=== PATIENT | female | born 1995 | race Caucasian/White ===

== ENCOUNTER 2025-07-13 17:03 | Outpatient (OUT) | payer BC, OTHER, SELFPAY ==
--- OUTSIDE RECORDS SUMMARY | 2025-06-30 16:00 | XMS_ITS | Encounter Summary ---
Author Organization [facility] Address [address] [place] [address] Care Team Providers Care Customer Solutions Representative Name Role Phone Radha Dong MD Primary Care Provider [phone] Charissa Glover DINING ROOM ATTENDANT Unavailable Encounter Details Date Type Department Care Team (Latest Contact Info) Description 06/30/2025 4:00 PM EDT Routine [facility] [address] [place] [address] Rosalind Mendoza, ARLINE [address] [place] [address] Itching (Primary Dx); NST (non-stress test) reactive ([facility]); History of gestational diabetes; Encounter for care of first , third trimester ([facility]) Social History Tobacco Use Types Packs/Day Years Used Date Smoking Tobacco: Former Cigarettes Smokeless Tobacco: Never Alcohol Use Standard Drinks/Week Comments Not Currently 4 (1 standard drink = 0.6 oz pure alcohol) caffeine 1-2 cups per day; drinks alcohol 2-4 times a month B1300 Health Literacy Answer Date Recor ded How often do you need to hav e someone help you when you read instructions, pamphlets, or other written material from your doctor or pharmacy? Never 07/29/2024 Humiliation, Afraid, Rape, and Kick questionnair e Answer Date Recorded Within the last year, have y ou been afraid of your partner or ex-partner? No 05/18/2023 Within the last year, have y ou been humiliated or emotionally abused in other ways by your partner or ex-partner? No Within the last year, have y ou been kicked, hit, slapped, or otherwise physically hurt by your partner or ex-partner? No 05/18/2023 Within the last year, have y ou been raped or forced to have any kind of sexual activity by your partner or ex-partner? No 05/18/2023 Social Connection and Isolat ion Panel [NHANES] Answer Date Recorded In a typical week, how many times do you talk on the phone with family, friends, or neighbors? More than three times a week 07/29/2024 How often do you get togethe r with friends or relatives? More than three times a week 07/29/2024 How often do you attend chur or spiritism services? More than 4 times per year 07/29/2024 Do you belong to any clubs o r organizations such as buddhism groups, unions, fraternal or athletic groups, or school groups? No 07/29/2024 How often do you attend meet ings of the clubs or organizations you belong to? Never 07/29/2024 Are you , , di vorced, , never , or living with a partner? Living with partner 07/29/2024 AUDIT-C Answer Date Recorded Q1: How often do you have a drink containing alc ohol? 2-4 times a month 07/29/2024 Q2: How many drinks containi ng alcohol do you have on a typical day when you are drinking? 1 or 2 07/29/2024 Q3: How often do you have si x or more drinks on one occasion? Never 07/29/2024 Overall Financial Resource Strain (CARDIA) Answe r Date Recorded How hard is it for you to pa y for the very basics like food, housing, medical care, and heating? Not hard at all 07/29/2024 [facility] [place] [facility] Occupat ional Health - Occupational Stress Questionnaire Answer Date Recorded Do you feel stress - tense, restless, nervous, or anxious, or unable to sleep at night because your mind is troubled all the time - these days? Not at all 07/29/2024 Exercise Vital Sign Answer Date Recorde d On average, how many days pe r week do you engage in moderate to strenuous exercise (like a brisk walk)? 7 days 07/29/2024 On average, how many minutes do you engage in exercise at this level? 30 min 07/29/2024 Hunger Vital Sign Answer Date Recorded Within the past 12 months, y ou worried that your food would run out before you got the money to buy more. Never true 07/29/20 24 Within the past 12 months, t he food you bought just didn't last and you didn't have money to get more. Never true 07/29/2024 PRAPARE - Transportation Answer Date Re corded In the past 12 months, has l ack of transportation kept you from medical appointments or from getting medications? No 10/2023 In the past 12 months, has l ack of transportation kept you from meetings, work, or from getting things needed for daily living? No 07/29/2024 Housing Stability Vital Sign Answer Gary e Recorded In the last 12 months, was t here a time when you were not able to pay the mortgage or rent on time? No 05/18/2023 In the last 12 months, how many places have you lived? 1 05/18/2023 In the last 12 months, was t here a time when you did not have a steady place to sleep or slept in a alf (including now)? No 05/18/2023 Housing Stability Vital Sign Answer Gary e Recorded In the last 12 months, was t here a time when you were not able to pay the mortgage or rent on time? No 07/29/2024 In the past 12 months, how m any times have you moved where you were living? 0 07/29/2024 At any time in the past 12 m [facility], were you homeless or living in a alf (including now)? No 07/29/2024 Estimated Date of Delivery Comme nts Yes 08/13/2025 Based on last me nstrual period of 11/06/2024 (Exact Date) Sex and Gender Information Value Date Recorded Sex Assigned at Female 05/18/2023 2:07 PM EDT Legal Sex Female 8:11 PM EDT Gender Identity Female 05/18/2023 2:07 PM EDT Sexual Orientation Straight 05/18/2023 2: 07 PM EDT documented as of this encounter Last Filed Vital Signs Vital Sign Reading Time Taken Comments Blood Pressure - - Pulse - - Temperature - - Respiratory Rate - - Oxygen Saturation - - Inhaled Oxygen Concentration - - Weight 87.5 kg (193 lb) 06/30/2025 3:57 PM EDT Height - - Body Mass Index 34.19 07/29/2024 11:21 AM EDT documented in this encounter Progress Notes * Rosalind Mendoza CNM - 06/30/2025 4:00 PM EDT Subjective No chief complaint on file. Martha Dejesus is a 30 y.o. at 33w5d with a working estimated date of delivery of 08/13/2025, by Last Menstrual Period who presents for a routine visit. She denies vaginal bleeding, leakage of fluid, decreased movements, or contractions. OB History Para Term AB Living 1 SAB IAB Ectopic Multiple Live Births # Outcome Date GA Lbr Freedom/2nd Weight Sex Type Anes PTL Lv 1 Current Her is complicated by: GDM, itching Objective Physical Exam Weight: 193 lb Expected Total Weight Gain: 15 lb-25 lb Pregravid BMI: 29.94 Urine protein- Urine glucose- Assessment/Plan Diagnoses and all orders for this visit: Itching - Hepatic function panel - Lipase; Future - Bile acids, total - Amylase; Future - ursodiol (Caron Forte) 500 MG tablet; Take 0.5 tablets (250 mg) by mouth in the morning and 0.5 tablets (250 mg) before bedtime. NST (non-stress test) reactive ([facility]) History of gestational diabetes Encounter for care of first , third trimester ([facility]) Continue vitamin. Labs reviewed. GBS taken. Expected mode of delivery Follow up in 1 week for a routine visit. documented in this encounter Plan of Treatment Upcoming Encounters Date Type Department Care Team (Late st Contact Info) Description 07/15/2025 11:10 AM EDT Routine [facility] [place] [facility] [address] [place] [address] [place] [address] Gavi, Vicente, [address] [place] [address] 07/16/2025 4:15 PM EDT Ancillary Procedure [facility] [place] [facility] [address] [place] [address] 07/23/2025 4:00 PM EDT Ancillary Procedure [facility] [place] [facility] [address] [place] [address] 07/27/2025 4:30 PM EDT Routine [facility] [place] [facility] [address] [place] [address] Rosalind Mendoza, KIMM [address] [place] [address] 07/30/2025 4:15 PM EDT Ancillary Procedure [facility] [place] [facility] [address] [place] [address] 08/06/2025 4:15 PM EDT Ancillary Procedure [facility] [place] [facility] [address] [place] [address] 08/10/2025 4:30 PM EDT Routine [facility] [place] [facility] [address] [place] [address] Rosalind Mendoza CNM [address] [place] [address] documented as of this encounter Procedures Procedure Name Priority Date/Time Associated Diagnosis Comments BILE ACIDS, TOTAL Routine 06/30/2025 4:1 1 PM EDT Itching LIPASE Routine 06/30/2025 4:11 PM EDT Itching AMYLASE Routine 06/30/2025 4:11 PM EDT Itching HEPATIC FUNCTION PANEL Routine 06/30/2025 4:11 PM EDT Itching documented in this encounter Results * Amylase (06/30/2025 4:11 PM EDT) AMYLASE 40 21 - 101 U/L [facility] Blood Venous blood specimen / Unknown 06/30/2025 4:11 PM EDT 06/30/2025 4:12 PM EDT Narrative Resulting Agency Comment Performing Organization Information Site ID: QPT Name: [facility] Address: [address] [place] [address], [address] [place] [address] Director: Stevie Doan MD us Rosalind Danielle [facility]endo[facility] BLOOD ORDERABLES Final R esult Performing Organization Address [facility] Co de Phone Number [facility] * Bile acids, total (06/30/2025 4:11 PM EDT) BILE ACIDS, TOTAL 6 0 - 10 umol/L [facility] Blood Venous blood specimen / Unknown 06/30/2025 4:11 PM EDT 06/30/2025 4:12 PM EDT Narrative Resulting Agency Comment Performing Organization Information Site ID: AMD Name: [facility] Address: [address] [place] [address] [place] [address] Director: Anthony De La Paz M.D.,PhD us Rosalindgracie Mendoza [facility] BLOOD ORDERABLES Final R esult Performing Organization Address [facility] Co de Phone Number [facility] * Lipase (06/30/2025 4:11 PM EDT) LIPASE 38 7 - 60 U/L [facility] Blood Venous blood specimen / Unknown 06/30/2025 4:11 PM EDT 06/30/2025 4:12 PM EDT Narrative Resulting Agency Comment Performing Organization Information Site ID: QPT Name: [facility] Address: [address] [place] [address], [address] [place] [address] Director: Stevie Doan MD Rosalind Danielle [facility] LAB BLOOD ORDERABLES Final R esult [facility] * (ABNORMAL) Hepatic function panel (06/30/2025 4:11 PM EDT) PROTEIN, TOTAL 6.0(L) 6.1 - 8.1 g/dL [facility] ALBUMIN 3.3(L) 3.6 - 5.1 g/dL [facility] GLOBULIN 2.7 1.9 - 3.7 g/dL (calc) [facility] ALBUMIN/GLOBULIN RATIO 1.2 1.0 - 2.5 (calc) [facility] BILIRUBIN, TOTAL 0.2 0.2 - 1.2 mg/dL [facility] BILIRUBIN, DIRECT 0.0 < OR = 0.2 mg/dL [facility] BILIRUBIN, INDIRECT 0.2 0.2 - 1.2 mg/dL (calc) [facility] ALKALINE PHOSPHATASE 105 31 - 125 U/L [facility] AST 11 10 - 30 U/L [facility] ALT 11 6 - 29 U/L [facility] Blood Venous blood specimen / Unknown 06/30/2025 4:11 PM EDT 06/30/2025 4:12 PM EDT Narrative Resulting Agency Comment Performing Organization Information Site ID: QPT Name: [facility] Address: [address] [place] [address], [address] [place] [id number] Director: Stevie Doan MD Rosalind Danielle Charlton[facility] CN LAB BLOOD ORDERABLES Final R esult [facility] documented in this encounter Visit Diagnoses Diagnosis Itching- Primary Unspecified pruritic disorder NST (non-stress test) reactive ([facility]) state, incidental History of gestational diabetes Personal history of other genital system and obstetric disorders Encounter for care of first , third trimester ([facility]) documented in this encounter Care Teams Customer Solutions Representative Relationship Specialty Start Date End Date Radha Dong MD [address] [place] [address] PCP - General Family Medicine 05/19/23 Charissa Glover NP PCP - [employer] 01/27/25 documented as of this encounter
--- OUTSIDE RECORDS SUMMARY | 2025-07-01 14:30 | XMS_ITS | Encounter Summary ---
Author Organization [facility] tem Address [id number] [address] [place] [address] Care Team Providers Care Powder Monkey Name Role Phone Melia Henriquez HOUSE BUILDER-COMPUTER FIELD TECHNICIAN Primary Care Provider [phone] Reason for Referral * Consultation (Routine) - Pending Review Specialty Diagnoses / Procedures Referred By Angelina bond Referred To Contact Dermatology Diagnoses Blister of hand without infection, unspecified laterality, subsequent encounter Dyshidrotic eczema Dorita Retana MD [address] [place] [address] Phone: tel: fax: Tiara Hawkins DO [address] [facility] [address] [place] [address] Phone: tel: fax: Referral ID Status Reason Start Date Expiration Date Visits Requested Visits Authorized [id number] Pending Review Specialty Services Required 07/01/2025 07/01/2026 1 1 Reason for Visit * Reason Comments GDM, med start Encounter Details Date Type Department Care Team ([facility] st Contact Info) Description 07/01/2025 2:30 PM EDT Office Visit Maternal- Medicine at [facility] [address] [place] [id number] Dorita Retana MD [address] [place] [address] Insulin controlled gestational diabetes mellitus (GDM) during , antepartum (Primary Dx); Blister of hand without infection, unspecified laterality, subsequent encounter; Dyshidrotic eczema; Obesity affecting in third trimester, unspecified obesity type; 33 weeks gestation of Social History Tobacco Use Types Packs/Day Years Used Date Smoking Tobacco: Former Cigarettes Passive Smoke Exposure: Past Smokeless Tobacco: Never Tobacco Cessation:Counseling Given: Not Answered Alcohol Use Standard Drinks/Week Comments Not Currently 0 (1 standard drink = 0.6 oz pur e alcohol) Childcare Answer Date Recorded Childcare Unknown 04/09/2019 Employment Answer Date Recorded Employment Unknown 04/09/2019 Hunger Screening Answer Date Recorded Within the past 12 months we worried whether our food would run out before we got money to buy more. Never True 11/25/2023 Within the past 12 months th e food we bought just didn't last and we didn't have money to get more. Never True 11/25/2023 Estimated Date of Delivery Comme nts Yes 08/13/2025 Based on last me nstrual period of 11/06/2024 Sex and Gender Information Value Date Recorded Sex Assigned at Not on file Legal Sex Female 3:58 PM EDT Gender Identity Not on file Sexual Orientation Not on file documented as of this encounter Last Filed Vital Signs Vital Sign Reading Time Taken Comments Blood Pressure 127/75 07/01/2025 2:21 PM EDT Pulse 83 07/01/2025 2:21 PM EDT Temperature - - Respiratory Rate - - Oxygen Saturation - - Inhaled Oxygen Concentration - - Weight 86.3 kg (190 lb 3.2 oz) 07/01/2025 2:21 P M EDT Height 160 cm (5' 2.99 ) 07/01/2025 2:21 PM EDT Body Mass Index 33.7 07/01/2025 2:21 PM EDT documented in this encounter Progress Notes * Marci Vences LPN - 07/01/2025 2:30 PM EDT Headache/epigastric pain/blurry vision/swelling? No Cramping/contractions? No Spotting/vaginal bleeding? No Loss or gush of fluid like your water may have broken? No Do you have cats at home? Yes Do you change the litter box (reason: risk of toxoplasmosis)? Yes, educated on avoiding if possible, wearing mask and gloves and good hand washing. Indoor cats. Genetic testing done this here or other office? No Have you been seen here at [facility] in a previous ? N/A Recent ER visits or hospitalizations? No Bring blood sugar log or meter with you today? (Please bring them with you for every visit at [facility]) Yes Flu vaccine (Aug-December)? N/A Any concerns that you would like me to mention to the provider today? Itching on hands and feet, sent for labs yesterday drawn through [facility] new order for Ursodiol 250mg BID. Verbal permission received for us to obtain results. * Dorita Retana MD - 07/01/2025 2:30 PM EDT Images from the original note were not included. REASON FOR CONSULTATION: Gestational diabetes HISTORY OF PRESENT ILLNESS: Martha Dejesus is a pleasant 30 y.o. at 33w6d due on EstimatedDate of Delivery: 08/13/25. complicated by: GDMA, 05/12/2025 A1c 4.8% Obesity affecting Pruritus of hands and feet with associated tiny vesicles, likely acute palmoplantar eczema Review of blood glucose logs with fastings elevated 50% of time. Today, the patient is doing well. She continues to report intense itching of the hands and feet that is started about 2 weeks ago. This is acute onset. The itching is associated with tiny vesicles with clear fluid that are tense and primarily located in the lateral aspect of the hands. Primary OB yesterday suspected intrahepatic cholestasis of , labs pending include bile acids and hepatic panel. Patient was prescribed ursodiol, has not yet picked up prescription. She denies headaches, vision changes, nausea, vomiting, right upper quadrant or epigastric pain, SOB or chest pain. She denies contractions, vaginal bleeding, leaking of fluid. She reports good fetalmovement. Aneuploidy screening: none Carrier screening: I have reviewed the pertinent available patient records including but not limited to notes, labs and images. PAST OBSTETRICAL HISTORY: OB History Para Term AB Living 1 0 0 0 0 SAB IAB Ectopic Multiple Live Births 0 0 0 # Outcome Date GA Lbr Freedom/2nd Weight Sex Type Anes PTL Lv 1 Current MEDICAL HISTORY: Past Medical History: Diagnosis Date Hx of Cystitis SURGICAL HISTORY: History reviewed. No pertinent surgical history. FAMILY/GENETIC HISTORY: Family History Problem Relation Age of Onset Diabetes Paternal Grandfather Kidney disease Paternal Grandfather Cancer Paternal Grandmother breast cancer postmenopausal Hypertension Mother Eczema Mother Hypertension Brother Diabetes Brother Insulin resistant on metformin Diabetes Sister T1DM Autoimmune disease Sister Autism Neg Hx Developmental delay Neg Hx Down syndrome Neg Hx Bleeding Disorder Neg Hx Clotting disorder Neg Hx Heart defect Neg Hx Sudden Neg Hx SOCIAL HISTORY: Social History Tobacco Use Smoking status: Former Types: Cigarettes Passive exposure: Past Smokeless tobacco: Never Vaping Use Vaping status: Former Substances: Nicotine Devices: Disposable Substance Use Topics Alcohol use: Not Currently Drug use: Never ALLERGIES: No Known Allergies CURRENT MEDICATIONS: Current Outpatient Medications: alcohol swabs (ALCOHOL WIPES) pads, medicated, Apply 1 each topically in the morning and 1 each at noon and 1 each in the evening and 1 each before bedtime. Use to clean finger before every glucose check ., Disp: , Rfl: blood-glucose meter misc, 1 each by miscellaneous route in the morning and 1 each at noon and 1 each in the evening and 1 each before bedtime. Use to check blood glucose 4 times daily., Disp: , Rfl: 115/iron/folic acid ( 19 ORAL), Take by mouth., Disp: , Rfl: ursodioL (OMAR FORTE) 500 mg tablet, Take 0.5 tablets (250 mg total) by mouth in the morning and 0.5 tablets (250 mg total) before bedtime., Disp: , Rfl: ondansetron ODT (ZOFRAN ODT) 4 mg disintegrating tablet, Dissolve 1 tablet (4 mg total) on tongue every 8 (eight) hours as needed for nausea for up to 10 doses. (Patient not taking: Reported on 07/01/2025), Disp: 10 tablet, Rfl: 0 RECENT HOSPITALIZATION: none HABITS: Patient activity no restrictions, diet no restrictions REVIEW OF SYSTEMS: Head and Neck: Negative for any dizziness and headaches. Cardiovascular and Respiratory System: Denies any chest pain, shortness of breath, and coughing. Abdominal and System: Denies any abdominal pain, nausea, vomiting, vaginal bleeding, and vaginal discharge REVIEW OF TESTS AND ULTRASOUND REPORTS: Referral records and [facility] chart were reviewed Pertinent Ultrasound findings are see formal ultrasound report. PHYSICAL EXAMINATION: BP 127/75 (BP Site: Left Arm, BP Postition: Sitting) Pulse 83 Ht 160 cm (5' 2.99 ) Wt 86.3 kg (190 lb 3.2 oz) LMP 11/06/2024 BMI 33.70 kg/m?? Well-appearing in no distress. Respirations not labored, speaking comfortably in full sentences Gravid abdomen OVERALL ASSESSMENT -Martha Dejesus is a pleasant 30 y.o. at 33w6d -GDM A2 -obesity affecting -pruritus of hands and feet, likely acute palmar plantar eczema COUNSELING/MEDICAL DECISION-MAKING GDMA Gestational diabetes is a is a state of carbohydrate intolerance with subsequently insulin resistance and hyperglycemia. This is a malfunction or dysfunction of glucose sensors in the liver with inappropriate release of glucose followed by hyperinsulinemia followed by normal insulin secretion and th en relatively deficiency in insulin secretion resulting in both hyperglycemia and associated hypertriglyceridemia. This along with placental hormones such as human placental lactogen and TNF alpha cause hyperglycemia. The patient eventually develops insulin resistance and hyperglycemia, thus the patient's insulin is not sufficient to achieve a normal glycemic state. I informed the patient that maternal hyperglycemia results in hyperglycemia leading to adverse outcomes in the growth and development. We reviewed the implications and risks of diabetes in . Diabetes in is associated with poorer outcomes if blood glucose levels are not well controlled. Potential effects of uncontrolled diabetes , or hyperglycemia, include: maternal risks (abnormal labors, prolonged labors, delivery, hemorrhage), risks (LGA profile, shoulder dystocia, stillbirth, delayed lung maturation) and subsequent risks ( hypoglycemia, polycythemia, hyperbilirubinemia with jaundice, seizures) In addition, women with diabetes in are at increased risk of developing hypertension diseases in ,such as gestational hypertension, or preeclampsia. Patient was explained that the high risk of shoulder dystocia in fetuses with EFW 4500 gm or higher. Long-term risk to offspring from poor maternal glycemic control include: obesity, cardiovascular disease, impaired glucose tolerance and Type 2 diabetes. Treatment for diabetes in : Lifestyle modification with a healthy diet and increasing physical activity can help manage hyperglycemia, and is therefore always encouraged. We briefly discussed diet modifications and physical activity. The mainstay of pharmacotherapy for the treatment of diabetes in remains insulin. Oral hypoglycemics, such as metformin, both cross the placenta and are more likely to fail compared to insulin. longterm data on children whose mothers took oral hypoglycemic agents while is limited. Medication is typically initiated when >20-30% of the blood glucose values in one week are outof range. Risks and side effects of both insulin and oral agents were discussed. In discussion of the above, patients opts to initiate insulin. Glucose goals in : Fasting 60 - 95: Mean fasting glucose values are important in managing diabetes in women because they provide overall glycemic estimate, and are predictive of increased fat mass in the women???s offspring. Increased fat mass has been shown to be associated with the development of childhood obesity, and diabetes. One hour postprandial 90 - 140: Postprandial measurements are important in management of diabetes in because they are associated with incidence of large for gestational age infants, and lower rates of delivery for cephalopelvic disproportion when well controlled. Pruritus of hands and feet, likely acute palmar plantar eczema The itching is associated with tiny vesicles with clear fluid that are tense and primarily located in the lateral aspect of the hands. Primary OB yesterday suspected intrahepatic cholestasis of , labs pending include bile acids and hepatic panel. Patient was prescribed ursodiol, has not yet picked up prescription. We reviewed the differential of acute onset pruritus of hands and feet in which includes intrahepatic cholestasis of . However intrahepatic cholestasis of has a diagnosisof exclusion and is not associated with visible lesions including vesicles. The most likely etiology for the patient's pruritus of hands and feet is acute palmar plantar eczema. This typically presents as acute onset intense pruritus with lesions of tiny vesicles on lateral aspects of fingers, which she is consistent with the patient's history and exam findings (see above). We reviewed avoiding irritants including changing to soft detergents and non fragrance lotions. Given the intense itching,I initiated patient on clobetasol ointment 0.5%. In addition, referral to Dermatology was placed. We discussed that though ICP remains in the differential, this is unlikely. The pruritus in ICP canprecede the rise in serum bile acid levels by several weeks. Without confirmed elevated bile acids,I do not recommend starting ursodiol. If UDCA is started empirically at the time testing is performed and before the results are available, it is possible that elevated bile acid levels or transaminase levels may never be detected. UMMARY/RECOMMENDATION: Initiated on lantus 10 units nightly Recommend monitoring fingersticks 4 times daily, fasting and 1 hour postprandials Send in blood glucose logs for review weekly Discontinued ursodiol Laboratory workup pending including hepatic panel and bile acids Initiated on clobetasol 0.5% ointment for suspected acute palmar plantar eczema If symptoms do not improve with the clobetasol, repeat bile acids in 2 weeks, through primary OB Anatomy ultrasound with MFM and growth ultrasound to be scheduled Recommend serial growth ultrasounds every 4 weeks Recommend weekly testing, through primary OB Delivery recommendations : Recommend delivery at [id number] Discuss delivery if estimated weight is >4500g Use 1/2 dose of insulin the night before her planned delivery. Monitor patient's BG every 4hrs during latent labor, every 1 hr during active labor with goal BG maricarmen less than 140mg/dl. Can use insulin sliding scale prn hyperglycemia. Once delivered, check bloodglucose fasting and 1hr post prandial, with goal of 100-130mg/dl for fasting and <180mg/dl for random or post prandial blood glucose levels Obtain a 2-hour GTT 6-8 weeks . Also recommend yearly evaluation of blood glucose as patient is at an increased risk of developing diabetes later on. Follow up in [facility] in 2-3 weeks DISPOSITION: At this point the patient is in complete care of her development mgr. Patient does have ultrasound and office visit scheduled with us. Thank you for allowing me to participate in the care of Martha Dejesus. If there any questions please do not hesitate to contact us. Dorita Retana MD Maternal- Medicine [facility] [address] [place] [address] This document was created with [employer] technology. Though I make every effort to review the dictation as it is transcribed, on occasion the spoken word can be misinterpreted by the technology leading to inappropriate words, phrases, or sentences. This note is addressed to the requesting provider as a consultation for clinical guidance. Specificmedical abbreviations are occasionally used and those are generally approved by the [place]?Board of?Obstetrics and?Gynecology?as well as?Darline???s abbreviations. The above plan of care was based solely on the diagnoses for which a consultation was requested. ?More frequent testing may be indicated based on her other medical/obstetrical conditions. The management of other or medical conditions is beyond the scope of requested consultation and will c ontinue to be followed by the primary development mgr or primary care provider. Note to patient: The Cures Act makes medical notes like these available to patients inthe interest of transparency. However, be advised this is a medical document. It is intended as peer to peer communication. It is written in medical language and may contain abbreviations or verbiagethat are unfamiliar. It may appear blunt or direct. Medical documents are intended to carry relevant information, facts as evident, and the clinical opinion of the practitioner. documented in this encounter Plan of Treatment Upcoming Encounters Date Type Department Care Team (Late st Contact Info) Description 07/21/2025 8:00 AM EDT Office Visit Maternal- Medicine at [facility] [address] [place] [phone] Dorita Retana MD [address] [place] [address] 07/28/2025 9:15 AM EDT Appointment [facility] - Ultrasound [address] [place] [address] Scheduled Referrals Name Type Priority Associated Diagnoses Order Schedule Ambulatory referral to Dermatology (Non-[facility]) Outpatient Referral Routine Blister of hand without infection, unspecified laterality, subsequent encounter Dyshidrotic eczema 1 Occurrences starting 07/01/2025 until 07/01/2026 documented as of this encounter Visit Diagnoses Diagnosis Insulin controlled gestational diabetes mellitus (GDM) during , antepartum- Primary Blister of hand without infection, unspecified laterality, subsequent encounter Dyshidrotic eczema Obesity affecting in third trimester, unspecified obesity type 33 weeks gestation of documented in this encounter Care Teams Powder Monkey Relationship Specialty Start Date End Date Melia Henriquez APRN-COMPUTER FIELD TECHNICIAN [address] [place] [address] PCP - General Nurse Practitioner 11/25/23 documented as of this encounter
--- OUTSIDE RECORDS SUMMARY | 2025-07-02 16:15 | XMS_ITS | Encounter Summary ---
Author Organization [facility] Address [address] [place] [address] Care Team Providers Care Typewriter Ribbon Winder Name Role Phone Radha Dong MD Primary Care Provider [phone] Charissa Glover SIGNAL CIRCUIT DESIGNER Unavailable Encounter Details Date Type Department Care Team (Latest Contact Info) Description 07/02/2025 4:15 PM EDT Ancillary Procedure [facility] [address] [place] [address] Diet controlled gestational diabetes mellitus (GDM) in third trimester ([facility]) Social History Tobacco Use Types Packs/Day Years [...] How often do you attend chur or samaritan services? More than 4 times per year 07/29/2024 Do you belong to any clubs o r organizations such as anabaptist groups, unions, fraternal or athletic groups, or [...] and heating? Not hard at all 07/29/2024 [facility] - Occup[facility] Stress [...] place to sleep or slept in a residential (including now)? No 05/18/2023 Housing Stability Vital Sign Answer Gary e Recorded In the last 12 months, was t here a time when you were not able to pay the mortgage or rent on time? No 07/29/2024 In the past 12 months, how m any times have you moved where you were living? 0 07/29/2024 At any time in the past 12 m [facility], were you homeless or living in a residential (including now)? No 07/29/2024 Estimated Date of Delivery Comme nts Yes 08/13/2025 Based on last me nstrual period of 11/06/2024 (Exact Date) Sex and Gender Information Value Date Recorded Sex Assigned at Female 05/18/2023 2:07 PM EDT Legal Sex Female 8:11 PM EDT Gender Identity Female 05/18/2023 2:07 PM EDT Sexual Orientation Straight 05/18/2023 2: 07 PM EDT documented as of this encounter Plan of Treatment Upcoming Encounters Date Type Department Care Team (Late st Contact Info) Description 07/15/2025 11:10 AM EDT Routine [facility] [address] [place] [address] [place] [address] Vicente Gatica, [address] [place] [address] 07/16/2025 4:15 PM EDT Ancillary Procedure [facility] [address] [facility] [address] [place] [address] 07/23/2025 4:00 PM EDT Ancillary Procedure [facility] [address] [facility] [address] [place] [address] 07/27/2025 4:30 PM EDT Routine [facility] [address] [facility] [place] [address] Rosalind Mendoza CNM [address] [place] [facility] [place] [address] 07/30/2025 4:15 PM EDT Ancillary Procedure [facility] [address] [facility] [address] [place] [address] 08/06/2025 4:15 PM EDT Ancillary Procedure [facility] [address] [facility] [address] [place] [address] 08/10/2025 4:30 PM EDT Routine [facility] [address] [facility] [place] [address] Rosalind Mendoza CNM [address] [facility] [place] [address] Pending Results Name Type Priority Associated Diagnoses Date /Time US OB follow up transabdominal approach Imaging Routine Diet controlled gestational diabetes mellitus (GDM) in third trimester ([facility]) 07/02/2025 4:45 PM EDT documented as of this encounter Visit Diagnoses Diagnosis Diet controlled gestational diabetes mellitus (GDM) in third trimester ([facility]) documented in this encounter Care Teams Typewriter Ribbon Winder Relationship Specialty Start Date End Date Radha Dong MD [address] [place] [facility] [place] [address] PCP - General Family Medicine 05/19/23 Charissa Glover NP PCP - Jose Chopra 01/27/25 documented as of this encounter
--- OUTSIDE RECORDS SUMMARY | 2025-07-03 08:53 | XMS_ITS | Encounter Summary ---
Author Organization [employer] tem Address [id number] [address] [place] [address] Care Team Providers Care Mapping Specialist Name Role Phone Melia Henriquez HENRY-PRODUCT DEVELOPMENT ENGINEER Primary Care Provider [phone] Reason for Visit * Diagnostic Imaging (Routine) - Pending Review Specialty Diagnoses / Procedures Referred By Angelina bond Referred To Contact Maternal and Medicine Diagnoses Blister of hand without infection, unspecified laterality, subsequent encounter Dyshidrotic eczema Insulin controlled gestational diabetes mellitus (GDM) during , antepartum Obesity affecting in third trimester, unspecified obesity type Procedures US MFM with or without consult US MFM with or without consult Geovani Luna MD [address], [address] [place] [address] Phone: tel: fax: Maternal- Medicine at [facility] [address] [place] [address] Phone: tel: fax: Referral ID Status Reason Start Date Expiration Date V isits Requested Visits Authorized [id number] Pending Review 07/01/2025 07/01/2026 1 1 Encounter Details Date Type Department Care Team (Latest Contact Info) Description 07/03/2025 8:53 AM EDT - 07/03/2025 11:59 PM EDT Hospital Encounter [facility] - MFM US Imaging [address] [place] [address] Blister of hand without infection, unspecified laterality, subsequent encounter; Dyshidrotic eczema; Insulin controlled gestational diabetes mellitus (GDM) during , antepartum; Obesity affecting in third trimester, unspecified obesity type Discharge Disposition: Home Social History Tobacco Use Types Packs/Day Years Used Date Smoking Tobacco: Former Cigarettes Passive Smoke Exposure: Past Smokeless Tobacco: Never Alcohol Use Standard Drinks/Week [...] on file documented as of this encounter Medications at Time of Discharge alcohol swabs (ALCOHOL WIPES) pads, medicated Apply 1 each topically in the morning and 1 each at noon and 1 each in the evening and 1 each before bedtime. Use to clean finger before every glucose check . blood-glucose meter misc 1 each by miscellaneous route in the morning and 1 each at noon and 1 each in the evening and 1 each before bedtime. Use to check blood glucose 4 times daily. clobetasoL (TEMOVATE) 0.05 % ointmentIndications :Blister of hand without infection, unspecified laterality, subsequent encounter,Dyshidrot ic eczema Apply a thin layer to the affected areas twice daily. 30 g 5 07/15/20 25 ondansetron ODT (ZOFRAN ODT) 4 mg disintegrating tablet Dissolve 1 tablet (4 mg total) on tongue every 8 (eight) hours as needed for nausea for up to 10 doses. 10 tablet 4 pen needle, diabetic (BD ULTRA-FINE SHORT PEN NEEDLE) 31 gauge x 5/16 needleIndications:I nsulin controlled gestational diabetes mellitus (GDM) during , antepartum Use daily for insulin 100 each 2 5 115/iron/folic acid ( 19 ORAL) Take by mouth. insulin glargine (LANTUS SOLOSTAR U-100 INSULIN) 100 unit/mL (3 mL) insulin penIndications:Insu indra controlled gestational diabetes mellitus (GDM) during , antepartum Inject 10 units nightly in subcutaneous space, prime 2 units 15 mL 3 5 07/07/20 25 documented as of this encounter Plan of Treatment Upcoming Encounters Date Type Department Care Team (Late st Contact Info) Description 07/21/2025 8:00 AM EDT Office Visit Maternal- Medicine at [facility] [address] [place] [address] Dorita Retana MD [address] [facility] 1st [place] [address] 07/28/2025 9:15 AM EDT Appointment [facility] - Ultrasound [address] [place] [address] documented as of this encounter Procedures Procedure Name Priority Date/Time Associated Diagnosis Comments US [facility] COMPREHENSIVE ANATOMIC SURVEY Routine 07/03/2025 10:59 AM EDT Blister of hand without infection, unspecified laterality, subsequent encounter Dyshidrotic eczema Insulin controlled gestational diabetes mellitus (GDM) during , antepartum Obesity affecting in third trimester, unspecified obesity type documented in this encounter Results * US [facility] COMPREHENSIVE ANATOMIC SURVEY (07/03/2025 10:59 AM EDT) Anatomical Region Laterality Modality OB-IT SECURITY CONSULTING DIRECTOR Ultrasound 07/03/2025 9:35 AM EDT Narrative 07/03/2025 12:12 PM EDT NAME: KING NELLA BERRY : 1995 SEX: F Accession Number: [id number] ORDERING PHYSICIAN: GEOVANI LUNA REFERRING PHYSICIAN: TOM KAMINSKI Coding ----- --------- Procedures [id number]: Ultrasound, uterus, real time with image documentation, and maternal evaluation plus detailed anatomic examination, transabdominal approach;single or first gestation [id number]: Transvaginal Ultrasound (OB) Indication ----- --------- Screening for Anatomic Survey , Screening for cervical length , Gestational diabetes. History ----- --------- OB History 1. Para 0 [id number] Maternal Assessment ----- --------- Physical Exam Height 160 cm, 5 ft 3 in. Weight 86 kg, 189 lb. Initial weight 77 kg, 169 lb. BMI 33.48 kg/m . Initial BMI 29.94 kg/m . Weight gain 9 kg, 20 lb Method ----- --------- Transabdominal and transvaginal ultrasound examination. View: Suboptimal view: limited by late gestational age and position. Images of optimal diagnostic quality could not be obtained. ----- --------- Hodge . Number of fetuses: 1 Dating ----- --------- LMP on: 11/06/2024 GA by LMP 34 w + 1 d KAYCEE by LMP: 08/13/2025 Previous Ultrasound on: 12/29/2024 Type of prior assessment: GA GA at prior assessment date 8 w + 2 d GA by previous U/S 34 w + 6 d KAYCEE by previous Ultrasound: 08/08/2025 Ultrasound examination on: 07/03/2025 GA by U/S based upon: AC, BPD, Femur, HC GA by U/S 33 w + 1 d KAYCEE by U/S: 08/20/2025 Assigned: based on the LMP, selected on 07/03/2025 Assigned GA (weeks days) 34 w + 1 d Assigned KAYCEE: 08/13/2025 General Evaluation ----- --------- Cardiac activity Present. FHR 161 bpm. Presentation: cephalic Placenta: Placental site: posterior, away from cervical os Umbilical cord: Cord vessels: 3 vessel cord. Insertion site: not examined Amniotic fluid: Amount of AF: normal amount. MVP 5.5 cm Biometry ----- --------- Standard BPD 85.6 mm 34w 4d 59% Hadlock OFD 96.3 mm 31w 1d 3% Estefany HC 289.9 mm 31w 6d <1% Hadlock Cerebellum tr 42.0 mm 33w 1d 17% Hill AC 304.5 mm 34w 3d 62% Hadlock Femur 60.9 mm 31w 4d 2% Hadlock Humerus 56.5 mm 32w 6d 25% Estefany HC / AC 0.97 EFW 2,183 g 24% Hadlock EFW (lb) 4 lb EFW (oz) 13 oz EFW by: Hadlock ([id number]) Extended Tibia 52.9 mm 31w 3d 4% Estefany Entry Level Mechanical Engineer 5.3 mm CM 6.1 mm 16% Nicolaides Head / Face / Neck Cephalic index 0.89 99% Nicolaides Nasal bone: not examined Extremities / Bony Struc FL / BPD 0.71 FL / HC 0.21 FL / AC 0.20 Other Structures FHR 161 bpm Anatomy ----- --------- The following structures appear normal: Head/Neck: Cranium. Lateral ventricles. Cavum septi pellucidi. Cerebellum. Cisterna magna. Parenchyma. Vermis. Heart/Thorax: Situs. Cardiac position. Cardiac axis. Cardiac size. Cardiac rhythm. Abdomen: Abdom. wall. Stomach. Kidneys. Bladder. Small bowel. Large bowel. Genitals. Extremities/Skeleton: Right upper arm. Right forearm. Left upper arm. Left forearm. Right upper leg. Right lower leg. Skeleton The following structures could not be adequately visualized: Heart / Thorax 4-chamber view. RVOT view. 3-vessel view. 8-chyuhu-epnggcj view. Interventricular septum. Diaphragm. Spine: Cervical spine. Thoracic spine. Lumbar spine. Sacral spine. Extremities / Left hand. Skeleton The following structures could not be examined: Head / Neck Choroid plexus. Midline falx. Neck. Face: Lips. Profile. Nose. Nasal bone. Maxilla. Mandible. Orbits. Heart / Thorax LVOT view. Aortic arch view. Bicaval view. Ductal arch view. Great vessels. Right lung. Left lung. Abdomen Cord insertion. Right renal artery. Left renal artery. Extremities / Right hand. Right foot. Left upper leg. Left lower leg. Left foot. Skeleton Maternal Structures ----- --------- Uterus Visualized Cervix Visualized Approach - Transvaginal: Cervical length 2.56 cm Right Ovary Not visualized Left Ovary Not visualized Cul de Sac Visualized. No free fluid visualized Impression ----- --------- Single live intrauterine consistent with 34w 1d with an KAYCEE of 08/13/2025. Normal growth. EFW measures at the 24%, AC measures at the 62%. Transvaginal cervical length measures 2.56 cm. Amniotic fluid MVP measures 5.5 cm. The HC measures less than the 3rd percentile for the gestational age but reference biometric measurement within 2 SD of the mean (Crispin and colleagues, 1984). Recommendations ----- --------- Please see [facility] recommendations from prior clinical and/or ultrasound report documentation. The patient is scheduled in four weeks for follow up growth ultrasound. The patient is scheduled in three weeks for provider visit. Subsequent follow up or other follow up as clinically determined by primary OB provider unless otherwise specified by [facility]. Results forwarded to ordering provider so they can follow up with the patient as necessary. Procedure Note Geovani Luna MD - 07/03/2025 NAME: KING NELLA BERRY : 1995 SEX: F Accession Number: [id number] ORDERING PHYSICIAN: GEOVANI LUNA REFERRING PHYSICIAN: TOM KAMINSKI Coding ----- --------- Procedures [id number]: Ultrasound, uterus, real time with imagedocumentation, and maternal evaluation plus detailed anatomic examination, transabdominalapproach;single or first gestation [id number]: Transvaginal Ultrasound (OB) Indication ----- --------- Screening for Anatomic Survey , Screening for cervical length ,Gestational diabetes. History ----- --------- OB History 1. Para 0 [id number] Maternal Assessment ----- --------- Physical Exam Height 160 cm, 5 ft 3 in. Weight 86 kg, 189 lb. Initialweight 77 kg, 169 lb. BMI 33.48 kg/m . Initial BMI 29.94 kg/m . Weight gain 9 kg, 20 lb Method ----- --------- Transabdominal and transvaginal ultrasound examination. View: Suboptimalview: limited by late gestational age and position. Images of optimal diagnostic quality could not be obtained. ----- --------- Hodge . Number of fetuses: 1 Dating ----- --------- LMP on: 11/06/2024 GA by LMP 34 w + 1 d KAYCEE by LMP: 08/13/2025 Previous Ultrasound on: 12/29/2024 Type of prior assessment: GA GA at prior assessment date 8 w + 2 d GA by previous U/S 34 w + 6 d KAYCEE by previous Ultrasound: 08/08/2025 Ultrasound examination on: 07/03/2025 GA by U/S based upon: AC, BPD, Femur, HC GA by U/S 33 w + 1 d KAYCEE by U/S: 08/20/2025 Assigned: based on the LMP, selected on 07/03/2025 Assigned GA (weeks days) 34 w + 1 d Assigned KAYCEE: 08/13/2025 General Evaluation ----- --------- Cardiac activity Present. FHR 161 bpm. Presentation: cephalic Placenta: Placental site: posterior, away from cervical os Umbilical cord: Cord vessels: 3 vessel cord. Insertion site: notexamined Amniotic fluid: Amount of AF: normal amount. MVP 5.5 cm Biometry ----- --------- Standard BPD 85.6 mm 34w 4d 59% Hadlock OFD 96.3 mm 31w 1d 3% Estefany HC 289.9 mm 31w 6d <1% Hadlock Cerebellum tr 42.0 mm 33w 1d 17% Hill AC 304.5 mm 34w 3d 62% Hadlock Femur 60.9 mm 31w 4d 2% Hadlock Humerus 56.5 mm 32w 6d 25% Estefany HC / AC 0.97 EFW 2,183 g 24% Hadlock EFW (lb) 4 lb EFW (oz) 13 oz EFW by: Hadlock ([id number]) Extended Tibia 52.9 mm 31w 3d 4% Estefany Entry Level Mechanical Engineer 5.3 mm CM 6.1 mm 16% Nicolaides Head / Face / Neck Cephalic index 0.89 99% Nicolaides Nasal bone: not examined Extremities / Bony Struc FL / BPD 0.71 FL / HC 0.21 FL / AC 0.20 Other Structures FHR 161 bpm Anatomy ----- --------- The following structures appear normal: Head/Neck: Cranium. Lateral ventricles. Cavum septi pellucidi. Cerebellum.Cisterna magna. Parenchyma. Vermis. Heart/Thorax: Situs. Cardiac position. Cardiac axis. Cardiac size. Cardiacrhythm. Abdomen: Abdom. wall. Stomach. Kidneys. Bladder. Small bowel. Large bowel.Genitals. Extremities/Skeleton: Right upper arm. Right forearm. Left upper arm. Leftforearm. Right upper leg. Right lower leg. Skeleton The following structures could not be adequately visualized: Heart / Thorax 4-chamber view. RVOT view. 3-vessel view. 3-vzfoqd-adqbqivbrbt. Interventricular septum. Diaphragm. Spine: Cervical spine. Thoracic spine. Lumbar spine. Sacral spine. Extremities / Left hand. Skeleton The following structures could not be examined: Head / Neck Choroid plexus. Midline falx. Neck. Face: Lips. Profile. Nose. Nasal bone. Maxilla. Mandible. Orbits. Heart / Thorax LVOT view. Aortic arch view. Bicaval view. Ductal archview. Great vessels. Right lung. Left lung. Abdomen Cord insertion. Right renal artery. Left renal artery. Extremities / Right hand. Right foot. Left upper leg. Left lower leg.Left foot. Skeleton Maternal Structures ----- --------- Uterus Visualized Cervix Visualized Approach - Transvaginal: Cervical length 2.56 cm Right Ovary Not visualized Left Ovary Not visualized Cul de Sac Visualized. No free fluid visualized Impression ----- --------- Single live intrauterine consistent with 34w 1d with an KAYCEE of08/13/2025. Normal growth. EFW measures at the 24%, AC measures at the 62%. Transvaginal cervical length measures 2.56 cm. Amniotic fluid MVP measures 5.5 cm. The HC measures less than the 3rd percentile for the gestational agebut reference biometric measurement within 2 SD of the mean (Crispin and colleagues, 1984). Recommendations ----- --------- Please see [facility] recommendations from prior clinical and/or ultrasoundreport documentation. The patient is scheduled in four weeks for follow up growth ultrasound. The patient is scheduled in three weeks for provider visit. Subsequent follow up or other follow up as clinically determined byprimary OB provider unless otherwise specified by [facility]. Results forwarded to ordering provider so they can follow up with thepatient as necessary. us Geovani Luna MD [facility] US ORDERABLES Final Resul t documented in this encounter Visit Diagnoses Diagnosis Blister of hand without infection, unspecified laterality, subsequent encounter Dyshidrotic eczema Insulin controlled gestational diabetes mellitus (GDM) during , antepartum Obesity affecting in third trimester, unspecified obesity type documented in this encounter Care Teams Mapping Specialist Relationship Specialty Start Date End Date Melia Henriquez, LAW FIRM CONSULTANT-PRODUCT DEVELOPMENT ENGINEER [address] [place] [phone] PCP - General Nurse Practitioner 11/25/23 documented as of this encounter
--- OUTSIDE RECORDS SUMMARY | 2025-07-03 08:53 | XMS_ITS | Encounter Summary ---
Author Organization [employer] Address [id number] [address] [place] [address] Care Team Providers Care Manager Action Name Role Phone Melia Henriquez HENRY-PRINCIPAL JAVA DEVELOPER Primary Care Provider [phone] Reason for Visit * Diagnostic Imaging (Routine) [...] MD [address], [address] [place] [address] Phone: tel: fax: Maternal- Medicine at [facility] [address] [place] [address] Phone: tel: fax: Referral ID Status Reason Start Date Expiration Date V isits Requested Visits Authorized [id number] Pending Review 07/01/2025 07/01/2026 1 1 Encounter Details Date Type Department Care Team (Latest Contact Info) Description 07/03/2025 8:53 AM EDT - 07/03/2025 11:59 PM EDT Hospital Encounter [facility] - MFM US Imaging [address] [place] [address] Blister of hand without infection, unspecified laterality, [...] to check blood glucose 4 times daily. ondansetron ODT (ZOFRAN ODT) 4 mg disintegrating [...] acid ( 19 ORAL) Take by mouth. clobetasoL (TEMOVATE) 0.05 % ointmentIndications :Blister of hand without infection, unspecified laterality, subsequent encounter,Dyshidrot ic eczema Apply a thin layer to the affected areas twice daily. 30 g 5 07/15/20 25 insulin glargine (LANTUS SOLOSTAR U-100 INSULIN) 100 [...] AM EDT Office Visit Maternal- Medicine at [facility] [address] [place] [address] Dorita Retana MD [address] [facility] 1st [place] [address] 07/28/2025 9:15 AM EDT Appointment [facility] - Ultrasound [address] [place] [address] documented as of this encounter Procedures Procedure Name Priority Date/Time Associated Diagnosis Comments [facility] COMPREHENSIVE ANATOMIC SURVEY Routine 07/03/2025 10:59 AM EDT Blister of hand without infection, unspecified laterality, subsequent encounter Dyshidrotic eczema Insulin controlled gestational diabetes mellitus (GDM) during , antepartum Obesity affecting in third trimester, unspecified obesity type documented in this encounter Results * [facility] COMPREHENSIVE ANATOMIC SURVEY (07/03/2025 10:59 AM EDT) Anatomical Region Laterality Modality OB-SUPPLY AIDE Ultrasound 07/03/2025 9:35 AM EDT Narrative 07/03/2025 12:12 PM EDT NAME: KING NELLA BERRY : 1995 SEX: F Accession Number: [id number] ORDERING PHYSICIAN: GEOVANI LUNA REFERRING PHYSICIAN: TOM KAMINSKI Coding ----- --------- Procedures [id number]: Ultrasound, uterus, real time with image documentation, and maternal evaluation plus detailed anatomic examination, transabdominal approach;single or first gestation [id number]: Transvaginal Ultrasound (OB) Indication ----- --------- Screening for Anatomic Survey , Screening for cervical length , Gestational diabetes. History ----- --------- OB History 1. Para 0 [id number] Maternal Assessment ----- --------- Physical Exam Height [...] EFW (oz) 13 oz EFW by: Hadlock ([id number]) Extended Tibia 52.9 mm 31w 3d 4% Estefany Freight Unloader 5.3 mm CM 6.1 mm 16% Nicolaides [...] Thorax 4-chamber view. RVOT view. 3-vessel view. 7-rbjtbk-rmqabig view. Interventricular septum. Diaphragm. Spine: Cervical spine. [...] colleagues, 1984). Recommendations ----- --------- Please see [facility] recommendations from prior clinical and/or ultrasound report documentation. The patient is scheduled in four weeks for follow up growth ultrasound. The patient is scheduled in three weeks for provider visit. Subsequent follow up or other follow up as clinically determined by primary OB provider unless otherwise specified by [facility]. Results forwarded to ordering provider so they can follow up with the patient as necessary. Procedure Note Gevoani Luna MD - 07/03/2025 NAME: KING NELLA BERRY : 1995 SEX: F Accession Number: [id number] ORDERING PHYSICIAN: GEOVANI LUNA REFERRING PHYSICIAN: TOM KAMINSKI Coding ----- --------- Procedures [id number]: Ultrasound, uterus, real time with imagedocumentation, and maternal evaluation plus detailed anatomic examination, transabdominalapproach;single or first gestation [id number]: Transvaginal Ultrasound (OB) Indication ----- --------- Screening for Anatomic Survey , Screening for cervical length ,Gestational diabetes. History ----- --------- OB History 1. Para 0 [id number] Maternal Assessment ----- --------- Physical Exam Height [...] EFW (oz) 13 oz EFW by: Hadlock ([id number]) Extended Tibia 52.9 mm 31w 3d 4% Estefany Freight Unloader 5.3 mm CM 6.1 mm 16% Nicolaides [...] Thorax 4-chamber view. RVOT view. 3-vessel view. 9-tyaiex-cawdlfktrzi. Interventricular septum. Diaphragm. Spine: Cervical spine. Thoracic [...] colleagues, 1984). Recommendations ----- --------- Please see [facility] recommendations from prior clinical and/or ultrasoundreport documentation. The patient is scheduled in four weeks for follow up growth ultrasound. The patient is scheduled in three weeks for provider visit. Subsequent follow up or other follow up as clinically determined byprimary OB provider unless otherwise specified by [facility]. Results forwarded to ordering provider so they can follow up with thepatient as necessary. us Geovani Luna MD [facility] [place] ORDERABLES Final Resul t documented in this encounter Visit Diagnoses Diagnosis Blister of hand without infection, unspecified laterality, subsequent encounter Dyshidrotic eczema Insulin controlled gestational diabetes mellitus (GDM) during , antepartum Obesity affecting in third trimester, unspecified obesity type documented in this encounter Care Teams Manager Action Relationship Specialty Start Date End Date Melia Henriquez, ELECTROPHYSIOLOGY TECHNOLOGIST-PRINCIPAL JAVA DEVELOPER [address] [place] [phone] PCP - General Nurse Practitioner 11/25/23 documented as of this encounter
--- OUTSIDE RECORDS SUMMARY | 2025-07-06 17:00 | XMS_ITS | Encounter Summary ---
Author Organization [facility] Address [address] [place] [address] Care Team Providers Care Internetworking Technician Name Role Phone Radha Dong MD Primary Care Provider [phone] Charissa Glover COURTROOM DEPUTY OR CALENDAR CLERK Unavailable Encounter Details Date Type Department Care Team (Latest Contact Info) Description 07/06/2025 5:00 PM EDT Routine [facility] OBGYN [address] [place] [address] Rosalind Mendoza, ARLINE [address] [place] [address] NST (non-stress test) reactive ([facility]) (Primary Dx); History of gestational diabetes; Encounter for care of first , third trimester ([facility]) Social History Tobacco Use Types Packs/Day Years [...] How often do you attend chur or religion services? More than 4 times per year 07/29/2024 Do you belong to any clubs o r organizations such as taoist groups, unions, fraternal or athletic groups, or [...] and heating? Not hard at all 07/29/2024 [facility] [place] of Occupat ional Health - Occupational Stress [...] place to sleep or slept in a usp (including now)? No 05/18/2023 Housing Stability Vital Sign Answer Gary e Recorded In the last 12 months, was t here a time when you were not able to pay the mortgage or rent on time? No 07/29/2024 In the past 12 months, how m any times have you moved where you were living? 0 07/29/2024 At any time in the past 12 m [facility], were you homeless or living in a usp (including now)? No 07/29/2024 Estimated Date of [...] 07/23/2025 4:00 PM EDT Ancillary Procedure [facility] [address] [facility] [address] [place] [address] 07/27/2025 4:30 PM EDT Routine [facility] [address] [place] [address] Rosalind Mendoza CNM [address] [place] [address] 07/30/2025 4:15 PM EDT Ancillary Procedure [facility] [address] [facility] [address] [place] [address] 08/06/2025 4:15 PM EDT Ancillary Procedure [facility] [address] [facility] [address] [place] [address] 08/10/2025 4:30 PM EDT Routine [facility] [address] [place] [address] Rosalind Mendoza CN [address] [place] [address] documented as of this encounter Visit Diagnoses Diagnosis NST (non-stress test) reactive ([facility])- Primary state, incidental History of gestational diabetes Personal history of other genital system and obstetric disorders Encounter for care of first , third trimester ([facility]) documented in this encounter Care Teams Internetworking Technician Relationship Specialty Start Date End Date Radha Dong MD [address] [place] [address] PCP - General Family Medicine 05/19/23 Charissa Glover NP PCP - Jose Chopra 01/27/25 documented as of this encounter
--- OUTSIDE RECORDS SUMMARY | 2025-07-06 17:00 | XMS_ITS | Encounter Summary ---
Author Organization [facility] Address [address] [place] [address] Care Team Providers Care Top Inventory Control Executive Name Role Phone Radha Dong MD Primary Care Provider [phone] Charissa Glover GREY STOCK RECORDER Unavailable Encounter Details Date Type Department Care Team (Latest Contact Info) Description 07/06/2025 5:00 PM EDT Routine [facility] OBGYN [address] [place] [address] Rosalind Mendoza, ARLINE [address] [place] [address] NST (non-stress test) reactive ([facility]) (Primary Dx); History of gestational diabetes; Encounter for care of first , third trimester ([facility]) Social History Tobacco Use Types Packs/Day [...] How often do you attend chur or jewish services? More than 4 times per year 07/29/2024 Do you belong to any clubs o r organizations such as sikh groups, unions, fraternal or athletic groups, or [...] and heating? Not hard at all 07/29/2024 [facility] [place] of Occupat ional Health - Occupational Stress [...] place to sleep or slept in a mcfp (including now)? No 05/18/2023 Housing Stability Vital Sign Answer Gary e Recorded In the last 12 months, was t here a time when you were not able to pay the mortgage or rent on time? No 07/29/2024 In the past 12 months, how m any times have you moved where you were living? 0 07/29/2024 At any time in the past 12 m [facility], were you homeless or living in a mcfp (including now)? No 07/29/2024 Estimated Date of [...] 11:10 AM EDT Routine [facility] [place] [facility] [address] [facility] [place] [address] Vicente Gatica DO [address] [address] 07/16/2025 4:15 PM EDT Ancillary Procedure [facility] [address] [facility] [address] [place] [address] 07/23/2025 4:00 PM EDT Ancillary Procedure [facility] [address] [facility] [address] [place] [address] 07/27/2025 4:30 PM EDT Routine [facility] [address] [facility] [address] Rosalind Mendoza CNM [address] [place] [address] 07/30/2025 4:15 PM EDT Ancillary Procedure [facility] [address] [facility] [address] [place] [address] 08/06/2025 4:15 PM EDT Ancillary Procedure [facility] [address] [facility] [address] [place] [address] 08/10/2025 4:30 PM EDT Routine [facility] [address] [facility] [place] [address] Rosalind Mendoza CNM [address] [place], [place] [phone] documented as of this encounter Visit Diagnoses Diagnosis NST (non-stress test) reactive ([facility])- Primary state, incidental History of gestational diabetes Personal history of other genital system and obstetric disorders Encounter for care of first , third trimester ([facility]) documented in this encounter Care Teams Top Inventory Control Executive Relationship Specialty Start Date End Date Radha Dong MD [address] [place], [place] [phone] PCP - General Family Medicine 05/19/23 Charissa Glover NP PCP - Jose Chopra 01/27/25 documented as of this encounter
--- OUTSIDE RECORDS SUMMARY | 2025-07-09 13:20 | XMS_ITS | Encounter Summary ---
Author Organization [facility] Address [address] [place] [address] Care Team Providers Care Dishroom Attendant Name Role Phone Radha Dong MD Primary Care Provider [phone] Charissa Glover CARGO TRIMMER Unavailable Reason for Visit * Reason Comments Rash Encounter Details Date Type Department Care Team (Late st Contact Info) Description 07/09/2025 1:20 PM EDT Office Visit [facility] Family Medicine [address] [place] [address] Radha Dong MD [address] [place] [address] Herpes zoster with complication (Primary Dx) Social History Tobacco Use Types Packs/Day Years [...] How often do you attend chur or islam services? More than 4 times per year 07/29/2024 Do you belong to any clubs o r organizations such as tenriism groups, unions, fraternal or athletic groups, or [...] and heating? Not hard at all 07/29/2024 [facility] [place] of Occupat ional Health - Occupational Stress [...] place to sleep or slept in a correction (including now)? No 05/18/2023 Housing Stability Vital Sign Answer Gary e Recorded In the last 12 months, was t here a time when you were not able to pay the mortgage or rent on time? No 07/29/2024 In the past 12 months, how m any times have you moved where you were living? 0 07/29/2024 At any time in the past 12 m [facility], were you homeless or living in a correction (including now)? No 07/29/2024 Estimated Date of [...] Sign Reading Time Taken Comments Blood Pressure 124/78 07/09/2025 1:33 PM EDT Pulse 86 07/09/2025 1:33 PM EDT Temperature - - Respiratory Rate 18 07/09/2025 1:33 PM EDT Oxygen Saturation 99% 07/09/2025 1:33 PM EDT Inhaled Oxygen Concentration - - Weight 86 kg (189 lb 9.6 oz) 07/09/2025 1:33 PM EDT Height 160 cm (5' 3 ) 07/09/2025 1:33 PM EDT Body Mass Index 33.59 07/09/2025 1:33 PM EDT documented in this encounter Progress Notes * Radha Dong MD - 07/09/2025 1:20 PM EDT Images from the original note were not included. Subjective ?Quick Links Last Note in Specialty Snapshot Edit RFV/CC Edit Screenings Current Meds Patient ID: Martha Dejesus is a 30 y.o. female who presents for Rash. HPI History of Present Illness The patient presents for evaluation of a rash. The rash was first noticed two days ago while at work. Initially, it was thought to be caused by friction from clothing, but it extended beyond the area of contact. The rash does not itch but causes a burning sensation. No medication has been taken for it since becoming . The discomfort wasparticularly noticeable during sleep last night. The rash began to ooze today. She works in an office and interacts with colleagues daily. She is due in a couple of weeks and has gestational diabetes. Another ultrasound is scheduled for today at 4:15 PM. Occupation: Works at [employer] in an office Sleep: Up three or four times a night ?Quick Review Review Full History Edit History Meds - Alcohol Sheets (Alcoh-Wipe) sheet Blood Glucose Monitoring Suppl (Blood Glucose Monitor System) w/Device kit Lantus SoloStar 100 UNIT/ML pen Vit-Fe Fumarate-FA ( VITAMIN PO) ursodiol (Caron Forte) 500 MG tablet --- PMH - Cystitis Other tobacco product nicotine dependence, uncomplicated Objective ?Quick Links Add Vitals Timeline (Adult) Labs Imaging Results Review Trend Vitals ?? Avoid pulling in long tables of results. Comment on relevant results to support your medical decision making. BP 124/78 (BP Location: Left arm, Patient Position: Sitting, BP Cuff Size: Adult) Pulse 86 Resp18 Ht 5' 3 Wt 189 lb 9.6 oz LMP 11/06/2024 (Exact Date) SpO2 99% BMI 33.59 kg/m?? Physical Exam Right flank with clustered vesicular lesion with erythematous base gravid Physical Exam Skin: Rash consistent with shingles noted on the skin. ?Quick Links Full Problem List Assessment & Plan Herpes zoster with complication Orders: Lidocaine 5 % cream; Apply 1 Application topically every 8 (eight) hours if needed (pain) valACYclovir (Valtrex) 1 g tablet; Take 1 tablet (1,000 mg) by mouth in the morning and 1 tablet (1,000 mg) in the evening and 1 tablet (1,000 mg) before bedtime. Do all this for 7 days. Assessment & Plan 1. Shingles: - Symptoms and physical examination findings are consistent with shingles. The patient reported a burning sensation without itching, which started two days ago. - She was informed that the infection is in the nerve and will not spread from one spot to another.She was also advised that the rash can take a week to 10 days to crust over, but the medication should help speed up this process. She was counseled on the importance of hand washing and avoiding close contact with infants, toddlers, and immunocompromised individuals to prevent the spread of the chickenpox virus. - A prescription for Valtrex has been provided to help fight off the virus. Lidocaine ointment has been prescribed to numb the affected area. She is advised to take Tylenol for pain relief and Benadryl for itching. She was informed about the potential use of narcotics or gabapentin for pain management if needed. She can continue working but should avoid communal areas like the lunchroom and maintain good hygiene practices. 2. Gestational diabetes: - She is due in a couple of weeks and has gestational diabetes. - She has another ultrasound scheduled for today at 4:15 PM. She was advised to inform them about her shingles as it might be tender to do an ultrasound on that side. documented in this encounter Plan of Treatment Upcoming Encounters Date Type Department Care Team (Late st Contact Info) Description 07/23/2025 4:00 PM EDT Ancillary Procedure [facility] [address] [facility] [address] [place] [address] 07/27/2025 4:30 PM EDT Routine [facility] [address] [facility] [place] [address] Rosalind Mendoza, [facility] [address] [place] [address] 07/30/2025 4:15 PM EDT Ancillary Procedure [facility] [address] [facility] [address] [place] [address] 08/06/2025 4:15 PM EDT Ancillary Procedure [facility] [address] [place] [address] 08/10/2025 4:30 PM EDT Routine [facility] [address] [place] [address] Rosalind Mendoza CN [address] [place] [address] documented as of this encounter Visit Diagnoses Diagnosis Herpes zoster with complication- Primary documented in this encounter Care Teams Dishroom Attendant Relationship Specialty Start Date End Date Radha Dong MD [address] [place] [address] PCP - General Family Medicine 05/19/23 Charissa Glover NP PCP - Jose Commercial 01/27/25 documented as of this encounter
--- OUTSIDE RECORDS SUMMARY | 2025-07-09 13:20 | XMS_ITS | Encounter Summary ---
Author Organization [facility] Healthcare Address [address] [place] [address] Care Team Providers Care Dictaphone Technician Name Role Phone Radha Dong MD Primary Care Provider [phone] Charissa Glover WOOD CRAFTSMAN Unavailable Reason for Visit * Reason Comments Rash Encounter Details Date Type Department Care Team (Late st Contact Info) Description 07/09/2025 1:20 PM EDT Office Visit [facility] Family Medicine [address] [place] [address] Radha Dong MD [address] [place] [address] Herpes zoster with complication (Primary [...] How often do you attend chur or cheondoism services? More than 4 times per year 07/29/2024 Do you belong to any clubs o r organizations such as shinto groups, unions, fraternal or athletic groups, or [...] and heating? Not hard at all 07/29/2024 [facility] [place] of Occupat ional Health - Occupational Stress [...] place to sleep or slept in a fdc (including now)? No 05/18/2023 Housing Stability Vital Sign Answer Gary e Recorded In the last 12 months, was t here a time when you were not able to pay the mortgage or rent on time? No 07/29/2024 In the past 12 months, how m any times have you moved where you were living? 0 07/29/2024 At any time in the past 12 m [facility], were you homeless or living in a fdc (including now)? No 07/29/2024 Estimated Date of [...] today at 4:15 PM. 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 Sleep: Up three or [...] 07/15/2025 11:10 AM EDT Routine [facility] [place] [address] [place] [address] [place] [address] Vicente Gatica, [address] [place] [address] 07/16/2025 4:15 PM EDT Ancillary Procedure [facility] [address] [facility] [address] [place] [address] 07/23/2025 4:00 PM EDT Ancillary Procedure [facility] [address] [facility] [address] [place] [address] 07/27/2025 4:30 PM EDT Routine [facility] [address] [place] [address] Rosalind Mendoza CN [address] [place] [address] 07/30/2025 4:15 PM EDT Ancillary Procedure [facility] [address] [facility] [address] [place] [address] 08/06/2025 4:15 PM EDT Ancillary Procedure [facility] [address] [facility] [address] [place] [address] 08/10/2025 4:30 PM EDT Routine [facility] [address] [place] [address] Rosalind Mendoza CN [address] [place] [address] documented as of this encounter Visit Diagnoses Diagnosis Herpes zoster with complication- Primary documented in this encounter Care Teams Dictaphone Technician Relationship Specialty Start Date End Date Radha Dong MD [address] [place] [address] PCP - General Family Medicine 05/19/23 Charissa Glover NP PCP - [place] [employer] 01/27/25 documented as of this encounter
--- OUTSIDE RECORDS SUMMARY | 2025-07-09 16:15 | XMS_ITS | Encounter Summary ---
Author Organization [facility] Address [address] [place] [address] Care Team Providers Care Welt Drawer Name Role Phone Radha Dong MD Primary Care Provider [phone] Charissa Glover REMOTE INPATIENT CODER Unavailable Encounter Details Date Type Department Care Team (Latest Contact Info) Description 07/09/2025 4:15 PM EDT Ancillary Procedure [facility] [address] [place] [address] Diet controlled gestational diabetes mellitus (GDM) in third trimester ([facility]) Social History Tobacco Use Types [...] How often do you attend chur or sikh services? More than 4 times per year 07/29/2024 Do you belong to any clubs o r organizations such as zoroastrianism groups, unions, fraternal or athletic groups, or [...] and heating? Not hard at all 07/29/2024 [facility] of Occupat ional Health - Occupational Stress [...] place to sleep or slept in a chcf (including now)? No 05/18/2023 Housing Stability Vital Sign Answer Gary e Recorded In the last 12 months, was t here a time when you were not able to pay the mortgage or rent on time? No 07/29/2024 In the past 12 months, how m any times have you moved where you were living? 0 07/29/2024 At any time in the past 12 m [facility], were you homeless or living in a chcf (including now)? No 07/29/2024 Estimated Date of [...] 07/23/2025 4:00 PM EDT Ancillary Procedure [facility] [place] [facility] [facility] [address] [place] [address] 07/27/2025 4:30 PM EDT Routine [facility] [place] [facility] [address] [place] [address] Rosalind Mendoza, KIMM [address] [facility] [place] [address] 07/30/2025 4:15 PM EDT Ancillary Procedure [facility] [address] [place] [address] 08/06/2025 4:15 PM EDT Ancillary Procedure [facility] [address] [facility] [address] [place] [address] 08/10/2025 4:30 PM EDT Routine [facility] [place] [facility] [address] [facility] [place] [address] Rosalind Mendoza CNM [address] [facility] [place] [address] documented as of this encounter Procedures Procedure Name Priority Date/Time Associated Diagnosis Comments US BIOPHYSICAL PROFILE WO NON STRESS TESTING Routine 07/09/2025 4:22 PM EDT Diet controlled gestational diabetes mellitus (GDM) in third trimester ([facility]) documented in this encounter Results * US biophysical profile wo non stress testing (07/09/2025 4:22 PM EDT) Anatomical Region Laterality Modality Body Ultrasound 07/09/2025 5:01 PM EDT Impressions 07/10/2025 7:45 AM EDT 06/05 Biophysical profile. TRANSCRIBED BY: ELECTRONICALLY SIGNED BY: Rafael Mae MD Narrative 07/10/2025 7:45 AM EDT FINDINGS: Breathing Movements 2 Gross Body Movements 2 Tone 2 Qualitative amniotic fluid volume 2 A single, viable intrauterine is present. Cephalic presentation. 156 bpm. DIONNE is 15.0 cm. Procedure Note Rafael Mae MD - 07/10/2025 FINDINGS: Breathing Movements 2 Gross Body Movements 2 Tone 2 Qualitative amniotic fluid volume 2 A single, viable intrauterine is present. Cephalicpresentation. 156 bpm. DIONNE is 15.0 cm. IMPRESSION: 06/05 Biophysical profile. TRANSCRIBED BY: ELECTRONICALLY SIGNED BY: Rafael Mae MD us Rosalind Mendoza CNM IMG OB US PROCEDURES Final R esult documented in this encounter Visit Diagnoses Diagnosis Diet controlled gestational diabetes mellitus (GDM) in third trimester ([facility]) documented in this encounter Care Teams Welt Drawer Relationship Specialty Start Date End Date Radha Dong MD [address] [place] [address] PCP - General Family Medicine 05/19/23 Charissa Glover NP PCP - Jose Chopra 01/27/25 documented as of this encounter
--- OUTSIDE RECORDS SUMMARY | 2025-07-09 16:15 | XMS_ITS | Encounter Summary ---
Author Organization [facility] Address [address] [place] [address] Care Team Providers Care Emergency Room Orderly Name Role Phone Radha Dong MD Primary Care Provider [phone] Charissa Glover EFFICIENCY ENGINEER Unavailable Encounter Details Date Type Department Care Team (Latest Contact Info) Description 07/09/2025 4:15 PM EDT Ancillary Procedure [facility] [address] [place] [address] Diet controlled gestational diabetes mellitus (GDM) in third trimester ([facility]) Social History Tobacco Use Types Packs/Day Years [...] How often do you attend chur or scientologist services? More than 4 times per year 07/29/2024 Do you belong to any clubs o r organizations such as baptist groups, unions, fraternal or athletic groups, or [...] and heating? Not hard at all 07/29/2024 [facility] - Occupational Stress [...] place to sleep or slept in a [place] facility (including now)? No 05/18/2023 Housing Stability Vital Sign Answer Gary e Recorded In the last 12 months, was t here a time when you were not able to pay the mortgage or rent on time? No 07/29/2024 In the past 12 months, how m any times have you moved where you were living? 0 07/29/2024 At any time in the past 12 m [facility], were you homeless or living in a [place] (including now)? No 07/29/2024 Estimated Date of [...] 11:10 AM EDT Routine [facility] [place] [facility] [address] [place] [address] [place] [address] Vicente Gatica, [address] [place] [address] 07/16/2025 4:15 PM EDT Ancillary Procedure [facility] [place] [facility] [address] [place] [address] 07/23/2025 4:00 PM EDT Ancillary Procedure [facility] [place] [facility] [address] [facility] [place] [place] [address] 07/27/2025 4:30 PM EDT Routine [facility] [place] [facility] [address] [address] Rosalind Mendoza CNM [address] [place] [address] 07/30/2025 4:15 PM EDT Ancillary Procedure [facility] [place] [facility] [address] [facility] [place] [address] 08/06/2025 4:15 PM EDT Ancillary Procedure [facility] [place] [facility] [address] [place] [address] 08/10/2025 4:30 PM EDT Routine [facility] [place] [facility] [address] [facility] [address] [address] Rosalind Mendoza CNM [address] [place] [address] documented as of this encounter Procedures Procedure Name Priority Date/Time Associated Diagnosis Comments US BIOPHYSICAL PROFILE WO NON STRESS TESTING Routine 07/09/2025 4:22 PM EDT Diet controlled gestational diabetes mellitus (GDM) in third trimester ([facility]) documented in this encounter Results * US [...] gestational diabetes mellitus (GDM) in third trimester ([facility]) documented in this encounter Care Teams Emergency Room Orderly Relationship Specialty Start Date End Date Radha Dong MD [address] [place] [address] PCP - General Family Medicine 05/19/23 Charissa Glover NP PCP - Jose Chopra 01/27/25 documented as of this encounter
--- OUTSIDE RECORDS SUMMARY | 2025-07-13 17:08 | XMS_ITS | Encounter Summary ---
Author Organization [facility] Healthcare Address [address] [place] [address] Care Team Providers Care Owner Name Role Phone Radha Dong MD Primary Care Provider [phone] Charissa Glover GIFTED PROGRAM TEACHER Unavailable Encounter Details Date Type Department Care Team (Late st Contact Info) Description 05/13/2025 Results Follow-[facility] [address] [place] [id number] Paola Gómez MA GLUCOSE, GESTATIONAL SCREEN (50G)-135 CUTOFF, CBC, POCT Urinalysis dipstick, Hemoglobin A1c Social History Tobacco Use Types Packs/Day Years [...] How often do you attend chur or protestant services? More than 4 times per year 07/29/2024 Do you belong to any clubs o r organizations such as spiritism groups, unions, fraternal or athletic groups, or [...] and heating? Not hard at all 07/29/2024 [facility] - Occupational [...] any time in the past 12 m [place], were you homeless or living in a [...] 11:10 AM EDT Routine [facility] [place] [facility] [address] [place] [address] Vicente Gatica DO [address] [place] [address] [place] [address] 07/16/2025 4:15 PM EDT Ancillary Procedure [facility] [place] [facility] [address] [facility] 130 [place] [address] 07/23/2025 4:00 PM EDT Ancillary Procedure [facility] [place] [facility] [address] [facility] [address] [place] [address] 07/27/2025 4:30 PM EDT Routine [facility] [place] [facility] [address] [place] [address] Rosalind Mendoza CN [address] [place] [address] 07/30/2025 4:15 PM EDT Ancillary Procedure [facility] [address] [facility] 130 [place] [address] 08/06/2025 4:15 PM EDT Ancillary Procedure [facility] [address] [facility] 130 [place] [address] 08/10/2025 4:30 PM EDT Routine [facility] [place] [facility] [address] [place] [address] Rosalind Mendoza CN [address] [place] [address] documented as of this encounter Visit Diagnoses Not on filedocumented in this encounter Care Teams Owner Relationship Specialty Start Date End Date Radha Dong MD [address] [place] [address] PCP - General Family Medicine 05/19/23 Charissa Glover NP PCP - [employer] 01/27/25 documented as of this encounter
--- OUTSIDE RECORDS SUMMARY | 2025-07-13 17:08 | XMS_ITS | Encounter Summary ---
Author Organization [facility] Healthcare Address [address] [place] [address] Care Team Providers Care Noc Engineer Name Role Phone Radha Dong MD Primary Care Provider [phone] Charissa Glover BATTERY ASSEMBLER PLASTIC Unavailable Encounter Details Date Type Department Care Team (Late st Contact Info) Description 05/26/2025 Results Follow-Up [facility] [address] [place] [id number] Paola Gómez MA GLUCOSE TOLERANCE TEST, GESTATIONAL,4SPEC(10 0G) Social History Tobacco Use Types Packs/Day Years [...] How often do you attend chur or yazidi services? More than 4 times per year 07/29/2024 Do you belong to any clubs o r organizations such as mandaen groups, unions, fraternal or athletic groups, or [...] and heating? Not hard at all 07/29/2024 [facility] - Occupational [...] place to sleep or slept in a nursing home (including now)? No 05/18/2023 Housing Stability Vital [...] in the past 12 m [facility], were you homeless or living in a nursing home (including now)? No 07/29/2024 Estimated Date of [...] 11:10 AM EDT Routine [facility] [place] [facility] [address] [place] [address] [place] [address] Vicente Gatica, [address] [place] [address] 07/16/2025 4:15 PM EDT Ancillary Procedure [facility] [place] [facility] [address] [facility] [address] [place] [address] 07/23/2025 4:00 PM EDT Ancillary Procedure [facility] [address] [facility] [address] [place] [address] 07/27/2025 4:30 PM EDT Routine [facility] [place] [facility] [address] [facility] [address] Rosalind Mendoza CN [address] [place] [address] 07/30/2025 4:15 PM EDT Ancillary Procedure [facility] [place] [address] [facility] [address] [place] [address] 08/06/2025 4:15 PM EDT Ancillary Procedure [facility] [place] [facility] [address] [facility] [address] [place] [address] 08/10/2025 4:30 PM EDT Routine [facility] [place] [facility] [address] [facility] [address] Rosalind Mendoza CN [address] [place] [address] documented as of this encounter Visit Diagnoses Not on filedocumented in this encounter Care Teams Noc Engineer Relationship Specialty Start Date End Date Radha Dong MD [address] [place] [address] PCP - General Family Medicine 05/19/23 Charissa Glover NP PCP - [place] [employer] 01/27/25 documented as of this encounter
--- OUTSIDE RECORDS SUMMARY | 2025-07-13 17:09 | XMS_ITS | Clinical Summary ---
Author Organization [employer] tem Address [id number] [address] [place] [address] Care Team Providers Care Health It Specialist Name Role Phone Melia Henriquez ROLL EDGE STITCHER HAND-NAVAL INSPECTOR Primary Care Provider [phone] Allergies No known active allergies Medications ondansetron ODT (ZOFRAN ODT) 4 mg disintegrating tablet Dissolve 1 tablet (4 mg total) on tongue every 8 (eight) hours as needed for nausea for up to 10 doses. 10 tablet 024 Active Additional Information Patient not taking.Reported on 07/01/2025 alcohol swabs (ALCOHOL WIPES) pads, medicated Apply 1 each topically in the morning and 1 each at noon and 1 each in the evening and 1 each before bedtime. Use to clean finger before every glucose check . Active blood-glucose meter misc 1 each by miscellaneous route in the morning and 1 each at noon and 1 each in the evening and 1 each before bedtime. Use to check blood glucose 4 times daily. Active 115/iron/folic acid ( 19 ORAL) Take by mouth. Activ e clobetasoL (TEMOVATE) 0.05 % ointmentIndicatio ns:Blister of hand without infection, unspecified laterality, subsequent encounter,Dyshidr otic eczema Apply a thin layer to the affected areas twice daily. 30 g 025 2024 Active pen needle, diabetic (BD ULTRA-FINE SHORT PEN NEEDLE) 31 gauge x 5/16 needleIndications :Insulin controlled gestational diabetes mellitus (GDM) during , antepartum Use daily for insulin 100 each 2 025 Active insulin glargine (LANTUS SOLOSTAR U-100 INSULIN) 100 unit/mL (3 mL) insulin penIndications:In sulin controlled gestational diabetes mellitus (GDM) during , antepartum Inject 14 units nightly in subcutaneous space, prime 2 units 15 mL 3 025 Active ursodioL (OMAR FORTE) 500 mg tablet Take 0.5 tablets (250 mg total) by mouth in the morning and 0.5 tablets (250 mg total) before bedtime. 2024 Discontinued insulin glargine (LANTUS SOLOSTAR U-100 INSULIN) 100 unit/mL (3 mL) insulin penIndications:In sulin controlled gestational diabetes mellitus (GDM) during , antepartum Inject 10 units nightly in subcutaneous space, prime 2 units 15 mL 3 025 2024 Discontinued Active Problems Problem Noted Date Diagnosed Date BPPV (benign paroxysmal positional vertigo), shaniqua ateral 06/02/2025 Gestational diabetes mellitus (GDM) in second tr imester 06/02/2025 Estimated Date of Delivery Comme nts Yes 08/13/2025 Based on last me nstrual period of 11/06/2024 Encounters Date Type Department Care Team Description 07/07/2025 Telephone Maternal- Medicine at [facility] [address] [place] [address] Lety Ocampo RN 07/07/2025 Orders Only Maternal- Medicine at [facility] [address] [place] [address] Dorita Retana MD Insulin controlled gestational diabetes mellitus (GDM) during , antepartum 07/03/2025 8:53 AM EDT - 07/03/2025 11:59 PM EDT Hospital Encounter [facility] - [facility] US Imaging [address] [place] [address] Blister of hand without infection, unspecified laterality, subsequent encounter; Dyshidrotic eczema; Insulin controlled gestational diabetes mellitus (GDM) during , antepartum; Obesity affecting in third trimester, unspecified obesity type Discharge Disposition: Home 07/03/2025 Orders Only Maternal- Medicine at [facility] [address] [place] [address] Floresita Griffith, RN Insulin controlled gestational diabetes mellitus (GDM) during , antepartum (Primary Dx) 07/01/2025 2:30 PM EDT Office Visit Maternal- Medicine at [facility] [address] [place] [address] Dorita Retana MD Insulin controlled gestational diabetes mellitus (GDM) during , antepartum (Primary Dx); Blister of hand without infection, unspecified laterality, subsequent encounter; Dyshidrotic eczema; Obesity affecting in third trimester, unspecified obesity type; 33 weeks gestation of 07/01/2025 Orders Only Maternal- Medicine at [facility] [address] [place] [address] Marci Vences LPN Blister of hand without infection, unspecified laterality, subsequent encounter (Primary Dx); Dyshidrotic eczema; Insulin controlled gestational diabetes mellitus (GDM) during , antepartum; Obesity affecting in third trimester, unspecified obesity type 07/01/2025 Documentation Maternal- Medicine at [facility] [address] [place] [address] Gloria Holt, ADA 06/30/2025 Travel 06/30/2025 Telephone Maternal- Medicine at [facility] [address] [place] [address] Renae Landrum, ELZA 06/22/2025 Telephone Maternal- Medicine at [facility] [address] [place] [address] Emilia Cotton, ALMITA 06/16/2025 Telephone Maternal- Medicine at [facility] [address] [place] [address] Nikki Jarvis, ELZA 06/08/2025 1:30 PM EDT Support Visit Maternal- Medicine at [facility] [address] [place] [address] Renae Landrum LD Fischer, Kelli, RD Gestational diabetes mellitus (GDM) in second trimester, gestational diabetes method of control unspecified (Primary Dx) 06/08/2025 Orders Only Maternal- Medicine at [facility] [address] [place] [address] Renae Landrum LD 06/08/2025 Travel 06/03/2025 Abstract Maternal- Medicine at [facility] [place] [address] [place] [address] External, Scanning Provider 06/03/2025 Orders Only Maternal- Medicine at [facility] [address] [place] [address] Ref Prov, Not In System 06/02/2025 Abstract Maternal- Medicine at [facility] [place] [address] [place] [address] External, Scanning Provider 06/02/2025 Abstract Maternal- Medicine at [facility] [place] [address] [place] [address] External, Scanning Provider from Last 3 Months Family History Medical History Relation Name Comments Diabetes Brother Insulin resista nt on metformin Hypertension Brother Eczema Mother Hypertension Mother Diabetes Paternal Grandfather Kidney disease Paternal Grandfather Cancer Paternal Grandmother breast cancer postmenopausal Autoimmune disease Sister Diabetes Sister T1DM Autism Neg Hx Bleeding Disorder Neg Hx Clotting disorder Neg Hx Developmental delay Neg Hx Down syndrome Neg Hx Heart defect Neg Hx Sudden Neg Hx Relation Name Status Comments Brother Mother Paternal Grandfather Paternal Grandmother Sister Social History Tobacco Use Types Packs/Day Years [...] on file Sexual Orientation Not on file Last Filed Vital Signs Vital Sign Reading Time Taken Comments Blood Pressure 127/75 07/01/2025 2:21 PM EDT Pulse 83 07/01/2025 2:21 PM EDT Temperature 37.1 C (98.7 F) 11/25/2023 1:37 AM EST Respiratory Rate 17 11/25/2023 2:55 AM EST Oxygen Saturation 99% 11/25/2023 1:37 AM EST Inhaled Oxygen Concentration - - Weight 86.3 kg (190 lb 3.2 oz) 07/01/2025 2:21 P M EDT Height 160 cm (5' 2.99 ) 07/01/2025 2:21 PM EDT Body Mass Index 33.7 07/01/2025 2:21 PM EDT Plan of Treatment Upcoming Encounters Date Type Department Care Team (Late st Contact Info) Description 07/21/2025 8:00 AM EDT Office Visit Maternal- Medicine at [facility] [address] [place] [address] Dorita Retana MD [address] [facility] 1st [place] [address] 07/28/2025 9:15 AM EDT Appointment [facility] - Ultrasound [address] [place] [address] Health Maintenance Due Date Last Done Comments DTaP,Tdap and Td Vaccines (6 - Tdap) 01/02/2008 05/15/2002, 12/24/1998, 1997, Additional history exists Depression Screening 2009 Adult BMI Follow Up Plan 2015 Influenza Vaccine 06/29/2025 Adult BMI Screening 07/01/2026 07/01/2025 Tobacco Screening 07/01/2026 07/01/2025 Pap Smear 11/28/2026 11/28/2023 Medical Devices Not on file Procedures Procedure Name Priority Date/Time Associated Diagnosis Comments US [facility] COMPREHENSIVE ANATOMIC SURVEY Routine 07/03/2025 10:59 AM EDT Blister of hand without infection, unspecified laterality, subsequent encounter Dyshidrotic eczema Insulin controlled gestational diabetes mellitus (GDM) during , antepartum Obesity affecting in third trimester, unspecified obesity type GLUCOSE TOLERANCE, FASTING Routine 05/20/2025 GLUCOSE TOLERANCE, 1 HOUR Routine 05/12/2025 HEMOGLOBIN A1C Routine 05/12/2025 from Last 3 Months Results * US [facility] COMPREHENSIVE ANATOMIC SURVEY (07/03/2025 10:59 AM EDT) Anatomical Region Laterality Modality OB-POTATO PICKER Ultrasound 07/03/2025 9:35 AM EDT Narrative 07/03/2025 12:12 PM EDT NAME: KING NELLA BERRY : 1995 SEX: F Accession Number: [id number] ORDERING PHYSICIAN: GEOVANI LUNA REFERRING PHYSICIAN: TOM KAMINSKI Coding ----- --------- Procedures [id number]: Ultrasound, uterus, real time with image documentation, and maternal evaluation plus detailed anatomic examination, transabdominal approach;single or first gestation [id number]: Transvaginal Ultrasound (OB) Indication ----- --------- Screening for Anatomic Survey , Screening for cervical length , Gestational diabetes. History ----- --------- OB History 1. Para 0 [id number] Maternal Assessment ----- --------- Physical Exam Height [...] EFW (oz) 13 oz EFW by: Hadlock ([id number]) Extended Tibia 52.9 mm 31w 3d 4% [employer] Intern 5.3 mm CM 6.1 mm 16% Nicolaides [...] Thorax 4-chamber view. RVOT view. 3-vessel view. 1-xjjqos-wylqkyg view. Interventricular septum. Diaphragm. Spine: Cervical spine. [...] colleagues, 1984). Recommendations ----- --------- Please see [facility] recommendations from prior clinical and/or ultrasound report documentation. The patient is scheduled in four weeks for follow up growth ultrasound. The patient is scheduled in three weeks for provider visit. Subsequent follow up or other follow up as clinically determined by primary OB provider unless otherwise specified by [facility]. Results forwarded to ordering provider so they can follow up with the patient as necessary. Procedure Note Geovani Luna MD - 07/03/2025 NAME: KING NELLA BERRY : 1995 SEX: F Accession Number: [id number] ORDERING PHYSICIAN: GEOVANI LUNA REFERRING PHYSICIAN: TOM KAMINSKI Coding ----- --------- Procedures [id number]: Ultrasound, uterus, real time with imagedocumentation, and maternal evaluation plus detailed anatomic examination, transabdominalapproach;single or first gestation [id number]: Transvaginal Ultrasound (OB) Indication ----- --------- Screening for Anatomic Survey , Screening for cervical length ,Gestational diabetes. History ----- --------- OB History 1. Para 0 [id number] Maternal Assessment ----- --------- Physical Exam Height [...] EFW (oz) 13 oz EFW by: Hadlock ([id number]) Extended Tibia 52.9 mm 31w 3d 4% [employer] Intern 5.3 mm CM 6.1 mm 16% Nicolaides [...] Thorax 4-chamber view. RVOT view. 3-vessel view. 1-cxycvd-vkpjvuxauqe. Interventricular septum. Diaphragm. Spine: Cervical spine. Thoracic [...] colleagues, 1984). Recommendations ----- --------- Please see [facility] recommendations from prior clinical and/or ultrasoundreport documentation. The patient is scheduled in four weeks for follow up growth ultrasound. The patient is scheduled in three weeks for provider visit. Subsequent follow up or other follow up as clinically determined byprimary OB provider unless otherwise specified by [facility]. Results forwarded to ordering provider so they can follow up with thepatient as necessary. us Geovani Luna MD [facility] US ORDERABLES Final Resul t * Glucose Tolerance, 3 Hour 100GM Load (05/20/2025) Glucose Tolerance Test Fasting 83 MANUALLY TRANSCRIBED RESULTS Glucose Tolerance Test 1 Hour 186 MANUALLY TRANSCRIBED RESULTS Glucose Tolerance Test 2 Hour 190 MANUALLY TRANSCRIBED RESULTS Glucose Tolerance Test 3 Hour 158 MANUALLY TRANSCRIBED RESULTS Blood Venous blood / Unknown us Not In System Ref Prov LAB BLOOD ORDERABLES Ashley l Result Performing Organization Address City/[facility] Co de Phone Number MANUALLY TRANSCRIBED RESULTS * Glucose tolerance, 1 hour (05/12/2025) Glucose Tolerance Test 1 Hour 143 MANUALLY TRANSCRIBED RESULTS Blood Venous blood / Unknown us Not In System Ref Prov LAB BLOOD ORDERABLES Ashley l Result MANUALLY TRANSCRIBED RESULTS * Hemoglobin A1c (05/12/2025) Hemoglobin A1C 4.8 4.0 - 6.0 % MANUALLY TRANSCRIBED RESULTS Blood Venous blood / Unknown us Scanning Provider External LAB BLOOD ORDERABLES Final Result MANUALLY TRANSCRIBED RESULTS from Last 3 Months Insurance [facility] Care Teams Health It Specialist Relationship Specialty Start Date End Date Melia Henriquez, ROLL EDGE STITCHER HAND-NAVAL INSPECTOR [address] [place] [address] PCP - General Nurse Practitioner 11/25/23
--- OUTSIDE RECORDS SUMMARY | 2025-07-13 17:09 | XMS_ITS | Encounter Summary ---
Author Organization [facility] Healthcare Address [address] [place] [address] Care Team Providers Care Property Handler Name Role Phone Halle Jensen DO Unavailable [phone] Radha Dong MD Primary Care Provider [phone] Charissa Glover ACQUISITIONS EDITOR Unavailable Charissa Glover ACQUISITIONS EDITOR Unavailable Encounter Details Date Type Department Care Team (Late st Contact Info) Description 07/06/2023 Abstract [facility] Family Medicine [address] [place] [phone] Radha Dong MD [address] [place] [address] Social History Tobacco Use Types Packs/Day Years Used Date Smoking Tobacco: Never Smokeless Tobacco: Never Alcohol Use Standard Drinks/Week Comments Yes 4 (1 standard drink = 0.6 oz pure alcohol) caffeine 1-2 cups per day; drinks alcohol 2-4 times a month Humiliation, Afraid, Rape, and Kick questionnair e [...] neighbors? More than three times a week 05/18/2023 How often do you get togethe r with friends or relatives? More than three times a week 05/18/2023 How often do you attend chur or sabianism services? More than 4 times per year 05/18/2023 Do you belong to any clubs o r organizations such as evangelical groups, unions, fraternal or athletic groups, or school groups? No 05/18/2023 How often do you attend meet ings of the clubs or organizations you belong to? Never 05/18/2023 Are you , , di vorced, , never , or living with a partner? Living with partner 05/18/2023 AUDIT-C Answer Date Recorded Q1: How often do you have a drink containing alc ohol? 2-3 times a week 05/18/2023 Q2: How many drinks containi ng alcohol do you have on a typical day when you are drinking? 1 or 2 05/18/2023 Q3: How often do you have si x or more drinks on one occasion? Never 05/18/2023 Overall Financial Resource Strain (CARDIA) Answe r Date Recorded How hard is it for you to pa y for the very basics like food, housing, medical care, and heating? Not hard at all 05/18/2023 [facility] - Occupational Stress Questionnaire Answer Date Recorded Do you feel stress - tense, restless, nervous, or anxious, or unable to sleep at night because your mind is troubled all the time - these days? Only a little 05/18/2023 Exercise Vital Sign Answer Date Recorde d On average, how many days pe r week do you engage in moderate to strenuous exercise (like a brisk walk)? 7 days 05/18/2023 On average, how many minutes do you engage in exercise at this level? 30 min 05/18/2023 Hunger Vital Sign Answer Date Recorded Within the past 12 months, y ou worried that your food would run out before you got the money to buy more. Never true 05/18/20 23 Within the past 12 months, t he food you bought just didn't last and you didn't have money to get more. Never true 05/18/2023 PRAPARE - Transportation Answer Date Re corded In the past 12 months, has l ack of transportation kept you from medical appointments or from getting medications? No 04/29 In the past 12 months, has l ack of transportation kept you from meetings, work, or from getting things needed for daily living? No 05/18/2023 Housing Stability Vital Sign Answer [...] in a halfway (including now)? No 05/18/2023 Comments Unknown Sex and Gender Information Value Date Recorded Sex Assigned at Female 05/18/2023 2:07 PM EDT Legal Sex Female 8:11 PM EDT Gender Identity Female 05/18/2023 2:07 PM EDT Sexual Orientation Straight 05/18/2023 2: 07 PM EDT documented as of this encounter Plan of Treatment Upcoming Encounters Date Type Department Care Team (Late st Contact Info) Description 07/15/2025 11:10 AM EDT Routine [facility] [address] [place] [place] [phone] Vicente Gatica DO [address] [place] [address] 07/16/2025 4:15 PM EDT Ancillary Procedure [facility] [address] [facility] [address] [place] [address] 07/23/2025 4:00 PM EDT Ancillary Procedure [facility] [address] [facility] [address] [place] [address] 07/27/2025 4:30 PM EDT Routine [facility] [address] [facility] [place] [address] Rosalind Mendoza, CNM [address] [place] [address] 07/30/2025 4:15 PM EDT Ancillary Procedure [facility] [address] [facility] [address] [place] [address] 08/06/2025 4:15 PM EDT Ancillary Procedure [facility] [address] [facility] [address] [place] [address] 08/10/2025 4:30 PM EDT Routine [facility] [address] [facility] [place] [address] Rosalind Mendoza CNM [address] [place] [address] documented as of this encounter Visit Diagnoses Not on filedocumented in this encounter Care Teams Property Handler Relationship Specialty Start Date End Date Halle Jensen DO [address] [facility] [address] [place] [address] PCP - [employer] 03/29/22 Radha Dong MD [address] [place] [address] PCP - General Family Medicine 05/19/23 Charissa Glover NP PCP - [employer] 12/28/23 5 Charissa Glover NP PCP - [employer] 01/27/25 documented as of this encounter
--- OUTSIDE RECORDS SUMMARY | 2025-07-13 17:09 | XMS_ITS | Encounter Summary ---
Author Organization [facility] tem Address [id number] [address] [place] [address] Care Team Providers Care Assembly Line Upholsterer Name Role Phone Melia Henriquez TUBING MACHINE TENDER-PRINCIPAL SCIENTIST Primary Care Provider [phone] Encounter Details Date Type Department Care Team (Late st Contact Info) Description 07/01/2025 Documentation Maternal- Medicine at [facility] [address] [place] [address] Gloria Holt, RN Social History Tobacco Use Types Packs/Day Years [...] on file documented as of this encounter Progress Notes * Gloria Holt, ADA - 07/01/2025 3:30 PM EDT Patient instructed on insulin administration: when to take prescribed dose in relation to daily schedule, use of the insulin pen, how to give injection into the sub-Q tissue in relation to the gravidabdomen, rotation of injection sites, proper disposal of sharps and symptoms of hypoglycemia. Patient education materials given: insulin action chart, hypoglycemia management, proper disposal of sharps and procedure guide sheet for use of insulin pen. Patient returned demonstration. Questions answered. Encouraged to call office with questions or concerns. documented in this encounter Plan of Treatment Upcoming Encounters Date Type Department Care Team (Late st Contact Info) Description 07/21/2025 8:00 AM EDT Office Visit Maternal- Medicine at [address] [address] Dorita Retana MD [address] [facility] 1st [place] [address] 07/28/2025 9:15 AM EDT Appointment [facility] - Ultrasound [address] [place] [address] documented as of this encounter Visit Diagnoses Not on filedocumented in this encounter Care Teams Assembly Line Upholsterer Relationship Specialty Start Date End Date Melia Henriquez, HENRY-PRINCIPAL SCIENTIST [address] [place], [place] [phone] PCP - General Nurse Practitioner 11/25/23 documented as of this encounter
--- OUTSIDE RECORDS SUMMARY | 2025-07-13 17:09 | XMS_ITS | Encounter Summary ---
Author Organization [employer] [facility] tem Address [id number] [address] [place] [address] Care Team Providers Care Machine Rope Maker Name Role Phone Melia Henriquez HENRY-COFFEE BLENDER Primary Care Provider [phone] Reason for Referral * Diagnostic Imaging (Routine) - Pending Review Specialty Diagnoses / Procedures Referred By Angelina bond Referred To Contact Maternal and Medicine Diagnoses Insulin controlled gestational diabetes mellitus (GDM) during , antepartum Procedures [facility] with or without consult Geovani Weinstein MD [address] [facility] [address] [place] [address] Phone: tel: fax: Maternal- Medicine at [facility] [address] [place] [address] Phone: tel: fax: Referral ID Status Reason Start Date Expiration Date V isits Requested Visits Authorized [id number] Pending Review 07/03/2025 07/03/2026 1 1 Encounter Details Date Type Department Care Team (Late st Contact Info) Description 07/03/2025 Orders Only Maternal- Medicine at [facility] [address] [place] [address] Floresita Griffith, RN Insulin controlled gestational diabetes mellitus (GDM) during , antepartum (Primary Dx) Social History Tobacco Use Types [...] on file documented as of this encounter Plan of Treatment Upcoming Encounters Date Type Department Care Team (Late st Contact Info) Description 07/21/2025 8:00 AM EDT Office Visit Maternal- Medicine at [facility] [address] [place] [address] Dorita Retana MD [address] [facility] [address] [address] 07/28/2025 9:15 AM EDT Appointment [facility] - Ultrasound [address] [place] [address] Scheduled Orders Name Type Priority Associated Diagnoses Orde r Schedule US [facility] with or without consult Imaging Routine Insulin controlled gestational diabetes mellitus (GDM) during , antepartum Expected: 07/03/2026 (Approximate), Expires: 07/03/2026 documented as of this encounter Visit Diagnoses Diagnosis Insulin controlled gestational diabetes mellitus (GDM) during , antepartum- Primary documented in this encounter Care Teams Machine Rope Maker Relationship Specialty Start Date End Date Melia Henriquez, PLASTIC MOLDING OPERATOR-COFFEE BLENDER [address] [place] [address] PCP - General Nurse Practitioner 11/25/23 documented as of this encounter
--- OUTSIDE RECORDS SUMMARY | 2025-07-13 17:09 | XMS_ITS | Encounter Summary ---
Author Organization [facility] Address [address] [place] [address] Care Team Providers Care Roofing Contractor Name Role Phone Halle Jensen DO Unavailable [phone] Radha Dong MD Primary Care Provider [phone] Charissa Glover NP Unavailable Charissa Glover MATERIAL PLANNING ANALYST Unavailable Encounter Details Date Type Department Care Team (Late st Contact Info) Description 05/31/2023 Abstract [facility] Family Medicine [address] [place] [id number] Charissa Glover NP Social History Tobacco Use Types Packs/Day Years Used Date Smoking Tobacco: Never Smokeless Tobacco: Never Alcohol Use Standard Drinks/Week Comments Yes 4 (1 standard drink = 0.6 oz pur e alcohol) caffeine 1-2 cups per day Humiliation, Afraid, Rape, and Kick questionnair e [...] 05/18/2023 How often do you attend chur ch or faith services? More than 4 times per year 05/18/2023 Do you belong to any clubs o r organizations such as rastafarian groups, unions, fraternal or athletic groups, or [...] and heating? Not hard at all 05/18/2023 [facility] ions[facility] - Occupational Stress Questionnaire Answer Date [...] place to sleep or slept in a longterm (including now)? No 05/18/2023 Comments Unknown Sex and Gender Information Value Date Recorded Sex Assigned at Female 05/18/2023 2:07 PM EDT Legal Sex Female 8:11 PM EDT Gender Identity Female 05/18/2023 2:07 PM EDT Sexual Orientation Straight 05/18/2023 2: 07 PM EDT COVID-19 Exposure Response Date Recorded In the last 10 days, have yo u been in contact with someone who was confirmed or suspected to have Coronavirus/COVID-19? No / Unsure 05/29/2023 9:25 AM EDT documented as of this encounter Plan of Treatment Upcoming Encounters Date Type Department Care Team (Late st Contact Info) Description 07/15/2025 11:10 AM EDT Routine [facility] [address] [facility] [address] Vicente Gatica DO [address] [place], [place] [id number] 07/16/2025 4:15 PM EDT Ancillary Procedure [facility] [address] [place] [address] 07/23/2025 4:00 PM EDT Ancillary Procedure [facility] [address] [facility] [address] [place] [address] 07/27/2025 4:30 PM EDT Routine [facility] [address] [place] [address] Rosalind Mendoza, CNM [address] [place] [address] 07/30/2025 4:15 PM EDT Ancillary Procedure [facility] [address] [facility] [address] [place] [address] 08/06/2025 4:15 PM EDT Ancillary Procedure [facility] [address] [facility] [address] [place] [address] 08/10/2025 4:30 PM EDT Routine [facility] [address] [place] [address] Rosalind Mendoza, CN [address] [facility] [place] [address] documented as of this encounter Visit Diagnoses Not on filedocumented in this encounter Care Teams Roofing Contractor Relationship Specialty Start Date End Date Halle Jensen DO [address] [facility] [address] [place] [address] PCP - [place] [employer] 03/29/22 Radha Dong MD [address] [facility] [place] [address] PCP - General Family Medicine 05/19/23 Charissa Glover NP PCP - [place] [employer] 12/28/23 5 Charissa Glover NP PCP - [place] [employer] 01/27/25 documented as of this encounter
--- OUTSIDE RECORDS SUMMARY | 2025-07-13 17:09 | XMS_ITS | Encounter Summary ---
Author Organization [facility] Address [address] [place] [address] Care Team Providers Care Die Cast Operator Name Role Phone Radha Dong MD Primary Care Provider [phone] Charissa Glover FLOWER STRIPPER Unavailable Encounter Details Date Type Department Care Team (Late st Contact Info) Description 07/06/2025 Bamboo flowsheet [facility] [address] [place] [address] Rosalind Mendoza, CNM [address] [place] [address] Social History Tobacco Use Types [...] How often do you attend chur or hindu services? More than 4 times per year 07/29/2024 Do you belong to any clubs o r organizations such as gnosticist groups, unions, fraternal or athletic groups, or [...] and heating? Not hard at all 07/29/2024 [facility] Occup[facility] ional Health - Occupational [...] any time in the past 12 m [facility], were you homeless or living [...] 11:10 AM EDT Routine [facility] [address] [place] [address] [place] [address] Vicnete Gatica DO [address] [place] [address] [place] [address] 07/16/2025 4:15 PM EDT Ancillary Procedure [facility] [address] [email or web address] [address] [place] [address] 07/23/2025 4:00 PM EDT Ancillary Procedure [facility] [facility] [address] [email or web address] [address] [place] [address] 07/27/2025 4:30 PM EDT Routine [facility] [place] [facility] [address] [address] [facility] [address] Rosalind Mendoza, CN [address] [facility] [place] [address] 07/30/2025 4:15 PM EDT Ancillary Procedure [facility] [place] [facility] [address] [facility] [address] [place] [address] 08/06/2025 4:15 PM EDT Ancillary Procedure [facility] [place] [facility] [address] [facility] [address] [place] [address] 08/10/2025 4:30 PM EDT Routine [facility] [place] [facility] [address] [facility] [place] [address] Rosalind Mendoza, CN [address] [place] [address] documented as of this encounter Visit Diagnoses Not on filedocumented in this encounter Care Teams Die Cast Operator Relationship Specialty Start Date End Date Radha Dong MD [address] [place] [address] PCP - General Family Medicine 05/19/23 Charissa Glover, FLOWER STRIPPER PCP - [place] [employer] 01/27/25 documented as of this encounter
--- OUTSIDE RECORDS SUMMARY | 2025-07-13 17:09 | XMS_ITS | Encounter Summary ---
Author Organization [facility] tem Address [id number] [address] [place] [address] Care Team Providers Care Health Care Sanitary Technician Name Role Phone Melia Henriquez SUEDING MACHINE TENDER-INSTRUMENT PERSON Primary Care Provider [phone] Encounter Details Date Type Department Care Team (Late st Contact Info) Description 07/01/2025 Orders Only Maternal- Medicine at [facility] [address] [place] [address] Vangie, Marci, SEAT NAILER Blister of hand without infection, unspecified laterality, subsequent encounter (Primary Dx); Dyshidrotic eczema; Insulin controlled gestational diabetes mellitus (GDM) during , antepartum; Obesity affecting in third trimester, unspecified obesity type Social History Tobacco Use Types Packs/Day Years [...] AM EDT Office Visit Maternal- Medicine at [facility] [address] [place] [address] Dorita Retana MD [address] [facility] 1[address] [place] [address] 07/28/2025 9:15 AM EDT Appointment [facility] - Ultrasound [address] [place] [address] documented as of this encounter Visit Diagnoses Diagnosis Blister of hand without infection, unspecified laterality, subsequent encounter- Primary Dyshidrotic eczema Insulin controlled gestational diabetes mellitus (GDM) during , antepartum Obesity affecting in third trimester, unspecified obesity type documented in this encounter Care Teams Health Care Sanitary Technician Relationship Specialty Start Date End Date Melia Henriquez, SUEDING MACHINE TENDER-INSTRUMENT PERSON [address] [place], [place] [id number] PCP - General Nurse Practitioner 11/25/23 documented as of this encounter
--- OUTSIDE RECORDS SUMMARY | 2025-07-13 17:09 | XMS_ITS | Encounter Summary ---
Author Organization [facility] tem Address [id number] [address] [place] [address] Care Team Providers Care Tractor Mechanic Name Role Phone Melia Henriquez CLOTH SPREADER SCREEN PRINTING-LEATHER TOOLER Primary Care Provider [phone] Encounter Details Date Type Department Care Team (Latest Contact Info) Description 06/30/2025 Travel Social History Tobacco Use Types Packs/Day Years [...] AM EDT Office Visit Maternal- Medicine at [facility] [address] [place] [phone] Dorita Retana MD [address] [place] [address] 07/28/2025 9:15 AM EDT Appointment [facility] - Ultrasound [address] [place] [address] documented as of this encounter Visit Diagnoses Not on filedocumented in this encounter Care Teams Tractor Mechanic Relationship Specialty Start Date End Date Melia Henriquez, CLOTH SPREADER SCREEN PRINTING-LEATHER TOOLER [address] [place] [address] PCP - General Nurse Practitioner 11/25/23 documented as of this encounter
--- OUTSIDE RECORDS SUMMARY | 2025-07-13 17:09 | XMS_ITS | Clinical Summary ---
Author Organization [facility] Healthcare Address [address] [place] [address] Care Team Providers Care Roll Over Press Operator Name Role Phone Radha Dong MD Primary Care Provider [phone] Charissa Glover BROMINATION EQUIPMENT OPERATOR Unavailable Allergies No known active allergies Medications Vit-Fe Fumarate-FA ( VITAMIN PO) Take by mouth Acti ve Blood Glucose Monitoring Suppl (Blood Glucose Monitor System) w/Device kitIndications:H istory of gestational diabetes 1 Units in the morning and 1 Units at noon and 1 Units in the evening and 1 Units before bedtime. Take with meals. Please fill whatever insurance will cover. Along with test strips and lancets. For 4x a day for 30 days. 4 refills. 1 kit 5 Active Alcohol Sheets (Alcoh-Wipe) sheetIndications :History of gestational diabetes Test daily before all meals/snacks and once before bedtime. 1 each 5 Active ursodiol (Caron Forte) 500 MG tabletIndication s:Itching Take 0.5 tablets (250 mg) by mouth in the morning and 0.5 tablets (250 mg) before bedtime. 30 tablet 3 5 025 Active Lantus SoloStar 100 UNIT/ML pen Inject 10 units nightly in subcutaneous space, prime 2 units 5 Active Lidocaine 5 % creamIndications :Herpes zoster with complication Apply 1 Application topically every 8 (eight) hours if needed (pain) 30 g 5 025 Active valACYclovir (Valtrex) 1 g tabletIndication s:Herpes zoster with complication Take 1 tablet (1,000 mg) by mouth in the morning and 1 tablet (1,000 mg) in the evening and 1 tablet (1,000 mg) before bedtime. Do all this for 7 days. 21 tablet 025 Active Active Problems Problem Noted Date Diagnosed Date BPPV (benign paroxysmal posi tional vertigo), unspecified laterality 05/30/2023 Dizzinesses 05/30/2023 Estimated Date of Delivery Comme nts Yes 08/13/2025 Based on last me nstrual period of 11/06/2024 (Exact Date) Encounters Date Type Department Care Team Description 07/09/2025 4:15 PM EDT [facility] [address] [facility] [address] [place] [phone] Diet controlled gestational diabetes mellitus (GDM) in third trimester ([facility]) 07/09/2025 1:20 PM EDT Office Visit [facility] [address] [place] [phone] Radha Dong MD Herpes zoster with complication (Primary Dx) 07/09/2025 Travel 07/09/2025 Results Follow-Up [facility] Abiel MUNOZ [facility] [place] [address] Rosalind Mendoza CNM Bile acids, total 07/06/2025 5:00 PM EDT Routine [facility]barbra MUNOZ [address] [place] [phone] Rosalind Mendoza CNM NST (non-stress test) reactive ([facility]) (Primary Dx); History of gestational diabetes; Encounter for care of first , third trimester ([facility]) 07/06/2025 Bamboo flowsheet [facility] [address] [place] [phone] Rosalind Mendoza CNM 07/02/2025 4:15 PM EDT Ancillary Procedure [facility] [address] [facility] [address] [place] [address] Diet controlled gestational diabetes mellitus (GDM) in third trimester ([facility]) 07/02/2025 Travel 06/30/2025 4:00 PM EDT Routine [facility] [address] [facility] [place] [address] Rosalind Mendoza CNM Itching (Primary Dx); NST (non-stress test) reactive ([facility]); History of gestational diabetes; Encounter for care of first , third trimester ([facility]) 06/30/2025 Bamboo flowsheet [facility] [address] [place] [address] Rosalind Mendoza CNM 06/25/2025 4:15 PM EDT Ancillary Procedure [facility] [address] [facility] [address] [place] [phone] Diet controlled gestational diabetes mellitus (GDM) in third trimester ([facility]) 06/25/2025 Travel 06/22/2025 4:15 PM EDT Routine [facility] [address] [facility] [place] [address] Rosalind Mendoza CNM NST (non-stress test) reactive ([facility]) (Primary Dx); History of gestational diabetes; Encounter for care of first , third trimester ([facility]) 06/22/2025 Results Follow-Up [facility] [address] [facility] [place] [address] Rosalind Mendoza CNM US biophysical profile wo non stress testing 06/18/2025 4:15 PM EDT Ancillary Procedure [facility] [address] [facility] [address] [place] [address] Diet controlled gestational diabetes mellitus (GDM) in third trimester ([facility]) 06/18/2025 Travel 06/15/2025 5:15 PM EDT Routine [facility] [address] [place] [address] Rosalind Mendoza CNM History of gestational diabetes (Primary Dx); Encounter for care of first , third trimester ([facility]) 06/15/2025 Bamboo flowsheet [facility] [address] [facility] [place] [address] Rosalind Mendoza CNM 06/05/2025 4:00 PM EDT Ancillary Procedure [facility] [address] [place] [address] related condition in third trimester ([facility]) 06/05/2025 Travel 06/04/2025 9:00 AM EDT [facility] [address] [place] [address] Rosalind Mendoza CNM Encounter for care of first , second trimester ([facility]) (Primary Dx); related condition in third trimester ([facility]); Diet controlled gestational diabetes mellitus (GDM) in third trimester ([facility]); History of gestational diabetes 06/04/2025 Bamboo flowsheet [facility] [address] [place] [phone] Rosalind Mendoza CNM 05/26/2025 3:00 PM EDT Routine [facility] [address] [place] [phone] Rosalind Mendoza CNM Encounter for care of first , second trimester ([facility]) (Primary Dx); History of gestational diabetes 05/26/2025 [facility] [address] [place] [phone] Paola Gómez MA GLUCOSE TOLERANCE TEST, GESTATIONAL,4SPEC(10 0G) 05/26/2025 [facility] [address] [place] [phone] Paola Gómez MA History of gestational diabetes 05/13/2025 Results Follow-Up [address] [phone] Paola Gómez MA GLUCOSE, GESTATIONAL SCREEN (50G)-135 CUTOFF, CBC, POCT Urinalysis dipstick, Hemoglobin A1c 05/13/2025 Orders Only [facility] [address] [phone] Rosalind Mendoza CNM Elevated glucose tolerance test 05/12/2025 9:45 AM EDT Routine [facility] [address] [phone] Rosalind Mendoza CNM Encounter for care of first , second trimester ([facility]) (Primary Dx); Screening for diabetes mellitus (DM); Screening for iron deficiency anemia; Dysuria; Glucose found in urine on examination 05/12/2025 Onformonicsboo flowsheet [facility] [address] [phone] Rosalind Mendoza CNM 04/27/2025 5:00 PM EDT Routine [facility] [address] [phone] Rosalind Mendoza CNM Encounter for care of first , second trimester ([facility]) (Primary Dx) 04/27/2025 Onformonicsboo flowsheet [address] [phone] Rosalind Mendoza CNM from Last 3 Months Immunizations Immunization Administration Dates Next Due Hep B, Adolescent or Pediatric 1997,1996,1997 HiB, unspecified 12/24/1998,1997, 7,1997 IPV 05/15/2002 MMR 05/15/2002,12/24/1998 OPV 1997,1997,1997 Family History Medical History Relation Name Comments Eczema Mother Parul Asekw Hypertension Mother Parul Askew Kidney disease Paternal Grandfather Jose Askew Relation Name Status Comments Father Alive Mother Parul Askew Alive Paternal Grandfather Jose Askew Sister Alive Social History Tobacco Use Types Packs/Day Years Used Date Smoking Tobacco: Former Cigarettes Smokeless Tobacco: Never Tobacco Cessation:Counseling Given: Not [...] 07/29/2024 How often do you attend chur ch or mandaeism services? More than 4 times per year 07/29/2024 Do you belong to any clubs o r organizations such as buddhist groups, unions, fraternal or athletic groups, or [...] and heating? Not hard at all 07/29/2024 [facility] Occupat ional Health - Occupational Stress [...] place to sleep or slept in a snf (including now)? No 05/18/2023 Housing Stability Vital Sign Answer Gary e Recorded In the last 12 months, was t here a time when you were not able to pay the mortgage or rent on time? No 07/29/2024 In the past 12 months, how m any times have you moved where you were living? 0 07/29/2024 At any time in the past 12 m [facility], were you homeless or living in a snf (including now)? No 07/29/2024 Estimated Date of Delivery Comme nts Yes 08/13/2025 Based on last me nstrual period of 11/06/2024 (Exact Date) Sex and Gender Information Value Date Recorded Sex Assigned at Female 05/18/2023 2:07 PM EDT Legal Sex Female 8:11 PM EDT Gender Identity Female 05/18/2023 2:07 PM EDT Sexual Orientation Straight 05/18/2023 2: 07 PM EDT Last Filed Vital Signs Vital Sign Reading Time Taken Comments Blood Pressure 124/78 07/09/2025 1:33 PM EDT Pulse 86 07/09/2025 1:33 PM EDT Temperature 37 C (98.6 F) 11/26/2023 5:05 PM EST Respiratory Rate 18 07/09/2025 1:33 PM EDT Oxygen Saturation 99% 07/09/2025 1:33 PM EDT Inhaled Oxygen Concentration - - Weight 86 kg (189 lb 9.6 oz) 07/09/2025 1:33 PM EDT Height 160 cm (5' 3 ) 07/09/2025 1:33 PM EDT Body Mass Index 33.59 07/09/2025 1:33 PM EDT Plan of Treatment Upcoming Encounters Date Type Department Care Team (Late st Contact Info) Description 07/15/2025 11:10 AM EDT Routine [facility] [address] [place] [address] Vicente Gatica DO [address] [place] [address] 07/16/2025 4:15 PM EDT Ancillary Procedure [facility] [address] [place] [address] 07/23/2025 4:00 PM EDT Ancillary Procedure [facility] [address] [facility] [address] [place] [address] 07/27/2025 4:30 PM EDT Routine [facility] [address] [facility] [place] [address] Rosalind Mendoza CNM [address] [facility] [place] [address] 07/30/2025 4:15 PM EDT Ancillary Procedure [facility] [address] [facility] [address] [place] [address] 08/06/2025 4:15 PM EDT Ancillary Procedure [facility] [address] [facility] [address] [place] [address] 08/10/2025 4:30 PM EDT Routine [facility] [address] [place] [address] Rosalind Mendoza CNM [address] [facility] [place] [address] Health Maintenance Due Date Last Done Comments Influenza Vaccine (#1) 2025 Procedures Procedure Name Priority Date/Time Associated Diagnosis Comments US BIOPHYSICAL PROFILE WO NON STRESS TESTING Routine 07/09/2025 4:22 PM EDT Diet controlled gestational diabetes mellitus (GDM) in third trimester ([facility]) AMYLASE Routine 06/30/2025 4:11 PM EDT Itching LIPASE Routine 06/30/2025 4:11 PM EDT Itching BILE ACIDS, TOTAL Routine 06/30/2025 4:1 1 PM EDT Itching HEPATIC FUNCTION PANEL Routine 4:11 PM EDT Itching US BIOPHYSICAL PROFILE WO NON STRESS TESTING Routine 06/25/2025 4:30 PM EDT Diet controlled gestational diabetes mellitus (GDM) in third trimester ([facility]) US BIOPHYSICAL PROFILE WO NON STRESS TESTING Routine 06/18/2025 4:44 PM EDT Diet controlled gestational diabetes mellitus (GDM) in third trimester ([facility]) US OB FOLLOW UP TRANSABDOMINAL APPROACH Routine 06/05/2025 4:35 PM EDT related condition in third trimester ([facility]) GLUCOSE TOLERANCE TEST, GESTATIONAL,4SPEC(100G ) Routine 05/20/2025 8:04 AM EDT Elevated glucose tolerance test HEMOGLOBIN A1C Routine 05/12/2025 10:50 AM EDT CBC Routine 05/12/2025 10:50 AM EDT Screening for iron deficiency anemia GLUCOSE, GESTATIONAL SCREEN (50G)-135 CUTOFF Routine 05/12/2025 10:50 AM EDT Screening for diabetes mellitus (DM) CULTURE, URINE, ROUTINE Routine 05/12/2025 10:49 AM EDT Dysuria POCT URINALYSIS DIPSTICK Routine 05/12/2025 10:08 AM EDT Dysuria from Last 3 Months Results * US biophysical profile wo non stress testing (07/09/2025 4:22 PM EDT) Only the most recent of3 resultswithin the time period is included. Anatomical Region Laterality Modality Body Ultrasound 07/09/2025 [...] SIGNED BY: Rafael Mae MD us Rosalind L Lateshao CNM IMG OB US PROCEDURES Final R esult * Bile acids, total (06/30/2025 4:11 PM EDT) BILE ACIDS, TOTAL 6 0 - 10 umol/L [facility] Blood Venous blood specimen / Unknown 06/30/2025 4:11 PM EDT 06/30/2025 4:12 PM EDT Narrative Resulting Agency Comment Performing Organization Information Site ID: AMD Name: [facility] [place] Address: [address] [place] [address] [place] [address] Director: Anthony De La Paz M.D.,PhD Rosalind Danielle Mendoza CN LAB BLOOD ORDERABLES Final R esult Performing Organization Address [facility] Co de Phone Number [facility] * Lipase (06/30/2025 4:11 PM EDT) LIPASE 38 7 - 60 U/L [facility] Blood Venous blood specimen / Unknown 06/30/2025 4:11 PM EDT 06/30/2025 4:12 PM EDT Narrative Resulting Agency Comment Performing Organization Information Site ID: QPT Name: [facility] Address: [address] [place] [address], [address] [place] [phone] Director: Stevie Doan MD Rosalind L Floro CN LAB BLOOD ORDERABLES Final R esult Performing Organization Address City/[facility]/ZIP Co de Phone Number [facility] * Amylase (06/30/2025 4:11 PM EDT) AMYLASE 40 21 - 101 U/L [facility] Blood Venous blood specimen / Unknown 06/30/2025 4:11 PM EDT 06/30/2025 4:12 PM EDT Narrative Resulting Agency Comment Performing Organization Information Site ID: QPT Name: [facility] Address: [address] [place] [address], [address] [place] [address] Director: Stevie Doan MD us Rosalind Mendoza CNM LAB BLOOD ORDERABLES Final R esult Performing Organization Address City/[facility] Co de Phone Number [facility] * (ABNORMAL) Hepatic function panel (06/30/2025 [...] Performing Organization Information Site ID: QPT Name: [facility] Address: [address] [place] [address], [address] [place] [address] Director: Stevie Doan MD us Rosalind Mendoza CNM LAB BLOOD ORDERABLES Final R esult Performing Organization Address City/[facility]/ZIP Co de Phone Number [facility] * US OB follow up transabdominal approach (06/05/2025 4:35 PM EDT) Anatomical Region Laterality Modality Body Ultrasound 06/07/2025 4:32 PM EDT Impressions 06/08/2025 7:55 AM EDT 1.Single, live intrauterine , current sonographic age of 30 weeks and 1 days, with an estimated date of delivery of August 13, 2025. 2. 35.6% weight percentile. * Estimated Weight (g) by Percentile is based upon an accurate estimated age based on last menstrual period. TRANSCRIBED BY: ELECTRONICALLY SIGNED BY: Rafael Mae MD Narrative 06/08/2025 7:55 AM EDT FINDINGS: Comparison made with prior examination of March 30, 2025, prior weight was 45% and prior date of delivery was August 13, 2025. .A single, live intrauterine is present with normal cardiac rate of 151 beats per minute. Normal activity and amniotic fluid volume. Amniotic fluid index is 14.0 cm. Morphology is grossly normal. The cervix is long and closed, 5.3 cm. The placenta is posterior Grade 1, supine not associated with the cervical os. The current sonographic age is 30 weeks and 1 days, based on the following measurements BPD 7.6 cm ( 30 weeks, 2 days) Head Circumference 27.8 cm ( 30weeks, 3 days) Abdominal Circumference 26.0cm (30 weeks, 1days) Femur Length 5.7cm ( 29weeks, 6 days) Presentation Cephalic Placenta Posterior Grade 1 Weight (g) by Percentile 35.6% These measurements result in an estimated date of delivery of August 13, 2025. The current estimated weight is 1509 grams ( 3 pound, 5 ounces). Procedure Note Rafael Mae MD - 06/08/2025 FINDINGS: Comparison made with prior examination of March 30, 2025, prior fetalweight was 45% and prior date of delivery was August 13, 2025. .A single,live intrauterine is present with normal cardiac rate of151 beats per minute. Normal activity and amniotic fluid volume.Amniotic fluid index is 14.0 cm. Morphology is grossly normal. Thecervix is long and closed, 5.3 cm. The placenta is posterior Grade 1,supine not associated with the cervical os. The current sonographic ageis 30 weeks and 1 days, based on the following measurements BPD 7.6 cm ( 30 weeks, 2 days) Head Circumference 27.8 cm ( 30weeks, 3 days) Abdominal Circumference 26.0cm (30 weeks, 1days) Femur Length 5.7cm ( 29weeks, 6 days) Presentation Cephalic Placenta Posterior Grade 1 Weight (g) by Percentile 35.6% These measurements result in an estimated date of delivery of July. The current estimated weight is 1509 grams ( 3 pound, 5ounces). IMPRESSION: 1.Single, live intrauterine , current sonographic age of 30weeks and 1 days, with an estimated date of delivery of July. 2. 35.6% weight percentile. * Estimated Weight (g) by Percentile is based upon an accurateestimated age based on last menstrual period. TRANSCRIBED BY: ELECTRONICALLY SIGNED BY: Rafael Mae MD us Rosalind Mendoza CNM IMG OB US PROCEDURES Final R esult * (ABNORMAL) GLUCOSE TOLERANCE TEST, GESTATIONAL,4SPEC(100G) (05/20/2025 8:04 AM EDT) GLUCOSE, FASTING 83 65 - 94 mg/dL [facility] GLUCOSE, 1 HOUR 186(H) <180 mg/dL [facility] GLUCOSE, 2 HOUR 190(H) <155 mg/dL [facility] GLUCOSE, 3 HOUR 158(H) <140 mg/dL [facility] COMMENT [facility] Comment: Brown/Coustan Criteria: Two or more values greater than the above reference intervals are suggestive of gestational diabetes. 05/20/2025 8:04 AM EDT 05/20/2025 8:05 AM EDT Narrative Resulting Agency Comment Performing Organization Information Site ID: QPT Name: [facility] Address: [address] [place] [address], [address] [place] [phone] Director: Stevie Doan MD us Rosalind Mendoza CNM LAB BLOOD ORDERABLES Final R esult [facility] * (ABNORMAL) GLUCOSE, GESTATIONAL SCREEN (50G)-135 CUTOFF (05/12/2025 10:50 AM EDT) Pathologist [facility] GLUCOSE, GESTATIONAL SCREEN (50G)-135 CUTOFF 143(H) <135 mg/dL [facility] Comment: One hour value of > or = 135 mg/dL indicates the need for a diagnostic 75 g dose 2-hour or 100 g dose 3-hour oral glucose tolerance test; patient fasting is required. 05/12/2025 10:5 0 AM EDT 05/12/2025 10:51 AM EDT Narrative Resulting Agency Comment Performing Organization Information Site ID: QPT Name: [facility] Address: [address] [place] [address], [address] [place] [phone] Director: Stevie Doan MD Rosalind ALVAREZ LAB BLOOD ORDERABLES Final R esult [facility] * CBC (05/12/2025 10:50 AM EDT) Pathologist [facility] WHITE BLOOD CELL COUNT 8.7 3.8 - 10.8 Thousand/u L [facility] RED BLOOD CELL COUNT 4.09 3.80 - 5.10 Million/uL [facility] HEMOGLOBIN 12.3 11.7 - 15.5 g/dL [facility] HEMATOCRIT 38.4 35.0 - 45.0 % [facility] MCV 93.9 80.0 - 100.0 fL [facility] MCH 30.1 27.0 - 33.0 pg [facility] MCHC 32.0 32.0 - 36.0 g/dL [facility] Comment: For adults, a slight decrease in the calculated MCHC value (in the range of 30 to 32 g/dL) is most likely not clinically significant; however, it should be interpreted with caution in correlation with other red cell parameters and the patient's clinical condition. RDW 13.0 11.0 - 15.0 % [facility] PLATELET COUNT 229 140 - 400 Thousand/u L [facility] MPV 9.9 7.5 - 12.5 fL [facility] Blood Venous blood specimen / Unknown 05/12/2025 10:50 AM EDT 05/12/2025 10:51 AM EDT Narrative Resulting Agency Comment Performing Organization Information Site ID: QPT Name: [facility] Address: [address] [place] [address], [address] [place] [phone] Director: Stevie Doan MD Rosalind L Floro [facility] LAB BLOOD ORDERABLES Final R esult Performing Organization Address [facility] de Phone Number [facility] * Hemoglobin A1c (05/12/2025 10:50 AM EDT) Hemoglobin A1C 4.8 <5.7 % [facility] Comment: For the purpose of screening for the presence of diabetes: <5.7% Consistent with the absence of diabetes 5.7-6.4% Consistent with increased risk for diabetes (prediabetes) > or =6.5% Consistent with diabetes This assay result is consistent with a decreased risk of diabetes. Currently, no consensus exists regarding use of hemoglobin A1c for diagnosis of diabetes in children. According to [place] Diabetes Association (ADA) guidelines, hemoglobin A1c <7.0% represents optimal control in non- diabetic patients. Different metrics may apply to specific patient populations. Standards of Medical Care in Diabetes(ADA). 05/12/2025 10:5 0 AM EDT 05/12/2025 10:51 AM EDT Narrative Resulting Agency Comment Performing Organization Information Site ID: QPT Name: [facility] Address: [address] [place] [address], [address] [place] [phone] Director: Stevie Doan MD Rosalind L Floro CN LAB BLOOD ORDERABLES Final R esult Performing Organization Address [facility] de Phone Number [facility] * Urine culture (05/12/2025 10:49 AM EDT) MICRO NUMBER [id number] [facility] SPECIMEN QUALITY Adequate [facility] SOURCE: ([facility]) URINE [facility] STATUS FINAL [facility] RESULT SEE NOTE [facility] Comment: Mixed genital margarita isolated. These superficial bacteria are not indicative of a urinary tract infection. No further organism identification is warranted on this specimen. If clinically indicated, recollect clean-catch, mid-stream urine and transfer immediately to Urine Culture Transport Tube. Urine Urine specimen obtained by clean catch procedure / Unknown 05/12/2025 10:49 AM EDT 05/12/2025 10:50 AM EDT Narrative [facility] - 05/14/2025 2:50 AM EDT MULTIPLE COLLECTION TIMES FOR SAME TEST TYPE. Resulting Agency Comment Performing Organization Information Site ID: QPT Name: [facility] Address: [address] [place] [address], [address] [place] [phone] Director: Stevie Doan MD Rosalind Mendoza CNM LAB MICROBIOLOGY - GENERAL O RDERABLES Final Result [facility] * (ABNORMAL) POCT Urinalysis dipstick (05/12/2025 10:08 AM EDT) Color, UA Yellow Clarity, UA Cloudy Glucose, UA Many Negative - 2000(110) ++++ mg/dL Bilirubin, UA Negative Negative - 4(70) +++ mg/dL Ketones, UA Negative Negative - 160(16) ++++ mg/dL Spec Grav, UA 1.020 1 - 1.03 Blood, UA Negative Negative - 50 Fernando/mcL pH, UA 5.0 5 - 9 Protein, UA Negative Negative - 2000(20) ++++ mg/dL Urobilinogen, UA 0.2 0.2 - 12 mg/dL Leukocytes, UA Moderate Negative - 500+++ Jose/mcL Nitrite, UA Negative Negative - Positive Urine 05/12/2025 10:0 8 AM EDT Rosalind Mendoza CNM POINT OF CARE TEST ENTER/BREE T ORDERABLES Final Result from Last 3 Months Insurance BS [employer]ICA[employer] Care Teams Roll Over Press Operator Relationship Specialty Start Date End Date Radha Dong MD [address] [place] [address] PCP - General Family Medicine 05/19/23 Charissa Glover NP PCP - [place] [employer] 01/27/25
--- OUTSIDE RECORDS SUMMARY | 2025-07-13 17:09 | XMS_ITS | Encounter Summary ---
Author Organization [facility] tem Address [id number] [address] [place] [address] Care Team Providers Care Record Press Supervisor Name Role Phone Melia Henriquez RAIL OPERATOR-DEPENDENCY DIRECTOR Primary Care Provider [phone] Encounter Details Date Type Department Care Team (Late st Contact Info) Description 07/07/2025 Orders Only Maternal- Medicine at [facility] [address] [place] [address] Doriat Retana MD [address] [facility] 1st Floor [place], [place] [id number] Insulin controlled gestational diabetes mellitus (GDM) during , antepartum Social History Tobacco Use Types Packs/Day Years [...] AM EDT Office Visit Maternal- Medicine at [facility] [address] [place] [address] Dorita Retana MD [address] [facility] 1st [place] [address] 07/28/2025 9:15 AM EDT Appointment [facility] - Ultrasound [address] [place] [phone] documented as of this encounter Visit Diagnoses Diagnosis Insulin controlled gestational diabetes mellitus (GDM) during , antepartum documented in this encounter Care Teams Record Press Supervisor Relationship Specialty Start Date End Date Melia Henriquez APRN-DEPENDENCY DIRECTOR [address] [place] [address] PCP - General Nurse Practitioner 11/25/23 documented as of this encounter
--- OUTSIDE RECORDS SUMMARY | 2025-07-13 17:09 | XMS_ITS | Encounter Summary ---
Author Organization [facility] tem Address [facility] [id number] [address] [place] [address] Care Team Providers Care Nursing Program Coordinator Name Role Phone Melia Henriquez BRICK STACKER-DENTAL SALES REPRESENTATIVE Primary Care Provider [phone] Encounter Details Date Type Department Care Team (Late st Contact Info) Description 06/30/2025 Telephone Maternal- Medicine at [facility] [address] [place] [address] Renae Landrum LD Social History Tobacco Use Types Packs/Day Years [...] on file documented as of this encounter Miscellaneous Notes * Telephone Encounter - ELZA Hi - 06/30/2025 2:36 PM EDT Called patient regarding blood glucose log and food record from 06/22 to 06/28/25. 20% of patient's values were elevated, similar to last week. Four of the fasting numbers were high and patient reportsthat today it was 104 mg/dL. She has been very careful with diet and only two at dinner were above target. However, patient agrees to schedule a medication start consultation due to the general trendof the numbers going higher. She was not sleeping well and wonders if that was affecting the fasting numbers. Transferred patient to our toolroom clerk. Patient to continue sending weekly logs for review. documented in this encounter Plan of Treatment Upcoming Encounters Date Type Department Care Team (Late st Contact Info) Description 07/21/2025 8:00 AM EDT Office Visit Maternal- Medicine at [facility] [address] [place] [address] Dorita Retana MD [address] [facility] 1st [place] [address] 07/28/2025 9:15 AM EDT Appointment [facility] - Ultrasound [address] [place] [address] documented as of this encounter Visit Diagnoses Not on filedocumented in this encounter Care Teams Nursing Program Coordinator Relationship Specialty Start Date End Date Melia Henriquez, HENRY-DENTAL SALES REPRESENTATIVE [address] [place] [address] PCP - General Nurse Practitioner 11/25/23 documented as of this encounter
--- OUTSIDE RECORDS SUMMARY | 2025-07-13 17:09 | XMS_ITS | Encounter Summary ---
Author Organization [facility] Address [address] [place] [address] Care Team Providers Care Tube Inspector Name Role Phone Radha Dong MD Primary Care Provider [phone] Charissa Glover MANAGER ROOFING Unavailable Encounter Details Date Type Department Care Team (Late st Contact Info) Description 06/22/2025 Results Follow-Up [facility] OBGYN [address] [place] [phone] Rosalind Mendoza, CNM [address] [place], [place] [phone] US biophysical profile wo non stress testing Social History Tobacco Use Types Packs/Day Years [...] any clubs o r organizations such as scientology groups, unions, fraternal or athletic groups, or [...] and heating? Not hard at all 07/29/2024 [facility] [place] of Occupat ional Health - Occupational Stress [...] place to sleep or slept in a penitentiary (including now)? No 05/18/2023 Housing Stability Vital [...] time in the past 12 [facility], were you homeless or living in a penitentiary (including now)? No 07/29/2024 Estimated Date of [...] Description 07/15/2025 11:10 AM EDT Routine [facility] [address] [place] [address] Vicente Gatica DO [address] [place] [address] [place] [address] 07/16/2025 4:15 PM EDT Ancillary Procedure [facility] [address] [place] [address] 07/23/2025 4:00 PM EDT Ancillary Procedure [facility] [place] [facility] [address] [facility] [address] [place] [address] 07/27/2025 4:30 PM EDT Routine [facility] [place] [facility] [address] [facility] [place] [address] Rosalind Mendoza CNM [address] [place] [address] 07/30/2025 4:15 PM EDT Ancillary Procedure [facility] [place] [facility] [address] [facility] [address] [place] [address] 08/06/2025 4:15 PM EDT Ancillary Procedure [facility] [place] [facility] [address] [facility] [address] [place] [address] 08/10/2025 4:30 PM EDT Routine [facility] [place] [facility] [address] [facility] [place] [address] Rosalind Mendoza CN [address] [place] [address] documented as of this encounter Visit Diagnoses Not on filedocumented in this encounter Care Teams Tube Inspector Relationship Specialty Start Date End Date Radha Dong MD [address] [place] [address] PCP - General Family Medicine 05/19/23 Charissa Glover NP PCP - [place] [employer] 01/27/25 documented as of this encounter
--- OUTSIDE RECORDS SUMMARY | 2025-07-13 17:09 | XMS_ITS | Encounter Summary ---
Author Organization [facility] Address [address] [place] [address] Care Team Providers Care Suspect Artist Supervisor Name Role Phone Radha Dong MD Primary Care Provider [phone] Charissa Glover IT SOFTWARE DEVELOPER Unavailable Encounter Details Date Type Department Care Team (Late st Contact Info) Description 06/30/2025 Bamboo flowsheet [facility] OBGYN [address] [place] [address] Rosalind Mendoza, CNM [address] [place] [address] Social History Tobacco Use Types [...] How often do you attend chur or evangelical services? More than 4 times per year 07/29/2024 Do you belong to any clubs o r organizations such as orthodoxy groups, unions, fraternal or athletic groups, or [...] and heating? Not hard at all 07/29/2024 [facility] of Occupat ional Health - [...] any time in the past 12 m [facility], were you homeless or living [...] 11:10 AM EDT Routine [facility] [address] [place] [address] [place] [address] Vicente Gatica DO [address] [place] [address] [place] [address] 07/16/2025 4:15 PM EDT Ancillary Procedure [facility] [place] [facility] [address] [facility] [address] [place] [address] 07/23/2025 4:00 PM EDT Ancillary Procedure [facility] [place] [facility] [address] [facility] [address] [place] [address] 07/27/2025 4:30 PM EDT Routine [facility] [place] [facility] [address] [facility] [address] [place] [address] Rosalind Mendoza, CN [address] [facility] [place] [address] 07/30/2025 4:15 PM EDT Ancillary Procedure [facility] [place] [facility] [address] [facility] [address] [place] [address] 08/06/2025 4:15 PM EDT Ancillary Procedure [facility] [place] [facility] [address] [facility] [address] [place] [address] 08/10/2025 4:30 PM EDT Routine [facility] [place] [facility] [address] [facility] [place] [address] Rosalind Mendoza, CN [address] [facility] [place] [address] documented as of this encounter Visit Diagnoses Not on filedocumented in this encounter Care Teams Suspect Artist Supervisor Relationship Specialty Start Date End Date Radha Dong MD [address] [place] [address] PCP - General Family Medicine 05/19/23 Charissa Glover, IT SOFTWARE DEVELOPER PCP - [place] [employer] 01/27/25 documented as of this encounter
--- OUTSIDE RECORDS SUMMARY | 2025-07-13 17:09 | XMS_ITS | Encounter Summary ---
Author Organization [facility] tem Address [facility] [place][id number] [address] [place] [address] Care Team Providers Care Duty Officer Name Role Phone Melia Henriquez HYSTER DRIVER-BATTERY CHECKER Primary Care Provider [phone] Encounter Details Date Type Department Care Team ([facility] Contact Info) Description 06/03/2025 Orders Only Maternal- Medicine at [facility] [address] [place] [address] Ref Prov, [place] [address] Social History Tobacco Use Types Packs/Day Years [...] Encounters Date Type Department Care Team (Late Contact Info) Description 07/21/2025 8:00 AM EDT Office Visit Maternal- Medicine at [facility] [address] [place] [address] Dorita Retana MD [address] [facility] 1st [place] [address] 07/28/2025 9:15 AM EDT Appointment [facility] - Ultrasound [address] [place] [address] documented as of this encounter Visit Diagnoses Not on filedocumented in this encounter Care Teams Duty Officer Relationship Specialty Start Date End Date Melia Henriquez APRN-BATTERY CHECKER [address] [place] [address] PCP - General Nurse Practitioner 11/25/23 documented as of this encounter
--- OUTSIDE RECORDS SUMMARY | 2025-07-13 17:09 | XMS_ITS | Encounter Summary ---
Author Organization [facility] Address [address] [place] [address] Care Team Providers Care Watch Adjuster Name Role Phone Radha Dong MD Primary Care Provider [phone] Charissa Glover GRINDING MACHINE OPERATOR PORTABLE Unavailable Encounter Details Date Type Department Care Team (Latest Contact Info) Description 07/02/2025 Travel Social History Tobacco Use Types Packs/Day [...] often do you attend chur ch or evangelical services? More than 4 times [...] and heating? Not hard at all 07/29/2024 [facility] of Occupat ional Health - [...] place to sleep or slept in a group home (including now)? No 05/18/2023 Housing Stability [...] were you homeless or living in a group home (including now)? No 07/29/2024 Estimated Date [...] AM EDT Routine [facility] [address] [facility] [place] [address] Vicente Gatica DO [address] [facility] [address] [place], [place] [address] 07/16/2025 4:15 PM EDT Ancillary Procedure [facility] [place] [facility] [address] [facility] [address] [place] [address] 07/23/2025 4:00 PM EDT Ancillary Procedure [facility] [place] [facility] [address] [facility] [address] [place] [address] 07/27/2025 4:30 PM EDT Routine [facility] [place] [facility] [address] [facility] [place] [address] Rosalind Mendoza, CN [address] [facility] [place] [address] 07/30/2025 4:15 PM EDT Ancillary Procedure [facility] [place] [facility] [address] [facility] [address] [place] [address] 08/06/2025 4:15 PM EDT Ancillary Procedure [facility] [place] [facility] [address] [facility] [address] [place] [address] 08/10/2025 4:30 PM EDT Routine [facility] [place] [facility] [address] [facility] [place] [address] Rosalind Mendoza, CN [address] [place] [address] documented as of this encounter Visit Diagnoses Not on filedocumented in this encounter Care Teams Watch Adjuster Relationship Specialty Start Date End Date Radha Dong MD [address] [place] [address] PCP - General Family Medicine 05/19/23 Charissa Glover NP PCP - [place] [employer] 01/27/25 documented as of this encounter
--- OUTSIDE RECORDS SUMMARY | 2025-07-13 17:09 | XMS_ITS | Encounter Summary ---
Author Organization [facility] Address [address] [place] [address] Care Team Providers Care Space Controller Name Role Phone Radha Dong MD Primary Care Provider [phone] Charissa Glover ELECTRICAL TEST TECHNICIAN Unavailable Encounter Details Date Type Department Care Team (Late st Contact Info) Description 07/09/2025 Results Follow-Up [facility] OBGYN [address] [place] [address] Rosalind Mendoza, CNM [address] [place], [place] [phone] Bile acids, total Social History Tobacco Use Types Packs/Day Years [...] How often do you attend chur or jew services? More than 4 times per year 07/29/2024 Do you belong to any clubs o r organizations such as congregational groups, unions, fraternal or athletic groups, or [...] and heating? Not hard at all 07/29/2024 [facility] [place] of Occupat ional Health - Occupational Stress [...] place to sleep or slept in a long-term (including now)? No 05/18/2023 Housing Stability Vital Sign Answer Gary e Recorded In the last 12 months, was t here a time when you were not able to pay the mortgage or rent on time? No 07/29/2024 In the past 12 months, how m any times have you moved where you were living? 0 07/29/2024 At any time in the past 12 m [facility], were you homeless or living in a long-term (including now)? No 07/29/2024 Estimated Date of [...] Description 07/15/2025 11:10 AM EDT Routine [facility] [address] [facility] [place] [address] Vicente Gatica DO [address] [facility] [place] [address] 07/16/2025 4:15 PM EDT Ancillary Procedure [facility] [place] [facility] [address] [place] [address] 07/23/2025 4:00 PM EDT Ancillary Procedure [facility] [place] [facility] [address] [facility] [address] [place] [address] 07/27/2025 4:30 PM EDT Routine [facility] [place] [facility] [address] [facility] [address] [address] Rosalind Mendoza, KIM [address] [place] [address] 07/30/2025 4:15 PM EDT Ancillary Procedure [facility] [place] [facility] [address] [facility] [address] [place] [address] 08/06/2025 4:15 PM EDT Ancillary Procedure [facility] [place] [facility] [address] [facility] [address] [place] [address] 08/10/2025 4:30 PM EDT Routine [facility] [place] [facility] [address] [facility] [address] [place] [address] Rosalind Mendoza, CN [address] [place] [address] documented as of this encounter Visit Diagnoses Not on filedocumented in this encounter Care Teams Space Controller Relationship Specialty Start Date End Date Radha Dong MD [address] [place] [address] PCP - General Family Medicine 05/19/23 Charissa Glover NP PCP - [place] [employer] 01/27/25 documented as of this encounter
--- OUTSIDE RECORDS SUMMARY | 2025-07-13 17:09 | XMS_ITS | Encounter Summary ---
Author Organization [facility] Address [address] [place] [address] Care Team Providers Care Keno Terminal Operator Name Role Phone Radha Dong MD Primary Care Provider [phone] Charissa Glover PAPER COATER Unavailable Encounter Details Date Type Department Care Team (Latest Contact Info) Description 07/09/2025 Travel Social History Tobacco Use Types Packs/Day [...] often do you attend chur ch or methodist services? More than 4 times per year 07/29/2024 Do you belong to any clubs o r organizations such as mu-ism groups, unions, fraternal or athletic groups, or [...] heating? Not hard at all 07/29/2024 [facility] of Occupat ional Health - Occupational [...] AM EDT Routine [facility] [address] [facility] [place] [address] Vicente Gatica DO [address] [facility] [address] [place] [place], [place] [id number] 07/16/2025 4:15 PM EDT Ancillary Procedure [facility] [place] [facility] [address] [facility] [address] [place] [address] 07/23/2025 4:00 PM EDT Ancillary Procedure [facility] [place] [facility] [address] [facility] [address] [place] [address] 07/27/2025 4:30 PM EDT Routine [facility] [place] [facility] [address] [facility] [place] [address] Rosalind Mendoza, CN [address] [place] [address] 07/30/2025 4:15 PM EDT Ancillary Procedure [facility] [place] [facility] [address] [facility] [address] [place] [address] 08/06/2025 4:15 PM EDT Ancillary Procedure [facility] [place] [facility] [address] [facility] [address] [place] [address] 08/10/2025 4:30 PM EDT Routine [facility] [place] [facility] [address] [facility] [place] [address] Rosalind Mendoza, CN [address] [place] [address] documented as of this encounter Visit Diagnoses Not on filedocumented in this encounter Care Teams Keno Terminal Operator Relationship Specialty Start Date End Date Radha Dong MD [address] [place] [address] PCP - General Family Medicine 05/19/23 Charissa Glover NP PCP - [place] [employer] 01/27/25 documented as of this encounter
--- OUTSIDE RECORDS SUMMARY | 2025-07-13 17:09 | XMS_ITS | Encounter Summary ---
Author Organization [facility] tem Address [id number] [address] [place] [address] Care Team Providers Care Insurance Claims Analyst Name Role Phone Melia Henriquez TOP FLAVOR ATTENDANT-ROADWAY ENGINEER Primary Care Provider [phone] Encounter Details Date Type Department Care Team (Late st Contact Info) Description 07/07/2025 Telephone Maternal- Medicine at [facility] [address] [place] [address] Lety Ocampo, RN Social History Tobacco Use Types Packs/Day [...] encounter Miscellaneous Notes * Telephone Encounter - Lety Ocampo RN - 07/07/2025 6:50 PM EDT Called to discuss her insulin change. Dr Retana reviewed her blood sugars and would like her to increase her lantus in the evening to 14 units. Pt verbalized understanding and will start tonight. She will send in new blood sugars next week. documented in this encounter Plan of Treatment Upcoming Encounters Date Type Department Care Team (Late st Contact Info) Description 07/21/2025 8:00 AM EDT Office Visit Maternal- Medicine at [facility] [address] [place] [address] Dorita Retana MD [address] [facility] 1st [place] [address] 07/28/2025 9:15 AM EDT Appointment [facility] - Ultrasound [address] [place] [address] documented as of this encounter Visit Diagnoses Not on filedocumented in this encounter Care Teams Insurance Claims Analyst Relationship Specialty Start Date End Date Melia Henriquez APRN-ROADWAY ENGINEER [address] [place] [address] PCP - General Nurse Practitioner 11/25/23 documented as of this encounter
[2025-07-13 17:12] VITALS: BP 137/88; PULSE 84
--- OUTSIDE RECORDS SUMMARY | 2025-07-15 11:10 | XMS_ITS | Encounter Summary ---
Author Organization [facility] Address [address] [place] [address] Care Team Providers Care Sql Report Developer Name Role Phone Radha Dong MD Primary Care Provider [phone] Charissa Glover ESTHETICIAN/OWNER Unavailable Reason for Visit * Reason Comments Routine Visit Encounter Details Date Type Department Care Team (Latest Contact Info) Description 07/15/2025 11:10 AM EDT Routine [facility] [address] [place] [phone] Vicente Gatica DO [address] Neha Ford, [facility] Third trimester ([facility]); 35 weeks gestation of ([facility]); Herpes zoster without complication Social History Tobacco [...] week 07/29/2024 How often do you attend [facility] or mu-ism services? More than 4 times per year 07/29/2024 Do you belong to any clubs o r organizations such as mandaeism groups, unions, fraternal or athletic groups, or [...] and heating? Not hard at all 07/29/2024 [facility] of Occupat ional Health - Occupational Stress [...] place to sleep or slept in a jail (including now)? No 05/18/2023 Housing Stability Vital Sign Answer Gary e Recorded In the last 12 months, was t here a time when you were not able to pay the mortgage or rent on time? No 07/29/2024 In the past 12 months, how m any times have you moved where you were living? 0 07/29/2024 At any time in the past 12 m [facility], were you homeless or living in a jail (including now)? No 07/29/2024 Estimated Date of [...] nursing note reviewed. Exam conducted with a batch mixer operator present. Vitals: Estimated body mass index is 33.79 kg/m?? as calculated from the following: Height as of 07/09/25: 5' 3 . Weight as of this encounter: 190 lb 12 oz. BP: 128/80 Patient's last menstrual period was 11/06/2024 (exact date). ASSESSMENT & PLAN ICD-10-CM 1. Third trimester ([facility]) Z34.93 POCT urinalysis dipstick manually resulted CULTURE, GROUP B STREP WITH SUSCEPTIBLITY CULTURE, GROUP B STREP WITH SUSCEPTIBLITY 2. 35 weeks gestation of ([facility]) Z3A.35 Patient is doing well but has [...] 07/23/2025 4:00 PM EDT Ancillary Procedure [facility] [address] [facility] [address] [place] [address] 07/27/2025 4:30 PM EDT [facility] [address] [place] [address] Rosalind Mendoza CNM [address] [place] [address] 07/30/2025 4:15 PM EDT Ancillary Procedure [facility] [address] [facility] [address] [place] [address] 08/06/2025 4:15 PM EDT Ancillary Procedure [facility] [address] [facility] [address] [place] [address] 08/10/2025 4:30 PM EDT Routine [facility] [address] [place] [address] Rosalind Mendoza CNM [address] [place] [address] Scheduled Orders Name Type Priority Associated Diagnoses Orde r Schedule CULTURE, GROUP B STREP WITH SUSCEPTIBLITY Lab Routine Third trimester ([facility]) Expected: 07/15/2025, Expires: 07/15/2026 documented as of this encounter Procedures Procedure Name Priority Date/Time Associated Diagnosis Comments POCT URINALYSIS DIPSTICK Routine 07/15/2025 11:27 AM EDT Third trimester ([facility]) documented in this encounter Results * (ABNORMAL) [...] this encounter Visit Diagnoses Diagnosis Third trimester ([facility]) state, incidental 35 weeks gestation of ([facility]) Herpes zoster without complication documented in this encounter Care Teams Sql Report Developer Relationship Specialty Start Date End Date Radha Dong MD [address] [place] [address] PCP - General Family Medicine 05/19/23 Charissa Glover NP PCP - Jose Commercial 01/27/25 documented as of this encounter
--- OUTSIDE RECORDS SUMMARY | 2025-07-16 16:15 | XMS_ITS | Encounter Summary ---
Author Organization [facility] Address [address] [place] [address] Care Team Providers Care Research Associate Policy Name Role Phone Radha Dong MD Primary Care Provider [phone] Charissa Glover IMPLEMENTATION DIRECTOR Unavailable Encounter Details Date Type Department Care Team (Latest Contact Info) Description 07/16/2025 4:15 PM EDT Ancillary Procedure [facility] [address] [place] [address] Diet controlled gestational diabetes mellitus (GDM) in third trimester ([facility]) Social History Tobacco Use Types Packs/Day [...] How often do you attend chur or episcopal services? More than 4 times per year 07/29/2024 Do you belong to any clubs o r organizations such as lutheran groups, unions, fraternal or athletic groups, or [...] No 07/29/2024 Housing Stability Vital Sign Answer Agry e Recorded In the last 12 months, [...] place to sleep or slept in a retirement (including now)? No 05/18/2023 Housing Stability Vital Sign Answer Gary e Recorded In the last 12 months, was t here a time when you were not able to pay the mortgage or rent on time? No 07/29/2024 In the past 12 months, how m any times have you moved where you were living? 0 07/29/2024 At any time in the past 12 m [facility], were you homeless or living in a retirement (including now)? No 07/29/2024 Estimated Date of [...] 07/23/2025 4:00 PM EDT Ancillary Procedure [facility] [place] [facility] [address] [place] [address] 07/27/2025 4:30 PM EDT Routine [facility] [place] [facility] [address] [facility] [place] [phone] Rosalind Mendoza CNM [address] [facility] [place] [address] 07/30/2025 4:15 PM EDT Ancillary Procedure [facility] [place] [facility] [address] [facility] [address] [place] [address] 08/06/2025 4:15 PM EDT Ancillary Procedure [facility] [place] [facility] [address] [place] [address] 08/10/2025 4:30 PM EDT Routine [facility] [place] [facility] [address] [facility] [place] [address] Rosalind Mendoza CNM [address] [facility] [place] [address] Pending Results Name Type Priority Associated Diagnoses Date /Time US biophysical profile wo non stress testing Imaging Routine Diet controlled gestational diabetes mellitus (GDM) in third trimester ([facility]) 07/16/2025 4:20 PM EDT documented as of this encounter Visit Diagnoses Diagnosis Diet controlled gestational diabetes mellitus (GDM) in third trimester ([facility]) documented in this encounter Care Teams Research Associate Policy Relationship Specialty Start Date End Date Radha Dong MD [address] [place] [address] PCP - General Family Medicine 05/19/23 Charissa Glover NP PCP - Jose Chopra 01/27/25 documented as of this encounter
--- OUTSIDE RECORDS SUMMARY | 2025-07-17 09:45 | XMS_ITS | Encounter Summary ---
Author Organization [facility] tem Address [id number] [address] [place] [address] Care Team Providers Care In Class Special Education Teacher Name Role Phone Melia Henriquez FILTROSE CRUSHER-CARBON PAPER COATING SUPERVISOR Primary Care Provider [phone] Encounter Details Date Type Department Care Team (Late st Contact Info) Description 07/15/2025 Telephone Maternal- Medicine at [facility] [address] [place] [address] Lety Ocampo, RN Social History Tobacco Use [...] Telephone Encounter - Lety Ocampo RN - 07/15/2025 4:21 PM EDT Called pt to discuss her insulin change for this week. Dr Retana reviewed her blood sugars this week and would like her to increase her lantus in the evening to 16 units. Pt verbalized understanding and she will start tonight. She will send in new blood sugars next week. documented in this encounter Plan of Treatment Upcoming Encounters Date Type Department Care Team (Late st Contact Info) Description 07/21/2025 8:00 AM EDT Office Visit Maternal- Medicine at [facility] [address] [place] [address] Dorita Retana MD [address] [facility] 1st [place] [address] 07/28/2025 9:15 AM EDT Appointment [facility] - Ultrasound [address] [place] [phone] documented as of this encounter Visit Diagnoses Not on filedocumented in this encounter Care Teams In Class Special Education Teacher Relationship Specialty Start Date End Date Melia Henriquez APRN-CARBON PAPER COATING SUPERVISOR [address] [place] [address] PCP - General Nurse Practitioner 11/25/23 documented as of this encounter
--- OUTSIDE RECORDS SUMMARY | 2025-07-17 09:45 | XMS_ITS | Encounter Summary ---
Author Organization [facility] Address [address] [place] [address] Care Team Providers Care Artificial Marble Worker Name Role Phone Radha Dong MD Primary Care Provider [phone] Charissa Glover RIP TAILER Unavailable Encounter Details Date Type Department Care Team (Late st Contact Info) Description 07/15/2025 Telephone [facility] [address] [place] [address] [place] [address] Nancy Kaur LPN Social History Tobacco Use Types Packs/Day Years [...] How often do you attend chur or zoroastrian services? More than 4 times per year 07/29/2024 Do you belong to any clubs o r organizations such as yarsanism groups, unions, fraternal or athletic groups, or [...] and heating? Not hard at all 07/29/2024 [facility]at iontn Health - Occupational Stress Questionnaire Answer Date [...] place to sleep or slept in a half-way (including now)? No 05/18/2023 Housing Stability Vital Sign Answer Gary e Recorded In the last 12 months, was t here a time when you were not able to pay the mortgage or rent on time? No 07/29/2024 In the past 12 months, how m any times have you moved where you were living? 0 07/29/2024 At any time in the past 12 m [facility], were you homeless or living in a half-way (including now)? No 07/29/2024 Estimated Date of Delivery Comme nts Yes 08/13/2025 Based on last me nstrual period of 11/06/2024 (Exact Date) Sex and Gender Information Value Date Recorded Sex Assigned at Female 05/18/2023 2:07 PM EDT Legal Sex Female 8:11 PM EDT Gender Identity Female 05/18/2023 2:07 PM EDT Sexual Orientation Straight 05/18/2023 2: 07 PM EDT documented as of this encounter Miscellaneous Notes * Telephone Encounter - Nancy Kaur LPN - 07/15/2025 11:47 AM EDT Pt to be induced on 08/06/25. 1 cm on 07/15/25 documented in this encounter Plan of Treatment Upcoming Encounters Date Type Department Care Team (Late st Contact Info) Description 07/23/2025 4:00 PM EDT Ancillary Procedure [facility] [address] [facility] [address] [place] [address] 07/27/2025 4:30 PM EDT Routine [facility] [address] [facility] [place] [address] Rosalind Mendoza, KIM [address] [facility] [place] [address] 07/30/2025 4:15 PM EDT Ancillary Procedure [facility] [address] [facility] [address] [place] [address] 08/06/2025 4:15 PM EDT Ancillary Procedure [facility] [address] [facility] [address] [place] [address] 08/10/2025 4:30 PM EDT Routine [facility] [address] [facility] [place] [address] Rosalind Mendoza, [facility] [address] [facility] [place] [address] documented as of this encounter Visit Diagnoses Not on filedocumented in this encounter Care Teams Artificial Marble Worker Relationship Specialty Start Date End Date Radha Dong MD [address] [place] [address] PCP - General Family Medicine 05/19/23 Charissa Glover NP PCP - Jose Commercial 01/27/25 documented as of this encounter
--- OUTSIDE RECORDS SUMMARY | 2025-07-17 09:45 | XMS_ITS | Encounter Summary ---
Author Organization [facility] tem Address [id number] [address] [place] [address] Care Team Providers Care Pyrometallurgical Engineer Name Role Phone Melia Henriquez COOLER OPERATOR-DRY CHAIN OFFBEARER Primary Care Provider [phone] Encounter Details Date Type Department Care Team (Late st Contact Info) Description 07/07/2025 Telephone Maternal- Medicine at [facility] [address] [place] [phone] Lety Ocampo, RN Social History Tobacco Use [...] AM EDT Office Visit Maternal- Medicine at [facility] [address] [place] [phone] Dorita Retana MD [address] [facility] 1st [place] [address] 07/28/2025 9:15 AM EDT Appointment [facility] - Ultrasound [address] [place] [phone] documented as of this encounter Visit Diagnoses Not on filedocumented in this encounter Care Teams Pyrometallurgical Engineer Relationship Specialty Start Date End Date Melia Henriquez APRN-DRY CHAIN OFFBEARER [address] [place] [address] PCP - General Nurse Practitioner 11/25/23 documented as of this encounter
--- OUTSIDE RECORDS SUMMARY | 2025-07-17 09:45 | XMS_ITS | Clinical Summary ---
Author Organization [facility] Address [address] [place] [address] Care Team Providers Care Hydrogen Treater Name Role Phone Radha Dong MD Primary Care Provider [phone] Charissa Glover FILTER TIP INSPECTOR Unavailable Allergies No known active allergies Medications [...] for 30 days. 4 refills. 1 kit 05/26/20 25 Active Alcohol Sheets (Alcoh-Wipe) sheetIndications :History of gestational diabetes Test daily before all meals/snacks and once before bedtime. 1 each 05/26/20 25 Active ursodiol (Caron Forte) 500 MG tabletIndication s:Itching Take 0.5 tablets (250 mg) by mouth in the morning and 0.5 tablets (250 mg) before bedtime. 30 tablet 3 06/30/20 25 025 Active Lantus SoloStar 100 UNIT/ML pen Inject 10 units nightly in subcutaneous space, prime 2 units 07/01/20 25 Active Lidocaine 5 % creamIndications :Herpes zoster with complication Apply 1 Application topically every 8 (eight) hours if needed (pain) 30 g 07/09/20 25 025 Active valACYclovir (Valtrex) 500 MG tabletIndication s:Herpes zoster without complication Take 1 tablet (500 mg) by mouth Daily 30 tablet 2 07/15/20 25 025 Active valACYclovir (Valtrex) 1 g tabletIndication s:Herpes zoster with complication Take 1 tablet (1,000 mg) by mouth in the morning and 1 tablet (1,000 mg) in the evening and 1 tablet (1,000 mg) before bedtime. Do all this for 7 days. 21 tablet 07/09/20 25 025 Active Problems Problem Noted Date Diagnosed Date BPPV (benign paroxysmal posi tional vertigo), unspecified laterality 05/30/2023 Dizzinesses 05/30/2023 Estimated Date of Delivery Comme nts Yes 08/13/2025 Based on last me nstrual period of 11/06/2024 (Exact Date) Encounters Date Type Department Care Team Description 07/16/2025 4:15 PM EDT Ancillary Procedure [facility] [address] [place] [address] [place] [address] Diet controlled gestational diabetes mellitus (GDM) in third trimester ([facility]) 07/16/2025 Travel 07/15/2025 11:10 AM [place] [address] Vicente Gatica, Third trimester ([facility]); 35 weeks gestation of ([facility]); Herpes zoster without complication 07/15/2025 [place] [address] Nancy Kaur LPN 07/15/2025 Bamboo [place] [address] Vicente Gatica DO 07/09/2025 4:15 PM EDT Ancillary Procedure [facility] [address] [place] [address] [place] [address] Diet controlled gestational diabetes mellitus (GDM) in third trimester ([facility]) 07/09/2025 1:20 PM EDT Office Visit [facility] Family [facility] [address] [place] [phone] Radha Dong MD Herpes zoster with complication (Primary Dx) 07/09/2025 Travel 07/09/2025 Results Follow-Up [facility] [address] [facility] [place] [address] Rosalind Mendoza, ARLINE Bile acids, total 07/06/2025 5:00 PM EDT Routine [facility] [address] [facility] [place] [address] Rosalind Mendoza CNM NST (non-stress test) reactive ([facility]) (Primary Dx); History of gestational diabetes; Encounter for care of first , third trimester ([facility]) 07/06/2025 Bamboo flowsheet [facility] [address] [facility] [place] [phone] Rosalind Mendoza, CNM 07/02/2025 4:15 PM EDT Ancillary Procedure [facility] [address] [facility] [address] [place] [address] Diet controlled gestational diabetes mellitus (GDM) in third trimester ([facility]) 07/02/2025 Travel 06/30/2025 4:00 PM EDT Routine [facility] [address] [facility] [place] [address] Rosalind Mendoza, CNCelena Itching (Primary Dx); NST (non-stress test) reactive ([facility]); History of gestational diabetes; Encounter for care of first , third trimester ([facility]) 06/30/2025 [facility]amboo flowsheet [facility] [address] [facility] [place] [address] Rosalind Mendoza, CNM 06/25/2025 4:15 PM EDT Ancillary Procedure [facility] [address] [facility] [address] [address] [place] [address] Diet controlled gestational diabetes mellitus (GDM) in third trimester ([facility]) 06/25/2025 Travel 06/22/2025 4:15 PM EDT [facility]ine [facility] [address] [place] [address] Rosalind Mendoza CNM NST (non-stress test) reactive ([facility]) (Primary Dx); History of gestational diabetes; Encounter for care of first , third trimester ([facility]) 06/22/2025 Results Follow-Up [facility] [address] [place] [address] Rosalind Mendoza CNM US biophysical profile wo non stress testing 06/18/2025 4:15 PM EDT Ancillary Procedure [facility] [address] [facility] [address] [place] [address] Diet controlled gestational diabetes mellitus (GDM) in third trimester ([facility]) 06/18/2025 Travel 06/15/2025 5:15 PM EDT Routine [facility] [address] [place] [address] Rosalind Mendoza CNM History of gestational diabetes (Primary Dx); Encounter for care of first , third trimester ([facility]) 06/15/2025 Bamboo flowsheet [facility] [address] [place] [address] Rosalind Mendoza CNM 06/05/2025 4:00 PM EDT Ancillary Procedure [facility] [address] [facility] [address] [place] [address] related condition in third trimester ([facility]) 06/05/2025 Travel 06/04/2025 9:00 AM EDT Routine [facility] [address] [place] [address] Rosalind Mendoza CNM Encounter for care of first , second trimester ([facility]) (Primary Dx); related condition in third trimester ([facility]); Diet controlled gestational diabetes mellitus (GDM) in third trimester ([facility]); History of gestational diabetes 06/04/2025 Bamboo flowsheet [facility] [address] [place] [phone] Rosalind Mendoza CNM 05/26/2025 3:00 PM EDT Routine [facility] [address] [place] [phone] Rosalind Mendoza CNM Encounter for care of first , second trimester ([facility]) (Primary Dx); History of gestational diabetes 05/26/2025 Results Follow-Up [facility] Abiel ESQUEDAGYN [address] [place] [phone] Paola Gómez MA GLUCOSE TOLERANCE TEST, GESTATIONAL,4SPEC(10 0G) 05/26/2025 [facility] [address] [place] [phone] Paola Gómez MA History of gestational diabetes 05/13/2025 Results Follow-Up [facility] [address] [place] [phone] Paola Gómez MA GLUCOSE, GESTATIONAL SCREEN (50G)-135 CUTOFF, CBC, POCT Urinalysis dipstick, Hemoglobin A1c 05/13/2025 Orders Only [facility] [address] [place] [phone] Rosalind Mendoza CNM Elevated glucose tolerance test 05/12/2025 9:45 AM EDT Routine [facility] [address] [place] [phone] Rosalind Mendoza CNM Encounter for care of first , second trimester ([facility]) (Primary Dx); Screening for diabetes mellitus (DM); Screening for iron deficiency anemia; Dysuria; Glucose found in urine on examination 05/12/2025 [employer] [facility] [address] [place] [address] Rosalind Mendoza CNM 04/27/2025 5:00 PM EDT Routine [facility] [address] [place] [address] Rosalind Mendoza CNM Encounter for care of first , second trimester ([facility]) (Primary Dx) 04/27/2025 [facility] [employer] [facility] [address] [place] [phone] Rosalind Mendoza CNM from Last 3 Months Immunizations Immunization Administration Dates Next Due Hep B, Adolescent or Pediatric 1997,1996,1997 HiB, unspecified 12/24/1998,1997, 7,1997 IPV 05/15/2002 MMR 05/15/2002,12/24/1998 OPV 1997,1997,1997 Family History Medical History Relation Name Comments Eczema Mother Parul Askew Hypertension Mother Parul [...] week 07/29/2024 How often do you attend formerly [facility] or pentecostal services? More than 4 times per year 07/29/2024 Do you belong to any clubs o r organizations such as mosque groups, unions, fraternal or athletic groups, or [...] and heating? Not hard at all 07/29/2024 [facility] of Occupat ional Health - Occupational Stress [...] place to sleep or slept in a prison (including now)? No 05/18/2023 Housing Stability Vital Sign Answer Gary e Recorded In the last 12 months, was t here a time when you were not able to pay the mortgage or rent on time? No 07/29/2024 In the past 12 months, how m any times have you moved where you were living? 0 07/29/2024 At any time in the past 12 m [facility], were you homeless or living in a prison (including now)? No 07/29/2024 Estimated Date of [...] Pressure 128/80 07/15/2025 11:21 AM EDT Pulse 86 07/09/2025 1:33 PM EDT Temperature 37 C (98.6 F) 11/26/2023 5:05 PM EST Respiratory Rate 18 07/09/2025 1:33 PM EDT Oxygen Saturation 99% 07/09/2025 1:33 PM EDT Inhaled Oxygen Concentration - - Weight 86.5 kg (190 lb 12 oz) 07/15/2025 11:21 A M EDT Height 160 cm (5' 3 ) 07/09/2025 1:33 PM EDT Body Mass Index 33.79 07/09/2025 1:33 PM EDT Plan of Treatment Upcoming Encounters Date Type Department Care Team (Late st Contact Info) Description 07/23/2025 4:00 PM EDT Ancillary Procedure [facility] [address] [facility] [address] [place] [phone] 07/27/2025 4:30 PM EDT Routine [facility] [address] [place] [phone] Rosalind Mendoza, KIM [address] [place] [address] 07/30/2025 4:15 PM EDT Ancillary Procedure [facility] [address] [facility] [address] [place] [address] 08/06/2025 4:15 PM EDT Ancillary Procedure [facility] [address] [facility] [address] [place] [address] 08/10/2025 4:30 PM EDT Routine [facility] [address] [place] [address] Rosalind Mendoza, KIMM [address] [place] [address] Health Maintenance Due Date Last Done Comments Influenza Vaccine (#1) 2025 Procedures Procedure Name Priority Date/Time Associated Diagnosis Comments POCT URINALYSIS DIPSTICK Routine 07/15/2025 11:27 AM EDT Third trimester ([facility]) US BIOPHYSICAL PROFILE WO NON STRESS TESTING Routine 07/09/2025 4:22 PM EDT Diet controlled gestational diabetes mellitus (GDM) in third trimester ([facility]) AMYLASE Routine 06/30/2025 4:11 PM EDT Itching LIPASE Routine 06/30/2025 4:11 PM EDT Itching BILE ACIDS, TOTAL Routine 06/30/2025 4:1 1 PM EDT Itching HEPATIC FUNCTION PANEL Routine 4:11 PM EDT Itching US BIOPHYSICAL PROFILE WO NON STRESS TESTING Routine 06/25/2025 4:30 PM EDT Diet controlled gestational diabetes mellitus (GDM) in third trimester ([facility]) US BIOPHYSICAL PROFILE WO NON STRESS TESTING Routine 06/18/2025 4:44 PM EDT Diet controlled gestational diabetes mellitus (GDM) in third trimester ([facility]) US OB FOLLOW UP TRANSABDOMINAL APPROACH Routine 06/05/2025 4:35 PM EDT related condition in third trimester ([facility]) GLUCOSE TOLERANCE TEST, GESTATIONAL,4SPEC(100G ) Routine 05/20/2025 [...] Dysuria from Last 3 Months Results * (ABNORMAL) POCT urinalysis dipstick manually resulted (07/15/2025 11:27 AM EDT) Only the most recent of2 resultswithin the time period is included. Color, UA Yellow Clarity, UA Clear Glucose, [...] Positive Urine 07/15/2025 11:2 7 AM EDT [facility] Gavi DO POINT OF CARE TEST ENTER/EDIT OR DERABLES Final Result * US biophysical profile wo non stress [...] BY: ELECTRONICALLY SIGNED BY: Rafael Mae MD Rosalind Danielle [facility] IMG OB US PROCEDURES Final R esult * Bile acids, total (06/30/2025 4:11 PM EDT) BILE ACIDS, TOTAL 6 0 - 10 umol/L [facility] Blood Venous blood specimen / Unknown 06/30/2025 4:11 PM EDT 06/30/2025 4:12 PM EDT Narrative Resulting Agency Comment Performing Organization Information Site ID: AMD Name: [facility] [place] Address: [address] [place] [address] [place] [address] Director: Anthony De La Paz M.D.,PhD Rosalind Danielle [facility] LAB BLOOD ORDERABLES Final R esult [facility] * Lipase (06/30/2025 4:11 PM EDT) LIPASE 38 7 - 60 U/L [facility] Blood Venous blood specimen / Unknown 06/30/2025 4:11 PM EDT 06/30/2025 4:12 PM EDT Narrative Resulting Agency Comment Performing Organization Information Site ID: QPT Name: [facility] Address: [address] [place] [address], [address] [place] [phone] Director: Stevie Doan MD Rosalind Danielle Charltono CN LAB BLOOD ORDERABLES Final R esult [facility] * Amylase (06/30/2025 4:11 PM EDT) AMYLASE 40 21 - 101 U/L [facility] Blood Venous blood specimen / Unknown 06/30/2025 4:11 PM EDT 06/30/2025 4:12 PM EDT Narrative Resulting Agency Comment Performing Organization Information Site ID: QPT Name: [facility] Address: [address] [place] [address], [address] [place] [phone] Director: Stevie Doan MD us Rosalind Mendoza CNM LAB BLOOD ORDERABLES Final R esult Performing Organization Address City/[facility]/ZIP Co de Phone Number [facility] * (ABNORMAL) [...] Performing Organization Information Site ID: QPT Name: [facility] Address: [address] [place] [address], [address] [place] [phone] Director: Stevie Doan MD us Rosalind Mendoza CNM LAB BLOOD ORDERABLES Final R esult Performing Organization Address [facility]/ZIP Co de Phone Number [facility] * US [...] 158(H) <140 mg/dL [facility] COMMENT [facility] Comment: Stehpanie/Jesusita Criteria: Two or more values greater than the above reference intervals are suggestive of gestational diabetes. 05/20/2025 8:04 AM EDT 05/20/2025 8:05 AM EDT Narrative Resulting Agency Comment Performing Organization Information Site ID: QPT Name: [facility] Address: [address] [place] [address], [address] [place] [phone] Director: Stevie Doan MD us Rosalind Mendoza CNM LAB BLOOD ORDERABLES Final R esult [facility] * (ABNORMAL) GLUCOSE, GESTATIONAL SCREEN (50G)-135 CUTOFF (05/12/2025 10:50 AM EDT) GLUCOSE, GESTATIONAL SCREEN (50G)-135 CUTOFF 143(H) <135 mg/dL [facility] Comment: One hour value of > or = 135 mg/dL indicates the need for a diagnostic 75 g dose 2-hour or 100 g dose 3-hour oral glucose tolerance test; patient fasting is required. 05/12/2025 10:5 0 AM EDT 05/12/2025 10:51 AM EDT Narrative Resulting Agency Comment Performing Organization Information Site ID: QPT Name: [facility] Address: [address] [place] [address], [address] [place] [phone] Director: Stevie Doan MD Rosalind ALVAREZ LAB BLOOD ORDERABLES Final R esult [facility] * CBC (05/12/2025 10:50 AM EDT) [facility] WHITE BLOOD CELL COUNT 8.7 3.8 - [...] Performing Organization Information Site ID: QPT Name: [facility] Address: [address] [place] [address], [address] [place] [phone] Director: Stevie Doan MD Rosalind L Floro CN LAB BLOOD ORDERABLES Final R esult Performing Organization Address [facility] Co de Phone Number [facility] * Hemoglobin A1c [...] diagnosis of diabetes in children. According to [place] Diabetes Association (ADA) guidelines, hemoglobin A1c <7.0% represents optimal control in non- diabetic patients. Different metrics may apply to specific patient populations. Standards of Medical Care in Diabetes(ADA). 05/12/2025 10:5 0 AM EDT 05/12/2025 10:51 AM EDT Narrative Resulting Agency Comment Performing Organization Information Site ID: QPT Name: [facility] Address: [address] [place] [address], [address] [place] [phone] Director: Stevie Doan MD Rosalind Danielle Charltono CN LAB BLOOD ORDERABLES Final R esult Performing Organization Address [facility] de Phone Number [facility] * Urine culture (05/12/2025 10:49 AM EDT) MICRO NUMBER [id number] [facility] SPECIMEN QUALITY Adequate [facility] SOURCE: ([facility]) [...] Performing Organization Information Site ID: QPT Name: [facility] Address: [address] [place] [address] Director: Stevie Doan MD Rosalind ALVAREZM LAB MICROBIOLOGY - GENERAL O RDERABLES Final Result [facility] from Last 3 Months Insurance [facility] [employer] MEDICAID Care Teams Hydrogen Treater Relationship Specialty Start Date End Date Radha Dong MD [address] [place] [address] PCP - General Family Medicine 05/19/23 Charissa Glover NP PCP - [place] [employer] 01/27/25
--- OUTSIDE RECORDS SUMMARY | 2025-07-17 09:45 | XMS_ITS | Encounter Summary ---
Author Organization [facility] tem Address [id number] [address] [place] [address] Care Team Providers Care Fire Controlman Name Role Phone Melia Henriquez SENIOR ADVISOR-HIGH SCHOOL INDUSTRIAL ARTS TEACHER Primary Care Provider [phone] Encounter Details Date Type Department Care Team (Late st Contact Info) Description 07/14/2025 Orders Only Maternal- Medicine at [facility] [address] [place] [phone] Dorita Retana MD [address] [facility] 1st Floor [place], [place] [phone] Insulin controlled gestational diabetes mellitus (GDM) during [...] AM EDT Office Visit Maternal- Medicine at [facility] [address] [place] [address] Dorita Retana MD [address] [facility] 1st [place] [address] 07/28/2025 9:15 AM EDT Appointment [facility] - Ultrasound [address] [place] [phone] documented as of this encounter Visit Diagnoses Diagnosis Insulin controlled gestational diabetes mellitus (GDM) during , antepartum documented in this encounter Care Teams Fire Controlman Relationship Specialty Start Date End Date Melia Henriquez APRN-HIGH SCHOOL INDUSTRIAL ARTS TEACHER [address] [place] [address] PCP - General Nurse Practitioner 11/25/23 documented as of this encounter
--- OUTSIDE RECORDS SUMMARY | 2025-07-17 09:45 | XMS_ITS | Clinical Summary ---
Author Organization [employer] tem Address [id number] [address] [place] [address] Care Team Providers Care Precision Agriculture Technician Name Role Phone Melia Henriquez VOLTAGE TESTER-PASSPORT SUPPORT ASSOCIATE Primary Care Provider [phone] Allergies No known active allergies Medications ondansetron [...] 19 ORAL) Take by mouth. Activ e pen needle, diabetic (BD ULTRA-FINE SHORT PEN NEEDLE) 31 gauge x 5/16 needleIndications :Insulin controlled gestational diabetes mellitus (GDM) during , antepartum Use daily for insulin 100 each 2 025 Active insulin glargine (LANTUS SOLOSTAR U-100 INSULIN) 100 unit/mL (3 mL) insulin penIndications:In sulin controlled gestational diabetes mellitus (GDM) during , antepartum Inject 16 units nightly in subcutaneous space, prime 2 units 15 mL 3 025 Active ursodioL (OMAR FORTE) 500 mg tablet Take 0.5 tablets (250 mg total) by mouth in the morning and 0.5 tablets (250 mg total) before bedtime. 2024 Discontinued clobetasoL (TEMOVATE) 0.05 % ointmentIndicatio ns:Blister of hand without infection, unspecified laterality, subsequent encounter,Dyshidr otic eczema Apply a thin layer to the affected areas twice daily. 30 g 025 2024 insulin glargine (LANTUS SOLOSTAR U-100 INSULIN) 100 unit/mL (3 mL) insulin penIndications:In sulin controlled gestational diabetes mellitus (GDM) during , antepartum Inject 10 units nightly in subcutaneous space, prime 2 units 15 mL 3 025 2024 Discontinued insulin glargine (LANTUS SOLOSTAR U-100 [...] Encounters Date Type Department Care Team Description 07/15/2025 Telephone Maternal- Medicine at [facility] [address] [place] [address] Lety Ocampo RN 07/14/2025 Orders Only Maternal- Medicine at [facility] [address] [place] [address] Dorita Retana MD Insulin controlled gestational diabetes mellitus (GDM) during , antepartum 07/07/2025 Telephone Maternal- Medicine at [facility] [address] [place] [address] Lety Ocampo, ADA 07/07/2025 Orders Only Maternal- Medicine at [facility] [address] [place] [address] Dorita Retana MD Insulin controlled gestational diabetes mellitus (GDM) during , antepartum 07/03/2025 8:53 AM EDT - 07/03/2025 11:59 PM EDT Hospital Encounter [facility] [address] [place] [address] Blister of hand without infection, unspecified laterality, subsequent encounter; Dyshidrotic eczema; Insulin controlled gestational diabetes mellitus (GDM) during , antepartum; Obesity affecting in third trimester, unspecified obesity type Discharge Disposition: Home 07/03/2025 Orders Only Maternal- Medicine at [facility] [address] [place] [address] Floresita Griffith RN Insulin controlled gestational diabetes mellitus (GDM) during , antepartum (Primary Dx) 07/01/2025 2:30 PM EDT Office Visit Maternal- Medicine at [facility] [address] [place] [address] Dorita Retana MD Insulin controlled gestational diabetes mellitus (GDM) during , antepartum (Primary Dx); Blister of hand without infection, unspecified laterality, subsequent encounter; Dyshidrotic eczema; Obesity affecting in third trimester, unspecified obesity type; 33 weeks gestation of 07/01/2025 Orders Only Maternal- Medicine at [facility] [address] [place] [address] Marci Vences LPN Blister of hand without infection, unspecified laterality, subsequent encounter (Primary Dx); Dyshidrotic eczema; Insulin controlled gestational diabetes mellitus (GDM) during , antepartum; Obesity affecting in third trimester, unspecified obesity type 07/01/2025 Documentation Maternal- Medicine at [facility] [address] [place] [address] Gloria Holt RN 06/30/2025 Travel 06/30/2025 Telephone Maternal- Medicine at [facility] [address] [place] [address] Renae Landrum, ELZA 06/22/2025 Telephone Maternal- Medicine at [facility] [address] [place] [address] 06/16/2025 Telephone Maternal- Medicine at [facility] [address] [place] [address] Nikki Jarvis LD 06/08/2025 1:30 PM EDT Support Visit Maternal- Medicine at [facility] [address] [facility] [place] [place] [address] Renae Landrum, Emilia Mccain, ALMITA Gestational diabetes mellitus (GDM) in second trimester, gestational diabetes method of control unspecified (Primary Dx) 06/08/2025 Orders Only Maternal- Medicine at [facility] [address] [place] [address] Renae Landrum, ELZA 06/08/2025 Travel 06/03/2025 Abstract Maternal- Medicine at [facility] [address] [place] [address] External, Scanning Provider 06/03/2025 Orders Only Maternal- Medicine at [facility] [address] [facility] [place] [address] Ref Prov, Not In System 06/02/2025 Abstract Maternal- Medicine at [facility] [address] [place] [address] External, Scanning Provider 06/02/2025 Abstract Maternal- Medicine at [facility] [address] [facility] [place] [address] External, Scanning Provider from Last 3 Months [...] AM EDT Office Visit Maternal- Medicine at [facility] [address] [facility] [place] [address] Dorita Retana MD [address] [facility] 1st [place] [address] 07/28/2025 9:15 AM EDT Appointment [facility] - Ultrasound [address] [place] [address] Health Maintenance Due Date Last Done Comments DTaP,Tdap and Td Vaccines (6 - Tdap) 01/02/2008 05/15/2002, 12/24/1998, 1997, Additional history exists Depression Screening 2009 Adult BMI Follow Up Plan 2015 Influenza Vaccine 06/29/2025 Adult BMI Screening 07/01/2026 07/01/2025 Tobacco Screening 07/01/2026 07/01/2025 Pap Smear 11/28/2026 11/28/2023 Medical Devices Not on file Procedures Procedure Name Priority Date/Time Associated Diagnosis Comments US [facility] COMPREHENSIVE ANATOMIC SURVEY Routine 07/03/2025 10:59 AM EDT Blister of hand without infection, unspecified laterality, subsequent encounter Dyshidrotic eczema Insulin controlled gestational diabetes mellitus (GDM) during , antepartum Obesity affecting in third trimester, unspecified obesity type GLUCOSE TOLERANCE, FASTING Routine 05/20/2025 GLUCOSE TOLERANCE, 1 HOUR Routine 05/12/2025 HEMOGLOBIN A1C Routine 05/12/2025 from Last 3 Months Results * US [facility] COMPREHENSIVE ANATOMIC SURVEY (07/03/2025 10:59 AM EDT) Anatomical Region Laterality Modality OB-VIDEOGAME DESIGNER Ultrasound 07/03/2025 9:35 AM EDT Narrative 07/03/2025 12:12 PM EDT NAME: KING VIJI BERRY : 1995 SEX: F Accession Number: [id number] ORDERING PHYSICIAN: GEOVANI LUNA REFERRING PHYSICIAN: TOM KAMINSKI Coding ----- --------- Procedures [id number]: Ultrasound, uterus, real time with image documentation, and maternal evaluation plus detailed anatomic examination, transabdominal approach;single or first gestation 56741: Transvaginal Ultrasound (OB) Indication ----- --------- Screening for Anatomic Survey , Screening for cervical length , Gestational diabetes. History ----- --------- OB History 1. Para 0 [id number] Maternal Assessment ----- --------- Physical Exam Height [...] EFW (oz) 13 oz EFW by: Hadlock ([id number]) Extended Tibia 52.9 mm 31w 3d 4% Estefany Obstetric Assistant 5.3 mm CM 6.1 mm 16% Nicolaides [...] Thorax 4-chamber view. RVOT view. 3-vessel view. 3-pmcwij-jkoqslf view. Interventricular septum. Diaphragm. Spine: Cervical spine. [...] colleagues, 1984). Recommendations ----- --------- Please see [facility] recommendations from prior clinical and/or ultrasound report documentation. The patient is scheduled in four weeks for follow up growth ultrasound. The patient is scheduled in three weeks for provider visit. Subsequent follow up or other follow up as clinically determined by primary OB provider unless otherwise specified by [facility]. Results forwarded to ordering provider so they can follow up with the patient as necessary. Procedure Note Geovani Luna MD - 07/03/2025 NAME: KING VIJI BERRY : 1995 SEX: F Accession Number: [id number] ORDERING PHYSICIAN: GEOVANI LUNA REFERRING PHYSICIAN: TOM KAMINSKI Coding ----- --------- Procedures [id number]: Ultrasound, uterus, real time with imagedocumentation, and maternal evaluation plus detailed anatomic examination, transabdominalapproach;single or first gestation 51621: Transvaginal Ultrasound (OB) Indication ----- --------- Screening for Anatomic Survey , Screening for cervical length ,Gestational diabetes. History ----- --------- OB History 1. Para 0 [id number] Maternal Assessment ----- --------- Physical Exam Height [...] EFW (oz) 13 oz EFW by: Hadlock ([id number]-IM-[id number]-FL) Extended Tibia 52.9 mm 31w 3d 4% Estefany Obstetric Assistant 5.3 mm CM 6.1 mm 16% Nicolaides [...] Thorax 4-chamber view. RVOT view. 3-vessel view. 2-sejkoj-osevfjyfard. Interventricular septum. Diaphragm. Spine: Cervical spine. Thoracic [...] colleagues, 1984). Recommendations ----- --------- Please see [facility] recommendations from prior clinical and/or ultrasoundreport documentation. The patient is scheduled in four weeks for follow up growth ultrasound. The patient is scheduled in three weeks for provider visit. Subsequent follow up or other follow up as clinically determined byprimary OB provider unless otherwise specified by [facility]. Results forwarded to ordering provider so they can follow up with thepatient as necessary. Geovani Luna MD [facility] ORDERABLES Final Resul t * Glucose Tolerance, [...] Ashley l Result MANUALLY TRANSCRIBED RESULTS * Glucose tolerance, 1 [...] TRANSCRIBED RESULTS from Last [address] [address] [facility] MED[facility] Care Teams Precision Agriculture Technician Relationship Specialty Start Date End Date Melia Henriquez, VOLTAGE TESTER-PASSPORT SUPPORT ASSOCIATE [address] [place] [place] [address] PCP - General Nurse Practitioner 11/25/23
--- OUTSIDE RECORDS SUMMARY | 2025-07-17 09:45 | XMS_ITS | Encounter Summary ---
Author Organization [facility] Address [address] [place] [address] Care Team Providers Care Manager Product Name Role Phone Halle Jensen DO Unavailable [phone] Radha Dong MD Primary Care Provider [phone] Charissa Glover NP Unavailable Chairssa Glover MS SQL SERVER DEVELOPER Unavailable Encounter Details Date Type Department Care Team (Late st Contact Info) Description 05/31/2023 Abstract [facility] Family Medicine [address] [place] [address] Charissa Glover NP Social History Tobacco Use [...] often do you attend chur ch or jewish services? More than 4 times per year 05/18/2023 Do you belong to any clubs o r organizations such as episcopalian groups, unions, fraternal or athletic groups, or [...] and heating? Not hard at all 05/18/2023 [facility] of Occupat ionky Health - Occupational Stress Questionnaire Answer Date [...] in a residential (including now)? No 05/18/2023 Comments Unknown Sex [...] 07/23/2025 4:00 PM EDT Ancillary Procedure [facility] [address] [facility] [address] [place] [address] 07/27/2025 4:30 PM EDT Routine [facility] [address] [place] [address] Rosalind Mendoza CNM [address] [place], [place] [phone] 07/30/2025 4:15 PM EDT Ancillary Procedure [facility] [address] [facility] [address] [place] [address] 08/06/2025 4:15 PM EDT Ancillary Procedure [facility] [address] [facility] [address] [place] [address] 08/10/2025 4:30 PM EDT Routine [facility] [address] [place] [address] Rosalind Mendoza, CNM [address] [place], [place] [phone] documented as of this encounter Visit Diagnoses Not on filedocumented in this encounter Care Teams Manager Product Relationship Specialty Start Date End Date Halle Jensen DO [address] [facility] [address] [place] [address] PCP - [place] [employer] 03/29/22 Radha Dong MD [address] [place], [place] [phone] PCP - General Family Medicine 05/19/23 Charissa Glover NP PCP - [place] [employer] 12/28/23 5 Charissa Glover NP PCP - [place] [employer] 01/27/25 documented as of this encounter
--- OUTSIDE RECORDS SUMMARY | 2025-07-17 09:45 | XMS_ITS | Encounter Summary ---
Author Organization [facility] Healthcare Address [address] [place] [address] Care Team Providers Care Patient Account Representative Name Role Phone Radha Dong MD Primary Care Provider [phone] Charissa Glover PLANER OPERATOR Unavailable Encounter Details Date Type Department Care Team (Late st Contact Info) Description 05/26/2025 Results Follow-Up [facility] O[facility] [address] [place] [address] Paola Gómez MA GLUCOSE TOLERANCE TEST, GESTATIONAL,4SPEC(10 [...] How often do you attend chur or episcopalian services? More than 4 times per year [...] and heating? Not hard at all 07/29/2024 [facility] of Occupat ional Health - Occupational Stress [...] place to sleep or slept in a fpc (including now)? No 05/18/2023 Housing Stability Vital Sign Answer Gary e Recorded In the last 12 months, was t here a time when you were not able to pay the mortgage or rent on time? No 07/29/2024 In the past 12 months, how m any times have you moved where you were living? 0 07/29/2024 At any time in the past 12 [facility], were you homeless or living in a fpc (including now)? No 07/29/2024 Estimated Date of [...] 07/23/2025 4:00 PM EDT Ancillary Procedure [facility] [place] [facility] [address] [place] [address] 07/27/2025 4:30 PM EDT Routine [facility] [address] [facility] [address] Rosalind Mendoza, KIM [address] [place] [address] 07/30/2025 4:15 PM EDT Ancillary Procedure [facility] [address] [facility] [address] [place] [address] 08/06/2025 4:15 PM EDT Ancillary Procedure [facility] [address] [facility] [address] [place] [address] 08/10/2025 4:30 PM EDT Routine [facility] [address] [facility] [address] Rosalind Mendoza CN [address] [place] [address] documented as of this encounter Visit Diagnoses Not on filedocumented in this encounter Care Teams Patient Account Representative Relationship Specialty Start Date End Date Radha Dong MD [address] [place] [address] PCP - General Family Medicine 05/19/23 Charissa Glover NP PCP - Jose Chopra 01/27/25 documented as of this encounter
--- OUTSIDE RECORDS SUMMARY | 2025-07-17 09:45 | XMS_ITS | Encounter Summary ---
Author Organization [facility] Address [address] [place] [address] Care Team Providers Care Network Engineer Administrator Name Role Phone Radha Dong MD Primary Care Provider [phone] Charissa Glover YOUTH SUPPORT WORKER Unavailable Encounter Details Date Type Department Care [...] often do you attend chur ch or orthodox services? More than 4 times per year [...] in a longterm (including now)? No 05/18/2023 Housing Stability Vital [...] were you homeless or living in a longterm (including now)? No 07/29/2024 Estimated Date of [...] Description 07/23/2025 4:00 PM EDT Ancillary Procedure [facility] [address] [place] [address] 07/27/2025 4:30 PM EDT Routine [facility] [address] [facility] [place] [address] Rosalind Mendoza, CNM [address] [place] [address] 07/30/2025 4:15 PM EDT Ancillary Procedure [facility] [address] [facility] [address] [place] [address] 08/06/2025 4:15 PM EDT Ancillary Procedure [facility] [address] [facility] [address] [place] [address] 08/10/2025 4:30 PM EDT Routine [facility] [place] [facility] [address] [facility] [place] [address] Rosalind Mendoza CN [address] [place] [address] documented as of this encounter Visit Diagnoses Not on filedocumented in this encounter Care Teams Network Engineer Administrator Relationship Specialty Start Date End Date Radha Dong MD [address] [place] [id number] PCP - General Family Medicine 05/19/23 Charissa Glover NP PCP - Jose Chopra 01/27/25 documented as of this encounter
--- OUTSIDE RECORDS SUMMARY | 2025-07-17 09:45 | XMS_ITS | Encounter Summary ---
Author Organization [facility] Address [address] [place] [address] Care Team Providers Care Vine Fruit Farming Supervisor Name Role Phone Radha Dong MD Primary Care Provider [phone] Charissa Glover INSPECTOR AGRICULTURAL COMMODITIES Unavailable Encounter Details Date Type Department Care Team (Late st Contact Info) Description 07/09/2025 Results Follow-Up [facility] OBGYN [address] [place] [address] Rosalind Mendoza, CNM [address] [place], [place] [phone] Bile acids, total Social History Tobacco Use [...] Not hard at all 07/29/2024 [facility] of Occupat ional Health - Occupational Stress [...] time in the past 12 m [facility], were you homeless or living in a [...] Imaging [address] [place] [address] 07/27/2025 4:30 PM EDT Routine [facility] [place] [facility] [address] [facility] [place] [address] Rosalind Mendoza, CN [address] [facility] [place] [address] 07/30/2025 4:15 PM EDT Ancillary Procedure [facility] [place] [facility] [address] [facility] [address] [place] [address] 08/06/2025 4:15 PM EDT Ancillary Procedure [facility] [place] [facility] [address] [facility] [address] [place] [address] 08/10/2025 4:30 PM EDT Routine [facility] [place] [facility] [address] [place] [address] Rosalind Mendoza, [facility] [address] [place] [address] documented as of this encounter Visit Diagnoses Not on filedocumented in this encounter Care Teams Vine Fruit Farming Supervisor Relationship Specialty Start Date End Date Radha Dong MD [address] [place] [address] PCP - General Family Medicine 05/19/23 Charissa Glover NP PCP - [place] [employer] 01/27/25 documented as of this encounter
--- OUTSIDE RECORDS SUMMARY | 2025-07-17 09:45 | XMS_ITS | Encounter Summary ---
Author Organization [facility] Healthcare Address [address] [place] [address] Care Team Providers Care Automatic Lehr Operator Name Role Phone Radha Dong MD Primary Care Provider [phone] Charissa Glover NETWORK ANNOUNCER Unavailable Encounter Details Date Type Department Care Team (Late st Contact Info) Description 05/13/2025 Results Follow-Up [facility] [address] [place] [address] Paola Gómez MA GLUCOSE, GESTATIONAL SCREEN ([id number] [...] How often do you attend chur or roman catholic services? More than 4 times per year 07/29/2024 Do you belong to any clubs o r organizations such as methodist groups, unions, fraternal or athletic groups, or [...] and heating? Not hard at all 07/29/2024 [facility] of Occupat ional Health - Occupational [...] 07/23/2025 4:00 PM EDT Ancillary Procedure [facility] [address] [place] [address] 07/27/2025 4:30 PM EDT Routine [facility] [address] [facility] [place] [place] [address] Rosalind Mendoza, KIM [address] [place] [address] 07/30/2025 4:15 PM EDT Ancillary Procedure [facility] [address] [facility] [place] [place] [address] 08/06/2025 4:15 PM EDT Ancillary Procedure [facility] [address] [place] [address] 08/10/2025 4:30 PM EDT Routine [facility] [address] [facility] [place] [place] [address] Rosalind Mendoza CN [address] [place] [address] documented as of this encounter Visit Diagnoses Not on filedocumented in this encounter Care Teams Automatic Lehr Operator Relationship Specialty Start Date End Date Radha Dong MD [address] [place] [address] PCP - General Family Medicine 05/19/23 Charissa Glover NP PCP - [place] [employer] 01/27/25 documented as of this encounter
--- OUTSIDE RECORDS SUMMARY | 2025-07-17 09:45 | XMS_ITS | Encounter Summary ---
Author Organization [facility] Address [address] [place] [address] Care Team Providers Care Manager Of Housekeeping Name Role Phone Radha Dong MD Primary Care Provider [phone] Charissa Glover MAINTENANCE FOREMAN Unavailable Encounter Details Date Type Department Care Team (Late st Contact Info) Description 07/06/2025 Bamboo flowsheet [facility] [address] [place] [address] Rosalind Mendoza, CNM [address] [place] [address] Social History Tobacco Use Types [...] How often do you attend chur or church services? More than 4 times per year 07/29/2024 Do you belong to any clubs o r organizations such as voodoo groups, unions, fraternal or athletic groups, or [...] and heating? Not hard at all 07/29/2024 [facility] of Occupat ional Health - [...] to sleep or slept in a senior living (including now)? No 05/18/2023 Housing Stability Vital Sign Answer Gary e Recorded In the last 12 months, was t here a time when you were not able to pay the mortgage or rent on time? No 07/29/2024 In the past 12 months, how m any times have you moved where you were living? 0 07/29/2024 At any time in the past 12 m [facility], were you homeless or living in a senior living (including now)? No 07/29/2024 Estimated Date of [...] 07/23/2025 4:00 PM EDT Ancillary Procedure [facility] [place] [facility] [address] [place] [address] 07/27/2025 4:30 PM EDT Routine [facility] [place] [facility] [address] [facility] [place] [address] Rosalind Mendoza, KIM [address] [place] [address] 07/30/2025 4:15 PM EDT Ancillary Procedure [facility] [place] [facility] [address] [facility] [address] [place] [address] 08/06/2025 4:15 PM EDT Ancillary Procedure [facility] [place] [facility] [address] [facility] [address] [place] [address] 08/10/2025 4:30 PM EDT Routine [facility] [place] [facility] [address] [facility] [place] [address] Rosalind Mendoza, KIM [address] [facility] [place] [address] documented as of this encounter Visit Diagnoses Not on filedocumented in this encounter Care Teams Manager Of Housekeeping Relationship Specialty Start Date End Date Radha Dong MD [address] [place] [place] [address] PCP - General Family Medicine 05/19/23 Charissa Glover NP PCP - [place] [employer] 01/27/25 documented as of this encounter
--- OUTSIDE RECORDS SUMMARY | 2025-07-17 09:45 | XMS_ITS | Encounter Summary ---
Author Organization [facility] Address [address] [place] [address] Care Team Providers Care Spinner Frame Name Role Phone Radha Dong MD Primary Care Provider [phone] Charissa Glover PRESS TENDER LONG GOODS Unavailable Encounter Details Date Type Department Care Team (Late st Contact Info) Description 06/22/2025 Results Follow-Up [facility] OBGYN [address] [place] [address] Rosalind Mendoza, CNM [address] [place], [place] [id number] [place] biophysical profile wo non stress testing [...] any clubs o r organizations such as jewish groups, unions, fraternal or athletic groups, or [...] and heating? Not hard at all 07/29/2024 [facility] [place] of Occupat ional Health - Occupational Stress [...] any time in the past 12 m [facility], were you homeless or living in [...] 07/23/2025 4:00 PM EDT Ancillary Procedure [facility] [place] [facility] [address] [facility] 130 [facility] [address] 07/27/2025 4:30 PM EDT Routine [facility] [place] [facility] [address] [place] [address] Rosalind Mendoza, KIM 1479 [facility] [place] [address] 07/30/2025 4:15 PM EDT Ancillary Procedure [facility] [place] [facility] 14[address] [facility] 130 [place] [address] 08/06/2025 4:15 PM EDT Ancillary Procedure [facility] [place] [facility] 14[address] [facility] 130 [place] [address] 08/10/2025 4:30 PM EDT Routine [facility] [place] [facility] 1479 [facility] [place] [address] Rosalind Mendoza, CN [address] [facility] [place] [address] documented as of this encounter Visit Diagnoses Not on filedocumented in this encounter Care Teams Spinner Frame Relationship Specialty Start Date End Date Radha Dong MD [address] [facility] [place] [address] PCP - General Family Medicine 05/19/23 Charissa Glover NP PCP - [place] [employer] 01/27/25 documented as of this encounter
--- OUTSIDE RECORDS SUMMARY | 2025-07-17 09:45 | XMS_ITS | Encounter Summary ---
Author Organization [facility] Address [address] [place] [address] Care Team Providers Care Director Financial Services Name Role Phone Radha Dong MD Primary Care Provider [phone] Charissa Glover SEED CORE OPERATOR Unavailable Encounter Details Date Type Department Care Team (Late st Contact Info) Description 07/15/2025 Bamboo flowsheet [facility] [address] [facility] [place] [phone] Vicente Gatica DO [address] [facility] [address] [place] [id number] Social History Tobacco Use Types Packs/Day Years [...] any clubs o r organizations such as taoism groups, unions, fraternal or athletic groups, or [...] and heating? Not hard at all 07/29/2024 [facility] [place] of Occupat ional Health - Occupational Stress [...] any time in the past 12 m [facility], were you homeless or living in a [...] Imaging [address] [place] [address] [facility] [address] 07/27/2025 4:30 PM EDT Routine [facility] [place] [facility] 14[address] [facility] [place] [address] Rosalind Mendoza, CN 1479 [place] [address] 07/30/2025 4:15 PM EDT Ancillary Procedure [facility] [place] [facility] 1479 [facility] 130 [place] [address] 08/06/2025 4:15 PM EDT Ancillary Procedure [facility] [place] [facility] 1479 [facility] 130 [place] [address] 08/10/2025 4:30 PM EDT Routine [facility] [place] [facility] 1479 [facility] [place] [address] Rosalind Mendoza, [facility] [employer] [facility] 1479 [facility] [place] [address] documented as of this encounter Visit Diagnoses Not on filedocumented in this encounter Care Teams Director Financial Services Relationship Specialty Start Date End Date Radha Dong MD 1479 [facility] [place] [address] PCP - General Family Medicine 05/19/23 Charissa Glover NP PCP - [place] Commercial 01/27/25 documented as of this encounter
--- OUTSIDE RECORDS SUMMARY | 2025-07-17 09:45 | XMS_ITS | Encounter Summary ---
Author Organization [facility] tem Address [id number] [address] [place] [address] Care Team Providers Care Requirements Manager Name Role Phone Melia Henriquez LOGISTICAL ENGINEER-SENIOR NET SOFTWARE DEVELOPER Primary Care Provider [phone] Encounter Details Date Type Department Care Team ([facility] Contact Info) Description 06/03/2025 Orders Only Maternal- Medicine at [facility] [address] [place] [address] Ref Prov, [place] [address] Social History Tobacco Use Types Packs/Day Years [...] AM EDT Office Visit Maternal- Medicine at [facility] [address] [place] [address] Dorita Retana MD [address] [facility] 1st [place] [address] 07/28/2025 9:15 AM EDT Appointment [facility] - Ultrasound [address] [place] [address] documented as of this encounter Visit Diagnoses Not on filedocumented in this encounter Care Teams Requirements Manager Relationship Specialty Start Date End Date Melia Henriquez APRN-SENIOR NET SOFTWARE DEVELOPER [address] [place] [address] PCP - General Nurse Practitioner 11/25/23 documented as of this encounter
--- OUTSIDE RECORDS SUMMARY | 2025-07-17 09:45 | XMS_ITS | Encounter Summary ---
Author Organization [facility] Address [address] [place] [address] Care Team Providers Care [place] Superintendent Of Schools Name Role Phone Halle Jensen DO Unavailable [phone] Radha Dong MD Primary Care Provider [phone] Charissa Glover LUMP INSPECTOR Unavailable Charissa Glover LUMP INSPECTOR Unavailable Encounter Details Date Type Department Care Team (Late st Contact Info) Description 07/06/2023 Abstract [facility] Family Medicine [address] [place] [address] Radha Dong MD [address] [place] [address] Social History Tobacco Use Types [...] How often do you attend chur or alevism services? More than 4 times per year 05/18/2023 Do you belong to any clubs o r organizations such as scientologist groups, unions, fraternal or athletic groups, or [...] and heating? Not hard at all 05/18/2023 [facility] of Occupat ional Health - Occupational Stress [...] a senior care (including now)? No 05/18/2023 Comments Unknown Sex [...] 07/23/2025 4:00 PM EDT Ancillary Procedure [facility] [place] [facility] 1479 [facility] 130 [place] [address] 07/27/2025 4:30 PM EDT Routine [facility] [address] [place] [address] Rosalind Mendoza CNM 1479 [facility] [place] [address] 07/30/2025 4:15 PM EDT Ancillary Procedure [facility] [facility] 14[address] [facility] 130 [place] [address] 08/06/2025 4:15 PM EDT Ancillary Procedure [facility] [address] [facility] [address] [place] [address] 08/10/2025 4:30 PM EDT Routine [facility] [address] [facility] [place] [address] Rosalind Mendoza, CNM 1479 [facility] [place] [address] documented as of this encounter Visit Diagnoses Not on filedocumented in this encounter Care Teams [place] Superintendent Of Schools Relationship Specialty Start Date End Date Halle Jensen DO [address] [facility] 200 [place] [address] PCP - [place] Commercial 03/29/22 Radha Dong MD 1479 [facility] [place], [place] [address] PCP - General Family Medicine 05/19/23 Charissa Glover NP PCP - [place] [employer] 12/28/23 5 Charissa Glover NP PCP - [place] [employer] 01/27/25 documented as of this encounter
--- OUTSIDE RECORDS SUMMARY | 2025-07-17 09:45 | XMS_ITS | Encounter Summary ---
Author Organization [facility] Address [address] [place] [address] Care Team Providers Care Assistant Softball Coach Name Role Phone Radha Dong MD Primary Care Provider [phone] Charissa Glover SKIDDER Unavailable Encounter Details Date Type Department Care Team (Latest Contact Info) Description 07/16/2025 Travel Social History Tobacco Use Types Packs/Day [...] often do you attend chur ch or sabianism services? More than 4 times per year 07/29/2024 Do you belong to any clubs o r organizations such as worship groups, unions, fraternal or athletic groups, or [...] and heating? Not hard at all 07/29/2024 [facility] of Occupat ional Health - Occupational Stress [...] Ancillary Procedure [facility] [address] [place] [address] 07/27/2025 4:30 PM EDT Routine [facility] [address] [place] [address] Rosalind Mendoza, CNM 1479 [facility] [place] [address] 07/30/2025 4:15 PM EDT Ancillary Procedure [facility] [place] [facility] 1479 [facility] 130 [place] [address] 08/06/2025 4:15 PM EDT Ancillary Procedure [facility] [place] [facility] 1479 [facility] 130 [place] [address] 08/10/2025 4:30 PM EDT Routine [facility] [place] [facility] 1479 [facility] [place] [place] [address] Rosalind Mendoza CN [address] [place] [address] documented as of this encounter Visit Diagnoses Not on filedocumented in this encounter Care Teams Assistant Softball Coach Relationship Specialty Start Date End Date Radha Dong MD [address] [place] [id number] PCP - General Family Medicine 05/19/23 Charissa Glover NP PCP - Jose Chopra 01/27/25 documented as of this encounter
--- OUTSIDE RECORDS SUMMARY | 2025-07-17 09:46 | XMS_ITS | Encounter Summary ---
Author Organization [facility] tem Address [id number] [address] [place] [address] Care Team Providers Care Second Steward Name Role Phone Melia Henriquez HENRY-HAIR AND MAKEUP DESIGNER Primary Care Provider [phone] Reason for Referral * Diagnostic Imaging (Routine) - Pending Review Specialty Diagnoses / Procedures Referred By Angelina bond Referred To Contact Maternal and Medicine Diagnoses Insulin controlled gestational diabetes mellitus (GDM) during , antepartum Procedures US [facility] with or without consult Geovani Weinstein MD [address] [facility] 1ST [place] [address] Phone: tel: fax: Maternal- Medicine at [facility] [address] [place] [address] Phone: tel: fax: Referral ID Status Reason Start Date Expiration Date V isits Requested Visits Authorized [id number] Pending Review 07/03/2025 07/03/2026 1 1 Encounter Details Date Type Department Care Team (Late st Contact Info) Description 07/03/2025 Orders Only Maternal- Medicine at [facility] [address] [place] [address] Floresita Griffith, RN Insulin controlled [...] AM EDT Office Visit Maternal- Medicine at [facility] [address] [place] [address] Dorita Retana MD [address] [facility] 1st [place] [address] 07/28/2025 9:15 AM EDT Appointment [facility] - Ultrasound [address] [place] [address] Scheduled Orders Name Type Priority Associated Diagnoses Orde r Schedule US MFM with or without consult Imaging Routine Insulin controlled gestational diabetes mellitus (GDM) during , antepartum Expected: 07/03/2026 (Approximate), Expires: 07/03/2026 documented as of this encounter Visit Diagnoses Diagnosis Insulin controlled gestational diabetes mellitus (GDM) during , antepartum- Primary documented in this encounter Care Teams Second Steward Relationship Specialty Start Date End Date Melia Henriquez, ANGLE BENDER-HAIR AND MAKEUP DESIGNER [address] [place] [address] PCP - General Nurse Practitioner 11/25/23 documented as of this encounter
--- OUTSIDE RECORDS SUMMARY | 2025-07-17 09:46 | XMS_ITS | Encounter Summary ---
Author Organization [facility] tem Address [id number] [address] [place] [address] Care Team Providers Care Mixing And Dispensing Supervisor Name Role Phone Melia Henriquez ADOBE ARCHITECT-COUNTER POCKET TRIMMER Primary Care Provider [phone] Encounter Details Date Type Department Care Team (Late st Contact Info) Description 07/07/2025 Orders Only Maternal- Medicine at [facility] [address] [place] [address] Dorita Retana MD [address] [facility] 1st Floor [place], [place] [phone] Insulin controlled gestational diabetes mellitus (GDM) during [...] Office Visit Maternal- Medicine at [facility] [address] [place] [address] Dorita Retana MD [address] [facility] 1st [place] [address] 07/28/2025 9:15 AM EDT Appointment [facility] - Ultrasound [address] [place] [address] documented as of this encounter Visit Diagnoses Diagnosis Insulin controlled gestational diabetes mellitus (GDM) during , antepartum documented in this encounter Care Teams Mixing And Dispensing Supervisor Relationship Specialty Start Date End Date Melia Henriquez APRN-COUNTER POCKET TRIMMER [address] [place] [address] PCP - General Nurse Practitioner 11/25/23 documented as of this encounter
== END 2025-07-13 17:37 | disposition home or self-care (01) ==
LOC: FBCO 07-17 09:42 → FBC 07-17 09:42
PROVIDERS: PCP Midwife; Visit Provider Midwife
DX: O24.419 Gestational diabetes mellitus in pregnancy, unspecified control (principal); Z3A.35 35 weeks gestation of pregnancy
CPT/HCPCS: 59025

== ENCOUNTER 2025-07-15 20:38 | Outpatient (REF) | payer BC, OTHER, SELFPAY | END 2025-07-15 20:39 | disposition home or self-care (01) | LOC: LAB 20:38 | PROVIDERS: PCP Midwife; Visit Provider Obstetrics & Gynecology | DX: Z34.93 Encounter for supervision of normal pregnancy, unspecified, third trimester (principal) | CPT/HCPCS: 87081 ==

== ENCOUNTER 2025-07-20 17:01 | Outpatient (OUT) | payer BC, OTHER, SELFPAY ==
--- OUTSIDE RECORDS SUMMARY | 2025-07-06 17:00 | XMS_ITS | Encounter Summary ---
Author Organization [facility] Address [address] [place] [address] Care Team Providers Care Warehouse Operations Associate Name Role Phone Radha Dong MD Primary Care Provider [phone] Charissa Glover COPY CENTER SPECIALIST Unavailable Encounter Details Date Type Department Care Team (Latest Contact Info) Description 07/06/2025 5:00 PM EDT Routine [facility] OBGYN [address] [place] [address] Rosalind Mendoza, ARLINE [address] [place] [address] NST (non-stress test) reactive ([facility]) (Primary Dx); History of gestational diabetes; Encounter for care of first , third trimester ([facility]) Social History Tobacco Use Types Packs/Day Years [...] How often do you attend chur or rastafarian services? More than 4 times per year [...] and heating? Not hard at all 07/29/2024 [facility] [place] [facility] - Occupational Stress [...] place to sleep or slept in a halfway (including now)? No 05/18/2023 Housing Stability Vital Sign Answer Gary e Recorded In the last 12 months, was t here a time when you were not able to pay the mortgage or rent on time? No 07/29/2024 In the past 12 months, how m any times have you moved where you were living? 0 07/29/2024 At any time in the past 12 m [facility], were you homeless or living in a halfway (including now)? No 07/29/2024 Estimated Date of [...] - - Weight 87.5 kg (193 lb) 07/06/2025 4:45 PM EDT Height - - Body Mass Index 34.19 07/29/2024 11:21 AM EDT documented in this encounter Plan of Treatment Upcoming Encounters Date Type Department Care Team (Late st Contact Info) Description 07/23/2025 4:00 PM EDT Ancillary Procedure [facility] [address] [facility] [address] [place] [address] 07/27/2025 4:30 PM EDT Routine [facility] [address] [place] [address] Rosalind Mendoza CNM [address] [place] [address] 07/30/2025 4:15 PM EDT Ancillary Procedure [facility] [address] [facility] [address] [place] [address] 08/06/2025 4:15 PM EDT Ancillary Procedure [facility] [address] [facility] [address] [place] [address] 08/10/2025 4:30 PM EDT Routine [facility] [address] [place] [address] Rosalind Mendoza CN [address] [place] [address] documented as of this encounter Visit Diagnoses Diagnosis NST (non-stress test) reactive ([facility] Primary state, incidental History of gestational diabetes Personal history of other genital system and obstetric disorders Encounter for care of first , third trimester ([facility]) documented in this encounter Care Teams Warehouse Operations Associate Relationship Specialty Start Date End Date Radha Dong MD [address] [place] [address] PCP - General Family Medicine 05/19/23 Charissa Glover NP PCP - Jose Chopra 01/27/25 documented as of this encounter
--- OUTSIDE RECORDS SUMMARY | 2025-07-09 13:20 | XMS_ITS | Encounter Summary ---
Author Organization [facility] Healthcare Address [address] [place] [address] Care Team Providers Care Chemist Helper Name Role Phone Radha Dong MD Primary Care Provider [phone] Charissa Glover RESEARCH TECHNICIAN Unavailable Reason for Visit * Reason Comments Rash Encounter Details Date Type Department Care Team (Late st Contact Info) Description 07/09/2025 1:20 PM EDT Office Visit [facility] Family Medicine [address] [place] [phone] Radha Dong MD [address] [place], [place] [phone] Herpes zoster with complication (Primary Dx) Social [...] How often do you attend chur or mormon services? More than 4 times per year [...] and heating? Not hard at all 07/29/2024 [facility] [place] of Occupat ional Health - Occupational Stress [...] place to sleep or slept in a senior care (including now)? No 05/18/2023 Housing Stability Vital Sign Answer Gary e Recorded In the last 12 months, was t here a time when you were not able to pay the mortgage or rent on time? No 07/29/2024 In the past 12 months, how m any times have you moved where you were living? 0 07/29/2024 At any time in the past 12 m [facility], were you homeless or living in a senior care (including now)? No 07/29/2024 Estimated Date of [...] today at 4:15 PM. 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 [address] [place] [address] 08/06/2025 4:15 PM EDT Ancillary Procedure [facility] [address] [place] [address] 08/10/2025 4:30 PM EDT Routine [facility] [address] [facility] [place] [address] Rosalind Mendoza CN [address] [place] [address] documented as of this encounter Visit Diagnoses Diagnosis Herpes zoster with complication- Primary documented in this encounter Care Teams Chemist Helper Relationship Specialty Start Date End Date Radha Dong MD [address] [place] [address] PCP - General Family Medicine 05/19/23 Charissa Glover NP PCP - Jose Commercial 01/27/25 documented as of this encounter
--- OUTSIDE RECORDS SUMMARY | 2025-07-09 16:15 | XMS_ITS | Encounter Summary ---
Author Organization [facility] Address [address] [place] [address] Care Team Providers Care Passenger Brakeman Name Role Phone Radha Dong MD Primary Care Provider [phone] Charissa Glover PHYSICAL THERAPY NURSE Unavailable Encounter Details Date Type Department Care Team (Latest Contact Info) Description 07/09/2025 4:15 PM EDT Ancillary Procedure [facility] [address] [place] [address] Diet controlled gestational diabetes mellitus (GDM) in third trimester ([facility]) Social History Tobacco Use Types Packs/Day Years [...] How often do you attend chur or worship services? More than 4 times per year 07/29/2024 Do you belong to any clubs o r organizations such as catholic groups, unions, fraternal or athletic groups, or [...] and heating? Not hard at all 07/29/2024 [facility] - Occupational [...] place to sleep or slept in a custodial (including now)? No 05/18/2023 Housing Stability Vital [...] time in the past 12 m [facility], were you homeless or living in a custodial (including now)? No 07/29/2024 Estimated Date of [...] 07/23/2025 4:00 PM EDT Ancillary Procedure [facility] [place] [facility] [address] [place] [address] 07/27/2025 4:30 PM EDT Routine [facility] [place] [facility] [address] [facility] [facility] [place] [id number] Rosalind Mendoza, KIMM [address] [facility] [place] [address] 07/30/2025 4:15 PM EDT Ancillary Procedure [facility] [place] [facility] [address] [place] [address] 08/06/2025 4:15 PM EDT Ancillary Procedure [facility] [place] [facility] [address] [facility] [address] [place] [address] 08/10/2025 4:30 PM EDT Routine [facility] [place] [facility] [address] [facility] [place] [id number] Rosalind Mendoza CNM [address] [facility] [place] [address] documented as of this encounter Procedures Procedure Name Priority Date/Time Associated Diagnosis Comments US BIOPHYSICAL PROFILE WO NON STRESS TESTING Routine 07/09/2025 4:22 PM EDT Diet controlled gestational diabetes mellitus (GDM) in third trimester ([facility]) documented in this encounter Results * US [...] gestational diabetes mellitus (GDM) in third trimester ([facility]) documented in this encounter Care Teams Passenger Brakeman Relationship Specialty Start Date End Date Radha Dong MD [address] [place] [address] PCP - General Family Medicine 05/19/23 Charissa Glover NP PCP - Jose Chopra 01/27/25 documented as of this encounter
--- OUTSIDE RECORDS SUMMARY | 2025-07-15 11:10 | XMS_ITS | Encounter Summary ---
Author Organization [facility] Address [address] [place] [address] Care Team Providers Care Cnc Maintenance Mechanic Name Role Phone Radha Dong MD Primary Care Provider [phone] Charissa Glover INFRASTRUCTURE ENGINEER Unavailable Reason for Visit * Reason Comments Routine Visit Encounter Details Date Type Department Care Team (Latest Contact Info) Description 07/15/2025 11:10 AM EDT Routine [facility] [address] [place] [phone] Vicente Gatica DO [address] Neha Ford, [facility] Third trimester ([facility]); 35 weeks gestation of ([facility]); Herpes zoster without complication Social History Tobacco Use Types Packs/Day Years [...] week 07/29/2024 How often do you attend [facility] or scientologist services? More than 4 times per year 07/29/2024 Do you belong to any clubs o r organizations such as anglican groups, unions, fraternal or athletic groups, or [...] and heating? Not hard at all 07/29/2024 [facility] of Occupat ional Health - Occupational Stress [...] Sign Reading Time Taken Comments Blood Pressure 128/80 07/15/2025 11:21 AM EDT Pulse - - Temperature - - Respiratory Rate - - Oxygen Saturation - - Inhaled Oxygen Concentration - - Weight 86.5 kg (190 lb 12 oz) 07/15/2025 11:21 A M EDT Height - - Body Mass Index 33.79 07/09/2025 1:33 PM EDT documented in this encounter Progress Notes * Nancy Kaur LPN - 07/15/2025 11:10 AM EDT Reason for Appointment: Patient ID: Martha Dejesus is a 30 y.o. female who presents for Routine Visit Patient presents today for Return OB appointment. MEDICATIONS Current Outpatient Medications Medication Instructions Alcohol Sheets (Alcoh-Wipe) sheet Test daily before all meals/snacks and once before bedtime. Blood Glucose Monitor System 1 Units, Does not apply, 4 times daily with meals and nightly, Please fill whatever insurance will cover. Along with test strips and lancets. For 4x a day for 30 days. 4 refills Lantus SoloStar 100 UNIT/ML pen Inject 10 units nightly in subcutaneous space, prime 2 units Lidocaine 5 % cream 1 Application, Apply externally, Every 8 hours PRN Vit-Fe Fumarate-FA ( VITAMIN PO) Take by mouth ursodiol (OMAR FORTE) 250 mg, Oral, 2 times daily valACYclovir (VALTREX) 1,000 mg, Oral, 3 times daily ALLERGIES No Known Allergies PROBLEMS Active Ambulatory Problems Diagnosis Date Noted BPPV (benign paroxysmal positional vertigo), unspecified laterality 05/30/2023 Dizzinesses 05/30/2023 Resolved Ambulatory Problems Diagnosis Date Noted No Resolved Ambulatory Problems Past Medical History: Diagnosis Date Cystitis Other tobacco product nicotine dependence, uncomplicated Shingles HISTORY PAST MEDICAL HISTORY SOCIAL HISTORY Past Medical History: Diagnosis Date Cystitis Other tobacco product nicotine dependence, uncomplicated Shingles Social History Tobacco Use Smoking status: Former Types: Cigarettes Smokeless tobacco: Never Substance Use Topics Alcohol use: Not Currently Alcohol/week: 4.0 standard drinks of alcohol Types: 4 Cans of beer per week Comment: caffeine 1-2 cups per day; drinks alcohol 2-4 times a month Drug use: Never FAMILY HISTORY Family History Problem Relation Name Age of Onset Eczema Mother Parul Askew Hypertension Mother Parul Askew Kidney disease Paternal Grandfather Jose Askew SURGICAL HISTORY No past surgical history on file. REVIEW OF SYSTEMS Review of Systems: Review of Systems Constitutional: Negative. HENT: Negative. Eyes: Negative. Respiratory: Negative. Cardiovascular: Negative. Gastrointestinal: Negative. Genitourinary: Negative. Musculoskeletal: Negative. Skin: Negative. Neurological: Negative. All other systems reviewed and are negative. Hematological: Negative. Endocrine: Negative. Allergic/Immunologic: Negative. OBJECTIVE Objective: Physical Exam Constitutional: Appearance: Normal appearance. She is well-developed. Genitourinary: Vulva normal. Cardiovascular: Rate and Rhythm: Normal rate and regular rhythm. Pulmonary: Effort: Pulmonary effort is normal. Breath sounds: Normal breath sounds. Abdominal: General: Bowel sounds are normal. There is no distension. Palpations: Abdomen is soft. Tenderness: There is no abdominal tenderness. There is no guarding or rebound. Musculoskeletal: General: No swelling. Normal range of motion. Right lower leg: No edema. Left lower leg: No edema. Neurological: Mental Status: She is alert and oriented to person, place, and time. Skin: General: Skin is warm and dry. Psychiatric: Mood and Affect: Mood normal. Behavior: Behavior normal. Vitals and nursing note reviewed. Exam conducted with a philatelic consultant present. Vitals: Estimated body mass index is 33.79 kg/m?? as calculated from the following: Height as of 07/09/25: 5' 3 . Weight as of this encounter: 190 lb 12 oz. BP: 128/80 Patient's last menstrual period was 11/06/2024 (exact date). ASSESSMENT & PLAN ICD-10-CM 1. Third trimester ([facility]) Z34.93 POCT urinalysis dipstick manually resulted CULTURE, GROUP B STREP WITH SUSCEPTIBLITY CULTURE, GROUP B STREP WITH SUSCEPTIBLITY 2. 35 weeks gestation of ([facility]) Z3A.35 Patient is doing well but has complaints of being tired and having maternal discomfort due to . Patient verbalized frequent movement and was instructed to perform kick counts three times per day. labor precautions were given, LARC consent was signed/declined, and GBS was obtained. Cervical check was performed and patient is 1cm dilated. Reviewed sugars with pt in detail. Discussed induction with pt, 08/06/25. Pt has shingles rx for valtrex for supression faxed to pharmacy. Orders Placed This Encounter Procedures CULTURE, GROUP B STREP WITH SUSCEPTIBLITY POCT urinalysis dipstick manually resulted Follow Up: Patient is to return to office in 1 week for routine OB appointment Documented by Nancy Kaur LPN on behalf of: Vicente Gatica DO documented in this encounter Plan of Treatment Upcoming Encounters Date Type Department Care Team (Late st Contact Info) Description 07/23/2025 4:00 PM EDT Ancillary Procedure [facility] [address] [facility] [address] [place] [address] 07/27/2025 4:30 PM EDT Routine [facility] [place] [facility] [address] [facility] [place] [address] Rosalind Mendoza CNM [address] [place] [address] 07/30/2025 4:15 PM EDT Ancillary Procedure [facility] [address] [facility] [address] [place] [address] 08/06/2025 4:15 PM EDT Ancillary Procedure [facility] [address] [facility] [address] [place] [address] 08/10/2025 4:30 PM EDT Routine [facility] [place] [facility] [address] [facility] [place] [address] Rosalind Mendoza CNM [address] [place] [address] Scheduled Orders Name Type Priority Associated Diagnoses Orde r Schedule CULTURE, GROUP B STREP WITH SUSCEPTIBLITY Lab Routine Third trimester ([facility]) Expected: 07/15/2025, Expires: 07/15/2026 documented as of this encounter Procedures Procedure Name Priority Date/Time Associated Diagnosis Comments POCT URINALYSIS DIPSTICK Routine 07/15/2025 11:27 AM EDT Third trimester ([facility]) documented in this encounter Results * (ABNORMAL) POCT urinalysis dipstick manually resulted (07/15/2025 11:27 AM EDT) Color, UA Yellow Clarity, UA Clear Glucose, UA Negative Negative - 2000(110) ++++ mg/dL Bilirubin, UA Negative Negative - 4(70) +++ mg/dL Ketones, UA Negative Negative - 160(16) ++++ mg/dL Spec Grav, UA 1.010 1 - 1.03 Blood, UA Negative Negative - 50 Fernando/mcL pH, UA 6.0 5 - 9 Protein, UA Negative Negative - 2000(20) ++++ mg/dL Urobilinogen, UA 1.0 0.2 - 12 mg/dL Leukocytes, UA Positive Negative - 500+++ Jose/mcL Comment:3+ Nitrite, UA Negative Negative - Positive Urine 07/15/2025 11:2 7 AM EDT Vicente Gatica DO POINT OF CARE TEST ENTER/EDIT OR DERABLES Final Result documented in this encounter Visit Diagnoses Diagnosis Third trimester ([facility]) state, incidental 35 weeks gestation of ([facility]) Herpes zoster without complication documented in this encounter Care Teams Cnc Maintenance Mechanic Relationship Specialty Start Date End Date Radha Dong MD [address] [place] [address] PCP - General Family Medicine 05/19/23 Charissa Glover NP PCP - Jose Commercial 01/27/25 documented as of this encounter
--- OUTSIDE RECORDS SUMMARY | 2025-07-16 16:15 | XMS_ITS | Encounter Summary ---
Author Organization [facility] Address [address] [place] [address] Care Team Providers Care Faculty Research Assistant Name Role Phone Radha Dong MD Primary Care Provider [phone] Charissa Glover FOOD DEHYDRATOR OPERATOR Unavailable Encounter Details Date Type Department Care Team (Latest Contact Info) Description 07/16/2025 4:15 PM EDT Ancillary Procedure [facility] [address] [place] [address] Diet controlled gestational diabetes mellitus (GDM) in third trimester ([facility]) Social History Tobacco Use Types Packs/Day [...] How often do you attend chur or sabianist services? More than 4 times per year [...] and heating? Not hard at all 07/29/2024 [facility] of Occupat ional Health - Occupational Stress [...] place to sleep or slept in a detention (including now)? No 05/18/2023 Housing Stability Vital Sign Answer Gary e Recorded In the last 12 months, was t here a time when you were not able to pay the mortgage or rent on time? No 07/29/2024 In the past 12 months, how m any times have you moved where you were living? 0 07/29/2024 At any time in the past 12 m [facility], were you homeless or living in a detention (including now)? No 07/29/2024 Estimated Date of [...] 07/23/2025 4:00 PM EDT Ancillary Procedure [facility] [address] [place] [address] 07/27/2025 4:30 PM EDT Routine [facility] [place] [facility] [address] [place] [phone] Rosalind Mendoza, KIMM [address] [facility] [place] [address] 07/30/2025 4:15 PM EDT Ancillary Procedure [facility] [address] [facility] [address] [place] [address] 08/06/2025 4:15 PM EDT Ancillary Procedure [facility] [address] [facility] [address] [facility] [address] [place] [address] 08/10/2025 4:30 PM EDT Routine [facility] [place] [facility] [address] [facility] [address] Rosalind Mendoza CNM [address] [place] [address] documented as of this encounter Procedures Procedure Name Priority Date/Time Associated Diagnosis Comments US BIOPHYSICAL PROFILE WO NON STRESS TESTING Routine 07/16/2025 4:20 PM EDT Diet controlled gestational diabetes mellitus (GDM) in third trimester ([facility]) documented in this encounter Results * US biophysical profile wo non stress testing (07/16/2025 4:20 PM EDT) Anatomical Region Laterality Modality Body Ultrasound 07/20/2025 11:5 7 AM EDT Impressions 07/20/2025 12:24 PM EDT Posterior, Grade 2 placenta and normal biophysical profile 06/05. TRANSCRIBED BY: ELECTRONICALLY SIGNED BY: Rafael Mae MD Narrative 07/20/2025 12:24 PM EDT FINDINGS: Breathing Movements 2 Gross Body Movements 2 Tone 2 Qualitative amniotic fluid volume 2 A single, viable intrauterine is present. Cephalic presentation. The placenta is posterior, Grade 2not associated with the cervical os. DIONNE is 14 cm. The heart rate is 168. Procedure Note Rafael Mae MD - 07/20/2025 FINDINGS: Breathing Movements 2 Gross Body Movements 2 Tone 2 Qualitative amniotic fluid volume 2 A single, viable intrauterine is present. Cephalic presentation.The placenta is posterior, Grade 2not associated with the cervical os.DIONNE is 14 cm. The heart rate is 168. IMPRESSION: Posterior, Grade 2 placenta and normal biophysical profile 06/05. TRANSCRIBED BY: ELECTRONICALLY SIGNED BY: Rafael Mae MD us Rosalind Mendoza [facility] IMG OB US PROCEDURES Final R esult documented in this encounter Visit Diagnoses Diagnosis Diet controlled gestational diabetes mellitus (GDM) in third trimester ([facility]) documented in this encounter Care Teams Faculty Research Assistant Relationship Specialty Start Date End Date Radha Dong MD [address] [place] [address] PCP - General Family Medicine 05/19/23 Charissa Glover NP PCP - Jose Chopra 01/27/25 documented as of this encounter
--- OUTSIDE RECORDS SUMMARY | 2025-07-20 17:03 | XMS_ITS | Encounter Summary ---
Author Organization [facility] Address [address] [place] [address] Care Team Providers Care Sales Producer Name Role Phone Radha Dong MD Primary Care Provider [phone] Charissa Glover FORK REPAIRER Unavailable Encounter Details Date Type Department Care [...] often do you attend chur ch or mandaen services? More than 4 times per year 07/29/2024 Do you belong to any clubs o r organizations such as jew groups, unions, fraternal or athletic groups, or [...] and heating? Not hard at all 07/29/2024 [facility] of Occupat ional Health - Occupational [...] Ancillary Procedure [facility] [address] [place] [address] 07/27/2025 4:30 PM EDT Routine [facility]BG[facility] [address] [place] [address] Rosalind Mendoza, CNM [address] [facility] [address] 07/30/2025 4:15 PM EDT Ancillary Procedure [facility] [place] [facility] 1479 [facility] 130 [place] [address] 08/06/2025 4:15 PM EDT Ancillary Procedure [facility] [place] [facility] 14[address] [facility] 130 [place] [address] 08/10/2025 4:30 PM EDT Routine [facility] [place] [facility] [address] [place] [address] Rosalind Mendoza CN [address] [place] [address] documented as of this encounter Visit Diagnoses Not on filedocumented in this encounter Care Teams Sales Producer Relationship Specialty Start Date End Date Radha Dong MD [address] [place] [id number] PCP - General Family Medicine 05/19/23 Charissa Glover NP PCP - Jose Chopra 01/27/25 documented as of this encounter
--- OUTSIDE RECORDS SUMMARY | 2025-07-20 17:03 | XMS_ITS | Encounter Summary ---
Author Organization [facility] Address [address] [place] [address] Care Team Providers Care Microfilm Mounter Name Role Phone Radha Dong MD Primary Care Provider [phone] Charissa Glover CATTLE TESTER Unavailable Encounter Details Date Type Department Care Team (Late st Contact Info) Description 07/15/2025 Bamboo flowsheet [facility] OBG[facility] [address] [facility] [place] [address] Vicente Gatica DO [address] [facility] [address] [place] [id number] Social History Tobacco Use Types Packs/Day Years [...] How often do you attend chur or anglican services? More than 4 times per year [...] and heating? Not hard at all 07/29/2024 [facility] [place] of Occupat ional Health - Occupational Stress [...] Imaging [address] [facility] [place] [address] 07/27/2025 4:30 PM EDT Routine [facility] [place] [facility] 1479 [facility] [place] [address] Rosalind Mendoza, CN 1479 [place] [address] 07/30/2025 4:15 PM EDT Ancillary Procedure [facility] [place] [facility] [address] [facility] 130 [place] [address] 08/06/2025 4:15 PM EDT Ancillary Procedure [facility] [place] [facility] [address] [facility] 130 [place] [address] 08/10/2025 4:30 PM EDT Routine [facility] [place] [facility] 1479 [facility] [place] [address] Rosalind Mendoza, [facility] 14[address] [place] [address] documented as of this encounter Visit Diagnoses Not on filedocumented in this encounter Care Teams Microfilm Mounter Relationship Specialty Start Date End Date Radha Dong MD [address] [place] [address] PCP - General Family Medicine 05/19/23 Charissa Glover NP PCP - [place] [employer] 01/27/25 documented as of this encounter
--- OUTSIDE RECORDS SUMMARY | 2025-07-20 17:03 | XMS_ITS | Encounter Summary ---
Author Organization [facility] Healthcare Address [address] [place] [address] Care Team Providers Care Shift Supervisor Name Role Phone Radha Dong MD Primary Care Provider [phone] Charissa Glover GAMMA OPERATOR Unavailable Encounter Details Date Type Department Care Team (Late st Contact Info) Description 05/13/2025 Results Follow-Up [facility] OBGYN [address] [place] [address] Paola Gómez MA GLUCOSE, GESTATIONAL SCREEN ([id number] [...] How often do you attend chur or jainism services? More than 4 times per year 07/29/2024 Do you belong to any clubs o r organizations such as sabianist groups, unions, fraternal or athletic groups, or [...] and heating? Not hard at all 07/29/2024 [facility] of Occupat ional Health - [...] 07/23/2025 4:00 PM EDT Ancillary Procedure [facility] [place] [facility] [address] [place] [address] 07/27/2025 4:30 PM EDT Routine [facility] [place] [facility] [address] [facility] [place] [address] Rosalind Mendoza, KIM 14[address] [place] [address] 07/30/2025 4:15 PM EDT Ancillary Procedure [facility] [place] [facility] [address] [facility] [place] [address] 08/06/2025 4:15 PM EDT Ancillary Procedure [facility] [place] [facility] [address] [place] [address] 08/10/2025 4:30 PM EDT Routine [facility] [place] [facility] [address] [facility] [place] [address] Rosalind Mendoza CN [address] [place] [address] documented as of this encounter Visit Diagnoses Not on filedocumented in this encounter Care Teams Shift Supervisor Relationship Specialty Start Date End Date Radha Dong MD 14[address] [place] [address] PCP - General Family Medicine 05/19/23 Charissa Glover NP PCP - [place] [employer] 01/27/25 documented as of this encounter
--- OUTSIDE RECORDS SUMMARY | 2025-07-20 17:03 | XMS_ITS | Encounter Summary ---
Author Organization [facility] Address [address] [place] [address] Care Team Providers Care Soiled Linen Distributor Name Role Phone Radha Dong MD Primary Care Provider [phone] Charissa Glover ADJUSTO WRITER OPERATOR Unavailable Encounter Details Date Type Department Care Team (Late st Contact Info) Description 07/09/2025 Results Follow-Up [facility] OBGYN [address] [place] [address] Rosalind Mendoza, CNM 14[address] [place], [place] [phone] Bile acids, total Social History Tobacco Use [...] How often do you attend chur or pentecostal services? More than 4 times per year 07/29/2024 Do you belong to any clubs o r organizations such as nondenominational groups, unions, fraternal or athletic groups, or [...] and heating? Not hard at all 07/29/2024 [facility] [place] of Occupat ional Health - Occupational Stress [...] any time in the past 12 m [facility], were you homeless or living in a [...] Imaging [address] [facility] [address] 07/27/2025 4:30 PM EDT Routine [facility] [place] [facility] 1479 [facility] [address] Rosalind Mendoza, CN 1479 [facility] [place] [address] 07/30/2025 4:15 PM EDT Ancillary Procedure [facility] [place] [facility] 1479 [facility] 130 [place] [address] 08/06/2025 4:15 PM EDT Ancillary Procedure [facility] [place] [facility] 14[address] [facility] 130 [place] [address] 08/10/2025 4:30 PM EDT Routine [facility] [place] [facility] [address]79 [place] [address] Rosalind Mendoza, [facility] 14[address] [place] [address] documented as of this encounter Visit Diagnoses Not on filedocumented in this encounter Care Teams Soiled Linen Distributor Relationship Specialty Start Date End Date Radha Dong MD 14[address] [place] [address] PCP - General Family Medicine 05/19/23 Charissa Glover NP PCP - [place] Commercial 01/27/25 documented as of this encounter
--- OUTSIDE RECORDS SUMMARY | 2025-07-20 17:03 | XMS_ITS | Clinical Summary ---
Author Organization [facility] Healthcare Address [address] [place] [address] Care Team Providers Care Motor Racer Name Role Phone Radha Dong MD Primary Care Provider [phone] Charissa Glover DISCHARGE DOOR OPERATOR Unavailable Allergies No known active allergies [...] 07/16/2025 4:15 PM EDT Ancillary Procedure [facility] [address] [facility] [address] [place] [address] Diet controlled gestational diabetes mellitus (GDM) in third trimester ([facility]) 07/16/2025 Travel 07/15/2025 11:10 AM [place] [address] Vicente Gatica, Third trimester ([facility]); 35 weeks gestation of ([facility]); Herpes zoster without complication 07/15/2025 Clinisync Result Encounter [facility] External Department Unsolicited Provider, Generic External Data 07/15/2025 [place] [address] Nancy Kaur LPN 07/15/2025 Bamboo [place] [address] Vicente Gatica DO 07/09/2025 4:15 PM EDT Ancillary Procedure [facility] [address] [place] [address] Diet controlled gestational diabetes mellitus (GDM) in third trimester ([facility]) 07/09/2025 1:20 PM EDT Office Visit [facility] [address] [place] [address], [place] [phone] Radha Dong MD Herpes zoster with complication (Primary Dx) 07/09/2025 Travel 07/09/2025 Results Follow-Up [facility] [address]BGY[address] [place] [address] Rosalind Mendoza, CNM Bile acids, total 07/06/2025 5:00 PM EDT Routine [facility] [address] [place] [address], [place] [phone] Rosalind Mendoza, CNM NST (non-stress test) reactive ([facility]) (Primary Dx); History of gestational diabetes; Encounter for care of first , third trimester ([facility]) 07/06/2025 Bamboo flowsheet [facility] [address] [place] [address], [place] [phone] Rosalind Mendoza, CNM 07/02/2025 4:15 PM EDT Ancillary Procedure [facility] [address] [place] [address], [place] [address] Diet controlled gestational diabetes mellitus (GDM) in third trimester ([facility]) 07/02/2025 Travel 06/30/2025 4:00 PM EDT Routine [facility]YN [address] [place] [address], [place] [phone] Rosalind Mendoza L, CNM Itching (Primary Dx); NST (non-stress test) reactive ([facility]); History of gestational diabetes; Encounter for care of first , third trimester ([facility]) 06/30/2025 Bamboo flowsheet [facility] [address] [place] [address], [place] [phone] Rosalind Mendoza, CNM 06/25/2025 4:15 PM EDT Ancillary Procedure [facility] [address] [facility] [address] [place] [phone] Diet controlled gestational diabetes mellitus (GDM) in third trimester ([facility]) 06/25/2025 Travel 06/22/2025 4:15 PM EDT Routine [facility] [address] [facility] [address] Rosalind Mendoza CNM NST (non-stress test) reactive ([facility]) (Primary Dx); History of gestational diabetes; Encounter for care of first , third trimester ([facility]) 06/22/2025 Results Follow-Up [facility] [address] [facility] [place] [address] Rosalind Mendoza CNM US biophysical profile wo non stress testing 06/18/2025 4:15 PM EDT Ancillary Procedure [facility] [address] [facility] [address] [place] [address] Diet controlled gestational diabetes mellitus (GDM) in third trimester ([facility]) 06/18/2025 Travel 06/15/2025 5:15 PM EDT Routine [facility] [address] [facility] [address] Rosalind Mendoza CNM History of gestational diabetes (Primary Dx); Encounter for care of first , third trimester ([facility]) 06/15/2025 Bamboo flowsheet [facility] [address] [place] [address] Rosalind Mendoza CNM 06/05/2025 4:00 PM EDT Ancillary Procedure [facility] [address] [facility] [address] [place] [address] related condition in third trimester ([facility]) 06/05/2025 Travel 06/04/2025 9:00 AM EDT Routine [facility] [address] [facility] [address] Rosalind Mendoza CNM Encounter for care of first , second trimester ([facility]) (Primary Dx); related condition in third trimester ([facility]); Diet controlled gestational diabetes mellitus (GDM) in third trimester ([facility]); History of gestational diabetes 06/04/2025 Bamboo flowsheet [facility] [address] [facility] [place] [address] Rosalind Mendoza CNM 05/26/2025 3:00 PM EDT Routine [facility] [address] [facility] [place] [address] Rosalind Mendoza CNM Encounter for care of first , second trimester ([facility]) (Primary Dx); History of gestational diabetes 05/26/2025 [facility] [address] [facility] [place] [address] Paola Gómez MA GLUCOSE TOLERANCE TEST, GESTATIONAL,4SPEC(10 0G) 05/26/2025 [facility] [address] [facility] [place] [address] Paola Gómez MA History of gestational diabetes 05/13/2025 Results Follow-Up [facility] [address] [facility] [address] Paola Gómez MA GLUCOSE, GESTATIONAL SCREEN (50G)-135 CUTOFF, CBC, POCT Urinalysis dipstick, Hemoglobin A1c 05/13/2025 Orders Only [facility] [address] [facility] [place] [address] Rosalind Mendoza CNM Elevated glucose tolerance test 05/12/2025 9:45 AM EDT Routine [facility] [address] [facility] [place] [address] Rosalind Mendoza CNM Encounter for care of first , second trimester ([facility]) (Primary Dx); Screening for diabetes mellitus (DM); Screening for iron deficiency anemia; Dysuria; Glucose found in urine on examination 05/12/2025 [facility] [address] [place] [address] Rosalind Mendoza CNM 04/27/2025 5:00 PM EDT [facility] [address] [place] [address] Rosalind Mendoza CNM Encounter for care of first , second trimester ([facility]) (Primary Dx) 04/27/2025 [facility] [address] [place] [address] Rosalind Mendoza CNM from Last 3 Months [...] How often do you attend chur or taoist services? More than 4 times per year [...] and heating? Not hard at all 07/29/2024 [facility] of Occupat ional Health - Occupational Stress [...] 07/23/2025 4:00 PM EDT Ancillary Procedure [facility] [address] [phone] 07/27/2025 4:30 PM EDT Routine [facility] [address] [place] [address] Rosalind Mendoza CNM [address] [place] [address] 07/30/2025 4:15 PM EDT Ancillary Procedure [facility] [address] [address] 08/06/2025 4:15 PM EDT Ancillary Procedure [facility] [address] [facility] [address] [place] [address] 08/10/2025 4:30 PM EDT Routine [facility] [address] [place] [address] Rosalind Mendoza CNM [address] [place] [address] Health Maintenance Due Date Last Done Comments Influenza Vaccine (#1) 2025 Procedures Procedure Name Priority Date/Time Associated Diagnosis Comments US BIOPHYSICAL PROFILE WO NON STRESS TESTING Routine 07/16/2025 4:20 PM EDT Diet controlled gestational diabetes mellitus (GDM) in third trimester ([facility]) POCT URINALYSIS DIPSTICK Routine 07/15/2025 11:27 AM EDT Third trimester ([facility]) STREP GP B CULTURE+RFLX Routine 07/15/2025 11:10 AM EDT US BIOPHYSICAL PROFILE WO NON STRESS TESTING Routine 07/09/2025 4:22 PM EDT Diet controlled gestational diabetes mellitus (GDM) in third trimester ([facility]) AMYLASE Routine 06/30/2025 4:11 PM EDT Itching LIPASE Routine 06/30/2025 4:11 PM EDT Itching BILE ACIDS, TOTAL Routine 06/30/2025 4:1 1 PM EDT Itching HEPATIC FUNCTION PANEL Routine 4:11 PM EDT Itching US BIOPHYSICAL PROFILE WO NON STRESS TESTING Routine 06/25/2025 4:30 PM EDT Diet controlled gestational diabetes mellitus (GDM) in third trimester ([facility]) US BIOPHYSICAL PROFILE WO NON STRESS TESTING Routine 06/18/2025 4:44 PM EDT Diet controlled gestational diabetes mellitus (GDM) in third trimester ([facility]) US OB FOLLOW UP TRANSABDOMINAL APPROACH Routine 06/05/2025 4:35 PM EDT related condition in third trimester ([facility]) GLUCOSE TOLERANCE TEST, GESTATIONAL,4SPEC(100G ) Routine 05/20/2025 [...] non stress testing (07/16/2025 4:20 PM EDT) Only the most recent of4 resultswithin the time period is included. Anatomical Region Laterality Modality Body Ultrasound 07/20/2025 [...] SIGNED BY: Rafael Mae MD us Rosalind ALVAREZM IMG OB US PROCEDURES Final R esult * (ABNORMAL) POCT urinalysis dipstick manually resulted [...] - 9 Protein, UA Negative Negative - 1999(20) ++++ mg/dL Urobilinogen, UA 1.0 0.2 - 12 mg/dL Leukocytes, UA Positive Negative - 500+++ Jose/mcL Comment:3+ Nitrite, UA Negative Negative - Positive Urine 07/15/2025 11:2 7 AM EDT Vicente Gavi DO POINT OF CARE TEST ENTER/EDIT OR DERABLES Final Result * STREP GP B CULTURE+RFLX (07/15/2025 11:10 AM EDT) STREP GP B CULTURE+RFLX Strep Gp B Culture+Rflx [facility] STREP GP B CULTURE+RFLX Negative TBH STREP GP B CULTURE+RFLX Centers for Disease Control and Prevention (CDC) and TBH STREP GP B CULTURE+RFLX [place] [employer] Gynec[employer] TBH STREP GP B CULTURE+RFLX (ACOG) guidelines for prevention of group B [facility] STREP GP B CULTURE+RFLX streptococcal (GBS) disease specify co-collection of [facility] STREP GP B CULTURE+RFLX a vaginal and rectal swab specimen to maximize [facility] STREP GP B CULTURE+RFLX sensitivity of GBS detection. Per the CDC and ACOG, TBH STREP GP B CULTURE+RFLX swabbing both the lower vagina and rectum TBH STREP GP B CULTURE+RFLX substantially increases the yield of detection TBH STREP GP B CULTURE+RFLX compared with sampling the vagina alone. TBH STREP GP B CULTURE+RFLX Penicillin G, ampicillin, or cefazolin are indicated TBH STREP GP B CULTURE+RFLX for intrapartum prophylaxis of GBS TBH STREP GP B CULTURE+RFLX colonization. Reflex susceptibility testing should be TBH STREP GP B CULTURE+RFLX performed prior to use of clindamycin only on GBS TBH STREP GP B CULTURE+RFLX isolates from penicillin-allergi c women who are TBH STREP GP B CULTURE+RFLX considered a high risk for anaphylaxis. Treatment with TBH STREP GP B CULTURE+RFLX vancomycin without additional testing is warranted if TBH STREP GP B CULTURE+RFLX resistance to clindamycin is noted. TBH STREP GP B CULTURE+RFLX Performed at: [facility]H STREP GP B CULTURE+RFLX [address] [place], [place] [id number] TB STREP GP B CULTURE+RFLX Motor Boss: Cirilo Arriaga PhD, Phone: [phone] [facility] 07/15/2025 11:1 0 AM EDT 07/16/2025 6:10 AM EDT Narrative [facility] - 07/20/2025 1:15 PM EDT us Generic External Data Provider LAB BLOOD ORDERAB LES Final Result Performing Organization Address City/[facility]/ZIP Co de Phone Number [facility] * Bile acids, total (06/30/2025 4:11 PM EDT) BILE ACIDS, TOTAL 6 0 - 10 umol/L [facility] Blood Venous blood specimen / Unknown 06/30/2025 4:11 PM EDT 06/30/2025 4:12 PM EDT Narrative Resulting Agency Comment Performing Organization Information Site ID: AMD Name: [facility]/Asim RICHARDS Address: [id number] [place] [address] [place] [address] Director: Anthony De La Paz M.D.,PhD us Rosalind ALVAREZ LAB BLOOD ORDERABLES Final R esult [facility] * Lipase (06/30/2025 4:11 PM EDT) LIPASE 38 7 - 60 U/L [facility] Blood Venous blood specimen / Unknown 06/30/2025 4:11 PM EDT 06/30/2025 4:12 PM EDT Narrative Resulting Agency Comment Performing Organization Information Site ID: QPT Name: [facility] Address: [address] [place] [address], [address] [place] [phone] Director: Stevie Doan MD Rosalind L [email or web address] CN LAB BLOOD ORDERABLES Final R esult Performing Organization Address [facility] Co de Phone Number [facility] * Amylase (06/30/2025 4:11 PM EDT) AMYLASE 40 21 - 101 U/L [facility] Blood Venous blood specimen / Unknown 06/30/2025 4:11 PM EDT 06/30/2025 4:12 PM EDT Narrative Resulting Agency Comment Performing Organization Information Site ID: QPT Name: [facility] Address: [address] [place] [address], [address] [place] [phone] Director: Stevie Doan MD Rosalind L [email or web address] CN LAB BLOOD ORDERABLES Final R esult Performing Organization Address [facility] Co de Phone Number [facility] * (ABNORMAL) [...] Information Site ID: QPT Name: [facility] Address: [address] , [address] [place] [address] Director: Stevie Doan MD Rosalind Mendoza CNM LAB BLOOD ORDERABLES Final R esult [facility] * US OB follow up transabdominal [...] BY: Rafael Mae MD us Rosalind Mendoza [facility] IMG OB US PROCEDURES Final R esult * (ABNORMAL) GLUCOSE TOLERANCE TEST, GESTATIONAL,4SPEC(100G) (05/20/2025 8:04 AM EDT) GLUCOSE, FASTING 83 65 - 94 mg/dL [facility] GLUCOSE, 1 HOUR 186(H) <180 mg/dL [facility] GLUCOSE, 2 HOUR 190(H) <155 mg/dL [facility] GLUCOSE, 3 HOUR 158(H) <140 mg/dL [facility] COMMENT [facility] Comment: Brown/Chrisstan Criteria: Two or more values greater than the above reference intervals are suggestive of gestational diabetes. 05/20/2025 8:04 AM EDT 05/20/2025 8:05 AM EDT Narrative Resulting Agency Comment Performing Organization Information Site ID: QPT Name: [facility] Address: [address] [place] [address], [address] [place] [phone] Director: Stevie Doan MD Rosalind L Florharitha CN LAB BLOOD ORDERABLES Final R esult Performing Organization Address [facility] de Phone Number [facility] * (ABNORMAL) GLUCOSE, GESTATIONAL SCREEN (50G)-135 [...] Performing Organization Information Site ID: QPT Name: [facility] Address: [address] [place] [address], [address] [place] [address] Director: Stevie Doan MD Rosalindrupert Mendoza CN LAB BLOOD ORDERABLES Final R esult Performing Organization Address [facility] de Phone Number [facility] * CBC (05/12/2025 10:50 AM EDT) WHITE BLOOD CELL COUNT 8.7 3.8 - [...] Performing Organization Information Site ID: QPT Name: [facility] Address: [address] [place] [address], [address] [place] [phone] Director: Stevie Doan MD us Rosalind L Floro CNM LAB BLOOD ORDERABLES Final R esult [facility] * Hemoglobin A1c (05/12/2025 10:50 AM [...] diagnosis of diabetes in children. According to [place] Diabetes Association (ADA) guidelines, hemoglobin A1c <7.0% represents optimal control in non- diabetic patients. Different metrics may apply to specific patient populations. Standards of Medical Care in Diabetes(ADA). 05/12/2025 10:5 0 AM EDT 05/12/2025 10:51 AM EDT Narrative Resulting Agency Comment Performing Organization Information Site ID: QPT Name: [facility] Address: [address] [place] [address], [address] [place] [phone] Director: Stevie Doan MD us Rosalind L Floro CNM LAB BLOOD ORDERABLES Final R esult [facility] * Urine culture (05/12/2025 10:49 AM EDT) MICRO NUMBER [id number] [facility] SPECIMEN QUALITY Adequate [facility] SOURCE: ([facility]) [...] Information Site ID: QPT Name: [facility] Address: [address] [place] [address], [address] [place] [phone] Director: Stevie Doan MD us Rosalind Mendoza CNM LAB MICROBIOLOGY - GENERAL O RDERABLES Final Result Performing Organization Address City/[facility] Co de Phone Number [facility] from Last 3 Months Insurance [facility] [employer] MEDICAID Care Teams Motor Racer Relationship Specialty Start Date End Date Radha Dong MD [address] [place] [address] PCP - General Family Medicine 05/19/23 Charissa Glover DISCHARGE DOOR OPERATOR [facility]
--- OUTSIDE RECORDS SUMMARY | 2025-07-20 17:03 | XMS_ITS | Encounter Summary ---
Author Organization [facility] Address [address] [place] [address] Care Team Providers Care Manager Background Name Role Phone Radha Dong MD Primary Care Provider [phone] Charissa Glover LITERACY TUTOR Unavailable Encounter Details Date Type Department Care Team (Late st Contact Info) Description 07/06/2025 Bamboo flowsheet [facility] [address] [place] [address] Rosalind Mendoza, CNM [address] [place] [address] Social History Tobacco Use Types [...] How often do you attend chur or jain services? More than 4 times per year [...] and heating? Not hard at all 07/29/2024 [facility] of Occupat ional Health - Occupational Stress [...] any time in the past 12 m [facility], were you homeless or living [...] 07/23/2025 4:00 PM EDT Ancillary Procedure [facility] [place] [facility] [address] [place] [address] 07/27/2025 4:30 PM EDT Routine [facility] [place] [facility] [address] [facility] [place] [address] Rosalind Mendoza, KIM [address] [facility] [place] [address] 07/30/2025 4:15 PM EDT Ancillary Procedure [facility] [facility] [address] [facility] [address] [place] [address] 08/06/2025 4:15 PM EDT Ancillary Procedure [facility] [place] [facility] [address] [facility] [address] [place] [address] 08/10/2025 4:30 PM EDT Routine [facility] [place] [facility] [address] [facility] [place] [address] Rosalind Mendoza, KIM [address] [facility] [place] [address] documented as of this encounter Visit Diagnoses Not on filedocumented in this encounter Care Teams Manager Background Relationship Specialty Start Date End Date Radha Dong MD [address] [facility] [place] [address] PCP - General Family Medicine 05/19/23 Charissa Glover NP PCP - [employer] 01/27/25 documented as of this encounter
--- OUTSIDE RECORDS SUMMARY | 2025-07-20 17:03 | XMS_ITS | Encounter Summary ---
Author Organization [facility] Address [address] [place] [address] Care Team Providers Care Human Service Coordinator Name Role Phone Radha Dong MD Primary Care Provider [phone] Charissa Glover TRIPPER Unavailable Encounter Details Date Type Department Care Team (Late st Contact Info) Description 07/15/2025 Telephone [facility] [place] [facility] [address] [place] [address] [place] [address] Nancy Kaur LPN Social History Tobacco [...] How often do you attend chur or confucianism services? More than 4 times per year [...] and heating? Not hard at all 07/29/2024 [facility] of Occupat ionny Health - Occupational Stress Questionnaire Answer Date [...] any time in the past 12 m [facility], were you homeless or living in a [...] 07/23/2025 4:00 PM EDT Ancillary Procedure [facility] [address] [facility] [address] [place] [address] 07/27/2025 4:30 PM EDT Routine [facility] [address] [place] [address] Rosalind Mendoza, KIM [address] [facility] [place] [address] 07/30/2025 4:15 PM EDT Ancillary Procedure [facility] [address] [facility] [address] [place] [address] 08/06/2025 4:15 PM EDT Ancillary Procedure [facility] [address] [facility] [address] [place] [address] 08/10/2025 4:30 PM EDT Routine [facility] [address] [place] [address] Rosalind Mendoza, [facility] [address] [facility] [place] [address] documented as of this encounter Visit Diagnoses Not on filedocumented in this encounter Care Teams Human Service Coordinator Relationship Specialty Start Date End Date Radha Dong MD [address] [facility] [place] [address] PCP - General Family Medicine 05/19/23 Charissa Glover NP PCP - Jose Commercial 01/27/25 documented as of this encounter
--- OUTSIDE RECORDS SUMMARY | 2025-07-20 17:03 | XMS_ITS | Encounter Summary ---
Author Organization [facility] Healthcare Address [address] [place] [address] Care Team Providers Care Sanipractic Physician Name Role Phone Radha Dong MD Primary Care Provider [phone] Charissa Glover MANAGER INFUSION Unavailable Encounter Details Date Type Department Care Team (Late st Contact Info) Description 05/26/2025 Results Follow-Up [facility] OBGYN [address] [place] [phone] Paola Gómez MA GLUCOSE TOLERANCE TEST, GESTATIONAL,4SPEC(10 [...] How often do you attend chur or muslim services? More than 4 times per year 07/29/2024 Do you belong to any clubs o r organizations such as adventism groups, unions, fraternal or athletic groups, or [...] and heating? Not hard at all 07/29/2024 [facility] of Occupat ional Health - Occupational [...] any time in the past 12 m [facility], were you homeless or living in a [...] Imaging [address] [place] [address] 07/27/2025 4:30 PM EDT Routine [facility] [place] [address] [place] [address] Rosalind Mendoza, KIM [address] [place] [address] 07/30/2025 4:15 PM EDT Ancillary Procedure [facility] [address] [facility] [address] [place] [address] 08/06/2025 4:15 PM EDT Ancillary Procedure [facility] [address] [facility] [address] [place] [address] 08/10/2025 4:30 PM EDT Routine [facility] [place] [facility] [address] [place] [address] Rosalind Mendoza CN [address] [place] [address] documented as of this encounter Visit Diagnoses Not on filedocumented in this encounter Care Teams Sanipractic Physician Relationship Specialty Start Date End Date Radha Dong MD [address] [place] [address] PCP - General Family Medicine 05/19/23 Charissa Glover NP PCP - Jose Chopra 01/27/25 documented as of this encounter
--- OUTSIDE RECORDS SUMMARY | 2025-07-20 17:03 | XMS_ITS | Encounter Summary ---
Author Organization [facility] Address [address] [place] [address] Care Team Providers Care Transport Aide Name Role Phone Radha Dong MD Primary Care Provider [phone] Charissa Glover SAUSAGE GRINDER Unavailable Encounter Details Date Type Department Care [...] often do you attend chur ch or synagogue services? More than 4 times per year 07/29/2024 Do you belong to any clubs o r organizations such as caodaism groups, unions, fraternal or athletic groups, or [...] and heating? Not hard at all 07/29/2024 [facility] of Occupat ional Health [...] Ancillary Procedure [facility] [address] [place] [address] 07/27/2025 4:30 PM EDT Routine [facility] [address] [facility] [address] Rosalind Mendoza, CNM [address] [place] [address] 07/30/2025 4:15 PM EDT Ancillary Procedure [facility] [address] [facility] 130 [place] [address] 08/06/2025 4:15 PM EDT Ancillary Procedure [facility] [address] [facility] [address] [place] [address] 08/10/2025 4:30 PM EDT Routine [facility] [address] [place] [address] Rosalind Mendoza CN [address] [place] [address] documented as of this encounter Visit Diagnoses Not on filedocumented in this encounter Care Teams Transport Aide Relationship Specialty Start Date End Date Radha Dong MD [address] [place] [address] [id number] PCP - General Family Medicine 05/19/23 Charissa Glover NP PCP - Jose Chopra 01/27/25 documented as of this encounter
--- OUTSIDE RECORDS SUMMARY | 2025-07-20 17:04 | XMS_ITS | Encounter Summary ---
Author Organization [facility] Address [address] [place] [address] Care Team Providers Care Stamp Pad Finisher Name Role Phone Radha Dong MD Primary Care Provider [phone] Charissa Glover LAUNDRY HOUSEKEEPING AIDE Unavailable Encounter Details Date Type Department Care Team (Late st Contact Info) Description 06/22/2025 Results Follow-Up [facility] [address] [place] [phone] Rosalind Mendoza, CNM [address] [place], [place] [phone] [place] biophysical profile wo non stress testing [...] How often do you attend chur or yarsani services? More than 4 times per year [...] and heating? Not hard at all 07/29/2024 [facility] of Occupat ional Health - Occupational Stress [...] time in the past 12 m [facility], were you homeless or living in [...] 07/23/2025 4:00 PM EDT Ancillary Procedure [facility] [place] [facility] [address] [facility] 130 [place] [address] 07/27/2025 4:30 PM EDT Routine [facility] [place] [facility] [address] [facility] [place] [address] Rosalind Mendoza, KIM [address] [facility] [place] [address] 07/30/2025 4:15 PM EDT Ancillary Procedure [facility] [facility] [address] [facility] 130 [place] [address] 08/06/2025 4:15 PM EDT Ancillary Procedure [facility] [place] [facility] [address] [facility] [address] [place] [address] 08/10/2025 4:30 PM EDT Routine [facility] [place] [facility] [address] [place] [address] Rosalind Mendoza, CN [address] [facility] [place] [address] documented as of this encounter Visit Diagnoses Not on filedocumented in this encounter Care Teams Stamp Pad Finisher Relationship Specialty Start Date End Date Radha Dong MD [address] [facility] [place] [address] PCP - General Family Medicine 05/19/23 Charissa Glover NP PCP - [place] [employer] 01/27/25 documented as of this encounter
--- OUTSIDE RECORDS SUMMARY | 2025-07-20 17:04 | XMS_ITS | Encounter Summary ---
Author Organization [facility] Address [address] [place] [address] Care Team Providers Care Coal Wheeler Name Role Phone Halle Jensen DO Unavailable [phone] Radha Dong MD Primary Care Provider [phone] Charissa Glover CENTERLESS GRINDER OPERATOR Unavailable Charissa Glover CENTERLESS GRINDER OPERATOR Unavailable Encounter Details Date Type Department Care Team (Late st Contact Info) Description 07/06/2023 Abstract [facility] Family Medicine [address] [place] [phone] Radha Dong MD [address] [place] [address] Social History Tobacco Use Types [...] How often do you attend chur or tenriism services? More than 4 times per year 05/18/2023 Do you belong to any clubs o r organizations such as synagogue groups, unions, fraternal or athletic groups, or [...] and heating? Not hard at all 05/18/2023 [facility] of Occupat ional Health - [...] in a detention (including now)? No 05/18/2023 Comments Unknown Sex [...] 07/23/2025 4:00 PM EDT Ancillary Procedure [facility] [address] [facility] 130 [place] [phone] 07/27/2025 4:30 PM EDT [facility] [address] [place] [phone] Rosalind Mendoza CNM 1479 [facility] [place] [phone] 07/30/2025 4:15 PM EDT Ancillary Procedure [facility] [place] [facility] [address] [facility] 130 [place] [address] 08/06/2025 4:15 PM EDT Ancillary [facility] [address] [facility] [address] [facility] [place] [address] 08/10/2025 4:30 PM EDT Routine [facility] [address] [facility] [place] [address] Rosalind Mendoza, CNM [address] [facility], [place] [phone] documented as of this encounter Visit Diagnoses Not on filedocumented in this encounter Care Teams Coal Wheeler Relationship Specialty Start Date End Date Halle Jensen DO [address] [facility] 200 [place] [address] PCP - [place] [employer] 03/29/22 Radha Dong MD [address] [facility] [place], [place] [phone] PCP - General Family Medicine 05/19/23 Charissa Glover NP PCP - [place] [employer] 12/28/23 5 Charissa Glover NP PCP - [place] [employer] 01/27/25 documented as of this encounter
--- OUTSIDE RECORDS SUMMARY | 2025-07-20 17:04 | XMS_ITS | Encounter Summary ---
Author Organization [facility] Address [address] [place] [address] Care Team Providers Care Senior Inspector Name Role Phone Radha Dong MD Primary Care Provider [phone] Charissa Glover KID CLUB ATTENDANT Unavailable Encounter Details Date Type Department Care Team (Late st Contact Info) Description 07/15/2025 Clinisync Result Encounter [facility] External Department Unsolicited Provider, Generic External Data Social History Tobacco Use Types Packs/Day Years [...] often do you attend chur ch or tenriism services? More than 4 times [...] 07/29/2024 [facility] of Occupat ionpr Health - Occupational Stress Questionnaire Answer Date [...] any time in the past 12 m [facility], were you homeless or living in [...] EDT Ancillary Procedure [facility] [address] [facility] [address] [place] [address] 07/27/2025 4:30 PM EDT Routine [facility] [address] [place] [address] Rosalind Mendoza, CNM [address] [facility] [place] [address] 07/30/2025 4:15 PM EDT Ancillary Procedure [facility] [address] [place] [address] 08/06/2025 4:15 PM EDT Ancillary Procedure [facility] [address] [place] [address] 08/10/2025 4:30 PM EDT Routine [facility] [address] [facility] [place] [address] Rosalind Mendoza, CNM [address] [facility] [place] [address] documented as of this encounter Procedures Procedure Name Priority Date/Time Associated Diagnosis Comments STREP GP B CULTURE+RFLX Routine 07/15/2025 11:10 AM EDT documented in this encounter Results * STREP GP B CULTURE+RFLX (07/15/2025 11:10 AM EDT) STREP GP B CULTURE+RFLX Strep Gp B Culture+Rflx [facility] STREP GP B CULTURE+RFLX Negative [facility] STREP GP B CULTURE+RFLX Centers for Disease Control and Prevention (CDC) and [facility] STREP GP B CULTURE+RFLX [employer] TB[facility] STREP [...] [facility] STREP GP B CULTURE+RFLX Performed at: [facility] STREP GP B CULTURE+RFLX [address] [place], [place] [id number] [facility] STREP GP B CULTURE+RFLX [employer] Claims Adjuster: Cirilo Arriaga PhD, Phone: [phone] TB 07/15/2025 11:1 0 AM EDT 07/16/2025 6:10 AM EDT Narrative [facility] - 07/20/2025 1:15 PM EDT us Generic External Data Provider LAB BLOOD ORDERAB LES Final Result Performing Organization Address City/State/[facility] Co de Phone Number [facility] documented in this encounter Visit Diagnoses Not on filedocumented in this encounter Care Teams Senior Inspector Relationship Specialty Start Date End Date Radha Dong MD [address] [place] [address] PCP - General Family Medicine 05/19/23 Charissa Glover NP PCP - [place] [employer] 01/27/25 documented as of this encounter
--- OUTSIDE RECORDS SUMMARY | 2025-07-20 17:04 | XMS_ITS | Encounter Summary ---
Author Organization [facility] Address [address] [place] [address] Care Team Providers Care Rattling Machine Tender Name Role Phone Halle Jensen DO Unavailable [phone] Radha Dong MD Primary Care Provider [phone] Charissa Glover NP Unavailable Charissa Glover LAN MANAGER Unavailable Encounter Details Date Type Department Care Team (Late st Contact Info) Description 05/31/2023 Abstract [facility] Family Medicine [address] [place] [phone] Charissa Glover NP Social History Tobacco Use [...] and heating? Not hard at all 05/18/2023 [facility] of Occupat ionco Health - Occupational Stress Questionnaire Answer Date [...] in a retirement (including now)? No 05/18/2023 Comments Unknown Sex [...] 07/23/2025 4:00 PM EDT Ancillary Procedure [facility] [address] [facility] [address] [place] [address] 07/27/2025 4:30 PM EDT Routine [facility] [address] [place] [address] Rosalind Mendoza CNM [address] [place], [place] [phone] 07/30/2025 4:15 PM EDT Ancillary Procedure [facility] [address] [facility] [address] [place] [address] 08/06/2025 4:15 PM EDT Ancillary [facility] [address] [facility] [address] [place] [address] 08/10/2025 4:30 PM EDT [facility] [address] [place] [address] Rosalind Mendoza, CNM [address] [place], [place] [phone] documented as of this encounter Visit Diagnoses Not on filedocumented in this encounter Care Teams Rattling Machine Tender Relationship Specialty Start Date End Date Halle Jensen DO [address] [facility] 200 [place] [address] PCP - [place] [employer] 03/29/22 Radha Dong MD [address] [place], [place] [phone] PCP - General Family Medicine 05/19/23 Charissa Glover NP PCP - [place] [employer] 12/28/23 5 Charissa Glover NP PCP - [place] [employer] 01/27/25 documented as of this encounter
[2025-07-20 17:09] VITALS: BP 133/81; PULSE 81
== END 2025-07-20 17:31 | disposition home or self-care (01) ==
LOC: FBCO 17:01 → FBC 17:07
PROVIDERS: PCP Midwife; Visit Provider Midwife
DX: O24.419 Gestational diabetes mellitus in pregnancy, unspecified control (principal); Z3A.36 36 weeks gestation of pregnancy
CPT/HCPCS: 59025

== ENCOUNTER 2025-07-30 15:45 | Outpatient (OUT) | payer BC, OTHER, SELFPAY ==
--- NOTE | 2025-07-30 15:53 | US_ITS ---
[address] [address] Patient Name: KRISTI HARVEY MRN: [id number] date: 1995 Sex: F Assigned Patient Location: Current Patient Location: [facility] Accession/Order Number: [id number] Exam Date: 07/30/2025 15:58 Report Date: 07/31/2025 14:03 At the request of: TOM KAMINSKI APRN, CNM Procedure: US OB growth Growth ultrasound. Reason for exam: Gestational diabetes. COMPARISON: None. TECHNIQUE: Transabdominal imaging of the gravid uterus was obtained. FINDINGS: Single live intrauterine 36 weeks 1 day by anatomic measurements. Please note that head circumference is less than 3rd percentile. DIONNE is normal at 10.29 cm. Estimated weight is 2904 g. heart rate 1 27 bpm. Placenta is posterior in location. US/US OB growth IMPRESSION: Single live intrauterine 36 weeks 1 day by anatomic measurements. Appropriate growth based on dating. Please note that head circumference is less than 3rd percentile. Impression dictated by: Rafael Leigh Jr., D.O. 07/31/2025 2:03 PM Dictation Location: [facility] Electronically authenticated by: [id number] Y Date: 07/31/2025 14:03
[2025-07-30 17:56] VITALS: BP 129/84; PULSE 71
== END 2025-07-30 17:50 | disposition home or self-care (01) ==
LOC: US 15:45
PROVIDERS: PCP Midwife; Visit Provider Midwife
DX: Z86.32 Personal history of gestational diabetes (principal); Z3A.36 36 weeks gestation of pregnancy
CPT/HCPCS: 59025; 76816

== ENCOUNTER 2025-08-03 16:51 | Outpatient (OUT) | payer BC, OTHER, SELFPAY ==
--- OUTSIDE RECORDS SUMMARY | 2025-07-21 08:00 | XMS_ITS | Encounter Summary ---
Author Organization [facility] tem Address [id number] [address] [place] [address] Care Team Providers Care Md Psychiatry Name Role Phone Melia Henriquez Sandra HANCOCKN-COMMERCIAL REAL ESTATE ASSISTANT Primary Care Provider [phone] Reason for Visit * Reason Comments GDM F/U Med Start Encounter Details Date Type Department Care Team (Late st Contact Info) Description 07/21/2025 8:00 AM EDT Office Visit Maternal- Medicine at [facility] [address] [place] [phone] Dorita Retana MD [address] [facility] 1st [place] [address] Insulin controlled gestational diabetes mellitus (GDM) during , antepartum (Primary Dx); Herpes zoster with other complication; Obesity affecting in third trimester, unspecified obesity type; Dyshidrotic eczema; 36 weeks gestation of Social History Tobacco Use [...] got money to buy more. Never True 07/21/2025 Within the past 12 months th e food we bought just didn't last and we didn't have money to get more. Never True 07/21/2025 Estimated Date of Delivery Comme nts Yes 08/13/2025 Based on last me nstrual period of 11/06/2024 Sex and Gender Information Value Date Recorded Sex Assigned at Not on file Legal Sex Female 3:58 PM EDT Gender Identity Not on file Sexual Orientation Not on file documented as of this encounter Last Filed Vital Signs Vital Sign Reading Time Taken Comments Blood Pressure 127/65 07/21/2025 7:56 AM EDT Pulse 72 07/21/2025 7:56 AM EDT Temperature - - Respiratory Rate - - Oxygen Saturation - - Inhaled Oxygen Concentration - - Weight 87.3 kg (192 lb 6.4 oz) 07/21/2025 7:56 A M EDT Height 160 cm (5' 2.99 ) 07/21/2025 7:56 AM EDT Body Mass Index 34.09 07/21/2025 7:56 AM EDT documented in this encounter Progress Notes * Marci Vences LPN - 07/21/2025 8:00 AM EDT Headache/epigastric pain/blurry vision/swelling? Mild pedal edema Cramping/contractions? No Spotting or vaginal bleeding? No Loss or gush of fluid like your water may have broken? No Recent ER visits or hospitalizations? No Any concerns that you would like me to mention to the provider today? No * Dorita Retana MD - 07/21/2025 8:00 AM EDT REASON FOR CONSULTATION: Gestational diabetes HISTORY OF PRESENT ILLNESS: Martha Dejesus is a pleasant 30 y.o. at 36w5d due on EstimatedDate of Delivery: 08/13/25. complicated by: [email or web address], 05/12/2025 A1c 4.8% Obesity affecting Pruritus of hands and feet with associated tiny vesicles, likely acute palmoplantar eczema Shingles outbreak, right torso inferior to right breast, following dermatome. Outbreak occurred on 07/09, patient is compliant with the Valtrex, now on suppression with 500 mg daily. She remembers having had chickenpox as a child. Varicella titers not drawn in 1st trimester. Patient denies any continued pain, burning or itching of shingles outbreak. Patient reports significant improvement in pruritus of hands without further vesicular eruptions following initiation of clobetasol at last office visit. She denies any pruritus of her body or her feet. She denies headaches, vision changes, nausea, vomiting, right upper quadrant or epigastric pain, SOB or chest pain. She denies contractions, vaginal bleeding, leaking of fluid. She reports good movement. Aneuploidy screening: none Carrier screening: I have reviewed the pertinent available patient records including but not limited to notes, labs and images. ALLERGIES: No Known Allergies CURRENT MEDICATIONS: Current [...] glucose 4 times daily., Disp: , Rfl: insulin glargine (LANTUS SOLOSTAR U-100 INSULIN) 100 unit/mL (3 mL) insulin pen, Inject 16 units nightly in subcutaneous space, prime 2 units, Disp: 15 mL, Rfl: 3 pen needle, diabetic (BD ULTRA-FINE SHORT PEN NEEDLE) 31 gauge x 5/16 needle, Use daily for insulin, Disp: 100 each, Rfl: 2 115/iron/folic acid ( 19 ORAL), Take by mouth., Disp: , Rfl: valACYclovir (VALTREX) 500 mg tablet, Take 1 tablet (500 mg total) by mouth in the morning., Disp: , Rfl: ondansetron ODT (ZOFRAN ODT) 4 mg disintegrating tablet, Dissolve 1 tablet (4 mg total) on tongue every 8 (eight) hours as needed for nausea for up to 10 doses. (Patient not taking: Reported on 07/21/2025), Disp: 10 tablet, Rfl: 0 PHYSICAL EXAMINATION: BP 127/65 (BP Site: Left Arm, BP Postition: Sitting) Pulse 72 Ht 160 cm (5' 2.99 ) Wt 87.3 kg (192 lb 6.4 oz) LMP 11/06/2024 BMI 34.09 kg/m?? Well-appearing in no distress. Respirations not labored, speaking comfortably in full sentences Gravid abdomen Right thoracic crusted lesions following dermatome. No evidence of new lesions. OVERALL ASSESSMENT -Martha Dejesus is a pleasant 30 y.o. at 36w5d -GDM A2 -obesity affecting -pruritus of hands and feet, likely acute palmar plantar eczema -shingles outbreak in COUNSELING/MEDICAL DECISION-MAKING GDMA Blood glucose is well-controlled on Lantus 16 units every evening. No indication for uptitration. Glucose goals in : Fasting 60 - [...] and feet, likely acute palmar plantar eczema See initial consult note. Patient is clinically improving with clobetasol ointment 0.5%. Bile acids were normal at 8. Lipase and hepatic panel are also negative. In Shingles outbreak in We reviewed that herpes zoster , also known as shingles, results from reactivation of latent varicella zoster virus, the virus that causes chickenpox. Typically, herpes zoster outbreaks do not significantly manager exchange during in labor and delivery. As long as patient has had immunity to varicella, the risk to the fetus is also low. delivery does not alter this risk. Continuation of suppression of with Valtrex 500 mg daily is reasonable to decrease the risk of recurrence. I strongly recommended that shingles lesion is occluded to decrease the risk of neonatalinfection. There was no indication for Valtrex in future pregnancies unless patient has a recurrent herpes zoster outbreak at that time. 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 DISPOSITION: At this point the patient is in complete care of her scheduling agent. Patient does have ultrasound and office visit scheduled with us. Thank you for allowing me to participate in the care of Martha Dejesus. If there any questions please do not hesitate to contact us. Total time spent was 40 minutes: Preparing to see the patient (e.g., review of tests) Obtaining and/or reviewing separately obtained history Performing a medically appropriate examination and/or evaluation Counseling and educating the patient/family/caregiver Ordering medications, tests, or procedures Referring and communicating with other health lead caregiver (not separately reported) Documenting clinical information in the electronic or other health record Dorita Retana MD Maternal- Medicine [facility] [address] [facility] 1[address] [place] [address] This document was created with [employer] technology. Though I make every effort to review the dictation as it is transcribed, on occasion the spoken word can be misinterpreted by the technology leading to inappropriate words, phrases, or sentences. This note is addressed to the requesting provider as a consultation for clinical guidance. Specificmedical abbreviations are occasionally used and those are generally approved by the [place]?Board of?Obstetrics and?Gynecology?as well as?[place]???s abbreviations. The above plan of care was based solely on the diagnoses for which a consultation was requested. ?More frequent testing may be indicated based on her other medical/obstetrical conditions. The management of other or medical conditions is beyond the scope of requested consultation and will c ontinue to be followed by the primary scheduling agent or primary care provider. Note to patient: [...] documented in this encounter Plan of Treatment Not on file documented as of this encounter Results * Varicella zoster antibody, IgG (07/24/2025 3:33 PM EDT) VARICELLA IGG >8.0 <1.0 AI 07/25/2025 6:16 AM EDT [facility] Blood Venous blood / Unknown Venipuncture / Unknown 07/24/2025 3:33 PM EDT 07/24/2025 3:33 PM EDT Narrative [facility] - 07/25/2025 6:16 AM EDT Intepretation < 0.9 Negative 0.9 - 1.0 Equivocal > 1.0 Positive us Dorita Retana MD LAB BLOOD ORDERABLES Final Resul t [facility] [address] [place] [address], [place] [phone] documented in this encounter Visit Diagnoses Diagnosis Insulin controlled gestational diabetes mellitus (GDM) during , antepartum- Primary Herpes zoster with other complication Obesity affecting in third trimester, unspecified obesity type Dyshidrotic eczema 36 weeks gestation of documented in this encounter Care Teams Md Psychiatry Relationship Specialty Start Date End Date Melia Henriquez, BONE DRIER-COMMERCIAL REAL ESTATE ASSISTANT [id number] [place] [address] PCP - General Nurse Practitioner 11/25/23 documented as of this encounter
--- OUTSIDE RECORDS SUMMARY | 2025-07-23 15:15 | XMS_ITS | Encounter Summary ---
Author Organization [facility] Address [address] [place] [address] Care Team Providers Care Aerospace Assembler Name Role Phone Radha Dong MD Primary Care Provider [phone] Charissa Glover UNDERPRESSER HAND Unavailable Encounter Details Date Type Department Care Team (Latest Contact Info) Description 07/23/2025 3:15 PM EDT Routine [facility] OBGYN [address] [place] [id number] Rosalind Mendoza, ARLINE [address] [place] [address] NST (non-stress test) reactive ([facility]) (Primary Dx); History of gestational diabetes; Gestational diabetes mellitus (GDM) requiring insulin ([facility]); Encounter for care of first , third trimester ([facility]) Social History Tobacco Use Types [...] any clubs o r organizations such as moravian groups, unions, fraternal or athletic groups, or [...] and heating? Not hard at all 07/29/2024 [facility] [place] of Occupat ional Health - Occupational Stress [...] place to sleep or slept in a care home (including now)? No 05/18/2023 Housing Stability [...] in the past 12 m [facility], were you homeless or living in a care home (including now)? No 07/29/2024 Estimated Date [...] Sign Reading Time Taken Comments Blood Pressure 130/90 07/23/2025 3:12 PM EDT Pulse - - Temperature - - Respiratory Rate - - Oxygen Saturation - - Inhaled Oxygen Concentration - - Weight 88.9 kg (196 lb) 07/23/2025 3:12 PM EDT Height - - Body Mass Index 34.72 07/09/2025 1:33 PM EDT documented in this encounter Progress Notes * Paola Gómez MA - 07/23/2025 3:15 PM EDT Subjective No chief complaint on file. Martha Dejesus is a 30 y.o. at 37w0d with a working estimated date of delivery of 08/13/2025, by Last Menstrual Period who presents for a routine visit. She denies vaginal bleeding, leakage of fluid, decreased movements, or contractions. OB History Para Term AB Living 1 SAB IAB Ectopic Multiple Live Births # Outcome Date GA Lbr Freedom/2nd Weight Sex Type Anes PTL Lv 1 Current Her is complicated by: Shingles this , gestational diabetes Objective Physical Exam Weight: 196 lb Expected Total Weight Gain: 15 lb-25 lb Pregravid BMI: 29.94 BP: 130/90 Urine protein-negative Urine glucose-negative Assessment/Plan Continue vitamin. Labs reviewed. GBS taken. Expected mode of delivery vaginal Follow up in 1 week for a routine visit. documented in this encounter Plan of Treatment Upcoming Encounters Date Type Department Care Team (Late st Contact Info) Description 08/10/2025 4:30 PM EDT Routine [facility] [address] [place] [address] Rosalind Mendoza CNM [address] [place] [address] Scheduled Orders Name Type Priority Associated Diagnoses Orde r Schedule US biophysical profile w non stress test Imaging Routine History of gestational diabetes Expected: 07/23/2025, Expires: 07/23/2026 US OB SCAN FOR GROWTH Imaging Routine History of gestational diabetes Expected: 07/23/2025, Expires: 07/23/2026 documented as of this encounter Visit Diagnoses Diagnosis NST (non-stress test) reactive ([facility])- Primary state, incidental History of gestational diabetes Personal history of other genital system and obstetric disorders Gestational diabetes mellitus (GDM) requiring insulin ([facility]) Encounter for care of first , third trimester ([facility]) documented in this encounter Care Teams Aerospace Assembler Relationship Specialty Start Date End Date Radha Dong MD [address] [place] [address] PCP - General Family Medicine 05/19/23 Charissa Glover NP PCP - Jose Chopra 01/27/25 documented as of this encounter
--- OUTSIDE RECORDS SUMMARY | 2025-07-23 16:00 | XMS_ITS | Encounter Summary ---
Author Organization [facility] Address [address] [place] [address] Care Team Providers Care Freight Forwarder Name Role Phone Radha Dong MD Primary Care Provider [phone] Charissa Glover DENTAL SCHEDULING COORDINATOR Unavailable Encounter Details Date Type Department Care Team (Latest Contact Info) Description 07/23/2025 4:00 PM EDT Ancillary Procedure [facility] [address] [place] [address] Diet controlled gestational diabetes mellitus (GDM) in third trimester ([facility]) Social History Tobacco Use [...] How often do you attend chur or mandaeism services? More than 4 times per year 07/29/2024 Do you belong to any clubs o r organizations such as cheondoism groups, unions, fraternal or athletic groups, or [...] and heating? Not hard at all 07/29/2024 [facility] of Occupat ional Health - Occupational [...] any time in the past 12 m [facility], were you homeless or living in [...] 4:30 PM EDT Routine [facility] [address] [place] [address] Rosalind eMndoza CNM [address] [place] [address] documented as of this encounter Procedures Procedure Name Priority Date/Time Associated Diagnosis Comments US BIOPHYSICAL PROFILE WO NON STRESS TESTING Routine 07/23/2025 4:32 PM EDT Diet controlled gestational diabetes mellitus (GDM) in third trimester ([facility]) documented in this encounter Results * US biophysical profile wo non stress testing (07/23/2025 4:32 PM EDT) Anatomical Region Laterality Modality Body Ultrasound 07/24/2025 11:2 8 AM EDT Impressions 07/24/2025 11:31 AM EDT 06/05 biophysical profile. TRANSCRIBED BY: ELECTRONICALLY SIGNED BY: Rafael Mae MD Narrative 07/24/2025 11:31 AM EDT FINDINGS: Breathing Movements 2 Gross Body Movements 2 Tone 2 Qualitative amniotic fluid volume 2 A single, viable intrauterine is present. Cephalic presentation. The placenta is fundal, Grade 2. 120 bpm. DIONNE 14.0 cm. Cervical os closed, 6.1 cm length. . Procedure Note Rafael Mae MD - 07/24/2025 FINDINGS: Breathing Movements 2 Gross Body Movements 2 Tone 2 Qualitative amniotic fluid volume 2 A single, viable intrauterine is present. Cephalic presentation.The placenta is fundal, Grade 2. 120 bpm. DIONNE 14.0 cm. Cervicalos closed, 6.1 cm length. . IMPRESSION: 06/05 biophysical profile. TRANSCRIBED BY: ELECTRONICALLY SIGNED BY: Rafael Mae MD us Rosalind Mendoza CNM IMG OB US PROCEDURES Final R esult documented in this encounter Visit Diagnoses Diagnosis Diet controlled gestational diabetes mellitus (GDM) in third trimester ([facility]) documented in this encounter Care Teams Freight Forwarder Relationship Specialty Start Date End Date Radha Dong MD [address] [place], [place] [id number] PCP - General Family Medicine 7/22/23 Charissa Glover NP PCP - Jose Chopra 01/27/25 documented as of this encounter
--- OUTSIDE RECORDS SUMMARY | 2025-07-27 16:30 | XMS_ITS | Encounter Summary ---
Author Organization [facility] Address [address] [place] [address] Care Team Providers Care Saw Offbearer Name Role Phone Radha Dong MD Primary Care Provider [phone] Charissa Glover GENERATOR WORKER Unavailable Encounter Details Date Type Department Care Team (Latest Contact Info) Description 07/27/2025 4:30 PM EDT Routine [facility] OBGYN [address] [place] [address] Rosalind Mendoza, ARLINE [address] [place] [address] Non-reactive NST (non-stress test) (Primary [...] How often do you attend chur or zoroastrianism services? More than 4 times per year [...] and heating? Not hard at all 07/29/2024 [facility] [place] of Occupat ional Health - Occupational Stress [...] place to sleep or slept in a fci (including now)? No 05/18/2023 Housing Stability Vital [...] were you homeless or living in a fci (including now)? No 07/29/2024 Estimated Date of [...] Description 08/10/2025 4:30 PM EDT Routine [facility] [address] [place] [address] Rosalind Mendoza CNM [address] [place] [address] documented as of this encounter Visit Diagnoses Diagnosis Non-reactive NST (non-stress test)- Primary Abnormal findings on screening NST (non-stress test) reactive ([facility]) state, incidental History of gestational diabetes Personal history of other genital system and obstetric disorders Gestational diabetes mellitus (GDM) requiring insulin ([facility]) related condition in third trimester ([facility]) documented in this encounter Care Teams Saw Offbearer Relationship Specialty Start Date End Date Radha Dong MD [address] [place] [address] PCP - General Family Medicine 05/19/23 Charissa Glover NP PCP - Jose Chopra 01/27/25 documented as of this encounter
--- OUTSIDE RECORDS SUMMARY | 2025-08-03 16:53 | XMS_ITS | Encounter Summary ---
Author Organization [facility] Address [address] [place] [address] Care Team Providers Care Clearance Cutter Name Role Phone Radha Dong MD Primary Care Provider [phone] Charissa Glover INSIGHTS STRATEGIST Unavailable Encounter Details Date Type Department Care Team (Late st Contact Info) Description 06/22/2025 Results Follow-Up [facility] OBGYN [address] [place] [phone] Rosalind Mendoza, CNM [address] [place], [place] [phone] US biophysical profile wo non stress testing [...] and heating? Not hard at all 07/29/2024 [facility] [place] of Occupat ional Health - Occupational Stress [...] any time in the past 12 m [facility], were you homeless or living [...] 08/10/2025 4:30 PM EDT Routine [facility] [address] [place] [address] Rosalind Mendoza, CNM [address] [place] [address] documented as of this encounter Visit Diagnoses Not on filedocumented in this encounter Care Teams Clearance Cutter Relationship Specialty Start Date End Date Radha Dong MD [address] [place] [address] PCP - General Family Medicine 05/19/23 Charissa Glover NP PCP - Jose Chopra 01/27/25 documented as of this encounter
--- OUTSIDE RECORDS SUMMARY | 2025-08-03 16:53 | XMS_ITS | Encounter Summary ---
Author Organization [facility] Address [address] [place] [address] Care Team Providers Care Corrosion Prevention Metal Sprayer Name Role Phone Radha Dong MD Primary Care Provider [phone] Charissa Glover CABLE TELEVISION LINE TECHNICIAN Unavailable Encounter Details Date Type Department Care Team (Late st Contact Info) Description 05/13/2025 Results Follow-Up [facility] OBGYN [address] [place] [phone] Paola Gómez MA GLUCOSE, GESTATIONAL SCREEN ([id number] [...] How often do you attend chur or orthodoxy services? More than 4 times per year 07/29/2024 Do you belong to any clubs o r organizations such as islam groups, unions, fraternal or athletic groups, or [...] heating? Not hard at all 07/29/2024 [facility] of Occupat ional Health - Occupational [...] PM EDT Routine [facility] [address] [place] [address] Rosalind Mendoza, CN [address] [place] [address] documented as of this encounter Visit Diagnoses Not on filedocumented in this encounter Care Teams Corrosion Prevention Metal Sprayer Relationship Specialty Start Date End Date Radha Dong MD [address] [place] [address] PCP - General Family Medicine 05/19/23 Charissa Glover NP PCP - Jose Chopra 01/27/25 documented as of this encounter
--- OUTSIDE RECORDS SUMMARY | 2025-08-03 16:53 | XMS_ITS | Encounter Summary ---
Author Organization [facility] tem Address [id number] [address] [place] [address] Care Team Providers Care Regional Extension Service Specialist Name Role Phone Melia Henriquez Sandra SULFUR CHLORIDE OPERATOR-MISSILE MECHANIC Primary Care Provider [phone] Encounter Details Date Type Department Care Team (Late st Contact Info) Description 06/03/2025 Orders Only Maternal- Medicine at [facility] [place] [address] [place] [address] Ref Prov, [place] [address] Social History Tobacco Use Types Packs/Day Years [...] as of this encounter Plan of Treatment Not on file documented as of this encounter Visit Diagnoses Not on filedocumented in this encounter Care Teams Regional Extension Service Specialist Relationship Specialty Start Date End Date Melia Henriquez, SULFUR CHLORIDE OPERATOR-MISSILE MECHANIC [address] [place] [address] PCP - General Nurse Practitioner 11/25/23 documented as of this encounter
--- OUTSIDE RECORDS SUMMARY | 2025-08-03 16:53 | XMS_ITS | Encounter Summary ---
Author Organization [facility] tem Address [id number] [address] [place] [address] Care Team Providers Care Runner On Name Role Phone Melia Henriquez Sandra PLANT OPERATOR HELPER-ORACLE APPLICATIONS ANALYST Primary Care Provider [phone] Encounter Details Date Type Department Care Team (Late st Contact Info) Description 07/25/2025 Results Follow-Up Maternal- Medicine at [facility] [address] [place] [address] Dorita Retana MD [address] [facility] 1st Floor [place], [place] [id number] Varicella zoster antibody, IgG Social History Tobacco Use Types Packs/Day Years [...] on filedocumented in this encounter Care Teams Runner On Relationship Specialty Start Date End Date Melia Henriquez, PLANT OPERATOR HELPER-ORACLE APPLICATIONS ANALYST [address] [place] [address] PCP - General Nurse Practitioner 11/25/23 documented as of this encounter
--- OUTSIDE RECORDS SUMMARY | 2025-08-03 16:53 | XMS_ITS | Encounter Summary ---
Author Organization [facility] Healthcare Address [address] [place] [address] Care Team Providers Care Precision Crop Manager Name Role Phone Radha Dong MD Primary Care Provider [phone] Charissa Glover CRACKER DOUGH MIXER Unavailable Encounter Details Date Type Department Care Team (Late st Contact Info) Description 07/09/2025 Results Follow-Up [facility] OBGYN [address] [place] [address] Rosalind Mendoza, CNM [address] [place], [place] [phone] Bile acids, total Social History Tobacco Use [...] any clubs o r organizations such as restoration groups, unions, fraternal or athletic groups, or [...] and heating? Not hard at all 07/29/2024 [facility] [place] of Occupat ional Health - Occupational Stress [...] time in the past 12 m [facility], were you homeless or living in a [...] PM EDT Routine [facility] [address] [place] [address] Rosalind Mendoza, CNM [address] [place] [address] documented as of this encounter Visit Diagnoses Not on filedocumented in this encounter Care Teams Precision Crop Manager Relationship Specialty Start Date End Date Radha Dong MD [facility] [place] [address] PCP - General Family Medicine 05/19/23 Charissa Glover NP PCP - Jose Chopra 01/27/25 documented as of this encounter
--- OUTSIDE RECORDS SUMMARY | 2025-08-03 16:53 | XMS_ITS | Encounter Summary ---
Author Organization [facility] Address [address] [place] [address] Care Team Providers Care Energy Specialist Name Role Phone Halle Jensen DO Unavailable [phone] Radha Dong MD Primary Care Provider [phone] Charissa Glover NP Unavailable Charissa Glover TERRAZZO POLISHER Unavailable Encounter Details Date Type Department Care Team (Late st Contact Info) Description 05/31/2023 Abstract [facility] Family Medicine [address] [place] [address] Charissa Glover NP Social History Tobacco Use [...] often do you attend chur ch or samaritan services? More than 4 times [...] and heating? Not hard at all 05/18/2023 [facility] of Occupat ionwi Health - Occupational Stress Questionnaire Answer Date [...] in a usp (including now)? No 05/18/2023 Comments Unknown Sex [...] 08/10/2025 4:30 PM EDT Routine [facility] [address] [place] [address] Rosalind Mendoza CNM [address] [place] [address] documented as of this encounter Visit Diagnoses Not on filedocumented in this encounter Care Teams Energy Specialist Relationship Specialty Start Date End Date Halle Jensen DO [address] [facility] [address] [place] [address] PCP - [place] [employer] 03/29/22 Radha Dong MD [address] [place] [address] PCP - General Family Medicine 05/19/23 Charissa Glover NP PCP - [place] [employer] 12/28/23 5 Charissa Glover NP PCP - [place] [employer] 01/27/25 documented as of this encounter
--- OUTSIDE RECORDS SUMMARY | 2025-08-03 16:53 | XMS_ITS | Encounter Summary ---
Author Organization [facility] Address [address] [place] [address] Care Team Providers Care Blueprint Duplicator Name Role Phone Radha Dong MD Primary Care Provider Charissa Glover CONTRACTS SPECIALIST Unavailable Encounter Details Date Type Department Care Team (Late st Contact Info) Description 07/22/2025 Telephone [facility] [address] [facility] [place] [address] Radha Dong MD [address] [place] [address] Social History Tobacco Use Types [...] How often do you attend chur or shinto services? More than 4 times per year 07/29/2024 Do you belong to any clubs o r organizations such as latter-day groups, unions, fraternal or athletic groups, or [...] 07/29/2024 [facility] of Occupat ional [...] any time in the past 12 m [facility], were you homeless or living [...] encounter Miscellaneous Notes * Telephone Encounter - Paola Gómez MA - 07/22/2025 2:14 PM EDT Spoke with pt. She is getting her nst done tomorrow and seeing ashlee while she is here for her US * Telephone Encounter - Shraddha Flanagan - 07/22/2025 12:14 PM EDT Pt saw Dr Gatica on 07/[address] Gatica said pt needs to see Ashlee this week. Pt said Ramya was supposed to call her on Sunday and she hasn't heard anything. I told her id send a message to Ramya and let her know. documented in this encounter Plan of Treatment Upcoming Encounters Date Type Department Care Team (Late st Contact Info) Description 08/10/2025 4:30 PM EDT Routine [facility] [address] [place] [address] Rosalind Mendoza CNM [address] [place], [place] [phone] documented as of this encounter Visit Diagnoses Not on filedocumented in this encounter Care Teams Blueprint Duplicator Relationship Specialty Start Date End Date Radha Dong MD [facility] [place] [address] PCP - General Family Medicine 05/19/23 Charissa Glover NP PCP - Jose Chopra 01/27/25 documented as of this encounter
--- OUTSIDE RECORDS SUMMARY | 2025-08-03 16:53 | XMS_ITS | Encounter Summary ---
Author Organization [facility] Address [address] [place] [address] Care Team Providers Care Pl Sql Programmer Name Role Phone Radha Dong MD Primary Care Provider [phone] Charissa Glover CRACKER SPRAYER Unavailable Encounter Details Date Type Department Care Team (Late st Contact Info) Description 07/27/2025 Bamboo flowsheet [facility] OBGYN [address] [place] [address] Rosalind Mendoza, CNM [address] [place] [address] Social History Tobacco Use Types [...] any clubs o r organizations such as pentecostalism groups, unions, fraternal or athletic groups, or [...] and heating? Not hard at all 07/29/2024 [facility] - Occupational [...] time in the past 12 m [facility], were you homeless or living in a [...] PM EDT Routine [facility] [address] [place] [address] Rosalind Mendoza, CN [address] [place] [address] documented as of this encounter Visit Diagnoses Not on filedocumented in this encounter Care Teams Pl Sql Programmer Relationship Specialty Start Date End Date Radha Dong MD [address] [place] [address] PCP - General Family Medicine 05/19/23 Charissa Glover NP PCP - Jose Chopra 01/27/25 documented as of this encounter
--- OUTSIDE RECORDS SUMMARY | 2025-08-03 16:53 | XMS_ITS | Encounter Summary ---
Author Organization [employer] [facility] tem Address [facility] [id number] [address] [place] [address] Care Team Providers Care Marine Engineer Name Role Phone Melia Henriquez Primary Care Provider [phone] Encounter Details Date Type Department Care Team (Latest Contact Info) Description 07/21/2025 Travel Social History Tobacco Use Types Packs/Day [...] on filedocumented in this encounter Care Teams Marine Engineer Relationship Specialty Start Date End Date Melia Henriquez APRN-CNP [address] [place] [address] PCP - General Nurse Practitioner 11/25/23 documented as of this encounter
--- OUTSIDE RECORDS SUMMARY | 2025-08-03 16:53 | XMS_ITS | Clinical Summary ---
Author Organization [facility] Address [address] [place] [address] Care Team Providers Care Water Purification Chemist Name Role Phone Radha Dong MD Primary Care Provider [phone] Charissa Glover DISTRIBUTION MANAGER Unavailable Allergies No known active allergies Medications [...] before bedtime. 1 each 05/26/20 25 Active Lantus SoloStar 100 UNIT/ML pen Inject 10 units nightly in subcutaneous space, prime 2 units 07/01/20 25 Active valACYclovir (Valtrex) 500 MG tabletIndication s:Herpes zoster without complication Take 1 tablet (500 mg) by mouth Daily 30 tablet 2 07/15/20 25 025 Active ursodiol (Caron Forte) 500 MG tabletIndication s:Itching Take 0.5 tablets (250 mg) by mouth in the morning and 0.5 tablets (250 mg) before bedtime. 30 tablet 3 06/30/20 25 025 Discontin ued(Thera py completed ) Lidocaine 5 % creamIndications :Herpes zoster with complication Apply 1 Application topically every 8 (eight) hours if needed (pain) 30 g 07/09/20 025 Discontin ued(Cost of medicatio n) valACYclovir (Valtrex) 1 g tabletIndication s:Herpes zoster with complication Take 1 tablet (1,000 mg) by mouth in the morning and 1 tablet (1,000 mg) in the evening and 1 tablet (1,000 mg) before bedtime. Do all this for 7 days. 21 tablet 07/09/20 025 Discontin ued(Thera py completed ) Active Problems Problem Noted Date Diagnosed Date BPPV (benign paroxysmal posi tional vertigo), unspecified laterality 05/30/2023 Dizzinesses 05/30/2023 Estimated Date of Delivery Comme nts Yes 08/13/2025 Based on last me nstrual period of 11/06/2024 (Exact Date) Encounters Date Type Department Care Team Description 07/31/2025 Clinisync Result Encounter [facility] External Department Unsolicited Tom Mendoza CNM 07/27/2025 4:30 PM EDT [facility] [place] [address] Tom Mendoza CNM Non-reactive NST (non-stress test) (Primary Dx); NST (non-stress test) reactive (HHS-HCC); History of gestational diabetes; Gestational diabetes mellitus (GDM) requiring insulin (HHS-HCC); related condition in third trimester ([facility]HS-HCC) 07/27/2025 Bamboo flowsheet [facility] [place] [address] Tom Mendoza CNM 07/23/2025 4:00 PM EDT Ancillary Procedure [facility] [address] [phone] Diet controlled gestational diabetes mellitus (GDM) in third trimester (HHS-HCC) 07/23/2025 3:15 PM EDT [facility] [address] [facility] [place] [phone] Tom Mendoza CNM NST (non-stress test) reactive ([facility]) (Primary Dx); History of gestational diabetes; Gestational diabetes mellitus (GDM) requiring insulin ([facility]); Encounter for care of first , third trimester ([facility]) 07/23/2025 Bamboo flowsheet [facility] [address] [place] [address] Tom Mendoza CNM 07/23/2025 Travel 07/22/2025 Telephone [facility] [address] [place] [address] Radha Dong MD 07/16/2025 4:15 PM EDT Ancillary Procedure [facility] [address] [facility] [address] [place] [address] Diet controlled gestational diabetes mellitus (GDM) in third trimester ([facility]) 07/16/2025 Travel 07/15/2025 11:10 AM EDT Routine [facility] [address] [place] [address] Vicente Gatica DO Third trimester ([facility]); 35 weeks gestation of ([facility]); Herpes zoster without complication 07/15/2025 Clinisync Result Encounter [facility] External Department Unsolicited Provider, Generic External Data 07/15/2025 Telephone [facility] [address] [place] [address] Nancy Kaur LPN 07/15/2025 Bamboo flowsheet [facility] [address] [place] [address] Vicente Gatica DO 07/09/2025 4:15 PM EDT Ancillary Procedure [facility] [address] [facility] [address] [place] [address] Diet controlled gestational diabetes mellitus (GDM) in third trimester ([facility]) 07/09/2025 1:20 PM EDT Office Visit [facility] [address] [place] [phone] Radha Dong MD Herpes zoster with complication (Primary Dx) 07/09/2025 Travel 07/09/2025 Results [facility] [address] [facility] [place] [phone] Tom Mendoza, CNM Bile acids, total 07/06/2025 5:00 PM EDT Routine [facility] OBGYN [address] [facility] [place] [phone] Tom Mendoza, CNM NST (non-stress test) reactive ([facility]) (Primary Dx); History of gestational diabetes; Encounter for care of first , third trimester ([facility]) 07/06/2025 Bamboo flowsheet [facility] [address] [facility] [place] [phone] Tom Mendoza, CNM 07/02/2025 4:15 PM EDT Ancillary Procedure [facility] [address] [facility] [address] [place] [phone] Diet controlled gestational diabetes mellitus (GDM) in third trimester ([facility]) 07/02/2025 Travel 06/30/2025 4:00 PM EDT [facility] [address] [facility] [place] [phone] Tom Mendoza, CNM Itching (Primary Dx); NST (non-stress test) reactive ([facility]); History of gestational diabetes; Encounter for care of first , third trimester ([facility]) 06/30/2025 Bamboo flowsheet [facility] [place] [facility] [address] [facility] [place] [phone] Tom Mendoza, CNM 06/25/2025 4:15 PM EDT Ancillary Procedure [facility] [address] [facility] [address] [place] [address] Diet controlled gestational diabetes mellitus (GDM) in third trimester ([facility]) 06/25/2025 Travel 06/22/2025 4:15 PM EDT Routine [facility] [address] [facility] [place] [address] Tom Mendoza CNM NST (non-stress test) reactive ([facility]) (Primary Dx); History of gestational diabetes; Encounter for care of first , third trimester ([facility]) 06/22/2025 Results Follow-Up [facility] [address] [facility] [place] [phone] Tom Mendoza CNM US biophysical profile wo non stress testing 06/18/2025 4:15 PM EDT Ancillary Procedure [facility] [address] [facility] [address] [place] [phone] Diet controlled gestational diabetes mellitus (GDM) in third trimester ([facility]) 06/18/2025 Travel 06/15/2025 5:15 PM EDT Routine [facility] [address] [facility] [place] [phone] Tom Mendoza CNM History of gestational diabetes (Primary Dx); Encounter for care of first , third trimester ([facility]) 06/15/2025 Bamboo flowsheet [facility] [address] [facility] [place] [address] Tom Mendoza CNM 06/05/2025 4:00 PM EDT Ancillary Procedure [facility] [address] [facility] [address] [place] [phone] related condition in third trimester ([facility]) 06/05/2025 Travel 06/04/2025 9:00 AM EDT Routine [facility] [address] [facility] [place] [phone] Tom Mendoza CNM Encounter for care of first , second trimester ([facility]) (Primary Dx); related condition in third trimester ([facility]); Diet controlled gestational diabetes mellitus (GDM) in third trimester ([facility]); History of gestational diabetes 06/04/2025 [facility]amboo [facility] [address] [place] [phone] Tom Mendoza CNM 05/26/2025 3:00 PM EDT Routine [facility] [place] [facility] [address] [place] [address], [place] [phone] Tom Mendoza CNM Encounter for care of first , second trimester ([facility]) (Primary Dx); History of gestational diabetes 05/26/2025 Results Follow-Up [facility] [place] [facility] [address] [place] [phone] Paola Gómez MA GLUCOSE TOLERANCE TEST, GESTATIONAL,4SPEC(10 0G) 05/26/2025 Refill [facility] [place] [facility] [address] [place] [phone] Paola Gómez MA History of gestational diabetes 05/13/2025 Results Follow-Up [facility] [place] [facility] [address] [place] [phone] Paola Gómez MA GLUCOSE, GESTATIONAL SCREEN (50G)-135 CUTOFF, CBC, POCT Urinalysis dipstick, Hemoglobin A1c 05/13/2025 Orders Only [facility] [place] [facility] [address] [place] [phone] Tom Mendoza CNM Elevated glucose tolerance test 05/12/2025 9:45 AM EDT Routine [facility] [place] [facility] [address] [place] [phone] Tom Mendoza CNM Encounter for care of first , second trimester ([facility]) (Primary Dx); Screening for diabetes mellitus (DM); Screening for iron deficiency anemia; Dysuria; Glucose found in urine on examination 05/12/2025 Leticia flowsheet [facility] [address] [place] [address] Tom Mendoza CNM from Last 3 Months Immunizations [...] and heating? Not hard at all 07/29/2024 [facility] - Occupational [...] any time in the past 12 m [facility], were you homeless or living in [...] Pressure 120/80 07/27/2025 4:20 PM EDT Pulse 86 07/09/2025 1:33 PM EDT Temperature 37 C (98.6 F) 11/26/2023 5:05 PM EST Respiratory Rate 18 07/09/2025 1:33 PM EDT Oxygen Saturation 99% 07/09/2025 1:33 PM EDT Inhaled Oxygen Concentration - - Weight 87.5 kg (193 lb) 07/27/2025 4:20 PM EDT Height 160 cm (5' 3 ) 07/09/2025 1:33 PM EDT Body Mass Index 34.19 07/09/2025 1:33 PM EDT Plan of Treatment Upcoming Encounters Date Type Department Care Team (Late st Contact Info) Description 08/10/2025 4:30 PM EDT Routine [facility] [address] [place] [address] Tom Mendoza, CNM [address] [place] [address] Health Maintenance Due Date Last Done Comments Influenza Vaccine (#1) 2025 Procedures Procedure Name Priority Date/Time Associated Diagnosis Comments US OB GROWTH 07/31/2025 2:03 PM EDT US BIOPHYSICAL PROFILE WO NON STRESS TESTING Routine 07/23/2025 4:32 PM EDT Diet controlled gestational diabetes mellitus (GDM) in third trimester ([facility]) US BIOPHYSICAL PROFILE WO NON STRESS TESTING Routine 07/16/2025 4:20 PM EDT Diet controlled gestational diabetes mellitus (GDM) in third trimester ([facility]) POCT URINALYSIS DIPSTICK Routine 07/15/2025 11:27 AM EDT Third trimester ([facility]) STREP GP B CULTURE+RFLX Routine 07/15/2025 11:10 AM EDT US BIOPHYSICAL PROFILE WO NON STRESS TESTING Routine 07/09/2025 4:22 PM EDT Diet controlled gestational diabetes mellitus (GDM) in third trimester ([facility]) AMYLASE Routine 06/30/2025 4:11 PM EDT Itching [...] from Last 3 Months Results * US OB GROWTH (07/31/2025 2:03 PM EDT) Anatomical Region Laterality Modality Other 07/31/2025 2:03 PM EDT Narrative 07/31/2025 2:06 PM EDT The [address] [address] Ultrasound Report Signed Patient: MARTHA DEJESUS MR#: [id number] : 1995 Acct:[id number] Age/Sex: 30 / F ADM Date: 07/30/25 Loc: [facility] 252-[address]: TOM MENDOZA APRN, CNM Ordering Physician: TOM MENDOZA APRN, CNM Date of Service: 07/30/25 Procedure(s): US OB growth Accession Number(s): [id number] cc: TOM MENDOZA APRN, CNM The [place] [address] Patient Name: MARTHA DEJESUS MRN: [facility]:[id number] date: 1995 Sex: F Assigned Patient Location: Current Patient Location: [facility] Accession/Order Number: [id number] Exam Date: 07/30/2025 15:58 Report Date: 07/31/2025 14:03 At the request of: TOM MENDOZA APRN, CNM Procedure: US OB growth Growth ultrasound. Reason for exam: Gestational diabetes. COMPARISON: None. TECHNIQUE: Transabdominal imaging of the gravid uterus was obtained. FINDINGS: Single live intrauterine 36 weeks 1 day by anatomic measurements. Please note that head circumference is less than 3rd percentile. DIONNE is normal at 10.29 cm. Estimated weight is 2904 g. heart rate 1 27 bpm. Placenta is posterior in location. US/US OB growth IMPRESSION: Single live intrauterine 36 weeks 1 day by anatomic measurements. Appropriate growth based on dating. Please note that head circumference is less than 3rd percentile. Impression dictated by: Rafael Leigh Jr., D.O. 07/31/2025 2:03 PM Dictation Location: [place] [address] Electronically authenticated by: [id number] Y Date: 07/31/2025 14:03 Dictated By: Rafael Leigh M.D. Signed By: 07/31/25 1406 DD/ 140 TD/TT: Senior Web Applications Developer: Procedure Note Radiology, Radiologist, - 07/31/2025 [place] [address] Ultrasound Report Signed Patient: MARTHA DEJESUS RMR#: [id number] : 1995Acct:[id number] Age/Sex: 30 / FADM Date: 07/30/25 Loc: [facility] 252-[address]: TOM MENDOZA APRN, CNM Ordering Physician: TOM MENDOZA APRN, CNM Date of Service: 07/30/25 Procedure(s): US OB growth Accession Number(s): [id number] cc: TOM MENDOZA APRN, CNM [place] [id number] Patient Name: MARTHA DEJESUS MRN: [id number] date: 1995 Sex: F Assigned Patient Location: Current Patient Location: [facility] Accession/Order Number: [id number] Exam Date: 07/30/2025 15:58 Report Date: 07/31/2025 14:03 At the request of: TOM MENDOZA APRN, CNM Procedure: US OB growth Growth ultrasound. Reason for exam: Gestational diabetes. COMPARISON: None. TECHNIQUE: Transabdominal imaging of the gravid uterus was obtained. FINDINGS: Single live intrauterine 36 weeks 1 day by anatomic measurements. Please note that head circumference is less than 3rd percentile. DIONNE is normal at 10.29 cm. Estimated weight is 2904 g. heart rate 1 27 bpm. Placenta is posterior in location. US/US OB growth IMPRESSION: Single live intrauterine 36 weeks 1 day by anatomicmeasurements. Appropriate growth based on dating. Please note that head circumferenceis less than 3rd percentile. Impression dictated by: Rafael Leigh Jr., D.O. 07/31/2025 2:03 PM Dictation Location: [place] [address] Electronically authenticated by: [id number] Y Date: 4:03 Dictated By: Rafael Leigh M.D. Signed By:07/31/25 1406 DD/ 1403 TD/TT: Senior Web Applications Developer: Tom Mendoza CNM [facility] Final Resu lt * US biophysical profile wo non stress testing (07/23/2025 4:32 PM EDT) Only the most recent of5 resultswithin the time period is included. Anatomical Region Laterality Modality Body Ultrasound 07/24/2025 11:2 8 AM EDT Impressions 07/24/2025 11:31 AM EDT 88 biophysical profile. TRANSCRIBED BY: ELECTRONICALLY SIGNED BY: [...] ELECTRONICALLY SIGNED BY: Rafael Mae MD us Tom Mendoza CNM IMG OB US PROCEDURES Final R esult * (ABNORMAL) POCT urinalysis dipstick manually resulted (07/15/2025 11:27 AM EDT) Only the most recent of2 resultswithin the time period is included. Color, UA Yellow Clarity, UA Clear Glucose, UA Negative Negative - 1999(110) ++++ mg/dL Bilirubin, UA Negative Negative - [...] GP B CULTURE+RFLX (07/15/2025 11:10 AM EDT) [facility] STREP GP B CULTURE+RFLX Strep Gp B Culture+Rflx [facility] STREP GP B CULTURE+RFLX Negative [facility] STREP GP B CULTURE+RFLX Centers for Disease Control and Prevention (CDC) and [facility] STREP GP B CULTURE+RFLX [employer] [facility] STREP [...] [facility] STREP GP B CULTURE+RFLX Performed at: [facility] STREP GP B CULTURE+RFLX [address] [place], [place] [id number] [facility] STREP GP B CULTURE+RFLX Geoscience Professor: Cirilo Arriaga PhD, Phone: [phone] [facility] 07/15/2025 11:1 0 AM EDT 07/16/2025 6:10 AM EDT Narrative [facility] - 07/20/2025 1:15 PM EDT us Generic External Data Provider LAB BLOOD ORDERAB LES Final Result [facility] * Bile acids, total (06/30/2025 4:11 PM EDT) BILE ACIDS, TOTAL 6 0 - 10 umol/L [facility] Blood Venous blood specimen / Unknown 06/30/2025 4:11 PM EDT 06/30/2025 4:12 PM EDT Narrative Resulting Agency Comment Performing Organization Information Site ID: AMD Name: [facility] Address: [address] [place] [address] Director: Anthony De La Paz M.D.,PhD us Tom Danielle Charltono CN LAB BLOOD ORDERABLES Final R esult Performing Organization Address [facility]/ZIP Co de Phone Number [facility] * Lipase (06/30/2025 4:11 PM EDT) LIPASE 38 7 - 60 U/L [facility] Blood Venous blood specimen / Unknown 06/30/2025 4:11 PM EDT 06/30/2025 4:12 PM EDT Narrative Resulting Agency Comment Performing Organization Information Site ID: QPT Name: [facility] Address: [address] [place] [address], [address] [place] [phone] Director: Stevie Doan MD us Tom L Floro CNM LAB BLOOD ORDERABLES Final R esult [facility] * Amylase (06/30/2025 4:11 PM EDT) AMYLASE 40 21 - 101 U/L [facility] Blood Venous blood specimen / Unknown 06/30/2025 4:11 PM EDT 06/30/2025 4:12 PM EDT Narrative Resulting Agency Comment Performing Organization Information Site ID: QPT Name: [facility] Address: [address] , [address] [place] [address] Director: Stevie Doan MD us Tom Danielle Charltono CNM LAB BLOOD ORDERABLES Final R esult Performing Organization Address City/[facility]/ZIP Co de Phone Number [facility] * (ABNORMAL) [...] Performing Organization Information Site ID: QPT Name: [facility] Address: [address] , [address] [place] [address] Director: Stevie Doan MD us Tom Danielle Charltono CNM LAB BLOOD ORDERABLES Final R esult Performing Organization Address City/[facility]/ZIP Co de Phone Number [facility] * US [...] ELECTRONICALLY SIGNED BY: Rafael Mae MD us Tom Mendoza CNM IMG OB US PROCEDURES Final [...] Performing Organization Information Site ID: QPT Name: [facility] Address: [address] [place] [address], [address] [place] [phone] Director: Stevie Doan MD us Tom Mendoza CNM LAB BLOOD ORDERABLES Final R [...] Performing Organization Information Site ID: QPT Name: [facility] Address: [address] [place] [address], [address] [place] [phone] Director: Stevie Doan MD us Tomrupert Mendoza CNM LAB BLOOD ORDERABLES Final R [...] Performing Organization Information Site ID: QPT Name: [facility] Address: [address] [place] [address], [address] [place] [phone] Director: Stevie Doan MD us Tomrupert Mendoza CNM LAB BLOOD ORDERABLES Final R esult Performing Organization Address [facility] Co de Phone Number [facility] * Hemoglobin [...] diagnosis of diabetes in children. According to [place] [employer] (ADA) guidelines, hemoglobin A1c <7.0% represents optimal control in non- diabetic patients. Different metrics may apply to specific patient populations. Standards of Medical Care in Diabetes(ADA). 05/12/2025 10:5 0 AM EDT 05/12/2025 10:51 AM EDT Narrative Resulting Agency Comment Performing Organization Information Site ID: QPT Name: [facility] Address: [address] [place] [address], [address] [place] [phone] Director: Stevie Doan MD Tom Danielle Mendoza [facility] LAB BLOOD ORDERABLES Final R esult Performing Organization Address [facility] Co de Phone Number [facility] * Urine culture (05/12/2025 10:49 AM EDT) MICRO NUMBER [id number] [facility] SPECIMEN QUALITY Adequate [facility] SOURCE: ([facility]) [...] Information Site ID: QPT Name: [facility] Address: [address] , [address] [place] [address] Director: Stevie Doan MD us Tom Mendoza CNM LAB MICROBIOLOGY - GENERAL O RDERABLES Final Result [facility] from Last 3 Months Insurance [facility] [employer] MEDICAID Care Teams Water Purification Chemist Relationship Specialty Start Date End Date Radha Dong MD [address] [place] [address] PCP - General Family Medicine 05/19/23 Charissa Glover NP PCP - [place] [employer] 01/27/25
--- OUTSIDE RECORDS SUMMARY | 2025-08-03 16:53 | XMS_ITS | Encounter Summary ---
Author Organization [facility] Healthcare Address [address] [place] [address] Care Team Providers Care Clothing Man Name Role Phone Halle Jensen DO Unavailable [phone] Radha Dong MD Primary Care Provider [phone] Charissa Glover PROCESSING TECHNICIAN Unavailable Charissa Glover PROCESSING TECHNICIAN Unavailable Encounter Details Date Type Department Care Team (Late st Contact Info) Description 07/06/[address] [facility] Family Medicine [address] [place] [phone] Radha Dong MD [address] [place] [address] Social History Tobacco Use Types [...] How often do you attend chur or hoahaoism services? More than 4 times per year 05/18/2023 Do you belong to any clubs o r organizations such as amish groups, unions, fraternal or athletic groups, or [...] and heating? Not hard at all 05/18/2023 [facility] - Occupational [...] a care home (including now)? No 05/18/2023 Comments Unknown Sex [...] PM EDT Routine [facility] Abiel MUNOZ [address] [place] [address] Rosalind Mendoza CNM [address] [place], [place] [id number] documented as of this encounter Visit Diagnoses Not on filedocumented in this encounter Care Teams Clothing Man Relationship Specialty Start Date End Date Halle Jensen DO [address] [facility] [address] [place] [phone] PCP - [place] [employer] 03/29/22 Radha Dong MD [address] [place] [address] PCP - General Family Medicine 05/19/23 Charissa Glover NP PCP - [place] [employer] 12/28/23 5 Charissa Glover NP PCP - [place] [employer] 01/27/25 documented as of this encounter
--- OUTSIDE RECORDS SUMMARY | 2025-08-03 16:53 | XMS_ITS | Encounter Summary ---
Author Organization [facility] Address [address] [place] [address] Care Team Providers Care Maternity Nurse Name Role Phone Radha Dong MD Primary Care Provider [phone] Charissa Glover SET OFF PRESS OPERATOR Unavailable Encounter Details Date Type Department Care Team (Late st Contact Info) Description 07/15/2025 Telephone [facility] Liliana MUNOZ [address] [place] [address] [place] [address] Nancy Kaur LPN Social History Tobacco [...] and heating? Not hard at all 07/29/2024 [facility] - Occupational Stress Questionnaire Answer Date [...] Info) Description 08/10/2025 4:30 PM EDT Routine [facility] MUNOZ [address] [place] [address] Rosalind Mendoza, CNM [address] [place], [place] [phone] documented as of this encounter Visit Diagnoses Not on filedocumented in this encounter Care Teams Maternity Nurse Relationship Specialty Start Date End Date Radha Dong MD [address] [place], [place] [phone] PCP - General Family Medicine 05/19/23 Charissa Glover NP PCP - Jose Chopra 01/27/25 documented as of this encounter
--- OUTSIDE RECORDS SUMMARY | 2025-08-03 16:53 | XMS_ITS | Clinical Summary ---
Author Organization [facility] Address [id number] [address] [place] [address] Care Team Providers Care Slide Forming Machine Tender Name Role Phone Melia Henriquez Sandra HANCOCKN-TOOL BUILDER Primary Care Provider [phone] Allergies No known active allergies Medications ondansetron ODT (ZOFRAN ODT) 4 mg disintegrating tablet Dissolve 1 tablet (4 mg total) on tongue every 8 (eight) hours as needed for nausea for up to 10 doses. 10 tablet 024 Active Additional Information Patient not taking.Reported on 07/21/2025 alcohol swabs (ALCOHOL WIPES) pads, medicated Apply [...] 2 units 15 mL 3 025 Active valACYclovir (VALTREX) 500 mg tablet Take 1 tablet (500 mg total) by mouth in the morning. Active clobetasoL (TEMOVATE) 0.05 % ointmentIndicatio ns:Blister of [...] Encounters Date Type Department Care Team Description 07/25/2025 Results Follow-Up Maternal- Medicine at [facility] [address] [place] [phone] Dorita Retana MD Varicella zoster antibody, IgG 07/21/2025 8:00 AM EDT Office Visit Maternal- Medicine at [facility] [address] [place] [address] Dorita Retana MD Insulin controlled gestational diabetes mellitus (GDM) during , antepartum (Primary Dx); Herpes zoster with other complication; Obesity affecting in third trimester, unspecified obesity type; Dyshidrotic eczema; 36 weeks gestation of 07/21/2025 Travel 07/15/2025 Telephone Maternal- Medicine at [facility] [address] [place] [address] Lety Ocampo RN 07/14/2025 Orders Only Maternal- Medicine at [facility] [address] [place] [address] Dorita Retana MD Insulin controlled gestational diabetes mellitus (GDM) during , antepartum 07/07/2025 Telephone Maternal- Medicine at [facility] [address] [place] [address] Lety Ocampo RN 07/07/2025 Orders Only Maternal- Medicine at [facility] [address] [place] [address] Dorita Retana MD Insulin controlled gestational diabetes mellitus (GDM) during , antepartum 07/03/2025 8:53 AM EDT - 07/03/2025 11:59 PM EDT Hospital Encounter [facility] - [facility] US Imaging [address] [place] [address] Blister of hand without infection, unspecified laterality, subsequent encounter; Dyshidrotic eczema; Insulin controlled gestational diabetes mellitus (GDM) during , antepartum; Obesity affecting in third trimester, unspecified obesity type Discharge Disposition: Home 07/03/2025 Orders Only Maternal- Medicine at [facility] [address] [place] [address] Floresita Griffith RN Insulin controlled gestational diabetes mellitus (GDM) during , antepartum (Primary Dx) 07/01/2025 2:30 PM EDT Office Visit Maternal- Medicine at [facility] [address] [place] [address] Dorita Retana MD Insulin controlled gestational diabetes mellitus (GDM) during , antepartum (Primary Dx); Blister of hand without infection, unspecified laterality, subsequent encounter; Dyshidrotic eczema; Obesity affecting in third trimester, unspecified obesity type; 33 weeks gestation of 07/01/2025 Orders Only Maternal- Medicine at [facility] [address] [place] [address] Marci Vences LPN Blister of hand without infection, unspecified laterality, subsequent encounter (Primary Dx); Dyshidrotic eczema; Insulin controlled gestational diabetes mellitus (GDM) during , antepartum; Obesity affecting in third trimester, unspecified obesity type 07/01/2025 Documentation Maternal- Medicine at [facility] [address] [place] [address] Gloria Holt RN 06/30/2025 Travel 06/30/2025 Telephone Maternal- Medicine at [facility] [address] [place] [address] Renae Landrum LD 06/22/2025 Telephone Maternal- Medicine at [facility] [address] [place] [address] 06/16/2025 Telephone Maternal- Medicine at [facility] [address] [place] [address] Nikki Jarvis LD 06/08/2025 1:30 PM EDT Support Visit Maternal- Medicine at [facility] [address] [place] [address] Renae Landrum LD Fischer, Kelli, RD Gestational diabetes mellitus (GDM) in second trimester, gestational diabetes method of control unspecified (Primary Dx) 06/08/2025 Orders Only Maternal- Medicine at [facility] [address] [place] [address] Renae Landrum LD 06/08/2025 Travel 06/03/2025 Abstract Maternal- Medicine at [facility] [address] [place] [address] External, Scanning Provider 06/03/2025 Orders Only Maternal- Medicine at [facility] [address] [place] [address] Ref Prov, Not In System 06/02/2025 Abstract Maternal- Medicine at [facility] [address] [place] [address] External, Scanning Provider 06/02/2025 Abstract Maternal- Medicine at [facility] [address] [place] [address] External, Scanning Provider from Last 3 Months [...] Pulse 72 07/21/2025 7:56 AM EDT Temperature 37.1 C (98.7 F) 11/25/2023 1:37 AM EST Respiratory Rate 17 11/25/2023 2:55 AM EST Oxygen Saturation 99% 11/25/2023 1:37 AM EST Inhaled Oxygen Concentration - - Weight 87.3 kg (192 lb 6.4 oz) 07/21/2025 7:56 A M EDT Height 160 cm (5' 2.99 ) 07/21/2025 7:56 AM EDT Body Mass Index 34.09 07/21/2025 7:56 AM EDT Plan of Treatment Health Maintenance Due Date Last Done Comments DTaP,Tdap and Td Vaccines (6 - Tdap) 01/02/2008 05/15/2002, 12/24/1998, 1997, Additional history exists Depression Screening 2009 Adult BMI Follow Up Plan 2015 Influenza Vaccine 06/29/2025 Adult BMI Screening 07/21/2026 07/21/2025 Tobacco Screening 07/21/2026 07/21/2025 Pap Smear 11/28/2026 11/28/2023 Medical Devices Not on file Procedures Procedure Name Priority Date/Time Associated Diagnosis Comments VARICELLA ZOSTER ANTIBODY, IGG Routine 07/24/2025 3:33 PM EDT Herpes zoster with other complication [facility] COMPREHENSIVE ANATOMIC SURVEY Routine 07/03/2025 10:59 AM EDT Blister of hand without infection, unspecified laterality, subsequent encounter Dyshidrotic eczema Insulin controlled gestational diabetes mellitus (GDM) during , antepartum Obesity affecting in third trimester, unspecified obesity type GLUCOSE TOLERANCE, FASTING Routine 05/20/2025 GLUCOSE TOLERANCE, 1 HOUR Routine 05/12/2025 HEMOGLOBIN A1C Routine 05/12/2025 from Last 3 Months Results * Varicella zoster antibody, IgG (07/24/2025 3:33 PM EDT) VARICELLA IGG >8.0 <1.0 AI 07/25/2025 6:16 AM EDT [facility] Blood Venous blood / Unknown Venipuncture / Unknown 07/24/2025 3:33 PM EDT 07/24/2025 3:33 PM EDT Narrative [facility] - 07/25/2025 6:16 AM EDT Intepretation < 0.9 Negative 0.9 - 1.0 Equivocal > 1.0 Positive us Dorita Retana MD LAB BLOOD ORDERABLES Final Resul t [facility] [address] [place] [address], [place] [phone] * US [facility] COMPREHENSIVE ANATOMIC SURVEY (07/03/2025 10:59 AM EDT) Anatomical Region Laterality Modality OB-TEAR DOWN MATCHER Ultrasound 07/03/2025 9:35 AM EDT Narrative 07/03/2025 12:12 PM EDT NAME: KING NELLA BERRY : 1995 SEX: F Accession Number: [id number] ORDERING PHYSICIAN: GEOVANI LUNA REFERRING PHYSICIAN: TOM KAMINSKI Coding ----- --------- Procedures 99129: Ultrasound, uterus, real time with image documentation, and maternal evaluation plus detailed anatomic examination, transabdominal approach;single or first gestation 54382: Transvaginal Ultrasound (OB) Indication ----- --------- Screening for Anatomic Survey , Screening for cervical length , Gestational diabetes. History ----- --------- OB History 1. Para 0 [id number] Maternal Assessment ----- --------- Physical Exam Height [...] EFW (oz) 13 oz EFW by: Hadlock ([id number]) Extended Tibia 52.9 mm 31w 3d 4% Estefany Fruit Tester 5.3 mm CM 6.1 mm 16% Nicolaides [...] Thorax 4-chamber view. RVOT view. 3-vessel view. 6-wnaxnu-fbefsos view. Interventricular septum. Diaphragm. Spine: Cervical spine. [...] colleagues, 1984). Recommendations ----- --------- Please see [facility] recommendations from prior clinical and/or ultrasound report documentation. The patient is scheduled in four weeks for follow up growth ultrasound. The patient is scheduled in three weeks for provider visit. Subsequent follow up or other follow up as clinically determined by primary OB provider unless otherwise specified by [facility]. Results forwarded to ordering provider so they can follow up with the patient as necessary. Procedure Note Geovani Luna MD - 07/03/2025 NAME: KING NELLA BERRY : 1995 SEX: F Accession Number: [id number] ORDERING PHYSICIAN: GEOVANI LUNA REFERRING PHYSICIAN: TOM KAMINSKI Coding ----- --------- Procedures 68411: Ultrasound, uterus, real time with imagedocumentation, and maternal evaluation plus detailed anatomic examination, transabdominalapproach;single or first gestation 92319: Transvaginal Ultrasound (OB) Indication ----- --------- Screening for Anatomic Survey , Screening for cervical length ,Gestational diabetes. History ----- --------- OB History 1. Para 0 [id number] Maternal Assessment ----- --------- Physical Exam Height [...] EFW (oz) 13 oz EFW by: Hadlock ([id number]-FL) Extended Tibia 52.9 mm 31w 3d 4% Estefany Fruit Tester 5.3 mm CM 6.1 mm 16% Nicolaides [...] Thorax 4-chamber view. RVOT view. 3-vessel view. 2-hugcio-smhudjhepae. Interventricular septum. Diaphragm. Spine: Cervical spine. Thoracic [...] colleagues, 1984). Recommendations ----- --------- Please see [facility] recommendations from prior clinical and/or ultrasoundreport documentation. The patient is scheduled in four weeks for follow up growth ultrasound. The patient is scheduled in three weeks for provider visit. Subsequent follow up or other follow up as clinically determined byprimary OB provider unless otherwise specified by MFM. Results forwarded to ordering provider so they can follow up with thepatient as necessary. us Geovani Luna MD IM US ORDERABLES Final Resul t * Glucose [...] ORDERABLES Ashley l Result Performing Organization Address [facility] Co de Phone Number MANUALLY TRANSCRIBED RESULTS * Glucose tolerance, 1 hour (05/12/2025) Glucose Tolerance Test 1 Hour 143 MANUALLY TRANSCRIBED RESULTS Blood Venous blood / Unknown us Not In System Ref Prov LAB BLOOD ORDERABLES Ashley l Result Performing Organization Address [facility] Co de Phone Number MANUALLY TRANSCRIBED RESULTS * Hemoglobin A1c (05/12/2025) Hemoglobin A1C 4.8 4.0 - 6.0 % MANUALLY TRANSCRIBED RESULTS Blood Venous blood / Unknown us Scanning Provider External LAB BLOOD ORDERABLES Final Result Performing Organization Address [facility] Co de Phone Number MANUALLY TRANSCRIBED RESULTS from Last 3 Months Insurance [facility] MEDICAID Care Teams Slide Forming Machine Tender Relationship Specialty Start Date End Date Melia Henriquez, TEST PILOT-TOOL BUILDER [address] [place] [place] [address] [place] [address] PCP - General Nurse Practitioner 11/25/23
--- OUTSIDE RECORDS SUMMARY | 2025-08-03 16:53 | XMS_ITS | Encounter Summary ---
Author Organization [facility] Address [address] [place] [address] Care Team Providers Care Senior System Operator Name Role Phone Radha Dong MD Primary Care Provider [phone] Charissa Glover NAILER MACHINE Unavailable Encounter Details Date Type Department Care Team (Late st Contact Info) Description 07/31/2025 Clinisync Result Encounter [facility] External Department Unsolicited Tom eMndoza, CNM [address] [place], [place] [address] Social History Tobacco Use Types Packs/Day Years [...] How often do you attend chur or uatsdin services? More than 4 times per year [...] Not hard at all 07/29/2024 [facility] - Occupational [...] in the past 12 m [facility], were you homeless or living in a [...] PM EDT Routine [facility] Abiel MUNOZ [address] [place] [address] Tom Mendoza CNM [address] [place] [address] documented as of this encounter Procedures Procedure Name Priority Date/Time Associated Diagnosis Comments US OB GROWTH 07/31/2025 2:03 PM EDT documented in this encounter Results * US OB GROWTH (07/31/2025 2:03 PM EDT) Anatomical Region Laterality Modality Other 07/31/2025 2:03 PM EDT Narrative 07/31/2025 2:06 PM EDT [address] [address] Ultrasound Report Signed Patient: KRISTI DEJESUS MR#: [id number] : 1995 Acct:[id number] Age/Sex: 30 / F ADM Date: 07/30/25 Loc: [facility] 252-[address]: TOM MENDOZA APRN, CNM Ordering Physician: TOM MENDOZA APRN, CNM Date of Service: 07/30/25 Procedure(s): US OB growth Accession Number(s): [id number] cc: TOM MENDOZA APRN, CNM [address] [address] Patient Name: KRISTI DEJESUS MRN: [id number] date: 1995 Sex: F Assigned Patient Location: [place] Current Patient Location: [facility] Accession/Order Number: [id number] Exam Date: 07/30/2025 15:58 Report Date: 07/31/2025 [...] Jr., D.O. 07/31/2025 2:03 PM Dictation Location: [place] [address] Electronically authenticated by: [id number] Y Date: 07/31/2025 14:03 Dictated By: Rafael Leigh M.D. Signed By: 07/31/25 1406 DD/ 140 TD/TT: Service Delivery Analyst: Procedure Note Radiology, Radiologist, MD - 07/31/20[address] [place] [address] Ultrasound Report Signed Patient: KRISTI DEJESUS RMR#: [id number] : 1995Acct:[id number] Age/Sex: 30 / FADM Date: 07/30/25 Loc: [facility] 252-[address]: TOM MENDOZA APRN, CNM Ordering Physician: TOM MENDOZA APRN, CNM Date of Service: 07/30/25 Procedure(s): US OB growth Accession Number(s): [id number] cc: TOM MENDOZA APRN, CNM [place] [address] Patient Name: KRISTI DEJESUS MRN: [id number] date: 1995 Sex: F Assigned Patient Location: Current Patient Location: [facility] Accession/Order Number: [id number] Exam Date: 07/30/2025 15:58 Report Date: 07/31/2025 [...] Jr., D.O. 07/31/2025 2:03 PM Dictation Location: [place] [address] Electronically authenticated by: [id number] Y Date: 4:03 Dictated By: Rafael Leigh M.D. Signed By:07/31/25 1406 DD/ 1403 TD/TT: Service Delivery Analyst: us Tom ALVAREZ [facility] Final Resu lt documented in this encounter Visit Diagnoses Not on filedocumented in this encounter Care Teams Senior System Operator Relationship Specialty Start Date End Date Radha Dong MD [address] [place] [address] PCP - General Family Medicine 05/19/23 Charissa Glover NP PCP - Jose Chopra 01/27/25 documented as of this encounter
--- OUTSIDE RECORDS SUMMARY | 2025-08-03 16:53 | XMS_ITS | Encounter Summary ---
Author Organization [facility] Healthcare Address [address] [place] [address] Care Team Providers Care Officer Captain Name Role Phone Radha Dong MD Primary Care Provider [phone] Charissa Glover DRUG ENFORCEMENT AGENT Unavailable Encounter Details Date Type Department Care Team (Late st Contact Info) Description 05/26/2025 Results Follow-Up [facility] OBGYN [address] [place] [address] Paola Gómez MA GLUCOSE TOLERANCE TEST, GESTATIONAL,4SPEC(10 [...] How often do you attend chur or confucianist services? More than 4 times per year 07/29/2024 Do you belong to any clubs o r organizations such as protestant groups, unions, fraternal or athletic groups, or [...] and heating? Not hard at all 07/29/2024 [facility] ional Health - Occupational [...] any time in the past 12 m [facility], were you homeless or living [...] 4:30 PM EDT Routine [facility] Abiel MUNOZ [address] [place] [address] Rosalind Mendoza CNM [address] [place] [address] documented as of this encounter Visit Diagnoses Not on filedocumented in this encounter Care Teams Officer Captain Relationship Specialty Start Date End Date Radha Dong MD [address] [place] [address] PCP - General Family Medicine 05/19/23 Charissa Glover NP PCP - Jose Chopra 01/27/25 documented as of this encounter
--- OUTSIDE RECORDS SUMMARY | 2025-08-03 16:53 | XMS_ITS | Encounter Summary ---
Author Organization [facility] Address [address] [place] [address] Care Team Providers Care Interactive Producer Name Role Phone Radha Dong MD Primary Care Provider [phone] Charissa Glover RIVER RAFTING GUIDE Unavailable Encounter Details Date Type Department Care Team (Late st Contact Info) Description 07/23/2025 Bamboo flowsheet [facility] OBGYN [address] [place] [address] Rosalind Mendoza, CNM [address] [place] [address] Social History Tobacco Use Types [...] How often do you attend chur or buddhist services? More than 4 times per year [...] and heating? Not hard at all 07/29/2024 [facility] - [...] any time in the past 12 m [facility], were you homeless or [...] EDT Routine [facility] Abiel MUNOZ [address] [place] [address] Rosalind Mendoza, CN [address] [place] [address] documented as of this encounter Visit Diagnoses Not on filedocumented in this encounter Care Teams Interactive Producer Relationship Specialty Start Date End Date Radha Dong MD [address] [place] [address] PCP - General Family Medicine 05/19/23 Charissa Glover NP PCP - Jose Chopra 01/27/25 documented as of this encounter
--- OUTSIDE RECORDS SUMMARY | 2025-08-03 16:53 | XMS_ITS | Encounter Summary ---
Author Organization [facility] Address [address] [place] [address] Care Team Providers Care Steelworker Name Role Phone Radha Dong MD Primary Care Provider [phone] Charissa Glover DUCT LAYER HELPER Unavailable Encounter Details Date Type Department Care [...] often do you attend chur ch or yazdanism services? More than 4 times per year 07/29/2024 Do you belong to any clubs o r organizations such as zoroastrian groups, unions, fraternal or athletic groups, or [...] 07/29/2024 [facility] Health - Occupational Stress Questionnaire Answer Date [...] time in the past 12 m [facility], were you homeless or living in a [...] 4:30 PM EDT Routine [facility] Abiel MUNOZ [address] [place] [address] Rosalind Mendoza CNM [address] [place] [address] documented as of this encounter Procedures Procedure [...] (CDC) and [facility] STREP GP B CULTURE+RFLX [place] [employer] TBH STREP [...] [facility] STREP GP B CULTURE+RFLX [facility]: [facility] GP B CULTURE+RFLX [address] [place], [place] [id number] [facility] STREP GP B CULTURE+RFLX Pharmacy Cashier: Cirilo Arriaga PhD, Phone: [phone] TB 07/15/2025 11:1 0 AM EDT 07/16/2025 6:10 AM EDT Narrative [facility] - 07/20/2025 1:15 PM EDT us Generic External Data Provider LAB BLOOD ORDERAB LES Final Result [facility] documented in this encounter Visit Diagnoses Not on filedocumented in this encounter Care Teams Steelworker Relationship Specialty Start Date End Date Radha Dong MD [address] [place] [address] PCP - General Family Medicine 05/19/23 Charissa Glover NP PCP - Jose Chopra 01/27/25 documented as of this encounter
--- OUTSIDE RECORDS SUMMARY | 2025-08-03 16:54 | XMS_ITS | Encounter Summary ---
Author Organization [facility] Address [address] [place] [address] Care Team Providers Care Civilian Technician Name Role Phone Radha Dong MD Primary Care Provider [phone] Charissa Glover LATHE OPERATOR CONTACT LENS Unavailable Encounter Details Date Type Department Care Team (Latest Contact Info) Description 07/23/2025 Travel Social History Tobacco Use Types Packs/Day [...] often do you attend chur ch or yazidism services? More than 4 times per year 07/29/2024 Do you belong to any clubs o r organizations such as oriental orthodox groups, unions, fraternal or athletic groups, or [...] and heating? Not hard at all 07/29/2024 [facility] of Occupat ional Health - Occupational [...] 4:30 PM EDT Routine [facility] Abiel MUNOZ [address] [place] [address] Rosalind Mendoza CNM [address] [place] [address] documented as of this encounter Visit Diagnoses Not on filedocumented in this encounter Care Teams Civilian Technician Relationship Specialty Start Date End Date Radha Dong MD [address] [place] [address] PCP - General Family Medicine 05/19/23 Charissa Glover NP PCP - Jose Chopra 01/27/25 documented as of this encounter
[2025-08-03 17:18] VITALS: BP 137/84; PULSE 78
== END 2025-08-03 17:45 | disposition home or self-care (01) ==
LOC: FBCO 16:51 → FBC 17:15
PROVIDERS: PCP Midwife; Visit Provider Midwife
DX: O24.419 Gestational diabetes mellitus in pregnancy, unspecified control (principal); Z3A.38 38 weeks gestation of pregnancy
CPT/HCPCS: 59025

== ENCOUNTER 2025-08-06 17:55 | Outpatient (OUT) | payer BC, OTHER, SELFPAY ==
[2025-08-06 18:05] VITALS: BP 114/77; PULSE 80
== END 2025-08-06 18:35 | disposition home or self-care (01) ==
LOC: FBCO 17:55 → FBC 17:58
PROVIDERS: PCP Midwife; Visit Provider Midwife
DX: O24.419 Gestational diabetes mellitus in pregnancy, unspecified control (principal); Z3A.39 39 weeks gestation of pregnancy
CPT/HCPCS: 59025

== ENCOUNTER 2025-08-09 16:55 | Inpatient (IN) | payer OTHER, SELFPAY ==
--- OUTSIDE RECORDS SUMMARY | 2025-07-27 16:30 | XMS_ITS | Encounter Summary ---
Author Organization [facility] Address [address] [place] [address] Care Team Providers Care Support Specialist Name Role Phone Radha Dong MD Primary Care Provider [phone]GE Unavailable Encounter Details Date Type Department Care Team (Latest Contact Info) Description 07/27/2025 4:30 PM EDT Routine [facility] OBGYN [address] [place] [phone] Rosalind Mendoza, ARLINE [address] [place] [address] Non-reactive NST (non-stress test) (Primary Dx); NST (non-stress test) reactive ([facility]); History of gestational diabetes; Gestational diabetes mellitus (GDM) requiring insulin ([facility]); related condition in third trimester ([facility]) Social History Tobacco Use Types Packs/Day Years [...] or ex-partner? No 05/18/2023 Social Connection and Isolation Panel Answer Date Recorded In a typical week, how many times do you talk on the phone with family, friends, or neighbors? More than three times a week 07/29/2024 How often do you get togethe r with friends or relatives? More than three times a week 07/29/2024 How often do you attend chur or synagogue services? More than 4 times per year 07/29/2024 Do you belong to any clubs o r organizations such as yazidism groups, unions, fraternal or athletic groups, or [...] and heating? Not hard at all 07/29/2024 [facility] [place] of Occupat ional Health - Occupational Stress [...] No 07/29/2024 Housing Stability Vital Sign Answer Gayr e Recorded In the last 12 months, [...] place to sleep or slept in a assisted (including now)? No 05/18/2023 Housing Stability Vital Sign Answer Gary e Recorded In the last 12 months, was t here a time when you were not able to pay the mortgage or rent on time? No 07/29/2024 In the past 12 months, how m any times have you moved where you were living? 0 07/29/2024 At any time in the past 12 m [facility], were you homeless or living in a assisted (including now)? No 07/29/2024 Estimated Date of [...] Sign Reading Time Taken Comments Blood Pressure 120/80 07/27/2025 4:20 PM EDT Pulse - - Temperature - - Respiratory Rate - - Oxygen Saturation - - Inhaled Oxygen Concentration - - Weight 87.5 kg (193 lb) 07/27/2025 4:20 PM EDT Height - - Body Mass Index 34.19 07/09/2025 1:33 PM EDT documented in this encounter Progress Notes * Rosalind Mendoza CNM - 07/27/2025 4:30 PM EDT Subjective No chief complaint on file. Martha Dejesus is a 30 y.o. at 37w4d with a working estimated date of delivery of 08/13/2025, by Last Menstrual Period who presents for a routine visit. She denies vaginal bleeding, leakage of fluid, decreased movements, or contractions. OB History Para Term AB Living 1 SAB IAB Ectopic Multiple Live Births # Outcome Date GA Lbr Freedom/2nd Weight Sex Type Anes PTL Lv 1 Current Her is complicated by: Gestational diabetes, shingles this Objective Physical Exam Weight: 193 lb Expected Total Weight Gain: 15 lb-25 lb Pregravid BMI: 29.94 BP: 120/80 Urine protein-negative Urine glucose-negative Assessment/Plan Diagnoses and all orders for this visit: Non-reactive NST (non-stress test) NST (non-stress test) reactive ([facility]) History of gestational diabetes Gestational diabetes mellitus (GDM) requiring insulin ([facility]) related condition in third trimester ([facility]) Continue vitamin. Labs reviewed. GBS negative Expected mode of delivery vaginal Scheduled for medical induction of labor due to diabetes on 08/09/25 5p documented in this encounter Plan of Treatment Not on file documented as of this encounter Visit Diagnoses Diagnosis Non-reactive NST (non-stress test)- Primary Abnormal findings on screening NST (non-stress test) reactive ([facility]) state, incidental History of gestational diabetes Personal history of other genital system and obstetric disorders Gestational diabetes mellitus (GDM) requiring insulin ([facility]) related condition in third trimester ([facility]) documented in this encounter Care Teams Support Specialist Relationship Specialty Start Date End Date Radha Dong MD [address] [place] [address] PCP - General Family Medicine 05/19/23 Charissa Glover NP PCP - Jose Chopra 01/27/25 documented as of this encounter
--- OUTSIDE RECORDS SUMMARY | 2025-08-06 16:00 | XMS_ITS | Encounter Summary ---
Author Organization [facility] Address [address] [place] [address] Care Team Providers Care Chlorine Cell Tender Name Role Phone Radha Dong MD Primary Care Provider [phone] Charissa Glover IN FILE OPERATOR Unavailable Encounter Details Date Type Department Care Team (Latest Contact Info) Description 08/06/2025 4:00 PM EDT Ancillary Procedure [facility] [address] [place] [address] Diet controlled gestational diabetes mellitus (GDM) in third trimester ([facility]) Social History Tobacco Use [...] week 07/29/2024 How often do you attend [facility] or presybeterian services? More than 4 times per year 07/29/2024 Do you belong to any clubs o r organizations such as roman catholic groups, unions, fraternal or athletic groups, [...] and heating? Not hard at all 07/29/2024 [facility] - Occupational Stress Questionnaire Answer Date [...] any time in the past 12 m [facility], were you homeless or [...] as of this encounter Plan of Treatment Pending Results Name Type Priority Associated Diagnoses Date /Time US biophysical profile wo non stress testing Imaging Routine Diet controlled gestational diabetes mellitus (GDM) in third trimester ([facility]) 08/06/2025 4:36 PM EDT documented as of this encounter Visit Diagnoses Diagnosis Diet controlled gestational diabetes mellitus (GDM) in third trimester ([facility]) documented in this encounter Care Teams Chlorine Cell Tender Relationship Specialty Start Date End Date Radha Dong MD [address] [place] [address] PCP - General Family Medicine 05/19/23 Charissa Glover NP PCP - Jose Chopra 01/27/25 documented as of this encounter
[2025-08-09] VITALS (13 sets, daily range): BP systolic 122–150; BP diastolic 76–92; PULSE 70–101; TEMP 36–36.2
--- OUTSIDE RECORDS SUMMARY | 2025-08-09 16:58 | XMS_ITS | Encounter Summary ---
Author Organization [facility] Healthcare Address [address] [place] [address] Care Team Providers Care Conveyor Feeder Name Role Phone Radha Dong MD Primary Care Provider [phone] Charissa Glover STONE FINISHER Unavailable Encounter Details Date Type Department Care Team (Late st Contact Info) Description 05/13/2025 Results Follow-Up [facility] OBGYN [address] [place] [id number] Paola Gómez MA GLUCOSE, GESTATIONAL SCREEN ([id number] [...] any clubs o r organizations such as congregation groups, unions, fraternal or athletic groups, or [...] and heating? Not hard at all 07/29/2024 [facility] [place] of Occupat ional Health - Occupational Stress [...] any time in the past 12 m [facility], were you homeless or living in [...] on filedocumented in this encounter Care Teams Conveyor Feeder Relationship Specialty Start Date End Date Radha Dong MD [address] [place] [address] PCP - General Family Medicine 05/19/23 Charissa Glover NP PCP - Jose Chopra 01/27/25 documented as of this encounter
--- OUTSIDE RECORDS SUMMARY | 2025-08-09 16:58 | XMS_ITS | Encounter Summary ---
Author Organization [facility] Healthcare Address [address] [place] [address] Care Team Providers Care Key Carrier Name Role Phone Radha Dong MD Primary Care Provider Charissa Glover PATIENT RELATIONS DIRECTOR Unavailable Encounter Details Date Type Department Care Team (Late st Contact Info) Description 07/09/2025 Results Follow-Up [facility] OBGYN [address] [place] [id number] Rosalind Mendoza, CNM [address] [place], [place] [id number] Bile acids, total Social History Tobacco Use [...] any clubs o r organizations such as gnosticism groups, unions, fraYOOWALK or athletic groups, or school groups? No [...] all 07/29/2024 [facility] [place] of Occupat ional Health - Occupational [...] place to sleep or slept in a skilled nursing (including now)? No 05/18/2023 Housing Stability Vital [...] time in the past 12 m [facility], were you homeless or living in a skilled nursing (including now)? No 07/29/2024 Estimated Date of [...] on filedocumented in this encounter Care Teams Key Carrier Relationship Specialty Start Date End Date Radha Dong MD [address] [place] [address] PCP - General Family Medicine 05/19/23 Charissa Glover NP PCP - Jose Chopra 01/27/25 documented as of this encounter
--- OUTSIDE RECORDS SUMMARY | 2025-08-09 16:58 | XMS_ITS | Encounter Summary ---
Author Organization [facility] Address [address] [place] [address] Care Team Providers Care Rag Baler Name Role Phone Radha Dong MD Primary Care Provider [phone] Charissa Glover REEL HOOKER Unavailable Encounter Details Date Type Department Care Team (Latest Contact Info) Description 08/06/2025 Travel Social History Tobacco Use Types Packs/Day [...] all 07/29/2024 [facility] [place] of Occupat ional Health - Occupational Stress [...] any time in the past 12 m [facility], were you homeless or [...] on filedocumented in this encounter Care Teams Rag Baler Relationship Specialty Start Date End Date Radha Dong MD [address] [place] [address] PCP - General Family Medicine 05/19/23 Charissa Glover NP PCP - [place] [employer] 01/27/25 documented as of this encounter
--- OUTSIDE RECORDS SUMMARY | 2025-08-09 16:58 | XMS_ITS | Clinical Summary ---
Author Organization [facility] Healthcare Address [address] [place] [address] Care Team Providers Care Sheet Metal Technician Name Role Phone Radha Dong MD Primary Care Provider [phone] Charissa Glover VETERINARY ANATOMIST Unavailable Allergies No known active allergies Medications [...] Encounters Date Type Department Care Team Description 08/06/2025 4:00 PM EDT [facility] [address] [address] Diet controlled gestational diabetes mellitus (GDM) in third trimester ([facility]) 08/06/2025 Travel 07/31/2025 Clinisync Result Encounter [facility] External Department Unsolicited Tom Mendoza CNM 07/27/2025 4:30 PM EDT [facility] [address] [place] [address] Tom Mendoza CNM Non-reactive NST (non-stress test) (Primary Dx); NST (non-stress test) reactive ([facility]); History of gestational diabetes; Gestational diabetes mellitus (GDM) requiring insulin ([facility]); related condition in third trimester ([facility]) 07/27/2025 [facility]amboo [facility] [address] [place] [address] Tom Mendoza CNM 07/23/2025 4:00 PM EDT Ancillary Procedure [facility] [address] [facility] [address] [place] [address] Diet controlled gestational diabetes mellitus (GDM) in third trimester ([facility]) 07/23/2025 3:15 PM EDT Routine [facility] [address] [facility] [place] [address] Tom Mendoza CNM NST (non-stress test) reactive ([facility]) (Primary Dx); History of gestational diabetes; Gestational diabetes mellitus (GDM) requiring insulin ([facility]); Encounter for care of first , third trimester ([facility]) 07/23/2025 Bamboo flowsheet [facility] [address] [facility] [place] [address] Tom Mendoza CNM 07/23/2025 Travel 07/22/2025 Telephone [facility] [address] [place] [address] Radha Dong MD 07/16/2025 4:15 PM EDT Ancillary Procedure [facility] [address] [facility] [address] [place] [address] Diet controlled gestational diabetes mellitus (GDM) in third trimester ([facility]) 07/16/2025 Travel 07/15/2025 11:10 AM EDT Routine [facility] [address] [place] [address] Vicente Gatica, Third trimester ([facility]); 35 weeks gestation of ([facility]); Herpes zoster without complication 07/15/2025 Clinisync Result Encounter [facility] External Department Unsolicited Provider, Generic External Data 07/15/2025 Telephone [facility] [address] [place] [address] Nancy Kaur LPN 07/15/2025 Bamboo flowsheet [facility] [address] [place] [address] Vicente Gatica DO 07/09/2025 4:15 PM EDT [facility] [address] [facility] [address] [place] [address] Diet controlled gestational diabetes mellitus (GDM) in third trimester ([facility]) 07/09/2025 1:20 PM EDT [facility] [address] [place] [address] Radha Dong MD Herpes zoster with complication (Primary Dx) 07/09/2025 Travel 07/09/2025 Results Follow-Up [facility] [address] [facility] [place] [address] Tom Mendoza, CNM Bile acids, total 07/06/2025 5:00 PM EDT Routine [facility] [address] [facility] [place] [address] Tom Mendoza CNM NST (non-stress test) reactive ([facility]) (Primary Dx); History of gestational diabetes; Encounter for care of first , third trimester ([facility]) 07/06/2025 [facility]amboo [facility]sheet [facility] [address] [facility] [place] [address] Tom Mendoza CNM 07/02/2025 4:15 PM EDT Ancillary Procedure [facility] [address] [facility] [address] [place] [address] Diet controlled gestational diabetes mellitus (GDM) in third trimester ([facility]) 07/02/2025 Travel 06/30/2025 4:00 PM EDT Routine [facility] [address] [facility] [place] [address] Tom Mendoza, CNM Itching (Primary Dx); NST (non-stress test) reactive ([facility]); History of gestational diabetes; Encounter for care of first , third trimester ([facility]) 06/30/2025 Bamboo flowsheet [facility] [address] [facility] [place] [address] Tom Mendoza CNM 06/25/2025 4:15 PM EDT Ancillary Procedure [facility] [address] [facility] [address] [place] [address] [facility] [place] [address] Diet controlled gestational diabetes mellitus (GDM) in third trimester ([facility]) 06/25/2025 Travel 06/22/2025 4:15 PM EDT Routine [facility] [address] [facility] [place] [address] Tom Mendoza CNM NST (non-stress test) reactive ([facility]) (Primary Dx); History of gestational diabetes; Encounter for care of first , third trimester ([facility]) 06/22/2025 Results Follow-Up [facility] [address] [facility] [place] [address] Tom Mendoza CNM US biophysical profile wo non stress testing 06/18/2025 4:15 PM EDT Ancillary Procedure [facility] [address] [facility] [address] [place] [address] Diet controlled gestational diabetes mellitus (GDM) in third trimester ([facility]) 06/18/2025 Travel 06/15/2025 5:15 PM EDT Routine [facility] [address] [facility] [place] [address] Tom Mendoza CNM History of gestational diabetes (Primary Dx); Encounter for care of first , third trimester ([facility]) 06/15/2025 Bamboo flowsheet [facility] [address] [facility] [place] [address] Tom Mendoza CNM 06/05/2025 4:00 PM EDT Ancillary Procedure [facility] [address] [facility] [address] [place] [address] related condition in third trimester ([facility]) 06/05/2025 Travel 06/04/2025 9:00 AM EDT [facility] [address] [place] [address] Tom Mendoza CNM Encounter for care of first , second trimester ([facility]) (Primary Dx); related condition in third trimester ([facility]); Diet controlled gestational diabetes mellitus (GDM) in third trimester ([facility]); History of gestational diabetes 06/04/2025 Bamboo flowsheet [facility] [address] [place] [address] Tom Mendoza CNM 05/26/2025 3:00 PM EDT [facility] [address] [facility] [place] [address] Tom Mendoza CNM Encounter for care of first , second trimester ([facility]) (Primary Dx); History of gestational diabetes 05/26/2025 Results [facility] [address] [place] [address] Paola Gómez MA GLUCOSE TOLERANCE TEST, GESTATIONAL,4SPEC(10 0G) 05/26/2025 [facility] [address] [place] [address] Paola Gómez MA History of gestational diabetes 05/13/2025 Results [facility] [address] [place] [address] Paola Gómez MA GLUCOSE, GESTATIONAL SCREEN (50G)-135 CUTOFF, CBC, POCT Urinalysis dipstick, Hemoglobin A1c 05/13/2025 Orders Only [facility] [address] [facility] [place] [address] Tom Mendoza CNM Elevated glucose tolerance test 05/12/2025 9:45 AM EDT Routine [facility] [address] [place] [address] Tom Mendoza CNM Encounter for care of first , second trimester ([facility]) (Primary Dx); Screening for diabetes mellitus (DM); Screening for iron deficiency anemia; Dysuria; Glucose found in urine on examination 05/12/2025 [facility] [address] [place] [address] Tom Mendoza CNM from Last 3 Months [...] any clubs o r organizations such as temple groups, unions, fraternal or athletic groups, or [...] and heating? Not hard at all 07/29/2024 [facility] [place] of Occupat ional Health - Occupational Stress [...] 07/09/2025 1:33 PM EDT Plan of Treatment Health Maintenance Due Date Last Done Comments Influenza Vaccine (#1) 2025 Procedures Procedure Name Priority Date/Time Associated Diagnosis Comments US OB GROWTH 07/31/2025 2:03 PM EDT US BIOPHYSICAL PROFILE WO NON STRESS TESTING Routine 07/23/2025 4:32 PM EDT Diet controlled gestational diabetes mellitus (GDM) in third trimester ([facility]) US BIOPHYSICAL PROFILE WO NON STRESS TESTING Routine 07/16/2025 4:20 PM EDT Diet controlled gestational diabetes mellitus (GDM) in third trimester ([facility]) POCT URINALYSIS DIPSTICK Routine 07/15/2025 11:27 AM EDT Third trimester ([facility]) STREP GP B CULTURE+RFLX Routine 07/15/2025 11:10 AM EDT US BIOPHYSICAL PROFILE WO NON STRESS TESTING Routine 07/09/2025 4:22 PM EDT Diet controlled gestational diabetes mellitus (GDM) in third trimester ([facility]) AMYLASE Routine 06/30/2025 4:11 PM EDT [...] PM EDT Narrative 07/31/2025 2:06 PM EDT [address] [address] Ultrasound Report Signed Patient: MARTHA DEJESUS MR#: [id number] : 1995 Acct:[id number] Age/Sex: 30 / F ADM Date: 07/30/25 Loc: [facility] 252-[address]: TOM MENDOZA APRN, CNM Ordering Physician: TOM MENDOZA APRN, CNM Date of Service: 07/30/25 Procedure(s): US OB growth Accession Number(s): [id number] cc: TOM MENDOZA APRN, CNM [place] [id number] Patient Name: MARTHA DEJESUS MRN: [id number] date: 1995 Sex: F Assigned Patient Location: [place] Current Patient Location: [facility] Accession/Order Number: [id number] Exam Date: 07/30/2025 15:58 Report Date: 07/31/2025 14:03 At the request of: TMO MENDOZA APRN, CNM Procedure: US OB growth [...] Jr., D.O. 07/31/2025 2:03 PM Dictation Location: [place] [address] Electronically authenticated by: [id number] Y Date: 07/31/2025 14:03 Dictated By: Rafael Leigh M.D. Signed By: 07/31/25 1406 DD/ 1403 TD/TT: Highway Maintenance Crew Worker: Procedure Note Radiology, Radiologist, MD - 07/31/2025 [facility] [place] [id number] Ultrasound Report Signed Patient: MARTHA DEJESUS RMR#: [id number] : 1995Acct:[id number] Age/Sex: 30 / FADM Date: 07/30/25 Loc: [facility] 252-[address]: TOM MENDOZA APRN, CNM Ordering Physician: TOM MENDOZA APRN, CNM Date of Service: 07/30/25 Procedure(s): US OB growth Accession Number(s): [id number] cc: TOM MENDOZA APRN, CNM [address] [address] Patient Name: MARTHA DEJESUS MRN: [id number] date: 1995 Sex: F Assigned Patient Location: Current Patient Location: [facility] Accession/Order Number: [id number] Exam Date: 07/30/2025 15:58 Report Date: 07/31/2025 [...] Jr., D.O. 07/31/2025 2:03 PM Dictation Location: [place] [address] Electronically authenticated by: [id number] Y Date: 4:03 Dictated By: Rafael Leigh M.D. Signed By:07/31/25 1406 DD/ 1403 TD/TT: Highway Maintenance Crew Worker: Tom Mendoza CNM [facility] Final Resu [...] BY: Rafael Mae MD us Tom Mendoza [facility] OB US PROCEDURES Final R esult [...] Positive Urine 07/15/2025 11:2 7 AM EDT us Vicente Gatica DO POINT OF CARE TEST ENTER/EDIT OR DERABLES Final Result * STREP GP B CULTURE+RFLX (07/15/2025 11:10 AM EDT) [facility] STREP GP B CULTURE+RFLX Strep Gp B Culture+Rflx [facility] STREP GP B CULTURE+RFLX Negative [facility] STREP GP B CULTURE+RFLX Centers for Disease Control and Prevention (CDC) and [facility] STREP GP B CULTURE+RFLX [place] [employer] [facility] STREP [...] STREP GP B CULTURE+RFLX [facility]formed at: [facility] STREP GP B CULTURE+RFLX [address] [place], [place] [id number] [facility] STREP GP B CULTURE+RFLX Gas Plant Operator: Cirilo Arriaga PhD, Phone: [phone] [facility] 07/15/2025 11:1 0 AM EDT 07/16/2025 6:10 [...] Performing Organization Information Site ID: AMD Name: [facility]Asim [place] Address: [address] [place] [address] Dr [place], [place] Director: Anthony De La Paz M.D.,PhD us Tom Danielle Charltono CN LAB BLOOD ORDERABLES Final R esult Performing Organization Address [facility] Co de Phone Number [facility] * Lipase (06/30/2025 4:11 PM EDT) LIPASE 38 7 - 60 U/L [facility] Blood Venous blood specimen / Unknown 06/30/2025 4:11 PM EDT 06/30/2025 4:12 PM EDT Narrative Resulting Agency Comment Performing Organization Information Site ID: QPT Name: [facility] Address: [address] [place] [phone] Director: Stevie Doan MD us Tom L Floro CN LAB BLOOD ORDERABLES Final R esult Performing Organization Address City/[facility]/ZIP Co de Phone Number [facility] * Amylase (06/30/2025 4:11 PM EDT) AMYLASE 40 21 - 101 U/L [facility] Blood Venous blood specimen / Unknown 06/30/2025 4:11 PM EDT 06/30/2025 4:12 PM EDT Narrative Resulting Agency Comment Performing Organization Information Site ID: QPT Name: [facility] Address: [address] [place] [address], [address] [place] [phone] Director: Stevie Doan MD Tom ALVAREZ LAB BLOOD ORDERABLES Final R esult Performing Organization Address [facility] Co de Phone Number [facility] * [...] Performing Organization Information Site ID: QPT Name: [facility] Address: [address] [place] [address], [address] [place] [phone] Director: Stevie Doan MD Tom ALVAREZ LAB BLOOD ORDERABLES Final R esult Performing Organization Address [facility] Co de Phone Number [facility] * US [...] period. TRANSCRIBED BY: ELECTRONICALLY SIGNED BY: Rafael aMe MD Narrative 06/08/2025 7:55 AM EDT FINDINGS: [...] BY: ELECTRONICALLY SIGNED BY: Rafael Mae MD Tom Mendoza CNM IMG OB US PROCEDURES [...] Performing Organization Information Site ID: QPT Name: [facility] Address: [address] [place] [address], [address] [place] [phone] Director: Stevie Doan MD Tom Mendoza CNM LAB BLOOD ORDERABLES Final [...] Performing Organization Information Site ID: QPT Name: [facility] Address: [place] , [address] [place] [phone] Director: Stevie Doan MD us Tom L Floro CNM LAB BLOOD ORDERABLES Final R esult Performing Organization Address [facility] Co de Phone Number [facility] * CBC (05/12/2025 [...] Performing Organization Information Site ID: QPT Name: [facility] Address: [place] , [address] [place] [phone] Director: Stevie Doan MD us Tom L Lateshao CNM LAB BLOOD ORDERABLES Final R esult Performing Organization Address [facility]/ZIP Co de Phone Number [facility] * Hemoglobin [...] diagnosis of diabetes in children. According to [place] [employer] Association (ADA) guidelines, hemoglobin A1c <7.0% represents optimal control in non- diabetic patients. Different metrics may apply to specific patient populations. Standards of Medical Care in Diabetes(ADA). 05/12/2025 10:5 0 AM EDT 05/12/2025 10:51 AM EDT Narrative Resulting Agency Comment Performing Organization Information Site ID: QPT Name: [facility] Address: [address] [place] [address], [address] [place] [phone] Director: Stevie Doan MD Tom ALVAREZ LAB BLOOD ORDERABLES Final R esult [facility] * Urine culture (05/12/2025 10:49 AM EDT) Pathologist [facility] MICRO NUMBER [id number] [facility] SPECIMEN QUALITY Adequate [facility] SOURCE: ([facility]) [...] Performing Organization Information Site ID: QPT Name: [facility] Address: [address] [place] [address], [address] [place] [phone] Director: Stevie Doan MD us Tom ALVAREZ LAB MICROBIOLOGY - GENERAL O RDERABLES Final Result [facility] from Last 3 Months Insurance [facility] [employer] MEDICAID Care Teams Sheet Metal Technician Relationship Specialty Start Date End Date Radha Dong MD [address] [place] [address] PCP - General Family Medicine 05/19/23 Charissa Glover NP PCP - [place] [employer] 01/27/25
--- OUTSIDE RECORDS SUMMARY | 2025-08-09 16:59 | XMS_ITS | Encounter Summary ---
Author Organization [facility] Address [address] [place] [address] Care Team Providers Care Plywood Layup Line Core Layer Name Role Phone Radha Dong MD Primary Care Provider [phone] Charissa Glover EXCHANGE FLOOR MANAGER Unavailable Encounter Details Date Type Department Care Team (Late st Contact Info) Description 07/31/2025 Clinisync Result Encounter [facility] External Department Unsolicited Tom Mendoza, CNM [address] [place], [place] [phone] Social History Tobacco Use Types Packs/Day Years [...] How often do you attend [facility] or zoroastrianism services? More than 4 times [...] and heating? Not hard at all 07/29/2024 [facility] - Occupational Stress Questionnaire [...] any time in the past 12 m onths, were you homeless or living in a [...] on file documented as of this encounter Procedures Procedure Name Priority Date/Time Associated Diagnosis Comments US OB GROWTH 07/31/2025 2:03 PM EDT documented in this encounter Results * US OB GROWTH (07/31/2025 2:03 PM EDT) Anatomical Region Laterality Modality Other 07/31/2025 2:03 PM EDT Narrative 07/31/2025 2:06 [place] [address] Ultrasound Report Signed Patient: KRISTI DEJESUS MR#: [id number] : 1995 Acct:[id number] Age/Sex: 30 / F ADM Date: 07/30/25 Loc: [facility] 252-[address]: TOM MENDOZA APRN, CNM Ordering Physician: TOM MENDOZA APRN, CNM Date of Service: 07/30/25 Procedure(s): US OB growth Accession Number(s): [id number] cc: TOM MENDOZA APRN, CNM [place] [address] Patient Name: KRISTI DEJESUS MRN: [id number] date: 1995 Sex: F Assigned Patient Location: Current Patient Location: [facility] Accession/Order Number: [id number] Exam Date: 07/30/2025 15:58 Report Date: 07/31/2025 [...] percentile. Impression dictated by: Rafael Leigh Jr., DCristhianOCristhian 07/31/2025 2:03 PM Dictation Location: [place] [address] Electronically authenticated by: [id number] Y Date: 07/31/2025 14:03 Dictated By: Rafael Leigh M.D. Signed By: 07/31/25 1406 DD/ 1403 TD/TT: Contract Analyst: Procedure Note Radiology, Radiologist, - 07/31/2025 [place] [address] Ultrasound Report Signed Patient: KRISTI DEJESUS RMR#: [id number] : 1995Acct:[id number] Age/Sex: 30 / FADM Date: 07/30/25 Loc: [facility] 252-[address]: TOM MENDOZA APRN, CNM Ordering Physician: TOM MENDOZA APRN, CNM Date of Service: 07/30/25 Procedure(s): US OB growth Accession Number(s): [id number] cc: TOM MENDOZA APRN, CNM [facility] [place] [id number] Patient Name: KRISTI DEJESUS MRN: [id number] date: 1995 Sex: F Assigned Patient Location: Current Patient Location: [facility] Accession/Order Number: [id number] Exam Date: 07/30/2025 15:58 Report Date: 07/31/2025 [...] Jr., D.O. 07/31/2025 2:03 PM Dictation Location: [place] [address] Electronically authenticated by: [id number] Y Date: 4:03 Dictated By: Rafael Leigh M.D. Signed By:07/31/25 1406 DD/ 1403 TD/TT: Contract Analyst: us Tom Mendoza CNM [facility] Final Resu lt documented in this encounter Visit Diagnoses Not on filedocumented in this encounter Care Teams Plywood Layup Line Core Layer Relationship Specialty Start Date End Date Radha Dong MD [address] [place] [address] PCP - General Family Medicine 05/19/23 Charissa Glover NP PCP - Jose Chopra 01/27/25 documented as of this encounter
--- OUTSIDE RECORDS SUMMARY | 2025-08-09 16:59 | XMS_ITS | Encounter Summary ---
Author Organization [facility] Address [address] [place] [address] Care Team Providers Care Transition Specialist Name Role Phone Halle Jensen DO Unavailable Radha Dong MD Primary Care Provider [phone] Charissa Glover FINISH GRINDER Unavailable Charissa Glover FINISH GRINDER Unavailable Encounter Details Date Type Department Care Team (Late st Contact Info) Description 07/06/2023 Abstract [facility] Family Medicine [address] [place] [phone] Radha Dong MD [address] [place] [address] Social History Tobacco Use Types [...] week 05/18/2023 How often do you attend [facility] or taoism services? More than 4 times per year [...] and heating? Not hard at all 05/18/2023 [employer] of Occupat ional Health - Occupational Stress [...] on filedocumented in this encounter Care Teams Transition Specialist Relationship Specialty Start Date End Date Halle Jensen DO [address] [facility] [address] [place] [address] PCP - [place] [employer] 03/29/22 Radha Dong MD [address] [place] [address] PCP - General Family Medicine 05/19/23 Charissa Glover NP PCP - [employer] 12/28/23 5 Charissa Glover NP PCP - [employer] 01/27/25 documented as of this encounter
--- OUTSIDE RECORDS SUMMARY | 2025-08-09 16:59 | XMS_ITS | Encounter Summary ---
Author Organization [facility] Address [address] [place] [address] Care Team Providers Care Documentation Consultant Name Role Phone Radha Dong MD Primary Care Provider [phone] Charissa Glover SOLID SURFACE FABRICATOR Unavailable Encounter Details Date Type Department Care Team (Late st Contact Info) Description 07/15/2025 Telephone [facility] M[facility] [address] [place] [address] [place] [address] Nancy Kaur LPN Social History Tobacco [...] time in the past 12 m [place], were you homeless or living in a [...] on filedocumented in this encounter Care Teams Documentation Consultant Relationship Specialty Start Date End Date Radha Dong MD [address] [place] [address] PCP - General Family Medicine 05/19/23 Charissa Glover NP PCP - Jose Chopra 01/27/25 documented as of this encounter
--- OUTSIDE RECORDS SUMMARY | 2025-08-09 16:59 | XMS_ITS | Clinical Summary ---
Author Organization [employer] tem Address [id number] [address] [place] [address] Care Team Providers Care Skid Strapper Name Role Phone Melia Henriquez Sandra HANCOCKN-AUXILIARY ENGINEER Primary Care Provider [phone] Allergies No known active allergies Medications ondansetron [...] Encounters Date Type Department Care Team Description 08/05/2025 Telephone Maternal- Medicine at [facility] [address] [place] [address] Aida Garcia RN 07/25/2025 Results Follow-Up Maternal- Medicine at [facility] [address] [place] [address] Dorita Retana MD Varicella zoster antibody, IgG 07/21/2025 8:00 AM EDT Office Visit Maternal- Medicine at [facility] [address] [place] [address] Dorita Retana MD Insulin controlled gestational diabetes mellitus (GDM) during , antepartum (Primary Dx); Herpes zoster with other complication; Obesity affecting in third trimester, unspecified obesity type; Dyshidrotic eczema; 36 weeks gestation of 07/21/2025 Travel 07/15/2025 Telephone Maternal- Medicine at [facility] [address] [place] [address] Lety Ocampo RN 07/14/2025 Orders Only Maternal- Medicine at [facility] [address] [place] [address] Dorita Retana MD Insulin controlled gestational diabetes mellitus (GDM) during , antepartum 07/07/2025 Telephone Maternal- Medicine at [facility] [address] [place] [address] Lety Ocampo RN 07/07/2025 Orders Only Maternal- Medicine at [facility] [address] [facility] [place] [address] Dorita Retana MD Insulin controlled gestational diabetes mellitus (GDM) during , antepartum 07/03/2025 8:53 AM EDT - 07/03/2025 11:59 PM EDT Hospital Encounter [facility] - [facility] US Imaging [address] [facility] [place] [address] Blister of hand without infection, unspecified laterality, subsequent encounter; Dyshidrotic eczema; Insulin controlled gestational diabetes mellitus (GDM) during , antepartum; Obesity affecting in third trimester, unspecified obesity type Discharge Disposition: Home 07/03/2025 Orders Only Maternal- Medicine at [facility] [address] [place] [address] Floresita Griffith RN Insulin controlled gestational diabetes mellitus (GDM) during , antepartum (Primary Dx) 07/01/2025 2:30 PM EDT Office Visit Maternal- Medicine at [facility] [address] [place] [address] Dorita Retana MD Insulin controlled gestational diabetes mellitus (GDM) during , antepartum (Primary Dx); Blister of hand without infection, unspecified laterality, subsequent encounter; Dyshidrotic eczema; Obesity affecting in third trimester, unspecified obesity type; 33 weeks gestation of 07/01/2025 Orders Only Maternal- Medicine at [facility] [address] [place] [address] Marci Vences, CORE PILER Blister of hand without infection, unspecified laterality, subsequent encounter (Primary Dx); Dyshidrotic eczema; Insulin controlled gestational diabetes mellitus (GDM) during , antepartum; Obesity affecting in third trimester, unspecified obesity type 07/01/2025 Documentation Maternal- Medicine at [facility] [address] [place] [address] Gloria Holt RN 06/30/2025 Travel 06/30/2025 Telephone Maternal- Medicine at [facility] [address] [place] [address] Renae Landrum LD 06/22/2025 Telephone Maternal- Medicine at [facility] [address] [place] [address] 06/16/2025 Telephone Maternal- Medicine at [facility] [address] [facility] [place] [address] Nikki Jarvis LD 06/08/2025 1:30 PM EDT Support Visit Maternal- Medicine at [facility] [address] [facility] [place] [address] Renae Landrum LD Fischer, Kelli, RD Gestational diabetes mellitus (GDM) in second trimester, gestational diabetes method of control unspecified (Primary Dx) 06/08/2025 Orders Only Maternal- Medicine at [facility] [address] [facility] [place] [address] Renae Landrum LD 06/08/2025 Travel 06/03/2025 Abstract Maternal- Medicine at [address] [place] [address] External, Scanning Provider 06/03/2025 Orders Only Maternal- Medicine at [facility] [place] [address] [place] [address] Ref Prov, Not In System 06/02/2025 Abstract Maternal- Medicine at [facility] [address] [place] [address] External, Scanning Provider 06/02/2025 Abstract Maternal- Medicine at [facility] [address] [place] [address] External, Scanning Provider from Last 3 Months [...] PM EDT Herpes zoster with other complication [facility] COMPREHENSIVE ANATOMIC [...] >8.0 <1.0 AI 07/25/2025 6:16 AM EDT [facility] Blood Venous blood / Unknown Venipuncture / Unknown 07/24/2025 3:33 PM EDT 07/24/2025 3:33 PM EDT Narrative [facility] - 07/25/2025 6:16 AM EDT Intepretation < 0.9 Negative 0.9 - 1.0 Equivocal > 1.0 Positive us Dorita Retana MD LAB BLOOD ORDERABLES Final Resul t [facility] [address] [place] [address], [place] [phone] * [place] [facility] COMPREHENSIVE ANATOMIC SURVEY (07/03/2025 10:59 AM EDT) Anatomical Region Laterality Modality OB-STAFF COMBAT INFORMATION CENTER OFFICER Ultrasound 07/03/2025 9:35 AM EDT Narrative 07/03/2025 12:12 PM EDT NAME: KING NELLA BERRY : 1995 SEX: F Accession Number: [id number] ORDERING PHYSICIAN: GEOVANI LUNA REFERRING PHYSICIAN: TOM KAMINSKI Coding ----- --------- Procedures [id number]: Ultrasound, uterus, real time with image documentation, and maternal evaluation plus detailed anatomic examination, transabdominal approach;single or first gestation 39193: Transvaginal Ultrasound (OB) Indication ----- --------- Screening for Anatomic Survey , Screening for cervical length , Gestational diabetes. History ----- --------- OB History 1. Para 0 [id number] Maternal Assessment ----- --------- Physical Exam Height [...] EFW (oz) 13 oz EFW by: Hadlock ([id number]) Extended Tibia 52.9 mm 31w 3d 4% Estefany Embossing Toolsetter 5.3 mm CM 6.1 mm 16% Nicolaides [...] Thorax 4-chamber view. RVOT view. 3-vessel view. 1-bzcrxw-rgvgnmf view. Interventricular septum. Diaphragm. Spine: Cervical spine. [...] measurement within 2 SD of the mean (Crispni and colleagues, 1984). Recommendations ----- --------- Please see [facility] recommendations from prior clinical and/or ultrasound report documentation. The patient is scheduled in four weeks for follow up growth ultrasound. The patient is scheduled in three weeks for provider visit. Subsequent follow up or other follow up as clinically determined by primary OB provider unless otherwise specified by M. Results forwarded to ordering provider so they can follow up with the patient as necessary. Procedure Note Geovani Luna MD - 07/03/2025 NAME: KING NELLA BERRY : 1995 SEX: F Accession Number: [id number] ORDERING PHYSICIAN: GEOVANI LUNA REFERRING PHYSICIAN: TOM KAMINSKI Coding ----- --------- Procedures [id number]: Ultrasound, uterus, real time with imagedocumentation, and maternal evaluation plus detailed anatomic examination, transabdominalapproach;single or first gestation 82495: Transvaginal Ultrasound (OB) Indication ----- --------- Screening for Anatomic Survey , Screening for cervical length ,Gestational diabetes. History ----- --------- OB History 1. Para 0 [id number] Maternal Assessment ----- --------- Physical Exam Height [...] EFW (oz) 13 oz EFW by: Hadlock ([id number]) Extended Tibia 52.9 mm 31w 3d 4% Estefany Embossing Toolsetter 5.3 mm CM 6.1 mm 16% Nicolaides [...] Thorax 4-chamber view. RVOT view. 3-vessel view. 4-alvoxq-vlobuhmgmbh. Interventricular septum. Diaphragm. Spine: Cervical spine. Thoracic [...] thepatient as necessary. us Geovani Luna MD IMG US ORDERABLES Final Resul t * Glucose [...] ORDERABLES Ashley l Result Performing Organization Address City/[facility] Co de Phone Number MANUALLY TRANSCRIBED RESULTS * Glucose tolerance, 1 hour (05/12/2025) Glucose Tolerance Test 1 Hour 143 MANUALLY TRANSCRIBED RESULTS Blood Venous blood / Unknown us Not In System Ref Prov LAB BLOOD ORDERABLES Ashley l Result Performing Organization Address City/[facility] Co de Phone Number MANUALLY TRANSCRIBED RESULTS * Hemoglobin A1c (05/12/2025) Hemoglobin A1C 4.8 4.0 - 6.0 % MANUALLY TRANSCRIBED RESULTS Blood Venous blood / Unknown us Scanning Provider External LAB BLOOD ORDERABLES Final Result Performing Organization Address City/State/[facility] Co de Phone Number MANUALLY TRANSCRIBED RESULTS from Last 3 Months Insurance [facility] MEDICAID Care Teams Skid Strapper Relationship Specialty Start Date End Date Melia Henriquez APRN-AUXILIARY ENGINEER [address] [place] [address] PCP - General Nurse Practitioner 11/25/23
--- OUTSIDE RECORDS SUMMARY | 2025-08-09 16:59 | XMS_ITS | Encounter Summary ---
Author Organization [facility] tem Address [id number] [address] [place] [address] Care Team Providers Care Rn Transplant Name Role Phone Melia Henriquez Sandra BOILER TENDERS SUPERVISOR-BAKER Primary Care Provider [phone] Encounter Details Date Type Department Care Team (Late st Contact Info) Description 08/05/2025 Telephone Maternal- Medicine at [facility] [address] [place] [address] Aida Garcia, RN [address] [address] Social History Tobacco Use Types Packs/Day Years [...] encounter Miscellaneous Notes * Telephone Encounter - Aida Garcia RN - 08/05/2025 3:41 PM EDT Called and spoke with Martha regarding change in anticipated induction date and time and how to take insulin dose. Instructed to take full Lantus dose 08/08 prior to induction 08/09 at 5 pm in which was told to eat dinner prior to arriving. Informed to then inform nursing staff would typically takeLantus dose at 10:30 pm and let provider make decision of 10/12 dose needed after admission for induction. Verbalized understanding. documented in this encounter Plan of Treatment Not on file documented as of this encounter Visit Diagnoses Not on filedocumented in this encounter Care Teams Rn Transplant Relationship Specialty Start Date End Date Melia Henriquez, BOILER TENDERS SUPERVISOR-BAKER [address] [place] [address] PCP - General Nurse Practitioner 11/25/23 documented as of this encounter
--- OUTSIDE RECORDS SUMMARY | 2025-08-09 16:59 | XMS_ITS | Encounter Summary ---
Author Organization [facility] tem Address [id number] [address] [place] [address] Care Team Providers Care Sleeve Presser Operator Name Role Phone Melia Henriquez Sandra FOOD SERVER-SHEET METAL LAY OUT WORKER Primary Care Provider [phone] Encounter Details Date Type Department Care Team (Late st Contact Info) Description 07/25/2025 Results Follow-Up Maternal- Medicine at [facility] [address] [place] [address] Dorita Retana MD [address] [facility] 1st [address] [place], [place] [id number] Varicella zoster antibody, IgG Social History Tobacco [...] on filedocumented in this encounter Care Teams Sleeve Presser Operator Relationship Specialty Start Date End Date Melia Henriquez, FOOD SERVER-SHEET METAL LAY OUT WORKER [address] [place] [address] PCP - General Nurse Practitioner 11/25/23 documented as of this encounter
--- OUTSIDE RECORDS SUMMARY | 2025-08-09 16:59 | XMS_ITS | Encounter Summary ---
Author Organization [facility] Address [address] [place] [address] Care Team Providers Care Economic Development Coordinator Name Role Phone Radha Dong MD Primary Care Provider [phone] Charissa Glover CARBON FURNACE OPERATOR HELPER Unavailable Encounter Details Date Type Department Care Team (Late st Contact Info) Description 07/27/2025 Bamboo flowsheet [facility] OBGYN [address] [place] [address] Rosalind Mendoza, CNM [address] [place] [address] Social History Tobacco Use Types [...] any clubs o r organizations such as samaritan groups, unions, fraternal or athletic groups, or [...] and heating? Not hard at all 07/29/2024 [facility] [place] of Occupat ional Health - Occupational Stress [...] any time in the past 12 m [facility], were you homeless or living in [...] on filedocumented in this encounter Care Teams Economic Development Coordinator Relationship Specialty Start Date End Date Radha Dong MD [address] [place] [address] PCP - General Family Medicine 05/19/23 Charissa Glover NP PCP - Jose Commercial 01/27/25 documented as of this encounter
--- OUTSIDE RECORDS SUMMARY | 2025-08-09 16:59 | XMS_ITS | Encounter Summary ---
Author Organization [facility] Address [address] [place] [address] Care Team Providers Care Stoker Erector And Servicer Name Role Phone Radha Dong MD Primary Care Provider Charissa Glover IT INFRASTRUCTURE ARCHITECT Unavailable Encounter Details Date Type Department Care Team (Late st Contact Info) Description 06/22/2025 Results Follow-Up [facility] OBGYN [address] [place] [address] Rosalind Mendoza, CNM [address] [place], [place] [phone] [place] biophysical profile wo non stress testing [...] any clubs o r organizations such as faith groups, unions, fraternal or athletic groups, or [...] and heating? Not hard at all 07/29/2024 [facility] [place] of Occupat ional Health - Occupational Stress [...] place to sleep or slept in a long term (including now)? No 05/18/2023 Housing Stability Vital [...] were you homeless or living in a long term (including now)? No 07/29/2024 Estimated Date of [...] on filedocumented in this encounter Care Teams Stoker Erector And Servicer Relationship Specialty Start Date End Date Radha Dong MD [address] [place] [address] PCP - General Family Medicine 05/19/23 Charissa Glover NP PCP - Jose Chopra 01/27/25 documented as of this encounter
--- OUTSIDE RECORDS SUMMARY | 2025-08-09 16:59 | XMS_ITS | Encounter Summary ---
Author Organization [facility] tem Address [id number] [address] [place] [address] Care Team Providers Care Assortment Planner Name Role Phone Melia Henriquez Sandra BELLSTAFF-DENTAL TECH Primary Care Provider [phone] Encounter Details Date Type Department Care Team (Late st Contact Info) Description 06/03/2025 Orders Only Maternal- Medicine at [facility] [address] [place] [address] Ref Prov, [place] [address] Social History Tobacco Use Types Packs/Day Years [...] on filedocumented in this encounter Care Teams Assortment Planner Relationship Specialty Start Date End Date Melia Henriquez, BELLSTAFF-DENTAL TECH [address] [place] [address] PCP - General Nurse Practitioner 11/25/23 documented as of this encounter
--- OUTSIDE RECORDS SUMMARY | 2025-08-09 16:59 | XMS_ITS | Encounter Summary ---
Author Organization [facility] Address [address] [place] [address] Care Team Providers Care Product Developer Name Role Phone Halle Jensen DO Unavailable [phone] Radha Dong MD Primary Care Provider [phone] Charissa Glover NP Unavailable Charissa Glover TIRE BLADDER MAKER Unavailable Encounter Details Date Type Department Care Team (Late st Contact Info) Description 05/31/2023 Abstract [facility] Family Medicine [address] [place] [address] Charissa Glover NP Social History Tobacco Use [...] often do you attend chur ch or islam services? More than 4 times [...] and heating? Not hard at all 05/18/2023 [facility] of Occupat ional Health - [...] health care facility (including now)? No 05/18/2023 Comments Unknown Sex [...] on filedocumented in this encounter Care Teams Product Developer Relationship Specialty Start Date End Date Halle Jensen DO [address] [facility] [address] [place] [address] PCP - [place] [employer] 03/29/22 Radha Dong MD [address] [place] [address] PCP - General Family Medicine 05/19/23 Charissa Glover TIRE BLADDER MAKER PCP - [place] [employer] 12/28/23 5 Charissa Glover NP PCP - [place] [employer] 01/27/25 documented as of this encounter
[2025-08-09 17:28] LABS: Hematocrit 35.7 % (36.0-48.0); Hemoglobin 12.2 g/dL (12.0-16.0); Mean Corpuscular HGB Conc 34.2 g/dL (29.9-35.2); Mean Corpuscular Hemoglobin 28.7 pg (26.7-34.0); Mean Corpuscular Volume 84.0 fL (81.0-99.0); Platelet Count 247 10^3/uL (150-450); Red Blood Count 4.25 10^6/uL (4.20-5.40); White Blood Count 10.1 10^3/uL (4.0-11.0)
[2025-08-09 17:39] LABS: Cannabinoid Screen Urine NEGATIVE (NEGATIVE); Methamphetamines Screen Urine NEGATIVE (NEGATIVE); Tricyclic Antidepressant Urine NEGATIVE (NEGATIVE)
[2025-08-09] MEDS: DINOPROSTONE 10 MG VAG INSERT.ER VAGINAL (18:15)
[2025-08-09] MEDS: INSULIN GLARGINE 300 UNIT/3 ML INSULN.PEN 8 UNIT SQ (22:13)
[2025-08-10] VITALS (63 sets, daily range): BP systolic 98–160; BP diastolic 56–99; PULSE 59–112; TEMP 36.6–37.2
[2025-08-10] MEDS: ACETAMINOPHEN 500 MG TABLET 1000 MG PO (02:25)
[2025-08-10] MEDS: OXYTOCIN/0.9 % SODIUM CHLORIDE 10 UNITS/500 ML PLAST..BAG 6 UNIT IV (07:03)
--- NOTE | 2025-08-10 10:19 | PM.OBHP ---
OB - H&P: HPI History of Present Illness Chief complaint: INDUCTION : 1 Para: 0 Gestational age based on last menstrual period: 39.4 Indications for induction: other (gestational diabetes requiring insulin ) History of Present Dating criteria: LMP confirmed by 1st trimester US care: good care Ultrasounds: normal 1st trimester US, normal mid trimester US and other (had increased surveillance testing due to diabetes, saw [facility] who managed her insulin. ) complications: gestational diabetes (requiring insulin. [facility] managed insulin and testing . frequent NST's and BPP and growth scans done ) and other Labs Blood type: AB (+) positive Rubella: immune RPR/VDLR: nonreactive GBS status: negative HBsAG: negative PFSH PFSH Social History Little interest or pleasure in doing things: not at all Feeling down, depressed, or hopeless: not at all Meds Home Medications and Allergies Home Medications ?Medication ?Instructions ?Recorded ?Confirmed ?Type insulin glargine 100 unit/mL 16 unit subcut QPM 08/09/25 08/09/25 History subcutaneous solution (Lantus U-100 Insulin) Allergies Allergy/AdvReac Type Severity Reaction Status Date / Time No Known Drug Allergies Allergy Verified 08/09/25 17:19 Exam Constitutional Vital Signs, click to edit/add: Last Vital Signs Temp 97.9 F 08/10/25 00:25 Pulse 63 08/10/25 09:39 Resp 18 08/09/25 18:40 BP 131/77 08/10/25 09:39 O2 Del Method Room Air 08/09/25 18:40 Documenting provider has reviewed patient's vital signs: yes Common normals: no apparent distress, average body habitus and oriented x3 General appearance: cooperative and comfortable Orientation/consciousness: Yes awake, Yes oriented to person, Yes oriented to place and Yes oriented to time HENMT Common normals: normocephalic Eye Common normals: EOMs intact bilaterally Alignment: alignment normal Neck & C-Spine Common normals: full ROM and no lymphadenopathy Lymph Lymphatic: no lymphadenopathy noted Chest Common normals: inspection of chest normal Respiratory Common normals: normal respiratory effort, no retractions, no use of accessory muscles and clear to auscultation bilaterally Effort & inspection: able to speak in complete sentences Auscultation: clear to auscultation bilaterally Cardio Common normals: regular rate and regular rhythm Rate: regular rate Rhythm: regular rhythm GI Common normals: Normal to inspection, nondistended, normoactive bowel sounds present Inspection: normal to inspection Auscultation: normoactive bowel sounds Palpation: soft Rectal Exam - Female: deferred Common normals: no CVA tenderness External Female Exam: normal appearance of the urethra Back & Pelvis Thoracic spine/upper back: normal to inspection Lumbar spine/lower back: normal to inspection Extremity Common normals: normal to inspection and full ROM Neuro Common normals: oriented x3 Sensorium/orientation: awake, alert, oriented to person, oriented to place and oriented to time Psych Common normals: mental status grossly normal, thought process normal, cooperative, affect normal, speech normal, activity/motor behavior normal, denies hallucinations, denies homicidal ideation and denies suicidal ideation Attitude: calm Activity/motor behavior: appropriate eye contact Results Labs Labs: Short CBC 08/09/25 Range/Units 17:15 WBC 10.1 (4.0-11.0) 10^3/uL Hgb 12.2 (12.0-16.0) g/dL Hct 35.7 L (36.0-48.0) % Plt Count 247 (150-450) 10^3/uL OB - A/P Assessment and Plan (1) Term : (2) Gestational diabetes mellitus (GDM) affecting first : (3) Insulin dependent type 2 diabetes mellitus, controlled:
--- NOTE | 2025-08-10 10:39 | PM.OBHP ---
OB - H&P: HPI History of Present Illness Chief complaint: INDUCTION History of Present complications: gestational diabetes (requiring insulin. [facility] managed insulin and testing . frequent NST's and BPP and growth scans done ) and other PFSH PFSH Social History Little interest or pleasure in doing things: not at all Feeling down, depressed, or hopeless: not at all Meds Home Medications and Allergies Home Medications ?Medication ?Instructions ?Recorded ?Confirmed ?Type insulin glargine 100 unit/mL 16 unit subcut QPM 08/09/25 08/09/25 History subcutaneous solution (Lantus U-100 Insulin) Allergies Allergy/AdvReac Type Severity Reaction Status Date / Time No Known Drug Allergies Allergy Verified 08/09/25 17:19 Exam Constitutional Vital Signs, click to edit/add: Last Vital Signs Temp 97.9 F 08/10/25 00:25 Pulse 63 08/10/25 09:39 Resp 18 08/09/25 18:40 BP 131/77 08/10/25 09:39 O2 Del Method Room Air 08/09/25 18:40 Results Labs Labs: Short CBC 08/09/25 Range/Units 17:15 WBC 10.1 (4.0-11.0) 10^3/uL Hgb 12.2 (12.0-16.0) g/dL Hct 35.7 L (36.0-48.0) % Plt Count 247 (150-450) 10^3/uL OB - A/P Assessment and Plan (1) Term : (2) Gestational diabetes mellitus (GDM) affecting first : (3) Insulin dependent type 2 diabetes mellitus, controlled:
[2025-08-10] MEDS: ROPIVACAINE HCL/PF 400 MG/200 ML PREMIX 10 MG EPIDURAL (13:15)
--- NOTE | 2025-08-10 14:38 | PM.EN ---
Event Note Event Note: 10:13 am rounded on patient and SVE 2-3/80/-2. AROM performed with sterile amnihook with return of small amount of blood tinged fluid. heart tones are stable before, during and after rupture of membranes.
[2025-08-10] MEDS: OXYTOCIN/0.9 % SODIUM CHLORIDE 20 UNITS/1,000 ML PLAST..BAG 125 UNIT IV (17:06)
--- NOTE | 2025-08-10 17:39 | PM.OBPRCVD ---
Procedure Procedure: with RML episiotomy events: Gestational Diabetes Intrapartal events: None and Diabetes Induction method: other (cervidil ) Delivery augmentation: rupture of membranes and pitocin Delivery monitor: external FHT and external uterine Route of delivery: Episiotomy Description: right mediolateral L&D Laceration Description: perineal - 2nd degree Delivery repair: Vicryl Estimated blood loss (mL): 300 Anesthesia type: Epidural Disposition: no change Delivery date: 08/10/25 Gender: female presentation: vertex Placental delivery description: Spontaneous cord description: 3 Vessels heart rate - 1 minute: 100 bpm or Greater respiratory effort - 1 minute: Spontaneous/Strong Cry muscle tone - 1 minute: Active Movement reflex response - 1 minute: Minimal Response color - 1 minute: Bluish Hands or Feet total score - 1 minute: 8 heart rate - 5 minute: 100 bpm or Greater respiratory effort - 5 minute: Spontaneous/Strong Cry muscle tone - 5 minute: Active Movement reflex response - 5 minute: Prompt Response color - 5 minute: Bluish Hands or Feet total score - 5 minute: 9
[2025-08-10] MEDS: BENZOCAINE/MENTHOL 85 GRAM SPRAY BOTTLE 1 APPLIC TOPICAL (21:30)
[2025-08-10] MEDS: KETOROLAC TROMETHAMINE 30 MG/ML VIAL IVP (23:33)
[2025-08-11] MEDS: GLYCERIN/WITCH HAZEL PADS 1 PAD TOPICAL (00:43)
[2025-08-11 06:19] LABS: Hematocrit 32.4 % (36.0-48.0); Hemoglobin 10.6 g/dL (12.0-16.0); Immature Granulocytes Abs Auto 0.07 10^3/uL (0.00-0.03); Immature Granulocytes Pct Auto 0.5 % (0.0-0.5); Lymphocytes Absolute Auto 3.3 10^3/uL (1.2-3.8); Mean Corpuscular HGB Conc 32.7 g/dL (29.9-35.2); Mean Corpuscular Hemoglobin 27.9 pg (26.7-34.0); Mean Corpuscular Volume 85.3 fL (81.0-99.0); Platelet Count 203 10^3/uL (150-450); Red Blood Count 3.80 10^6/uL (4.20-5.40); White Blood Count 13.0 10^3/uL (4.0-11.0)
--- NOTE | 2025-08-11 08:15 | PM.OBPN ---
OB - PN: Subj Subjective Patient comments: no complaints [place] status: doing well [place] feeding status: exclusively Exam Constitutional Vital Signs, click to edit/add: Last Vital Signs Temp 98.6 F 08/10/25 19:00 Pulse 90 08/10/25 23:34 Resp 14 08/10/25 23:30 BP 132/84 08/10/25 23:34 O2 Del Method Room Air 08/10/25 23:30 Documenting provider has reviewed patient's vital signs: yes Common normals: no apparent distress General appearance: cooperative Orientation/consciousness: Yes awake, Yes oriented to person, Yes oriented to place and Yes oriented to time HENMT Common normals: normocephalic Eye Common normals: EOMs intact bilaterally General eye: normal appearance of both eyes Neck & C-Spine Common normals: full ROM General: normal visual inspection Lymph Lymphatic: no lymphadenopathy noted Respiratory Common normals: normal respiratory effort Effort & inspection: able to speak in complete sentences Auscultation: clear to auscultation bilaterally Cardio Common normals: regular rate and regular rhythm Rate: regular rate Rhythm: regular rhythm GI Common normals: Normal to inspection, nondistended, normoactive bowel sounds present, soft to palpation and non-tender Inspection: normal to inspection Auscultation: normoactive bowel sounds Palpation: soft Common normals: no CVA tenderness Back & Pelvis Common normals: no CVA tenderness Extremity Common normals: normal to inspection and full ROM Neuro Common normals: oriented x3 Sensorium/orientation: awake, alert, oriented to person, oriented to place and oriented to time Psych Common normals: mental status grossly normal, thought process normal, cooperative and affect normal Attitude: calm Thought process: normal thought process Results Labs Labs: Short CBC 08/11/25 Range/Units 06:01 WBC 13.0 H (4.0-11.0) 10^3/uL Hgb 10.6 L (12.0-16.0) g/dL Hct 32.4 L (36.0-48.0) % Plt Count 203 (150-450) 10^3/uL OB - PN: A/P Assessment and Plan (1) Term : (2) Gestational diabetes mellitus (GDM) affecting first : (3) Insulin dependent type 2 diabetes mellitus, controlled: Plan - Vaginal Delivery day: 1 Plan: routine care Time Spent with Patient Time: Total time spent is greater than 50% in coordination of care (as documented) at patient's floor/unit and/or counseling patient: Total time spent with greater than 50% in coordination of care (as documented) at patient's floor/unit and/or counseling patient: less than 15 minutes
[2025-08-11 09:01] VITALS: BP 117/82; PULSE 83; TEMP 36.7
[2025-08-11] MEDS: IBUPROFEN 400 MG TABLET 800 MG PO ×2 (09:02→17:21)
[2025-08-11] MEDS: DOCUSATE SODIUM 100 MG CAPSULE PO ×2 (09:03→20:27)
[2025-08-11 17:17] VITALS: BP 133/88; PULSE 94
[2025-08-11 17:18] VITALS: TEMP 36.5
[2025-08-12 00:54] VITALS: BP 137/73; PULSE 93
[2025-08-12] MEDS: IBUPROFEN 400 MG TABLET 800 MG PO ×2 (00:56→09:45)
--- NOTE | 2025-08-12 07:45 | PM.OBPN ---
OB - PN: Subj Subjective Patient comments: no complaints and pain well controlled [place] status: doing well Exam Constitutional Vital Signs, click to edit/add: Last Vital Signs Temp 97.7 F 08/11/25 17:18 Pulse 93 H 08/12/25 00:54 Resp 16 08/11/25 17:18 BP 137/73 08/12/25 00:54 O2 Del Method Room Air 08/12/25 00:55 Documenting provider has reviewed patient's vital signs: yes Common normals: no apparent distress Respiratory Common normals: normal respiratory effort and clear to auscultation bilaterally Cardio Common normals: regular rate and regular rhythm GI Common normals: Normal to inspection, nondistended, normoactive bowel sounds present Extremity Common normals: no clubbing, cyanosis or edema and no calf tenderness OB - PN: A/P Assessment and Plan (1) Term : (2) Gestational diabetes mellitus (GDM) affecting first : (3) Insulin dependent type 2 diabetes mellitus, controlled: Plan - Vaginal Delivery day: 2 Plan: routine care, discharge home and follow up 6 weeks Time Spent with Patient Time: Total time spent is greater than 50% in coordination of care (as documented) at patient's floor/unit and/or counseling patient: Total time spent with greater than 50% in coordination of care (as documented) at patient's floor/unit and/or counseling patient: less than 15 minutes
[2025-08-12 09:43] VITALS: BP 139/87; PULSE 100
[2025-08-12] MEDS: DOCUSATE SODIUM 100 MG CAPSULE PO (09:44)
== END 2025-08-12 14:00 | disposition home or self-care (01) | DRG 560 ==
PROVIDERS: Admitting Provider Midwife; PCP Midwife; Visit Provider Midwife
DX: O24.424 Gestational diabetes mellitus in childbirth, insulin controlled (principal); O70.1 Second degree perineal laceration during delivery; Z3A.39 39 weeks gestation of pregnancy; Z37.0 Single live birth; Z87.891 Personal history of nicotine dependence
CPT/HCPCS: 36415; 51701; 59410; 80307; 82947; 82948; 85025; 85027; 86850; 86900; 86901; J0665; J1885; J2795; J3010

== ENCOUNTER 2025-08-14 07:52 | Outpatient (OUT) | payer BC, OTHER, SELFPAY ==
--- OUTSIDE RECORDS SUMMARY | 2025-08-06 16:00 | XMS_ITS | Encounter Summary ---
Author Organization [facility] Address [address] [place] [address] Care Team Providers Care Director Of Development Name Role Phone Radha Dong MD Primary Care Provider [phone] Charissa Glover EMBEDDED SOFTWARE DEVELOPMENT ENGINEER Unavailable Encounter Details Date Type Department Care Team (Latest Contact Info) Description 08/06/2025 4:00 PM EDT Ancillary Procedure [facility] [address] [place] [address] Diet controlled gestational diabetes mellitus (GDM) in third trimester ([facility]) Social History Tobacco Use Types Packs/Day [...] week 07/29/2024 How often do you attend [facility] or anabaptist services? More than 4 times per year [...] and heating? Not hard at all 07/29/2024 [facility] - Occupational Stress Questionnaire Answer Date [...] No 05/18/2023 Housing Stability Vital Sign Answer Gray e Recorded In the last 12 months, was t here a time when you were not able to pay the mortgage or rent on time? No 07/29/2024 In the past 12 months, how m any times have you moved where you were living? 0 07/29/2024 At any time in the past [address] [facility], were you homeless or living [...] Care Team (Late st Contact Info) Description 08/26/2025 1:30 PM EDT Visit CHEYENNE MUNOZ [address] [place] [address] Rosalind Mendoza CNM [address] [place] [address] documented as of this encounter Procedures Procedure Name Priority Date/Time Associated Diagnosis Comments US BIOPHYSICAL PROFILE WO NON STRESS TESTING Routine 08/06/2025 4:36 PM EDT Diet controlled gestational diabetes mellitus (GDM) in third trimester ([facility]) documented in this encounter Results * US biophysical profile wo non stress testing (08/06/2025 4:36 PM EDT) Anatomical Region Laterality Modality Body Ultrasound 08/09/2025 3:57 PM EDT Impressions 08/10/2025 8:00 AM EDT Anterior placenta Grade 2 and normal biophysical profile 06/05. TRANSCRIBED BY: ELECTRONICALLY SIGNED BY: Rafael Mae MD Narrative 08/10/2025 8:00 AM EDT FINDINGS: Breathing Movements 2 Gross Body Movements 2 Tone 2 Qualitative amniotic fluid volume 2 A single, viable intrauterine is present. The placenta is anterior, Grade not associated with the cervical os. Procedure Note Rafael Mae MD - 08/10/2025 FINDINGS: Breathing Movements 2 Gross Body Movements 2 Tone 2 Qualitative amniotic fluid volume 2 A single, viable intrauterine is present. The placenta isanterior, Grade not associated with the cervical os. IMPRESSION: Anterior placenta Grade 2 and normal biophysical profile 06/05. TRANSCRIBED BY: ELECTRONICALLY SIGNED BY: Rafael Mae MD Rosalind Mendoza CNM IMG OB US PROCEDURES Final R esult documented in this encounter Visit Diagnoses Diagnosis Diet controlled gestational diabetes mellitus (GDM) in third trimester ([facility]) documented in this encounter Care Teams Director Of Development Relationship Specialty Start Date End Date Radha Dong MD [address] [place], [place] [id number] PCP - General Family Medicine 05/19/23 Charissa Glover NP PCP - [place] [employer] 01/27/25 documented as of this encounter
--- OUTSIDE RECORDS SUMMARY | 2025-08-14 07:57 | XMS_ITS | Clinical Summary ---
Author Organization [facility] Healthcare Address [address] [place] [address] Care Team Providers Care Trade Show Specialist Name Role Phone Radha Dong MD Primary Care Provider [phone] Charissa Glover [employer] Unavailable Allergies No known active allergies Medications [...] needed (pain) 30 g 07/09/20 25 025 Discontin ued(Cost of medicatio n) valACYclovir [...] Encounters Date Type Department Care Team Description 08/12/2025 Results Follow-Up [facility] [address] [place] [address] Tom Mendoza CNM OB GROWTH 08/11/2025 Results Follow-Up [facility] [address] [place] [address] Tom Mendoza CNM [facility] GLUCOSE FASTING 08/11/2025 Clinisync Result Encounter [facility] External Department Unsolicited Tom Mendoza CNM 08/09/2025 Clinisync Result Encounter NOMS External Department Unsolicited Tom Mendoza CNM 08/06/2025 4:00 PM EDT Ancillary Procedure [facility] [address] [facility] [address] [place] [phone] Diet controlled gestational diabetes mellitus (GDM) in third trimester ([facility]) 08/06/2025 Travel 07/31/2025 Clinisync Result Encounter [facility]OMS External Department Unsolicited Tom Mendoza CNM 07/27/2025 4:30 PM EDT Routine [facility] [address] [place] [address] Tom Mendoza CNM Non-reactive NST (non-stress test) (Primary Dx); NST (non-stress test) reactive ([facility]); History of gestational diabetes; Gestational diabetes mellitus (GDM) requiring insulin ([facility]); related condition in third trimester ([facility]) 07/27/2025 Bamboo flowsheet [facility] [address] [place] [address] Tom Mendoza CNM 07/23/2025 4:00 PM EDT Ancillary Procedure [facility] [address] [facility] [address] [place] [address] Diet controlled gestational diabetes mellitus (GDM) in third trimester ([facility]) 07/23/2025 3:15 PM EDT Routine [facility] [address] [place] [address] Tom Mendoza CNM NST (non-stress test) reactive ([facility]) (Primary Dx); History of gestational diabetes; Gestational diabetes mellitus (GDM) requiring insulin ([facility]); Encounter for care of first , third trimester ([facility]) 07/23/2025 Bamboo flowsheet [facility] [place] [facility] [address] [place] [address] Tom Mendoza CNM 07/23/2025 Travel 07/22/2025 [facility] [address] [place] [address] Radha Dong MD 07/16/2025 4:15 PM EDT Ancillary Procedure [facility] [address] [facility] [address] [place] [address] Diet controlled gestational diabetes mellitus (GDM) in third trimester ([facility]) 07/16/2025 Travel 07/15/2025 11:10 AM EDT Routine [facility] [address] [place] [phone] Vicente Gatica, Third trimester ([facility]); 35 weeks gestation of ([facility]); Herpes zoster without complication 07/15/2025 Clinisync Result Encounter NOMS External Department Unsolicited Provider, Generic External Data 07/15/2025 Telephone [facility] [address] [place] [address] Nancy Kaur LPN 07/15/2025 Bamboo flowsheet [facility] [address] [place] [address] Vicente Gatica DO 07/09/2025 4:15 PM EDT Ancillary Procedure [facility] [address] [place] [address], [place] [phone] Diet controlled gestational diabetes mellitus (GDM) in third trimester ([facility]) 07/09/2025 1:20 PM EDT Office Visit [facility] [address] [place] [address], [place] [phone] Radha Dong MD Herpes zoster with complication (Primary Dx) 07/09/2025 Travel 07/09/2025 Results Follow-Up [facility] [address] [place] [phone] Tom Mendoza CNM Bile acids, total 07/06/2025 5:00 PM EDT Routine [facility] [address] [place] [address] Tom Mendoza CNM NST (non-stress test) reactive ([facility]) (Primary Dx); History of gestational diabetes; Encounter for care of first , third trimester ([facility]) 07/06/2025 Bamboo flowsheet [facility] [address] [place] [address] Tom Mendoza CNM 07/02/2025 4:15 PM EDT Ancillary Procedure [facility] [place] [facility] [address] [facility] [address] [place] [address] Diet controlled gestational diabetes mellitus (GDM) in third trimester ([facility]) 07/02/2025 Travel 06/30/2025 4:00 PM EDT Routine [facility] [place] [facility] [address] [place] [address] Tom Mendoza CNM Itching (Primary Dx); NST (non-stress test) reactive ([facility]); History of gestational diabetes; Encounter for care of first , third trimester ([facility]) 06/30/2025 Bamboo flowsheet [facility] [place] [address] [place] [address] Tom Mendoza CNM 06/25/2025 4:15 PM EDT Ancillary Procedure [facility] [place] [facility] [address] [facility] [address] [place] [address] Diet controlled gestational diabetes mellitus (GDM) in third trimester ([facility]) 06/25/2025 Travel 06/22/2025 4:15 PM EDT Routine [facility] [place] [address] [place] [address] Tom Mendoza CNM NST (non-stress test) reactive ([facility]) (Primary Dx); History of gestational diabetes; Encounter for care of first , third trimester ([facility]) 06/22/2025 Results Follow-Up [facility] [address] [place] [address] Tom Mendoza CNM US biophysical profile wo non stress testing, US biophysical profile wo non stress testing 06/18/2025 4:15 PM EDT Ancillary Procedure [facility] [place] [facility] [address] [facility] [address] [place] [address] Diet controlled gestational diabetes mellitus (GDM) in third trimester ([facility]) 06/18/2025 Travel 06/15/2025 5:15 PM EDT Routine [facility] [place] [facility] [address] [place] [address] Tom Mendoza CNM History of gestational diabetes (Primary Dx); Encounter for care of first , third trimester ([facility]) 06/15/2025 Bamboo flowsheet [facility] [address] [place] [address] Tom Mendoza CNM 06/05/2025 4:00 PM EDT Ancillary Procedure [facility] [place] [facility] [address] [address] related condition in third trimester ([facility]) 06/05/2025 Travel 06/04/2025 9:00 AM EDT [facility] [address] [place] [address] Tom Mendoza CNM Encounter for care of first , second trimester ([facility]) (Primary Dx); related condition in third trimester ([facility]); Diet controlled gestational diabetes mellitus (GDM) in third trimester ([facility]); History of gestational diabetes 06/04/2025 Bamboo flowsheet [facility] [address] [place] [address] Tom Mendoza CNM 05/26/2025 3:00 PM EDT [facility] [address] [place] [address] Tmo Mendoza CNM Encounter for care of first , second trimester ([facility]) (Primary Dx); History of gestational diabetes 05/26/2025 Results [facility] [address] [place] [address] Paola Gómez MA GLUCOSE TOLERANCE TEST, GESTATIONAL,4SPEC(10 0G) 05/26/2025 Refill [facility] [address] [place] [address] Paoal Gómez MA History of gestational diabetes from Last 3 Months Immunizations Immunization Administration [...] and heating? Not hard at all 07/29/2024 [facility] - Occupational [...] Info) Description 08/26/2025 1:30 PM EDT Visit [facility] [address] [place] [address] Tom Mendoza CNM [address] [place], [place] [phone] Health Maintenance Due Date Last Done Comments Influenza Vaccine (#1) 2025 Procedures Procedure Name Priority Date/Time Associated Diagnosis Comments [facility] GLUCOSE FASTING Routine 08/11/2025 6:26 AM EDT ALL CBC WITH AUTO DIFF Routine 6:01 AM EDT TB[facility] DRUG SCREEN RAPID (URINE) Routine 08/09/2025 5:15 PM EDT [facility] CBC WITH PLATELET NO DIFFERENTIAL Routine 08/09/2025 5:15 PM EDT US BIOPHYSICAL PROFILE WO NON STRESS TESTING Routine 08/06/2025 4:36 PM EDT Diet controlled gestational diabetes mellitus (GDM) in third trimester ([facility]) US OB GROWTH 07/31/2025 2:03 PM EDT US BIOPHYSICAL PROFILE WO NON STRESS TESTING Routine 07/23/2025 4:32 PM EDT Diet controlled gestational diabetes mellitus (GDM) in third trimester ([facility]) US BIOPHYSICAL PROFILE WO NON STRESS TESTING Routine 07/16/2025 4:20 PM EDT Diet controlled gestational diabetes mellitus (GDM) in third trimester ([facility]) POCT URINALYSIS DIPSTICK Routine 07/15/2025 11:27 AM EDT Third trimester ([facility]) STREP GP B CULTURE+RFLX Routine 07/15/2025 11:10 AM EDT US BIOPHYSICAL PROFILE WO NON STRESS TESTING Routine 07/09/2025 4:22 PM EDT Diet controlled gestational diabetes mellitus (GDM) in third trimester ([facility]) US OB FOLLOW UP TRANSABDOMINAL APPROACH Routine 07/02/2025 4:45 PM EDT Diet controlled gestational diabetes mellitus [...] 8:04 AM EDT Elevated glucose tolerance test from Last 3 Months Results * (ABNORMAL) [facility] GLUCOSE FASTING (08/11/2025 6:26 AM EDT) Pathologist [facility] GLUCOSE FASTING 118(H) <95 mg/dL [facility] 08/11/2025 6:26 AM EDT 08/11/2025 6:29 AM EDT Narrative CLINISYNC - 08/11/2025 6:44 AM EDT us Tom Santos Lateshaharitha KIM CLINISYNC Final Result CLINISYNC TB * (ABNORMAL) ALL CBC WITH AUTO DIFF (08/11/2025 6:01 AM EDT) TBH WBC 13.0(H) 4.0 - 11.0 10 3/uL TBH TBH RBC 3.80(L) 4.20 - 5.40 10 6/uL TBH TBH HGB 10.6(L) 12.0 - 16.0 g/dL TBH TBH HCT 32.4(L) 36.0 - 48.0 % TBH TBH MCV 85.3 81.0 - 99.0 fL TBH TBH MCH 27.9 26.7 - 34.0 pg TBH TBH MCHC 32.7 29.9 - 35.2 g/dL TBH TBH RDW 13.2 11.0 - 15.0 % TBH TBH PLT 203 150 - 450 10 3/uL TBH TBH MPV 10.9 9.5 - 13.5 fL TBH NEUTROPHILS PERCENT AUTO 63.9 43.0 - 75.0 % TBH LYMPHOCYTES PERCENT AUTO 25.7 20.5 - 60.0 % TBH MONOCYTES PERCENT AUTO 8.9 1.7 - 12.0 % TBH TBH EO % 0.6(L) 0.9 - 7.0 % TBH BASOPHILS PERCENT AUTO 0.4 0.2 - 2.0 % TBH IMMATURE GRANULOCYTES PCT AUTO 0.5 0.0 - 0.5 % TBH NEUTROPHILS ABSOLUTE AUTO 8.3(H) 1.4 - 6.5 10 3/uL TBH LYMPHOCYTES ABSOLUTE AUTO 3.3 1.2 - 3.8 10 3/uL TBH MONOCYTES ABSOLUTE AUTO 1.2(H) 0.3 - 0.8 10 3/uL TBH TBH EO # 0.1 0.0 - 0.7 10 3/uL TBH BASOPHILS ABSOLUTE AUTO 0.1 0.0 - 0.1 10 3/uL TBH IMMATURE GRANULOCYTES ABS AUTO 0.07(H) 0.00 - 0.03 10 3/uL TBH 08/11/2025 6:01 AM EDT 08/11/2025 6:11 AM EDT Narrative CLINISYNC - 08/11/2025 6:21 AM EDT us Tom ALVAREZ CLINISYNC Final Result Performing Organization Address [facility] Co de Phone Number [facility] * [facility] DRUG SCREEN RAPID (URINE) (08/09/2025 5:15 PM EDT) CANNABINOID SCREEN URINE NEGATIVE NEGATIVE TBH PHENCYCLIDINE SCREEN URINE NEGATIVE NEGATIVE TBH COCAINE SCREEN URINE NEGATIVE NEGATIVE TBH METHAMPHETAMINES SCREEN URINE NEGATIVE NEGATIVE TBH OPIATE SCREEN URINE NEGATIVE NEGATIVE TBH AMPHETAMINE SCREEN URINE NEGATIVE NEGATIVE TBH BENZODIAZEPINES SCREEN URINE NEGATIVE NEGATIVE TBH TRICYCLIC ANTIDEPRESSANT URINE NEGATIVE NEGATIVE TBH METHADONE SCREEN URINE NEGATIVE NEGATIVE TBH BARBITURATES SCREEN URINE NEGATIVE NEGATIVE TBH OXYCODONE SCREEN URINE NEGATIVE NEGATIVE TBH BUPRENORPHINE SCREEN URINE NEGATIVE NEGATIVE TBH Comment: DRUG CLASS TEST SYSTEM CUT-OFF CONCENTRATIONS ARE FOLLOWS: AMP (Amphetamine): 500 ng/mL BAR (Barbiturates): 200 ng/mL BZO (Benzodiazepines): 150 ng/mL BUP (Buprenorphine): 10 ng/mL BROOKS (Cocaine): 150 ng/mL mAMP (Methamphetamine): 500 ng/mL MTD (Methadone): 200 ng/mL OPI (Opiates): 100 ng/mL OXY (Oxycodone): 100 ng/mL PCP (Phencyclidine): 25 ng/mL THC (Cannabinoids): 50 ng/mL TCA (Trycyclic Antidepressants): 300 ng/mL 08/09/2025 5:15 PM EDT 08/09/2025 5:25 PM EDT Narrative CLINISYNC - 08/09/2025 5:39 PM EDT us Tom ALVAREZ CLINISYNC Final Result Performing Organization Address [facility]/ZIP Co de Phone Number [facility] * (ABNORMAL) HP CBC WITH PLATELET NO DIFFERENTIAL (08/09/2025 5:15 PM EDT) TB WBC 10.1 4.0 - 11.0 10 3/uL TBH TBH RBC 4.25 4.20 - 5.40 10 6/uL TBH TBH HGB 12.2 12.0 - 16.0 g/dL TBH TBH HCT 35.7(L) 36.0 - 48.0 % TBH TBH MCV 84.0 81.0 - 99.0 fL TBH TBH MCH 28.7 26.7 - 34.0 pg TBH TBH MCHC 34.2 29.9 - 35.2 g/dL TBH TBH RDW 13.2 11.0 - 15.0 % TBH TBH PLT 247 150 - 450 10 3/uL TBH TBH MPV 11.1 9.5 - 13.5 fL TBH 08/09/2025 5:15 PM EDT 08/09/2025 5:25 PM EDT Narrative CLINISYNC - 08/09/2025 5:29 PM EDT us Tom Mendoza [facility] CLINISYNC Final Result [facility] * US biophysical profile wo non stress testing (08/06/2025 4:36 PM EDT) Only the most recent of6 resultswithin the time period is included. Anatomical Region Laterality Modality Body Ultrasound 08/09/2025 [...] OB US PROCEDURES Final R esult * US OB GROWTH (07/31/2025 2:03 PM EDT) Anatomical Region Laterality Modality Other 07/31/2025 2:03 PM EDT Narrative 07/31/2025 2:06 [place] [address] Ultrasound Report Signed Patient: MARTHA DEJESUS MR#: [id number] : 1995 Acct:[id number] Age/Sex: 30 / F ADM Date: 07/30/25 Loc: [facility] 252-[address]: TOM MENDOZA APRN, CNM Ordering Physician: TOM MENDOZA APRN, CNM Date of Service: 07/30/25 Procedure(s): US OB growth Accession Number(s): [id number] cc: TOM MENDOZA APRN, CNM [place] [id number] Patient Name: MARTHA DEJESUS MRN: TBH:[id number] date: 1995 Sex: F Assigned Patient Location: Current Patient Location: [facility] Accession/Order Number: [id number] Exam Date: 07/30/2025 15:58 Report Date: 07/31/2025 [...] Jr., D.O. 07/31/2025 2:03 PM Dictation Location: [place] [address] Electronically authenticated by: [id number] Y Date: 07/31/2025 14:03 Dictated By: Rafael Leigh M.D. Signed By: 07/31/25 1406 DD/ 140 TD/TT: Day Care Worker: Procedure Note Radiology, Radiologist, MD - 07/31/2025 [place] [address] Ultrasound Report Signed Patient: MARTHA DEJESUS RMR#: [id number] : 1995Acct:[id number] Age/Sex: 30 / FADM Date: 07/30/25 Loc: [facility] 252-[address]: TOM MENDOZA APRN, CNM Ordering Physician: TOM MENDOZA APRN, CNM Date of Service: 07/30/25 Procedure(s): US OB growth Accession Number(s): [id number] cc: TOM MENDOZA APRN, CNM [place] [address] Patient Name: MARTHA DEJESUS MRN: [facility]:[id number] date: 1995 Sex: F Assigned Patient Location: Current Patient Location: [facility] Accession/Order Number: [id number] Exam Date: 07/30/2025 15:58 Report Date: 07/31/2025 [...] Jr., D.O. 07/31/2025 2:03 PM Dictation Location: [place] [address] Electronically authenticated by: [id number] Y Date: 4:03 Dictated By: Rafael Leigh M.D. Signed By:07/31/25 1406 DD/ 1403 TD/TT: Day Care Worker: Tom Mendoza CNM [facility]IN[facility] IMAG[facility] Final Resu lt * (ABNORMAL) POCT urinalysis dipstick manually resulted [...] (CDC) and TBH STREP GP B CULTURE+RFLX [employer] TBH STREP [...] TBH STREP GP B CULTURE+RFLX Performed at: [facility] STREP GP B CULTURE+RFLX [address] [place], [place] [id number] TBH STREP GP B CULTURE+RFLX [place] Actor: Cirilo Arriaga PhD, Phone: [phone] [facility] 07/15/2025 11:1 0 AM EDT 07/16/2025 6:10 AM EDT Narrative SUNIL - 07/20/2025 1:15 PM EDT us Generic External Data Provider LAB BLOOD ORDERAB LES Final Result [facility] * US OB follow up transabdominal approach (07/02/2025 4:45 PM EDT) Only the most recent of2 resultswithin the time period is included. Anatomical Region Laterality Modality Body Ultrasound 08/11/2025 12:1 3 PM EDT Impressions 08/11/2025 2:17 PM EDT Single, live intrauterine , current sonographic age of 33 weeks and 3 days, with an estimated date of delivery of August 17, 2025. * Estimated Weight (g) by Percentile is based upon an accurate estimated age based on last menstrual period. TRANSCRIBED BY: ELECTRONICALLY SIGNED BY: Rafael Mae MD Narrative 08/11/2025 2:17 PM EDT FINDINGS: A single, live intrauterine is present with normal cardiac rate of 153 beats per minute. Normal activity and amniotic fluid volume. Amniotic fluid index is 10.0 cm. Morphology is grossly normal. The cervix is long and closed,5.2 cm. The placenta is fundal Grade 1, not associated with the cervical os. The current sonographic age is 33 weeks and 3 days, based on the following measurements: BPD 8.3cm (33 weeks, 2 days Head Circumference 30.4cm (33 weeks, 6 days) Abdominal Circumference 30.3cm (34 weeks, 1 days) Femur Length 6.3cm ( 32weeks, 3 days) Presentation Cephalic Placenta Fundal Weight (g) by Percentile 31.9 % * These measurements result in an estimated date of delivery of August 17, 2025. The current estimated weight is 2229 grams (4 pound, 15 ounces). Procedure Note Rafael Mae MD - 08/11/2025 FINDINGS: A single, live intrauterine is present with normal cardiacrate of 153 beats per minute. Normal activity and amniotic fluidvolume. Amniotic fluid index is 10.0 cm. Morphology is grossly normal.The cervix is long and closed,5.2 cm. The placenta is fundal Grade 1, notassociated with the cervical os. The current sonographic age is 33 weeksand 3 days, based on the following measurements: BPD 8.3cm (33 weeks, 2 days Head Circumference 30.4cm (33 weeks, 6 days) Abdominal Circumference 30.3cm (34 weeks, 1 days) Femur Length 6.3cm ( 32weeks, 3 days) Presentation Cephalic Placenta Fundal Weight (g) by Percentile 31.9 % * These measurements result in an estimated date of delivery of July. The current estimated weight is 2229 grams (4 pound, 15ounces). IMPRESSION: Single, live intrauterine , current sonographic age of 33 weeksand 3 days, with an estimated date of delivery of August 17, 2025. * Estimated Weight (g) by Percentile is [...] Performing Organization Information Site ID: AMD Name: [facility] Address: [address] [place] [address] [place] [address] Director: Anthony De La Paz M.D.,PhD Tom Mendoza CNM LAB BLOOD ORDERABLES Final R esult [facility] * Lipase (06/30/2025 4:11 PM EDT) LIPASE 38 7 - 60 U/L [facility] Blood Venous blood specimen / Unknown 06/30/2025 4:11 PM EDT 06/30/2025 4:12 PM EDT Narrative Resulting Agency Comment Performing Organization Information Site ID: QPT Name: [facility] Address: [address] [place] [address], [address] [place] [phone] Director: Stevie Doan MD Tom Mendoza CNM LAB BLOOD ORDERABLES Final R esult [facility] * Amylase (06/30/2025 4:11 PM EDT) AMYLASE 40 21 - 101 U/L [facility] Blood Venous blood specimen / Unknown 06/30/2025 4:11 PM EDT 06/30/2025 4:12 PM EDT Narrative Resulting Agency Comment Performing Organization Information Site ID: QPT Name: [facility] Address: [place] , [address] [place] [phone] Director: Stevie Doan MD Tom L Floro [facility] LAB BLOOD ORDERABLES Final R esult Performing Organization Address [facility] Co de Phone Number [facility] * (ABNORMAL) [...] Performing Organization Information Site ID: QPT Name: [facility] Address: [place] , [address] [place] [phone] Director: Stevie Doan MD us Tom L Lateshao [facility] LAB BLOOD ORDERABLES Final R esult Performing Organization Address [facility]/ZIP Co de Phone Number [facility] * (ABNORMAL) GLUCOSE TOLERANCE TEST, GESTATIONAL,4SPEC(100G) (05/20/2025 [...] Performing Organization Information Site ID: QPT Name: [facility] Address: [address] , [address] [place] [phone] Director: Stevie Doan MD Tom Mendoza CNM LAB BLOOD ORDERABLES Final R esult [facility] from Last 3 Months Insurance [facility] MEDICAID Care Teams Trade Show Specialist Relationship Specialty Start Date End Date Radha Dong MD [address] [place], [place] [id number] PCP - General Family Medicine 05/19/23 Charissa Glover NP [facility] - Jose Commercial 01/27/25
--- OUTSIDE RECORDS SUMMARY | 2025-08-14 07:57 | XMS_ITS | Encounter Summary ---
Author Organization [facility] Healthcare Address [address] [place] [address] Care Team Providers Care Alliances Consultant Name Role Phone Radha Dong MD Primary Care Provider [phone] Charissa Glover EMAIL ENGINEER Unavailable Encounter Details Date Type Department Care Team (Late st Contact Info) Description 05/26/2025 Results Follow-Up [facility] [address] [place] [phone] Paola Gómez MA GLUCOSE TOLERANCE TEST, GESTATIONAL,4SPEC(10 [...] week 07/29/2024 How often do you attend [facility] or baptism services? More than 4 times per year [...] time in the past 12 m [facility], were you homeless or living in a [...] 1:30 PM EDT Visit [facility] [address] [place] [address] Rosalind Mendoza, KIM [address] [place], [place] [phone] documented as of this encounter Visit Diagnoses Not on filedocumented in this encounter Care Teams Alliances Consultant Relationship Specialty Start Date End Date Radha Dong MD [address] [place] [address] PCP - General Family Medicine 05/19/23 Charissa Glover NP PCP - Jose Chopra 01/27/25 documented as of this encounter
--- OUTSIDE RECORDS SUMMARY | 2025-08-14 07:57 | XMS_ITS | Encounter Summary ---
Author Organization [facility] Healthcare Address [address] [place] [address] Care Team Providers Care Etiquette Teacher Name Role Phone Radha Dong MD Primary Care Provider [phone] Charissa Glover KAITARA TARAKA Unavailable Encounter Details Date Type Department Care Team (Late st Contact Info) Description 05/13/2025 Results Follow-Up [facility] OBGYN [address] [place] [phone] Paola Gómez MA GLUCOSE, GESTATIONAL SCREEN (50G)-[id number] [...] any clubs o r organizations such as alevism groups, unions, fraternal or athletic groups, or [...] and heating? Not hard at all 07/29/2024 [facility] - Occupational Stress [...] any time in the past 12 m [facility], were you homeless or living in [...] 08/26/2025 1:30 PM EDT Visit [facility] [address] [place] [address] Rosalind Mendoza, CN [address] [place] [address] documented as of this encounter Visit Diagnoses Not on filedocumented in this encounter Care Teams Etiquette Teacher Relationship Specialty Start Date End Date Radha Dong MD [address] [place] [address] PCP - General Family Medicine 05/19/23 Charissa Glover NP PCP - Jose Chopra 01/27/25 documented as of this encounter
--- OUTSIDE RECORDS SUMMARY | 2025-08-14 07:58 | XMS_ITS | Encounter Summary ---
Author Organization [facility] Address [address] [place] [address] Care Team Providers Care Dust Brush Assembler Name Role Phone Radha Dong MD Primary Care Provider [phone] Charissa Glover JOURNEYMAN POWERHOUSE OPERATOR Unavailable Encounter Details Date Type Department Care Team (Late st Contact Info) Description 07/15/2025 Telephone [facility] MUNOZ [address] [place] [address] [place] [address] Nancy Kaur LPN Social History Tobacco [...] How often do you attend chur or sikhism services? More than 4 times per year [...] and heating? Not hard at all 07/29/2024 [facility] - Occupational [...] any time in the past 12 m [facility], were you homeless or living in [...] 1:30 PM EDT Visit [facility] MUNOZ [address] [place] [address] Rosalind Mendoza, ARLINE [address] [place] [address] documented as of this encounter Visit Diagnoses Not on filedocumented in this encounter Care Teams Dust Brush Assembler Relationship Specialty Start Date End Date Radha Dong MD [address] [place], [place] [id number] PCP - General Family Medicine 05/19/23 Charissa Glover NP PCP - Jose Chopra 01/27/25 documented as of this encounter
--- OUTSIDE RECORDS SUMMARY | 2025-08-14 07:58 | XMS_ITS | Encounter Summary ---
Author Organization [facility] Address [address] [place] [address] Care Team Providers Care Boat And Plant Utility Supervisor Name Role Phone Radha Dong MD Primary Care Provider [phone] Charissa Glover SCHOOL YEAR NANNY Unavailable Encounter Details Date Type Department Care Team (Late st Contact Info) Description 06/22/2025 Results Follow-Up [facility] OBGYN [address] [place] [address] Rosalind Mendoza, CNM [address] [place], [place] [phone] US biophysical profile wo non stress testing, [...] ways by your partner or ex-partner? No 07 / Within the last year, have y ou [...] week 07/29/2024 How often do you attend [facility] or shinto services? More than 4 times [...] and heating? Not hard at all 07/29/2024 [facility] of Occupat ional Health - Occupational Stress [...] Info) Description 08/26/2025 1:30 PM EDT Visit [facility] [place] [facility] [address] [place] [address] Rosalind Mendoza CNM [address] [place], [place] [id number] documented as of this encounter Visit Diagnoses Not on filedocumented in this encounter Care Teams Boat And Plant Utility Supervisor Relationship Specialty Start Date End Date Radha Dong MD [address] [place] [address] PCP - General Family Medicine 05/19/23 Charissa Glover NP PCP - Jose Chopra 01/27/25 documented as of this encounter
--- OUTSIDE RECORDS SUMMARY | 2025-08-14 07:58 | XMS_ITS | Encounter Summary ---
Author Organization [facility] Address [address] [place] [address] Care Team Providers Care Business Librarian Name Role Phone Halle Jensen DO Unavailable [phone] Radha Dong MD Primary Care Provider [phone] Charissa Glover NP Unavailable Charissa Glover POLICE LIAISON OFFICER Unavailable Encounter Details Date Type Department Care Team (Late st Contact Info) Description 05/31/2023 Abstract [facility] Family Medicine [address] [place] [address] Charissa Glover NP Social History Tobacco Use [...] often do you attend chur ch or temple services? More than 4 times per year 05/18/2023 Do you belong to any clubs o r organizations such as sikhism groups, unions, fraternal or athletic groups, or [...] and heating? Not hard at all 05/18/2023 [facility] Occupat ional Health - Occupational [...] in a fpc (including now)? No 05/18/2023 Comments Unknown Sex [...] Description 08/26/2025 1:30 PM EDT Visit [facility] Abiel MUNOZ [address] [place] [address] Rosalind Mendoza CNM [address] [place] [address] documented as of this encounter Visit Diagnoses Not on filedocumented in this encounter Care Teams Business Librarian Relationship Specialty Start Date End Date Halle Jensen DO [address] [facility] [address] [place] [address] PCP - Paint Commercial 03/29/22 Radha Dong MD [address] [place] [address] PCP - General Family Medicine 05/19/23 Charissa Glover NP PCP - Paint Commercial 12/28/23 5 Charissa Glover NP PCP - Paint Commercial 01/27/25 documented as of this encounter
--- OUTSIDE RECORDS SUMMARY | 2025-08-14 07:58 | XMS_ITS | Encounter Summary ---
Author Organization [facility] Address [address] [place] [address] Care Team Providers Care Insurance Administrator Name Role Phone Radha Dong MD Primary Care Provider [phone] Charissa Glover COMMERCIAL CONSTRUCTION PROJECT MANAGER Unavailable Encounter Details Date Type Department [...] any clubs o r organizations such as christian groups, unions, fraternal or athletic groups, or [...] and heating? Not hard at all 07/29/2024 [facility] [place] of Occupat ional Health - Occupational Stress [...] any time in the past 12 m [facility], were you homeless or living in [...] 08/26/2025 1:30 PM EDT Visit CHEYENNE MUNOZ [address] [place] [address] Rosalind Mendoza CNM [address] [place] [address] documented as of this encounter Visit Diagnoses Not on filedocumented in this encounter Care Teams Insurance Administrator Relationship Specialty Start Date End Date Radha Dong MD [address] [place] [address] PCP - General Family Medicine 05/19/23 Charissa Glover NP PCP - Jose Chopra 01/27/25 documented as of this encounter
--- OUTSIDE RECORDS SUMMARY | 2025-08-14 07:58 | XMS_ITS | Encounter Summary ---
Author Organization [facility] tem Address [id number] [address] [place] [address] Care Team Providers Care Utility Repairer Name Role Phone Melia Henriquez Sandra SITE SUPERVISING TECHNICAL OPERATOR-STAGECRAFT PROFESSOR Primary Care Provider [phone] Encounter Details Date Type Department Care Team (Late st Contact Info) Description 07/25/2025 Results Follow-Up Maternal- Medicine at [facility] [address] [place] [address] Dorita Retana MD [address] [facility] 1st Floor [place], [place] [phone] Varicella zoster antibody, IgG Social History Tobacco [...] on filedocumented in this encounter Care Teams Utility Repairer Relationship Specialty Start Date End Date Melia Henriquez, SITE SUPERVISING TECHNICAL OPERATOR-STAGECRAFT PROFESSOR [address] [place] [address] PCP - General Nurse Practitioner 11/25/23 documented as of this encounter
--- OUTSIDE RECORDS SUMMARY | 2025-08-14 07:58 | XMS_ITS | Encounter Summary ---
Author Organization [facility] Address [address] [place] [address] Care Team Providers Care Quality Control Inspector Name Role Phone Radha Dong MD Primary Care Provider [phone] Charissa Glover MOLDER CLOSED MOLDS Unavailable Encounter Details Date Type Department Care Team (Late st Contact Info) Description 08/12/2025 Results Follow-Up [facility] OBGYN [address] [place] [address] Rosalind Mendoza, CNM [address] [place], [place] [phone] OB [facility] Social History Tobacco Use Types Packs/Day Years [...] and heating? Not hard at all 07/29/2024 [facility] [place] of Occupat ional Health - Occupational Stress [...] any time in the past 12 m [facility], were you homeless or living in a [...] 08/26/2025 1:30 PM EDT Visit CHEYENNE MUNOZ [address] [place] [address] Rosalind Mendoza CNM [address] [place] [address] documented as of this encounter Visit Diagnoses Not on filedocumented in this encounter Care Teams Quality Control Inspector Relationship Specialty Start Date End Date Radha Dong MD [address] [place] [address] PCP - General Family Medicine 05/19/23 Charissa Glover NP PCP - Jose Chopra 01/27/25 documented as of this encounter
--- OUTSIDE RECORDS SUMMARY | 2025-08-14 07:58 | XMS_ITS | Clinical Summary ---
Author Organization [employer] tem Address [id number] [address] [place] [address] Care Team Providers Care Label Pinker Name Role Phone Melia Henriquez Sandra HANCOCKN-RN CORONARY CARE UNIT Primary Care Provider [phone] Allergies No known active allergies Medications ondansetron ODT (ZOFRAN ODT) 4 mg disintegrating tablet Dissolve 1 tablet (4 mg total) on tongue every 8 (eight) hours as needed for nausea for up to 10 doses. 10 tablet 11/25/19 24 Active Additional Information Patient not taking.Reported on [...] SHORT PEN NEEDLE) 31 gauge x 5/16 needleIndications: Insulin controlled gestational diabetes mellitus (GDM) during , antepartum Use daily for insulin 100 each 2 07/01/20 25 Active insulin glargine (LANTUS SOLOSTAR U-100 INSULIN) 100 unit/mL (3 mL) insulin penIndications:Ins ulin controlled gestational diabetes mellitus (GDM) during , antepartum Inject 16 units nightly in subcutaneous space, prime 2 units 15 mL 3 07/14/20 25 Active valACYclovir (VALTREX) 500 mg tablet Take 1 tablet (500 mg total) by mouth in the morning. Active clobetasoL (TEMOVATE) 0.05 % ointmentIndication s:Blister of hand without infection, unspecified laterality, subsequent encounter,Dyshidro tic eczema Apply a thin layer to the affected areas twice daily. 30 g 07/01/20 25 025 Active Problems Problem Noted Date Diagnosed Date BPPV (benign paroxysmal positional vertigo), shaniqua ateral 06/02/2025 Gestational diabetes mellitus (GDM) in second tr imester 06/02/2025 Estimated Date of Delivery Comme nts Yes 08/13/2025 Based on last me nstrual period of 11/06/2024 Encounters Date Type Department Care Team Description 08/05/2025 Telephone Maternal- Medicine at [facility] [address] [place] [address] Aida Garcia RN 07/25/2025 Results Follow-Up Maternal- Medicine at [place] [address] [place] [address] Dorita Retana MD Varicella zoster antibody, IgG 07/21/2025 8:00 AM EDT Office Visit Maternal- Medicine at [place] [address] [place] [address] Dorita Retana MD Insulin controlled gestational diabetes mellitus (GDM) during , antepartum (Primary Dx); Herpes zoster with other complication; Obesity affecting in third trimester, unspecified obesity type; Dyshidrotic eczema; 36 weeks gestation of 07/21/2025 Travel 07/15/2025 Telephone Maternal- Medicine at [facility] [address] [place] [address] Lety Ocampo, ADA 07/14/2025 Orders Only Maternal- Medicine at [place] [address] [place] [address] Dorita Retana MD Insulin controlled gestational diabetes mellitus (GDM) during , antepartum 07/07/2025 Telephone Maternal- Medicine at [facility] [address] [place] [address] Lety Ocampo RN 07/07/2025 Orders Only Maternal- Medicine at [facility] [address] [facility] [place] [address] Dorita Retana MD Insulin controlled gestational diabetes mellitus (GDM) during , antepartum 07/03/2025 8:53 AM EDT - 07/03/2025 11:59 PM EDT Hospital Encounter [facility] [address] [place] [address] Blister of hand without infection, unspecified laterality, subsequent encounter; Dyshidrotic eczema; Insulin controlled gestational diabetes mellitus (GDM) during , antepartum; Obesity affecting in third trimester, unspecified obesity type Discharge Disposition: Home 07/03/2025 Orders Only Maternal- Medicine at [facility] [address] [place] [address] Floresita Griffith RN Insulin controlled gestational diabetes mellitus (GDM) during , antepartum (Primary Dx) 07/01/2025 2:30 PM EDT Office Visit Maternal- Medicine at [facility] [address] [place] [address] Dorita Retana MD Insulin controlled gestational diabetes mellitus (GDM) during , antepartum (Primary Dx); Blister of hand without infection, unspecified laterality, subsequent encounter; Dyshidrotic eczema; Obesity affecting in third trimester, unspecified obesity type; 33 weeks gestation of 07/01/2025 Orders Only Maternal- Medicine at [facility] [address] [place] [address] Marci Vences LPN Blister of hand without infection, unspecified laterality, subsequent encounter (Primary Dx); Dyshidrotic eczema; Insulin controlled gestational diabetes mellitus (GDM) during , antepartum; Obesity affecting in third trimester, unspecified obesity type 07/01/2025 Documentation Maternal- Medicine at [facility] [address] [place] [address] Gloria Holt RN 06/30/2025 Travel 06/30/2025 Telephone Maternal- Medicine at [facility] [address] [place] [address] Renae Landrum LD 06/22/2025 Telephone Maternal- Medicine at [facility] [address] [facility] [address] 06/16/2025 Telephone Maternal- Medicine at [facility] [address] [place] [address] Nikki Jarvis LD 06/08/2025 1:30 PM EDT Support Visit Maternal- Medicine at [facility] [address] [place] [address] Renae Landrum LD Fischer, Kelli, ALMITA Gestational diabetes mellitus (GDM) in second trimester, gestational diabetes method of control unspecified (Primary Dx) 06/08/2025 Orders Only Maternal- Medicine at [place] [address] [facility] [place] [address] Renae Landrum LD 06/08/2025 Travel 06/03/2025 Abstract Maternal- Medicine at [place] [address] [place] [address] External, Scanning Provider 06/03/2025 Orders Only Maternal- Medicine at [place] [address] [facility] [address] Ref Prov, Not In System 06/02/2025 Abstract Maternal- Medicine at [place] [address] [place] [address] External, Scanning Provider 06/02/2025 Abstract Maternal- Medicine at [facility] [address] [place] [address] External, Scanning Provider from Last [...] PM EDT Herpes zoster with other complication [facility] COMPREHENSIVE ANATOMIC SURVEY Routine 07/03/2025 10:59 AM EDT Blister of hand without infection, unspecified laterality, subsequent encounter Dyshidrotic eczema Insulin controlled gestational diabetes mellitus (GDM) during , antepartum Obesity affecting in third trimester, unspecified obesity type GLUCOSE TOLERANCE, FASTING Routine 05/20/2025 from Last 3 Months Results * Varicella zoster antibody, IgG (07/24/2025 3:33 PM EDT) VARICELLA IGG >8.0 <1.0 AI 07/25/2025 6:16 AM EDT [facility] Blood Venous blood / Unknown Venipuncture / Unknown 07/24/2025 3:33 PM EDT 07/24/2025 3:33 PM EDT Narrative [facility] - 07/25/2025 6:16 AM EDT Intepretation < 0.9 Negative 0.9 - 1.0 Equivocal > 1.0 Positive us Dorita eRtana MD LAB BLOOD ORDERABLES Final Resul t [facility] [address] [place] [address], [place] [phone] * [facility] COMPREHENSIVE ANATOMIC SURVEY (07/03/2025 10:59 AM EDT) Anatomical Region Laterality Modality OB-SUPERANNUATION FUNDS MANAGER Ultrasound 07/03/2025 9:35 AM EDT Narrative 07/03/2025 12:12 PM EDT NAME: KING NELLA BERRY : 1995 SEX: F Accession Number: [id number] ORDERING PHYSICIAN: GEOVANI LUNA REFERRING PHYSICIAN: TOM KAMINSKI Coding ----- --------- Procedures 30009: Ultrasound, uterus, real time with image documentation, and maternal evaluation plus detailed anatomic examination, transabdominal approach;single or first gestation 89054: Transvaginal Ultrasound (OB) Indication ----- --------- Screening for Anatomic Survey , Screening for cervical length , Gestational diabetes. History ----- --------- OB History 1. Para 0 [id number] Maternal Assessment ----- --------- Physical Exam Height [...] EFW (oz) 13 oz EFW by: Hadlock ([id number]-FL) Extended Tibia 52.9 mm 31w 3d 4% Estefany Pop Singer 5.3 mm CM 6.1 mm 16% Nicolaides [...] Thorax 4-chamber view. RVOT view. 3-vessel view. 9-exlajt-elbahvp view. Interventricular septum. Diaphragm. Spine: Cervical spine. [...] colleagues, 1984). Recommendations ----- --------- Please see [facility] recommendations from prior clinical and/or ultrasound report documentation. The patient is scheduled in four weeks for follow up growth ultrasound. The patient is scheduled in three weeks for provider visit. Subsequent follow up or other follow up as clinically determined by primary OB provider unless otherwise specified by MFM. Results forwarded to ordering provider so they can follow up with the patient as necessary. Procedure Note Geovani Luna MD - 07/03/2025 NAME: KING NELLA BERRY : 1995 SEX: F Accession Number: [id number] ORDERING PHYSICIAN: GEOVANI LUNA REFERRING PHYSICIAN: TOM KAMINSKI Coding ----- --------- Procedures 32399: Ultrasound, uterus, real time with imagedocumentation, and maternal evaluation plus detailed anatomic examination, transabdominalapproach;single or first gestation 25181: Transvaginal Ultrasound (OB) Indication ----- --------- Screening for Anatomic Survey , Screening for cervical length ,Gestational diabetes. History ----- --------- OB History 1. Para 0 [id number] Maternal Assessment ----- --------- Physical Exam Height [...] Cerebellum tr 42.0 mm 33w 1d 17% Pawan AC 304.5 mm 34w 3d 62% Hadlock Femur 60.9 mm 31w 4d 2% Hadlock Humerus 56.5 mm 32w 6d 25% Estefany HC / AC 0.97 EFW 2,183 g 24% Hadlock EFW (lb) 4 lb EFW (oz) 13 oz EFW by: Hadlock (UDV-[id number]-SB-FL) Extended Tibia 52.9 mm 31w 3d 4% Estefany Pop Singer 5.3 mm CM 6.1 mm 16% Nicolaides [...] Thorax 4-chamber view. RVOT view. 3-vessel view. 1-htbjwu-ikwtbvuwamj. Interventricular septum. Diaphragm. Spine: Cervical spine. Thoracic [...] colleagues, 1984). Recommendations ----- --------- Please see [facility] recommendations from prior clinical and/or ultrasoundreport documentation. The patient is scheduled in four weeks for follow up growth ultrasound. The patient is scheduled in three weeks for provider visit. Subsequent follow up or other follow up as clinically determined byprimary OB provider unless otherwise specified by M. Results forwarded to ordering provider so they can follow up with thepatient as necessary. Geovani Luna MD [facility] US ORDERABLES Final Resul t * Glucose [...] ORDERABLES Ashley l Result MANUALLY TRANSCRIBED RESULTS from Last 3 Months Insurance [facility] MEDICAID Care Teams Label Pinker Relationship Specialty Start Date End Date Melia Henriquez, SANE RN-RN CORONARY CARE UNIT [address] [place] [address] PCP - General Nurse Practitioner 11/25/23
--- OUTSIDE RECORDS SUMMARY | 2025-08-14 07:58 | XMS_ITS | Encounter Summary ---
Author Organization [facility] Address [address] [place] [address] Care Team Providers Care Heel Emery Buffer Name Role Phone Radha Dong MD Primary Care Provider [phone] Charissa Glover BAG SEALER Unavailable Encounter Details Date Type Department Care Team (Late st Contact Info) Description 08/09/2025 Clinisync Result Encounter [facility] External Department Unsolicited Rosalind Mendoza, CNM [address] [place], [place] [phone] Social History Tobacco Use Types Packs/Day Years [...] How often do you attend [facility] or mu-ism services? More than 4 times [...] at all 07/29/2024 [facility] - Occupational Stress Questionnaire Answer Date [...] 1:30 PM EDT Visit CHEYENNE MUNOZ [address] [place] [address] Rosalind Mendoza, ARLINE [address] [place] [address] documented as of this encounter Procedures Procedure Name Priority Date/Time Associated Diagnosis Comments [facility] DRUG SCREEN RAPID (URINE) Routine 08/09/2025 5:15 PM EDT [facility] CBC WITH PLATELET NO DIFFERENTIAL Routine 08/09/2025 5:15 PM EDT documented in this encounter Results * TB DRUG SCREEN RAPID (URINE) (08/09/2025 5:15 PM [...] CLINIS[facility] - 08/09/2025 5:39 PM EDT us Rosalind Mendoza CNM [facility] Final Result [facility] * (ABNORMAL) HP CBC WITH PLATELET NO DIFFERENTIAL (08/09/2025 5:15 PM EDT) [facility] WBC 10.1 4.0 - 11.0 10 3/uL [...] CLINISYNC - 08/09/2025 5:29 PM EDT us Rosalind ALVAREZ [facility] documented in this encounter Visit Diagnoses Not on filedocumented in this encounter Care Teams Heel Emery Buffer Relationship Specialty Start Date End Date Radha Dong MD [address] [place] [address] PCP - General Family Medicine 05/19/23 Charissa Glover NP PCP - [place] Commercial 01/27/25 documented as of this encounter
--- OUTSIDE RECORDS SUMMARY | 2025-08-14 07:58 | XMS_ITS | Encounter Summary ---
Author Organization [facility] Address [address] [place] [address] Care Team Providers Care Gis Engineer Name Role Phone Radha Dong MD Primary Care Provider [phone] Charissa Glover RESTAURANT HOST/HOSTESS Unavailable Encounter Details Date Type Department Care Team (Late st Contact Info) Description 07/31/2025 Clinisync Result Encounter [facility] External Department Unsolicited Tom Mendoza, CNM [address] [place], [place] [id number] Social History Tobacco Use Types Packs/Day Years [...] week 07/29/2024 How often do you attend [facility] or confucianist services? More than 4 times [...] and heating? Not hard at all 07/29/2024 [facility] - [facility]ational Stress Questionnaire Answer [...] time in the past 12 m [facility], were you homeless or living in [...] 1:30 PM EDT Visit CHEYENNE MUNOZ [address] [place] [address] Tom Mendoza CNM [address] [place] [address] documented as of this encounter Procedures Procedure Name Priority Date/Time Associated Diagnosis Comments US OB GROWTH 07/31/2025 2:03 PM EDT documented in this encounter Results * US OB GROWTH (07/31/2025 2:03 PM EDT) Anatomical Region Laterality Modality Other 07/31/2025 2:03 PM EDT Narrative 07/31/2025 2:06 PM EDT [address] [address] Ultrasound Report Signed Patient: KRISTI DEJESUS MR#: [id number] : 1995 Acct:[id number] Age/Sex: 30 / F ADM Date: 07/30/25 Loc: [facility] 252-[address]: TOM MENDOZA APRN, CNM Ordering Physician: TOM MENDOZA APRN, CNM Date of Service: 07/30/25 Procedure(s): US OB growth Accession Number(s): [id number] cc: TOM MENDOZA APRN, CNM [address] [address] Patient Name: KRISTI DEJESUS MRN: [id number] date: 1995 Sex: F Assigned Patient Location: US Current Patient Location: [facility] Accession/Order Number: [id number] Exam Date: 07/30/2025 15:58 Report Date: 07/31/2025 [...] Jr., D.O. 07/31/2025 2:03 PM Dictation Location: [place] [address] Electronically authenticated by: [id number] Y Date: 07/31/2025 14:03 Dictated By: Rafael Leigh M.D. Signed By: 07/31/25 1406 DD/ 1403 TD/TT: Machine Cementer: Procedure Note Radiology, Radiologist, MD - 07/31/2025 [place] [address] Ultrasound Report Signed Patient: KRISTI DEJESUS RMR#: [id number] : 1995Acct:[id number] Age/Sex: 30 / FADM Date: 07/30/25 Loc: [facility] 252-[address]: TOM MENDOZA APRN, CNM Ordering Physician: TOM MENDOZA APRN, CNM Date of Service: 07/30/25 Procedure(s): US OB growth Accession Number(s): [id number] cc: TOM MENDOZA APRN, CNM [place] [address] Patient Name: KRISTI DEJESUS MRN: [id number] date: 1995 Sex: F Assigned Patient Location: US Current Patient Location: [facility] Accession/Order Number: [id number] Exam Date: 07/30/2025 15:58 Report Date: 07/31/2025 [...] Jr., D.O. 07/31/2025 2:03 PM Dictation Location: [place] [address] Electronically authenticated by: [id number] Y Date: 4:03 Dictated By: Rafael Leigh M.D. Signed By:07/31/25 1406 DD/ 1403 TD/TT: Machine Cementer: us Tom Mendoza CN [facility] Final Resu lt documented in this encounter Visit Diagnoses Not on filedocumented in this encounter Care Teams Gis Engineer Relationship Specialty Start Date End Date Radha Dong MD [address] [place] [address] PCP - General Family Medicine 05/19/23 Charissa Glover NP PCP - Jose Chopra 01/27/25 documented as of this encounter
--- OUTSIDE RECORDS SUMMARY | 2025-08-14 07:58 | XMS_ITS | Encounter Summary ---
Author Organization [facility] tem Address [id number] [address] [place] [address] Care Team Providers Care Banquet Houseperson Name Role Phone Melia Henriquez Sandra ROLL TESTER-GARDE MANAGER Primary Care Provider [phone] Encounter Details Date Type Department Care Team (Late st Contact Info) Description 08/05/2025 Telephone Maternal- Medicine at [facility] [address] [place] [id number] Aida Garcia, RN [address] [address] Social History Tobacco Use Types Packs/Day Years [...] on filedocumented in this encounter Care Teams Banquet Houseperson Relationship Specialty Start Date End Date Melia Henriquez, ROLL TESTER-GARDE MANAGER [address] [place] [address] PCP - General Nurse Practitioner 11/25/23 documented as of this encounter
--- OUTSIDE RECORDS SUMMARY | 2025-08-14 07:58 | XMS_ITS | Encounter Summary ---
Author Organization [facility] tem Address [id number] [address] [place] [address] Care Team Providers Care Systems Protection Technician Name Role Phone Melia Henriquez Sandra PARTS CONTROL CLERK-YARD SWITCH OPERATOR Primary Care Provider [phone] Encounter Details Date Type Department Care Team (Late st Contact Info) Description 06/03/2025 Orders Only Maternal- Medicine at [facility] [address] [place] [address] Ref Prov, [place] [address] Social History Tobacco Use Types Packs/Day Years [...] on filedocumented in this encounter Care Teams Systems Protection Technician Relationship Specialty Start Date End Date Melia Henriquez, PARTS CONTROL CLERK-YARD SWITCH OPERATOR [address] [place] [address] PCP - General Nurse Practitioner 11/25/23 documented as of this encounter
--- OUTSIDE RECORDS SUMMARY | 2025-08-14 07:58 | XMS_ITS | Encounter Summary ---
Author Organization [facility] Healthcare Address [address] [place] [address] Care Team Providers Care Center Machine Set Up Operator Name Role Phone Radha Dong MD Primary Care Provider [phone] Charissa Glover STORE MGR Unavailable Encounter Details Date Type Department Care Team (Late st Contact Info) Description 08/11/2025 Results Follow-Up [facility] OBGYN [address] [place] [phone] Rosalind Mendoza, CNM [address] [place], [place] [id number] [facility] GLUCOSE FASTING Social History Tobacco Use Types Packs/Day Years [...] How often do you attend chur or judaism services? More than 4 times per year 07/29/2024 Do you belong to any clubs o r organizations such as amish groups, unions, fraPeregrine Diamonds or athletic groups, or school groups? No [...] and heating? Not hard at all 07/29/2024 [facility] [place] of Occupat ional Health - Occupational Stress [...] any time in the past 12 m [facility], were you homeless or living in [...] 08/26/2025 1:30 PM EDT Visit [facility] [address] [place] [address] Rosalind Mendoza CNM [address] [place] [address] documented as of this encounter Visit Diagnoses Not on filedocumented in this encounter Care Teams Center Machine Set Up Operator Relationship Specialty Start Date End Date Radha Dong MD [address] [place] [address] PCP - General Family Medicine 05/19/23 Charissa Glover NP PCP - Jose Chopra 01/27/25 documented as of this encounter
--- OUTSIDE RECORDS SUMMARY | 2025-08-14 07:58 | XMS_ITS ---
Author Organization [facility] Address [address] [place] [address] Care Team Providers Care Methods Specialist Name Role Phone Radha Dong MD Primary Care Provider [phone] Charissa Glover PLASTIC DIE MAKER APPRENTICE Unavailable Inpatient Discharge Transitional Care Management (TCM) Status:Enrolled (Active) Start date:08/12/2025 Enrollment date:08/13/2025 Enrollment reason:Identified using hospital discharge data Overview Patient discharged from [facility] on 08/12. Please contact for hospital ARUN and schedule follow-up appointment within 7-14 days. Case Team Name Relationship Phone Marci Carrion LPN(Responsible Staff) Licensed [facility] Nurse [phone] Continued Care and Services Coordination
--- OUTSIDE RECORDS SUMMARY | 2025-08-14 07:58 | XMS_ITS | Encounter Summary ---
Author Organization [facility] Healthcare Address [address] [place] [address] Care Team Providers Care Magento Developer Name Role Phone Halle Jensen DO Unavailable Radha Dong MD Primary Care Provider [phone] Charissa Glover MARRIAGE COUNSELOR MINISTER Unavailable Charissa Glover MARRIAGE COUNSELOR MINISTER Unavailable Encounter Details Date Type Department Care Team (Late st Contact Info) Description 07/06/[address] [facility] Family Medicine [address] [place] [id number] Radha Dong MD [address] [place] [address] Social History Tobacco Use Types [...] week 05/18/2023 How often do you attend [facility] or presybeterian services? More than 4 [...] and heating? Not hard at all 05/18/2023 [facility] of Occupat ional Health - Occupational [...] in a chcf (including now)? No 05/18/2023 Comments Unknown Sex [...] 1:30 PM EDT Visit [facility] [address] [place] [address] Rosalind Mendoza CNM [address] [place], [place] [id number] documented as of this encounter Visit Diagnoses Not on filedocumented in this encounter Care Teams Magento Developer Relationship Specialty Start Date End Date Halle Jensen DO [address] [facility] [address] [place] [address] PCP - [place] [employer] 03/29/22 Radha Dong MD [address] [place] [address] PCP - General Family Medicine 05/19/23 Charissa Glover NP PCP - [place] [employer] 12/28/23 5 Charissa Glover NP PCP - [place] [employer] 01/27/25 documented as of this encounter
--- OUTSIDE RECORDS SUMMARY | 2025-08-14 07:58 | XMS_ITS | Encounter Summary ---
Author Organization [facility] Address [address] [place] [address] Care Team Providers Care Web Production Manager Name Role Phone Radha Dong MD Primary Care Provider [phone] Charissa Glover IT SOLUTIONS ARCHITECT Unavailable Encounter Details Date Type Department Care Team (Late st Contact Info) Description 08/11/2025 Clinisync Result Encounter [facility] External Department Unsolicited Rosalind Mendoza, CNM [address] [place], [place] [id number] Social History Tobacco Use Types Packs/Day Years [...] week 07/29/2024 How often do you attend [facility] or cheondoism services? More than 4 times per year 07/29/2024 Do you belong to any clubs o r organizations such as denominational groups, unions, fraternal or athletic groups, or [...] and heating? Not hard at all 07/29/2024 [facility] - Occupational Stress Questionnaire Answer Date [...] any time in the past 12 m [facility], were you homeless or living in [...] 1:30 PM EDT Visit [facility] [address] [place] [address] Rosalind Mendoza, ARLINE [address] [place] [address] documented as of this encounter Procedures Procedure Name Priority Date/Time Associated Diagnosis Comments [facility] GLUCOSE FASTING Routine 08/11/2025 6:26 AM EDT ALL CBC WITH AUTO DIFF Routine 08/11/2025 6:01 AM EDT documented in this encounter Results * (ABNORMAL) HM GLUCOSE FASTING (08/11/2025 6:26 AM EDT) [facility] GLUCOSE FASTING 118(H) <95 mg/dL TB 08/11/2025 6:26 AM EDT 08/11/2025 6:29 AM EDT Narrative [facility] - 08/11/2025 6:44 AM EDT us Rosalind Mendoza CNM [facility] Final Result [facility] * (ABNORMAL) ALL CBC WITH AUTO DIFF (08/11/2025 6:01 AM EDT) TB WBC 13.0(H) 4.0 - 11.0 10 3/uL TBH TBH RBC 3.80(L) 4.20 - 5.40 10 6/uL TBH TBH HGB 10.6(L) 12.0 - 16.0 g/dL TB TB HCT 32.4(L) 36.0 - 48.0 % TBH [...] CLINISYNC - 08/11/2025 6:21 AM EDT us Rosalind Mendoza CN [facility] Final [facility] documented in this encounter Visit Diagnoses Not on filedocumented in this encounter Care Teams Web Production Manager Relationship Specialty Start Date End Date Radha Dong MD [address] [place] [address] PCP - General Family Medicine 05/19/23 Charissa Glover NP PCP - [place] [employer] 01/27/25 documented as of this encounter
--- OUTSIDE RECORDS SUMMARY | 2025-08-14 07:58 | XMS_ITS | Encounter Summary ---
Author Organization [facility] Healthcare Address [address] [place] [address] Care Team Providers Care Final Inspector Balance Wheel Name Role Phone Radha Dong MD Primary Care Provider [phone] Charissa Glover NURSE GYNECOLOGY Unavailable Encounter Details Date Type Department Care Team (Late st Contact Info) Description 07/09/2025 Results Follow-Up [facility] OBGYN [address] [place] [phone] Rosalind Mendoza, CNM [address] [place], [place] [id number] Bile acids, total Social History Tobacco Use [...] How often do you attend chur or lutheran services? More than 4 times per year 07/29/2024 Do you belong to any clubs o r organizations such as scientology groups, unions, fraPono Pharma or athletic groups, or school groups? No [...] and heating? Not hard at all 07/29/2024 [facility] [place] of Occupat ional Health - Occupational Stress [...] any time in the past 12 m [facility], were you homeless or [...] 08/26/2025 1:30 PM EDT Visit [facility] [address] [place] [address] Rosalind Mendoza CNM [address] [place] [address] documented as of this encounter Visit Diagnoses Not on filedocumented in this encounter Care Teams Final Inspector Balance Wheel Relationship Specialty Start Date End Date Radha Dong MD [address] [place] [address] PCP - General Family Medicine 05/19/23 Charissa Glover NP PCP - Jose Chopra 01/27/25 documented as of this encounter
--- NOTE | 2025-08-14 14:28 | PC.NURSE ---
Edmund Thomas and 4 day old daughter Chayo arrive for follow up. Parents admit to making it but just barely Discussed how difficult first night at home was, how tired from lack of sleep, and that they are trading places every few hours so someone can stay up and hold baby as she doesn't sleep well in bassinet. Feeling validated and reassurance given. Reviewed normal expectations for , sleep and feeding. Parents states are surprised that transition to home was so difficult. Explored ways to keep infant feeding during the day so will stretch sleep time during the night. Discussed continuing to lay baby in her sleep area, reassure her and pat her so that will adjust to sleeping when not being held. Mother also complains of baby using me as a pacifier . Reviewed natural instincts for baby to want to be close to mother, prefers skin to skin and shallow latching causing long feeds that never fill the baby. Parents verbalize understanding. Mother reports nipples are a mess . Has been using the shield more than not as it is the only way she can tolerate the discomfort when baby is nursing. noted to have tight upper lip frenulum and buccal tethers X 2. Tongue tip able to move up and to gum ridge. body of tongue noted to have crease in middle with movement and when tries to lift tongue to upper gum ridge. Suspect tongue tie. Discussion with parents and given info for referral. Will decide if wants to see pediatric dentist for evaluation. assessment completed, WNL, VSS and serum bili drawn per this verse writer. Specimen to lab. Mother very tearful for assessment and blood draw, I am not sure what's wrong with me Reviewed hormones and baby blues. VSS and assessment WNL. Has had a slight headache once since home but I was super tired . Carpel tunnel is bothering Martha, states worse now than during the . Has edema of feet and ankles as well. BP137/89. Reviewed increasing s/s of elevated blood pressure and when to return to ED for evaluation. Mom encouraged to rest more. 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 immediately encourages pt to rest, he has the farm and she needs to focus on herself and the baby. States I can't feed her Very supportive for Martha to do less at home. to breast in cross cradle, barely brushes nipple to mouth, shallow latches quickly, causing significant pain. LC editao's hand placement, deep attachment at breast and supporting her wrist for increased comfort. [facility] feed feels much better Dr Crespo notified of bili results and orders repeat on 08/17/2025. Parents verbalized understanding and agreement. [facility] feels much better and will return 08/17/2025 for repeat bili and help. Home now, will call as needed.
[2025-08-14 15:18] VITALS: BP 137/89; PULSE 80; TEMP 36.7; O2SAT 98
== END 2025-08-14 15:36 | disposition home or self-care (01) ==
LOC: FBCO 07:55
PROVIDERS: PCP Midwife; Visit Provider Obstetrics & Gynecology
DX: Z39.1 Encounter for care and examination of lactating mother (principal)

== ENCOUNTER 2025-08-17 08:32 | Outpatient (OUT) | payer BC, OTHER, SELFPAY ==
--- OUTSIDE RECORDS SUMMARY | 2025-08-06 16:00 | XMS_ITS | Encounter Summary ---
Author Organization [facility] Address [address] [place] [address] Care Team Providers Care Magnetic Prospector Name Role Phone Radha Dong MD Primary Care Provider [phone] Charissa Glover TITLE DEPARTMENT MANAGER Unavailable Encounter Details Date Type Department Care Team (Latest Contact Info) Description 08/06/2025 4:00 PM EDT Ancillary Procedure [facility] [address] [place] [address] Diet controlled gestational diabetes mellitus (GDM) in third trimester ([facility]) Social History Tobacco Use Types Packs/Day Years [...] week 07/29/2024 How often do you attend [facility] or restorationist services? More than 4 times per year 07/29/2024 Do you belong to any clubs o r organizations such as christianity groups, unions, fraternal or athletic groups, or [...] and heating? Not hard at all 07/29/2024 [facility] - Occupational Stress Questionnaire Answer Date [...] any time in the past 12 m [facility], were you homeless or living [...] 1:30 PM EDT Visit CHEYENNE MUNOZ [address] [place] [address] Rosalind Mendoza CNM [address] [place] [address] documented as of this encounter Procedures Procedure Name Priority Date/Time Associated Diagnosis Comments US BIOPHYSICAL PROFILE WO NON STRESS TESTING Routine 08/06/2025 4:36 PM EDT Diet controlled gestational diabetes mellitus (GDM) in third trimester ([facility]) documented in this encounter Results [...] diabetes mellitus (GDM) in third trimester ([facility]) documented in this encounter Care Teams Magnetic Prospector Relationship Specialty Start Date End Date Radha Dong MD [address] [place], [place] [id number] PCP - General Family Medicine 05/19/23 Charissa Glover NP PCP - [place] [employer] 01/27/25 documented as of this encounter
--- OUTSIDE RECORDS SUMMARY | 2025-08-17 08:38 | XMS_ITS | Encounter Summary ---
Author Organization [facility] Healthcare Address [address] [place] [address] Care Team Providers Care Journalism Professor Name Role Phone Radha Dong MD Primary Care Provider [phone] Charissa Glover DRAMATIC AGENT Unavailable Encounter Details Date Type Department Care Team (Late st Contact Info) Description 05/26/2025 Results Follow-Up [facility] OBGYN [address] [place] [phone] Paola Gómez MA GLUCOSE TOLERANCE TEST, GESTATIONAL,4SPEC(10 [...] week 07/29/2024 How often do you attend [facility] or gnosticism services? More than 4 times per year 07/29/2024 Do you belong to any clubs o r organizations such as hinduism groups, unions, fraternal or athletic groups, or [...] 1:30 PM EDT Visit [facility] [address] [place] [address] Rosalind Mendoza, KIM [address] [place], [place] [phone] documented as of this encounter Visit Diagnoses Not on filedocumented in this encounter Care Teams Journalism Professor Relationship Specialty Start Date End Date Radha Dong MD [address] [place] [address] PCP - General Family Medicine 05/19/23 Charissa Glover NP PCP - Jose Chopra 01/27/25 documented as of this encounter
--- OUTSIDE RECORDS SUMMARY | 2025-08-17 08:38 | XMS_ITS | Encounter Summary ---
Author Organization [facility] Healthcare Address [address] [place] [address] Care Team Providers Care Ship Pilot Dispatcher Name Role Phone Radha Dong MD Primary Care Provider [phone] Charissa Glover PERFORMANCE IMPROVEMENT MANAGER Unavailable Encounter Details Date Type Department Care Team (Late st Contact Info) Description 05/13/2025 Results Follow-Up [facility] OBGYN [address] [place] [phone] Paola Gómez MA GLUCOSE, GESTATIONAL SCREEN ([id number] [...] any clubs o r organizations such as mormon groups, unions, fraternal or athletic groups, or [...] Not hard at all 07/29/2024 [facility] [place] of Occupat ional Health - Occupational Stress [...] any time in the past 12 m [facility], were you homeless or living in [...] 08/26/2025 1:30 PM EDT Visit [facility] [address] [place] [address] Rosalind Mendoza, CN [address] [place] [address] documented as of this encounter Visit Diagnoses Not on filedocumented in this encounter Care Teams Ship Pilot Dispatcher Relationship Specialty Start Date End Date Radha Dong MD [address] [place] [address] PCP - General Family Medicine 05/19/23 Charissa Glover NP PCP - Jose Chopra 01/27/25 documented as of this encounter
--- OUTSIDE RECORDS SUMMARY | 2025-08-17 08:38 | XMS_ITS | Clinical Summary ---
Author Organization [facility] Healthcare Address [address] [place] [address] Care Team Providers Care Mine Expert Name Role Phone Radha Dong MD Primary Care Provider [phone] Charissa Glover BODY FITTER Unavailable Allergies No known active allergies Medications [...] space, prime 2 units 07/01/20 25 Active ursodiol (Caron Forte) 500 MG tabletIndication s:Itching Take 0.5 tablets (250 mg) by mouth in the morning and 0.5 tablets (250 mg) before bedtime. 30 tablet 3 06/30/20 25 025 Discontinu ed(Therapy completed) Lidocaine 5 % creamIndications :Herpes zoster with complication Apply 1 Application topically every 8 (eight) hours if needed (pain) 30 g 07/09/20 25 025 Discontinu ed(Cost of medication ) valACYclovir (Valtrex) 1 g tabletIndication s:Herpes zoster with complication Take 1 tablet (1,000 mg) by mouth in the morning and 1 tablet (1,000 mg) in the evening and 1 tablet (1,000 mg) before bedtime. Do all this for 7 days. 21 tablet 07/09/20 25 025 Discontinu ed(Therapy completed) valACYclovir (Valtrex) 500 MG tabletIndication s:Herpes zoster without complication Take 1 tablet (500 mg) by mouth Daily 30 tablet 2 07/15/20 25 025 Active Problems Problem Noted Date Diagnosed Date BPPV (benign paroxysmal posi tional vertigo), unspecified laterality 05/30/2023 Dizzinesses 05/30/2023 Estimated Date of Delivery Comme nts Yes 08/13/2025 Based on last me nstrual period of 11/06/2024 (Exact Date) Encounters Date Type Department Care Team Description 08/14/2025 Patient Outreach [facility] [address] [place] [address] Marci Carrion LPN 08/12/2025 Results Follow-Up [facility] OBGYN [address] [place] [address] Tom Mendoza CNM US OB GROWTH 08/11/2025 Results Follow-Up [facility] OBGYN [address] [place] [address] Tom Mendoza CNM [facility] GLUCOSE FASTING 08/11/2025 Clinisync Result Encounter NOM External Department Unsolicited Tom Mendoza CNM 08/09/2025 Clinisync Result Encounter NOM External Department Unsolicited Tom Mendoza CNM 08/06/2025 4:00 PM EDT Ancillary Procedure [facility] Imaging [address] [place] [phone] Diet controlled gestational diabetes mellitus (GDM) in third trimester ([facility]) 08/06/2025 Travel 07/31/2025 Clinisync Result Encounter NOM External Department Unsolicited Tom Mendoza CNM 07/27/2025 4:30 PM EDT Routine [facility] [place] [facility] [address] [place] [phone] Tom Mendoza CNM Non-reactive NST (non-stress test) (Primary Dx); NST (non-stress test) reactive ([facility]); History of gestational diabetes; Gestational diabetes mellitus (GDM) requiring insulin ([facility]); related condition in third trimester ([facility]) 07/27/2025 Bamboo flowsheet [facility] OBGYN [address] [place] [phone] Tom Mendoza CNM 07/23/2025 4:00 PM EDT Ancillary Procedure [facility] [address] [facility] [address] [place] [address] Diet controlled gestational diabetes mellitus (GDM) in third trimester ([facility]) 07/23/2025 3:15 PM EDT Routine [facility] [place] [facility] [address] [place] [phone] Tom Mendoza CNM NST (non-stress test) reactive ([facility]) (Primary Dx); History of gestational diabetes; Gestational diabetes mellitus (GDM) requiring insulin ([facility]); Encounter for care of first , third trimester ([facility]) 07/23/2025 Bamboo flowsheet [facility] [place] [facility] [address] [place] [address] Tom Mendoza CNM 07/23/2025 Travel 07/22/2025 Telephone [facility] Family Medicine [address] [place] [phone] Radha Dong MD 07/16/2025 4:15 PM EDT Ancillary Procedure [facility] [address] [facility] [address] [place] [phone] Diet controlled gestational diabetes mellitus (GDM) in third trimester ([facility]) 07/16/2025 Travel 07/15/2025 11:10 AM EDT Routine [facility] [address] [place] [phone] Vicente Gatica, Third trimester ([facility]); 35 weeks gestation of ([facility]); Herpes zoster without complication 07/15/2025 Clinisync Result Encounter [facility] External Department Unsolicited Provider, Generic External Data 07/15/2025 Telephone [facility] [address] [place] [address] Nancy Kaur LPN 07/15/2025 Bamboo flowsheet [facility] [address] [place] [phone] Vicente Gatica DO 07/09/2025 4:15 PM EDT [facility] [address] [place] [address] Diet controlled gestational diabetes mellitus (GDM) in third trimester ([facility]) 07/09/2025 1:20 PM EDT Office Visit [facility] [address] [place] [phone] Radha Dong MD Herpes zoster with complication (Primary Dx) 07/09/2025 Travel 07/09/2025 Results Follow-Up [facility] [place] [facility] [address] [place] [place] [phone] Tom Mendoza CNM Bile acids, total 07/06/2025 5:00 PM EDT Routine [facility] [place] [facility] [address] [place] [phone] Tom Mendoza CNM NST (non-stress test) reactive ([facility]) (Primary Dx); History of gestational diabetes; Encounter for care of first , third trimester ([facility]) 07/06/2025 [facility] [address] [place] [address] Tom Mendoza CNM 07/02/2025 4:15 PM EDT Ancillary Procedure [facility] [place] [facility] [address] [place] [phone] Diet controlled gestational diabetes mellitus (GDM) in third trimester ([facility]) 07/02/2025 Travel 06/30/2025 4:00 PM EDT Routine [facility] [place] [facility] [address] [place] [address] Tom Mendoza CNM Itching (Primary Dx); NST (non-stress test) reactive ([facility]); History of gestational diabetes; Encounter for care of first , third trimester ([facility]) 06/30/2025 Bamboo flowsheet [facility] [place] [facility] [address] [place] [phone] Tom Mendoza CNM 06/25/2025 4:15 PM EDT Ancillary Procedure [facility] [place] [facility] [address] [place] [phone] Diet controlled gestational diabetes mellitus (GDM) in third trimester ([facility]) 06/25/2025 Travel 06/22/2025 4:15 PM EDT Routine [facility] [facility] [address] [place] [phone] Tom Mendoza CNM NST (non-stress test) reactive ([facility]) (Primary Dx); History of gestational diabetes; Encounter for care of first , third trimester ([facility]) 06/22/2025 Results Follow-Up [facility] [place] [facility] [address] [place] [address] Tom Mendoza CNM US biophysical profile wo non stress testing, US biophysical profile wo non stress testing 06/18/2025 4:15 PM EDT Ancillary Procedure [facility] [place] [facility] [address] [place] [phone] Diet controlled gestational diabetes mellitus (GDM) in third trimester ([facility]) 06/18/2025 Travel 06/15/2025 5:15 PM EDT [facility] [address] [place] [address] Tom Mendoza CNM History of gestational diabetes (Primary Dx); Encounter for care of first , third trimester ([facility]) 06/15/2025 Bamboo flowsheet [facility] [address] [place] [address] Tom Mendoza CNM 06/05/2025 4:00 PM EDT Ancillary Procedure [facility] [place] [facility] [address] [address], [place] [address] related condition in third trimester ([facility]) 06/05/2025 Travel 06/04/2025 9:00 AM EDT Routine [facility] [place] [facility] [address] [place] [address], [place] [address] Tom Mendoza CNM Encounter for care of first , second trimester ([facility]) (Primary Dx); related condition in third trimester ([facility]); Diet controlled gestational diabetes mellitus (GDM) in third trimester ([facility]); History of gestational diabetes 06/04/2025 Bamboo flowsheet [facility] [address] [place] [address] Tom Mendoza CNM 05/26/2025 3:00 PM EDT Routine [facility] OBGYN [address] [place] [phone] Tom Mendoza CNM Encounter for care of first , second trimester ([facility]) (Primary Dx); History of gestational diabetes 05/26/2025 Results Follow-Up [facility] [facility] [address] [place] [address] Paola Gómez MA GLUCOSE TOLERANCE TEST, GESTATIONAL,4SPEC(10 0G) 05/26/2025 Refill [facility] [address] [place] [address] Paola Gómez MA History of gestational diabetes from [...] any clubs o r organizations such as jain groups, unions, fraternal or athletic groups, or [...] and heating? Not hard at all 07/29/2024 [facility] of Occupat ional Health - Occupational Stress [...] any time in the past 12 m [facility], were you homeless or living in a [...] Description 08/26/2025 1:30 PM EDT Visit [facility] [address] [place] [address] Tom Mendoza, CNM [address] [place] [address] Health Maintenance Due Date Last [...] gestational diabetes mellitus (GDM) in third trimester ([facility]) US OB GROWTH 07/31/2025 2:03 PM EDT US BIOPHYSICAL PROFILE WO NON STRESS TESTING Routine 07/23/2025 4:32 PM EDT Diet controlled gestational diabetes mellitus (GDM) in third trimester ([facility]) US BIOPHYSICAL PROFILE WO NON STRESS TESTING Routine 07/16/2025 4:20 PM EDT Diet controlled gestational diabetes mellitus (GDM) in third trimester ([facility]) POCT URINALYSIS DIPSTICK Routine 07/15/2025 11:27 AM EDT Third trimester ([facility]) STREP GP B CULTURE+RFLX Routine 07/15/2025 [...] gestational diabetes mellitus (GDM) in third trimester ([facility]) US BIOPHYSICAL PROFILE WO NON STRESS TESTING Routine 06/18/2025 4:44 PM EDT Diet controlled gestational diabetes mellitus (GDM) in third trimester ([facility]) US OB FOLLOW UP TRANSABDOMINAL APPROACH Routine 06/05/2025 4:35 PM EDT related condition in third trimester ([facility]) GLUCOSE TOLERANCE TEST, GESTATIONAL,4SPEC(100G ) Routine 05/20/2025 8:04 AM EDT Elevated glucose tolerance test from Last 3 Months Results * (ABNORMAL) [facility] GLUCOSE FASTING (08/11/2025 6:26 AM EDT) Pathologist [facility] GLUCOSE FASTING 118(H) <95 mg/dL TB 08/11/2025 6:26 AM EDT 08/11/2025 6:29 AM EDT Narrative [facility] - 08/11/2025 6:44 AM EDT us Tom Mendoza CNM [facility] Final Result [facility] TB * (ABNORMAL) ALL CBC WITH AUTO DIFF (08/11/2025 6:01 AM EDT) Pathologist [facility] TB WBC 13.0(H) 4.0 - 11.0 10 [...] - 08/11/2025 6:21 AM EDT us Tom L Lateshao CNM CLINISYNC Final Result [facility]SD TB * [facility] DRUG SCREEN RAPID (URINE) (08/09/2025 [...] - 08/09/2025 5:39 PM EDT us Tom L Lateshao CNM [facility] Final Result [facility] * (ABNORMAL) [facility] CBC WITH PLATELET NO DIFFERENTIAL (08/09/2025 5:15 [...] 08/09/2025 5:29 PM EDT us Tom Mendoza [facility] Final [facility] * US biophysical profile wo non stress [...] PM EDT Narrative 07/31/2025 2:06 [place] [address] Ultrasound Report Signed Patient: MARTHA DEJESUS MR#: [id number] : 1995 Acct:[id number] Age/Sex: 30 / F ADM Date: 07/30/25 Loc: [facility] 252-[address]: TOM MENDOZA APRN, CNM Ordering Physician: TOM MENDOZA APRN, CNM Date of Service: 07/30/25 Procedure(s): US OB growth Accession Number(s): [id number] cc: TOM MENDOZA APRN, CNM [place] [id number] Patient Name: MARTHA DEJESUS MRN: [id number] date: 1995 Sex: F Assigned Patient Location: Current Patient Location: [facility] Accession/Order Number: [id number] Exam Date: 07/30/2025 15:58 Report Date: 07/31/2025 [...] Jr., D.O. 07/31/2025 2:03 PM Dictation Location: [place] [address] Electronically authenticated by: [id number] Y Date: 07/31/2025 14:03 Dictated By: Rafael Leigh M.D. Signed By: 07/31/25 1406 DD/ 140 TD/TT: Child Support Specialist: Procedure Note Radiology, Radiologist, MD - 07/31/2025 [place] [address] Ultrasound Report Signed Patient: MARTHA DEJESUS RMR#: [id number] : 1995Acct:[id number] Age/Sex: 30 / FADM Date: 07/30/25 Loc: [facility] 252-[address]: TOM MENDOZA APRN, CNM Ordering Physician: TOM MENDOZA APRN, CNM Date of Service: 07/30/25 Procedure(s): US OB growth Accession Number(s): [id number] cc: TOM MENDOZA APRN, CNM [place] [address] Patient Name: MARTHA DEJESUS MRN: [id number] date: 1995 Sex: F Assigned Patient Location: Current Patient Location: [facility] Accession/Order Number: [id number] Exam Date: 07/30/2025 15:58 Report Date: 07/31/2025 [...] Jr., D.O. 07/31/2025 2:03 PM Dictation Location: [place] [address] Electronically authenticated by: [id number] Y Date: 4:03 Dictated By: Rafael Leigh M.D. Signed By:07/31/25 1406 DD/ 1403 TD/TT: Child Support Specialist: Tom Mendoza CNM [facility] IMAGING Final Resu [...] (CDC) and [facility] STREP GP B CULTURE+RFLX [employer] TBH STREP [...] STREP GP B CULTURE+RFLX Performed at[facility] STREP GP B CULTURE+RFLX [address] [place], [place] [id number] TBH STREP GP B CULTURE+RFLX Dietician: Cirilo Arriaga PhD, Phone: [phone] [facility] 07/15/2025 11:1 0 AM EDT 07/16/2025 6:10 AM EDT Narrative SUNIL - 07/20/2025 1:15 PM EDT us Generic External Data Provider LAB BLOOD ORDERAB LES Final Result [facility] * US OB follow up transabdominal approach [...] menstrual period. TRANSCRIBED BY: ELECTRONICALLY SIGNED BY: MD Madina Navarro 08/11/2025 2:17 PM EDT FINDINGS: A single, [...] ELECTRONICALLY SIGNED BY: Rafael Mae MD Tom Danielle Mendoza CNM IMG OB US PROCEDURES Final R esult * Bile acids, total (06/30/2025 4:11 PM EDT) BILE ACIDS, TOTAL 6 0 - 10 umol/L [facility] Blood Venous blood specimen / Unknown 06/30/2025 4:11 PM EDT 06/30/2025 4:12 PM EDT Narrative Resulting Agency Comment Performing Organization Information Site ID: AMD Name: [employer] Address: [address] [place] [address] [place] [address] Director: Anthony De La Paz M.D.,PhD Tom ALVAREZ LAB BLOOD ORDERABLES Final R esult Performing Organization Address [facility]/ZIP Co de Phone Number [facility] * Lipase (06/30/2025 4:11 PM EDT) LIPASE 38 7 - 60 U/L [facility] Blood Venous blood specimen / Unknown 06/30/2025 4:11 PM EDT 06/30/2025 4:12 PM EDT Narrative Resulting Agency Comment Performing Organization Information Site ID: QPT Name: [employer] [facility] Address: [address] [place] [address], [address] [place] [phone] Director: Stevie Doan MD Tom Danielle ALVAREZ LAB BLOOD ORDERABLES Final R esult [facility] * Amylase (06/30/2025 4:11 PM EDT) AMYLASE 40 21 - 101 U/L [facility] Blood Venous blood specimen / Unknown 06/30/2025 4:11 PM EDT 06/30/2025 4:12 PM EDT Narrative Resulting Agency Comment Performing Organization Information Site ID: QPT Name: [facility] Address: [address] [place] [address], [address] [place] [phone] Director: Stevie Doan MD Tomgracie ALVAREZ LAB BLOOD ORDERABLES Final R esult [facility] * (ABNORMAL) Hepatic function panel (06/30/2025 4:11 PM EDT) Pathologist [facility] PROTEIN, TOTAL 6.0(L) 6.1 - 8.1 g/dL [...] Performing Organization Information Site ID: QPT Name: [facility] Address: [address] [place] [address], [address] [place] [phone] Director: Stevie Doan MD Tom ALVAREZ LAB BLOOD ORDERABLES Final R esult [facility] * (ABNORMAL) GLUCOSE TOLERANCE TEST, GESTATIONAL,4SPEC(100G) (05/20/2025 8:04 AM EDT) [facility] GLUCOSE, FASTING 83 65 - 94 mg/dL [facility] GLUCOSE, 1 HOUR 186(H) <180 mg/dL [facility] GLUCOSE, 2 HOUR 190(H) <155 mg/dL [facility] GLUCOSE, 3 HOUR 158(H) <140 mg/dL [facility] COMMENT [facility] Comment: Stephanie/Jesusita Criteria: Two or more values greater than the above reference intervals are suggestive of gestational diabetes. 05/20/2025 8:04 AM EDT 05/20/2025 8:05 AM EDT Narrative Resulting Agency Comment Performing Organization Information Site ID: QPT Name: [facility] Address: [address] [facility], [address] [place] [phone] Director: Stevie Doan MD us Tom Mendoza CNM LAB BLOOD ORDERABLES Final R esult [facility] from Last 3 Months Insurance [facility] MEDICAID Care Teams Mine Expert Relationship Specialty Start Date End Date Radha Dong MD [address] [place] [address] PCP - General Family Medicine 05/19/23 [facility]over [facility] 01/27[facility]
--- OUTSIDE RECORDS SUMMARY | 2025-08-17 08:38 | XMS_ITS | Encounter Summary ---
Author Organization [facility] Address [address] [place] [address] Care Team Providers Care Exchange Architect Name Role Phone Radha Dong MD Primary Care Provider [phone] Charissa Glover ELECTRICAL DESIGNER Unavailable Encounter Details Date Type Department [...] How often do you attend chur or holiness services? More than 4 times per year 07/29/2024 Do you belong to any clubs o r organizations such as advent groups, unions, fraternal or athletic groups, or [...] and heating? Not hard at all 07/29/2024 [facility] [place] of Occupat ional Health - Occupational Stress [...] PM EDT Visit [facility] [address] [place] [address] Rosalind Mendoza CNM [address] [place] [address] documented as of this encounter Visit Diagnoses Not on filedocumented in this encounter Care Teams Exchange Architect Relationship Specialty Start Date End Date Radha Dong MD [address] [place] [address] PCP - General Family Medicine 05/19/23 Charissa Glover NP PCP - Jose Chopra 01/27/25 documented as of this encounter
--- OUTSIDE RECORDS SUMMARY | 2025-08-17 08:38 | XMS_ITS | Encounter Summary ---
Author Organization [facility] Healthcare Address [address] [place] [address] Care Team Providers Care Casino Surveillance Officer Name Role Phone Radha Dong MD Primary Care Provider [phone] Charissa Glover PHOTOENGRAVING RETOUCHER Unavailable Encounter Details Date Type Department Care Team (Late st Contact Info) Description 08/14/2025 Patient Outreach [facility] [address] [place] [address] Marci Carrion LPN [address] [place] [address] Social History Tobacco Use Types Packs/Day Years [...] and heating? Not hard at all 07/29/2024 [facility] [place] of Occupat ional Health - Occupational Stress [...] place to sleep or slept in a intermediate (including now)? No 05/18/2023 Housing Stability Vital [...] were you homeless or living in a intermediate (including now)? No 07/29/2024 Estimated Date of Delivery Comme nts Yes 08/13/2025 Based on last me nstrual period of 11/06/2024 (Exact Date) Sex and Gender Information Value Date Recorded Sex Assigned at Female 05/18/2023 2:07 PM EDT Legal Sex Female 8:11 PM EDT Gender Identity Female 05/18/2023 2:07 PM EDT Sexual Orientation Straight 05/18/2023 2: 07 PM EDT documented as of this encounter Progress Notes * Marci Carrion LPN - 08/14/2025 10:21 AM EDT Flowsheet Row Patient Outreach from 08/14/2025 in [facility] with Marci Carrion LPN Hospital Information ED, Hospital or Senior Care Facility Discharge? Hospital Patient has been contacted within two business days of discharge No Have two attempts been made to contact the patient within two business days of being discharged? Yes Diagnosis Discharge Date 08/12/25 Discharged To: Home Setting Discharge Hospital [facility] Engagement Admission Date 08/09/25 Medications Appointments Self Management Patient Teaching Wrap Up Partial ARUN. Call to pt X2, LVM. documented in this encounter Plan of Treatment Upcoming Encounters Date Type Department Care Team (Late st Contact Info) Description 08/26/2025 1:30 PM EDT Visit [facility] OBGYN [address] [place] [address] Rosalind Mendoza CNM [address] [place], [place] [phone] documented as of this encounter Visit Diagnoses Diagnosis (spontaneous vaginal delivery) ([facility] Primary Normal delivery documented in this encounter Care Teams Casino Surveillance Officer Relationship Specialty Start Date End Date Radha Dong MD [facility] [place], [place] [phone] PCP - General Family Medicine 05/19/23 Charissa Glover NP PCP - Jose Chopra 01/27/25 documented as of this encounter
--- OUTSIDE RECORDS SUMMARY | 2025-08-17 08:38 | XMS_ITS | Encounter Summary ---
Author Organization [facility] Healthcare Address [address] [place] [address] Care Team Providers Care Hand Presser Name Role Phone Radha Dong MD Primary Care Provider [phone] Charissa Glover CIVIL RIGHTS REPRESENTATIVE Unavailable Encounter Details Date Type Department Care Team (Late st Contact Info) Description 07/09/2025 Results Follow-Up [facility] OBGYN [address] [place] [phone] Rsoalind Mendoza, CNM [address] [place], [place] [phone] Bile acids, total Social History Tobacco Use [...] How often do you attend chur or faith services? More than 4 times per year 07/29/2024 Do you belong to any clubs o r organizations such as synagogue groups, unions, fraWHOOP or athletic groups, or school groups? No [...] and heating? Not hard at all 07/29/2024 [facility] [place] of Occupat ional Health - Occupational Stress [...] 08/26/2025 1:30 PM EDT Visit [facility] [address] [place] [address] Rosalind Mendoza CNM [address] [place] [address] documented as of this encounter Visit Diagnoses Not on filedocumented in this encounter Care Teams Hand Presser Relationship Specialty Start Date End Date Radha Dong MD [address] [place] [address] PCP - General Family Medicine 05/19/23 Charissa Glover NP PCP - Jose Chopra 01/27/25 documented as of this encounter
--- OUTSIDE RECORDS SUMMARY | 2025-08-17 08:39 | XMS_ITS | Encounter Summary ---
Author Organization [facility] Address [address] [place] [address] Care Team Providers Care Hand Stapler Name Role Phone Radha Dong MD Primary Care Provider [phone] Charissa Glover OPTOMETRY TEACHER Unavailable Encounter Details Date Type Department Care Team (Late st Contact Info) Description 06/22/2025 Results Follow-Up [facility] OBGYN [address] [place] [phone] Rosalind Mendoza, CNM [address] [place], [place] [phone] [place] biophysical profile wo non stress testing, [...] week 07/29/2024 How often do you attend [facility] or scientologist services? More than 4 times per year 07/29/2024 Do you belong to any clubs o r organizations such as presybeterian groups, unions, fraternal or athletic groups, or [...] and heating? Not hard at all 07/29/2024 [facility] of Occupat ional Health - Occupational Stress [...] any time in the past 12 m [facility], were you homeless or living in a [...] Description 08/26/2025 1:30 PM EDT Visit [facility] [address] [place] [address] Rosalind Mnedoza CNM [address] [place], [place] [id number] documented as of this encounter Visit Diagnoses Not on filedocumented in this encounter Care Teams Hand Stapler Relationship Specialty Start Date End Date Radha Dong MD [address] [place] [address] PCP - General Family Medicine 05/19/23 Charissa Glover NP PCP - Jose Chopra 01/27/25 documented as of this encounter
--- OUTSIDE RECORDS SUMMARY | 2025-08-17 08:39 | XMS_ITS | Encounter Summary ---
Author Organization [facility] Healthcare Address [address] [place] [address] Care Team Providers Care Assistant Professor Of Physics Name Role Phone Halle Jensen DO Unavailable [phone] Radha Dong MD Primary Care Provider [phone] Charissa Glover DEHYDRATING PRESS OPERATOR Unavailable Charissa Glover DEHYDRATING PRESS OPERATOR Unavailable Encounter Details Date Type Department Care Team (Late st Contact Info) Description 07/06/2023 Abstract [facility] Family Medicine [address] [place] [phone] Radha Dong MD [address] [place] [address] Social History Tobacco Use Types [...] week 05/18/2023 How often do you attend [facility] or baptist services? More than 4 times per year 05/18/2023 Do you belong to any clubs o r organizations such as religion groups, unions, fraternal or athletic groups, or [...] and heating? Not hard at all 05/18/2023 [facility] of Occupat ional Health - Occupational [...] in a long-term (including now)? No 05/18/2023 Comments Unknown Sex [...] 1:30 PM EDT Visit [facility] [address] [place] [address] Rosalind Mendoza CNM [address] [place], [place] [phone] documented as of this encounter Visit Diagnoses Not on filedocumented in this encounter Care Teams Assistant Professor Of Physics Relationship Specialty Start Date End Date Halle Jensen DO [address] [facility] [address] [place] [address] PCP - [place] [employer] 03/29/22 Radha Dong MD [address] [place] [address] PCP - General Family Medicine 05/19/23 Charissa Glover NP PCP - [place] [employer] 12/28/23 5 Charissa Glover NP PCP - [place] [employer] 01/27/25 documented as of this encounter
--- OUTSIDE RECORDS SUMMARY | 2025-08-17 08:39 | XMS_ITS | Encounter Summary ---
Author Organization [facility] Address [address] [place] [address] Care Team Providers Care Wood Coater Name Role Phone Radha Dong MD Primary Care Provider [phone] Charissa Glover DIRECTOR FUNDS DEVELOPMENT Unavailable Encounter Details Date Type Department Care Team (Late st Contact Info) Description 07/15/2025 Telephone [facility] [address] [place] [address] [place] [address] Nancy Kaur LPN Social History Tobacco [...] and heating? Not hard at all 07/29/2024 [facility] of Occupat ional Health - [...] PM EDT Visit [facility] [address] [place] [address] Rosalind Mendoza, ARLINE [address] [place] [address] documented as of this encounter Visit Diagnoses Not on filedocumented in this encounter Care Teams Wood Coater Relationship Specialty Start Date End Date Radha Dong MD [address] [place], [place] [phone] PCP - General Family Medicine 05/19/23 Charissa Glover NP PCP - Jose Chopra 01/27/25 documented as of this encounter
--- OUTSIDE RECORDS SUMMARY | 2025-08-17 08:39 | XMS_ITS | Encounter Summary ---
Author Organization [facility] tem Address [id number] [address] [place] [address] Care Team Providers Care Securities Lending Trader Name Role Phone Melia Henriquez Sandra ANIMAL NUTRITION CONSULTANT-DIVER'S TENDER Primary Care Provider [phone] Encounter Details Date Type Department Care Team (Late st Contact Info) Description 08/05/2025 Telephone Maternal- Medicine at [facility] [address] [place] [phone] Aida Garcia, RN [address] [id number] Social History Tobacco Use Types Packs/Day Years [...] on filedocumented in this encounter Care Teams Securities Lending Trader Relationship Specialty Start Date End Date Melia Henriquez, ANIMAL NUTRITION CONSULTANT-DIVER'S TENDER [address] [place] [address] PCP - General Nurse Practitioner 11/25/23 documented as of this encounter
--- OUTSIDE RECORDS SUMMARY | 2025-08-17 08:40 | XMS_ITS | Encounter Summary ---
Author Organization [facility] tem Address [id number] [address] [place] [address] Care Team Providers Care Sex Offender Treatment Professional Name Role Phone Melia Henriquez Sandra RADON INSPECTOR-CHANGE AGENT Primary Care Provider [phone] Encounter Details Date Type Department Care Team (Late st Contact Info) Description 07/25/2025 Results Follow-Up Maternal- Medicine at [facility] [address] [place] [address] Dorita Retana MD [address] [facility] 1st Floor [place], [place] [phone] Varicella zoster antibody, IgG Social History Tobacco [...] on filedocumented in this encounter Care Teams Sex Offender Treatment Professional Relationship Specialty Start Date End Date Melia Henriquez, RADON INSPECTOR-CHANGE AGENT [address] [place] [address] PCP - General Nurse Practitioner 11/25/23 documented as of this encounter
--- OUTSIDE RECORDS SUMMARY | 2025-08-17 08:40 | XMS_ITS | Clinical Summary ---
Author Organization [email or web address] tem Address [id number] [address] [place] [address] Care Team Providers Care B2B Outside Sales Representative Name Role Phone Melia Henriquez Sandra HANCOCKN-PROPULSION MACHINERY SERVICE ENGINEER Primary Care Provider [phone] Allergies No known active allergies Medications ondansetron [...] total) by mouth in the morning. Active Active Problems Problem Noted Date Diagnosed Date BPPV (benign paroxysmal positional vertigo), shaniqua ateral 06/02/2025 Gestational diabetes mellitus (GDM) in second tr imester 06/02/2025 Estimated Date of Delivery Comme nts Yes 08/13/2025 Based on last me nstrual period of 11/06/2024 Encounters Date Type Department Care Team Description 08/05/2025 Telephone Maternal- Medicine at [facility] [address] [place] [address] Aida Garcia RN 07/25/2025 Results Follow-Up Maternal- Medicine at [place] [address] [place] [address] Dorita Retana MD Varicella zoster antibody, IgG 07/21/2025 8:00 AM EDT Office Visit Maternal- Medicine at [facility] [address] [place] [address] Dorita Retana MD Insulin controlled gestational diabetes mellitus (GDM) during , antepartum (Primary Dx); Herpes zoster with other complication; Obesity affecting in third trimester, unspecified obesity type; Dyshidrotic eczema; 36 weeks gestation of 07/21/2025 Travel 07/15/2025 Telephone Maternal- Medicine at [facility] [address] [place] [address] Lety Ocampo RN 07/14/2025 Orders Only Maternal- Medicine at [place] [address] [place] [address] Dorita Retana MD Insulin controlled gestational diabetes mellitus (GDM) during , antepartum 07/07/2025 Telephone Maternal- Medicine at [facility] [address] [place] [address] Lety Ocampo, ADA 07/07/2025 Orders Only Maternal- Medicine at [facility] [address] [place] [address] Dorita Retana MD Insulin controlled gestational diabetes mellitus (GDM) during , antepartum 07/03/2025 8:53 AM EDT - 07/03/2025 11:59 PM EDT Hospital Encounter [facility] [address] [place] [address] Blister of hand without infection, unspecified laterality, subsequent encounter; Dyshidrotic eczema; Insulin controlled gestational diabetes mellitus (GDM) during , antepartum; Obesity affecting in third trimester, unspecified obesity type Discharge Disposition: Home 07/03/2025 Orders Only Maternal- Medicine at [facility] [address] [place] [address] Floresita Griffith RN Insulin controlled gestational diabetes mellitus (GDM) during , antepartum (Primary Dx) 07/01/2025 2:30 PM EDT Office Visit Maternal- Medicine at [facility] [address] [place] [address] Dorita Retana MD Insulin controlled gestational diabetes mellitus (GDM) during , antepartum (Primary Dx); Blister of hand without infection, unspecified laterality, subsequent encounter; Dyshidrotic eczema; Obesity affecting in third trimester, unspecified obesity type; 33 weeks gestation of 07/01/2025 Orders Only Maternal- Medicine at [facility] [address] [place] [address] Marci Vences LPN Blister of hand without infection, unspecified laterality, subsequent encounter (Primary Dx); Dyshidrotic eczema; Insulin controlled gestational diabetes mellitus (GDM) during , antepartum; Obesity affecting in third trimester, unspecified obesity type 07/01/2025 Documentation Maternal- Medicine at [facility] [address] [place] [address] Gloria Holt RN 06/30/2025 Travel 06/30/2025 Telephone Maternal- Medicine at [facility] [address] [place] [address] Renae Landrum LD 06/22/2025 Telephone Maternal- Medicine at [facility] [address] [place] [address] 06/16/2025 Telephone Maternal- Medicine at [facility] [address] [place] [address] Nikki Jarvis LD 06/08/2025 1:30 PM EDT Support Visit Maternal- Medicine at [facility] [address] [place] [address] Renae Landrum, Emilia Mccain, ALMITA Gestational diabetes mellitus (GDM) in second trimester, gestational diabetes method of control unspecified (Primary Dx) 06/08/2025 Orders Only Maternal- Medicine at [facility] [address] [place] [address] Renae Landrum LD 06/08/2025 Travel 06/03/2025 Abstract Maternal- Medicine at [facility] [address] [place] [address] External, Scanning Provider 06/03/2025 Orders Only Maternal- Medicine at [place] [address] [place] [address] Ref Prov, Not In System 06/02/2025 Abstract Maternal- Medicine at [facility] [address] [place] [address] External, Scanning Provider 06/02/2025 Abstract Maternal- Medicine at [place] [address] [place] [address] External, Scanning Provider from Last 3 Months [...] PM EDT Herpes zoster with other complication [facility] COMPREHENSIVE ANATOMIC SURVEY Routine 07/03/2025 [...] >8.0 <1.0 AI 07/25/2025 6:16 AM EDT [facility] Blood Venous blood / Unknown Venipuncture / Unknown 07/24/2025 3:33 PM EDT 07/24/2025 3:33 PM EDT Narrative [facility] - 07/25/2025 6:16 AM EDT Intepretation < 0.9 Negative 0.9 - 1.0 Equivocal > 1.0 Positive us Dorita Retana MD LAB BLOOD ORDERABLES Final Resul t [facility] [address] [place] [address], [place] [phone] * [facility] COMPREHENSIVE ANATOMIC SURVEY (07/03/2025 10:59 AM EDT) Anatomical Region Laterality Modality OB-RELAY MOTORMAN Ultrasound 07/03/2025 9:35 AM EDT Narrative 07/03/2025 12:12 PM EDT NAME: KING NELLA BERRY : 1995 SEX: F Accession Number: [id number] ORDERING PHYSICIAN: GEOVANI LUNA REFERRING PHYSICIAN: TOM KAMINSKI Coding ----- --------- Procedures [id number]: Ultrasound, uterus, real time with image documentation, and maternal evaluation plus detailed anatomic examination, transabdominal approach;single or first gestation 29615: Transvaginal Ultrasound (OB) Indication ----- --------- Screening for Anatomic Survey , Screening for cervical length , Gestational diabetes. History ----- --------- OB History 1. Para 0 [id number] Maternal Assessment ----- --------- Physical Exam Height [...] previous U/S 34 w + 6 d KACYEE by previous Ultrasound: 08/08/2025 Ultrasound examination on: [...] EFW (oz) 13 oz EFW by: Hadlock ([id number]) Extended Tibia 52.9 mm 31w 3d 4% Estefany Waterworks Operator 5.3 mm CM 6.1 mm 16% Nicolaides [...] Thorax 4-chamber view. RVOT view. 3-vessel view. 8-rewvty-jprnvyu view. Interventricular septum. Diaphragm. Spine: Cervical spine. [...] 1984). Recommendations ----- --------- Please see [facility] recommendations from prior clinical and/or ultrasound report documentation. The patient is scheduled in four weeks for follow up growth ultrasound. The patient is scheduled in three weeks for provider visit. Subsequent follow up or other follow up as clinically determined by primary OB provider unless otherwise specified by [facility]. Results forwarded to ordering provider so they can follow up with the patient as necessary. Procedure Note Geovani Luna MD - 07/03/2025 NAME: KING NELLA BERRY : 1995 SEX: F Accession Number: [id number] ORDERING PHYSICIAN: GEOVANI LUNA REFERRING PHYSICIAN: TOM KAMINSKI Coding ----- --------- Procedures [id number]: Ultrasound, uterus, real time with imagedocumentation, and maternal evaluation plus detailed anatomic examination, transabdominalapproach;single or first gestation 73269: Transvaginal Ultrasound (OB) Indication ----- --------- Screening for Anatomic Survey , Screening for cervical length ,Gestational diabetes. History ----- --------- OB History 1. Para 0 [id number] Maternal Assessment ----- --------- Physical Exam Height [...] EFW (oz) 13 oz EFW by: Hadlock ([id number]) Extended Tibia 52.9 mm 31w 3d 4% Estefany Waterworks Operator 5.3 mm CM 6.1 mm 16% Nicolaides [...] Thorax 4-chamber view. RVOT view. 3-vessel view. 0-qpwzer-klvssctgcyg. Interventricular septum. Diaphragm. Spine: Cervical spine. Thoracic [...] 1984). Recommendations ----- --------- Please see [facility] recommendations from prior clinical and/or ultrasoundreport documentation. The patient is scheduled in four weeks for follow up growth ultrasound. The patient is scheduled in three weeks for provider visit. Subsequent follow up or other follow up as clinically determined byprimary OB provider unless otherwise specified by [facility]. Results forwarded to ordering provider so they can follow up with thepatient as necessary. us Geovani Luna MD [facility] [place] [place] US ORDERABLES Final Resul t * Glucose [...] TRANSCRIBED RESULTS from Last 3 Months Insurance [facility] MEDICA[facility] Care Teams B2B Outside Sales Representative Relationship Specialty Start Date End Date Melia Henriquez, SEARCH AND RESCUE OFFICER-PROPULSION MACHINERY SERVICE ENGINEER [address] [place] [address] PCP - General Nurse Practitioner 11/25/23
--- OUTSIDE RECORDS SUMMARY | 2025-08-17 08:40 | XMS_ITS ---
Author Organization [facility] Address [address] [place] [address] Care Team Providers Care Heat Treat Puller Name Role Phone Radha Dong MD Primary Care Provider [phone] JUDGE Unavailable Inpatient Discharge Transitional Care Management (TCM) Status:Closed (Closed) Start date:08/12/2025 Enrollment date:08/13/2025 Enrollment reason:Identified using hospital discharge data End date:08/14/2025 Close reason:Unable to reach patient Overview Patient discharged from [facility] on 08/12. Please contact for hospital ARUN and schedule follow-up appointment within 7-14 days. Continued Care and Services Coordination
--- OUTSIDE RECORDS SUMMARY | 2025-08-17 08:40 | XMS_ITS | Encounter Summary ---
Author Organization [facility] Healthcare Address [address] [place] [address] Care Team Providers Care Profile Saw Operator Name Role Phone Radha Dong MD Primary Care Provider [phone] Charissa Glover PUMPING STATION SUPERVISOR Unavailable Encounter Details Date Type Department Care Team (Late st Contact Info) Description 08/11/2025 Results Follow-Up [facility] OBGYN [address] [place] [address] Rosalind Mendoza, CNM [address] [place], [place] [phone] [facility] GLUCOSE FASTING Social History Tobacco Use Types [...] How often do you attend chur or yazdanism services? More than 4 times per year 07/29/2024 Do you belong to any clubs o r organizations such as jewish groups, unions, fraPresidio or athletic groups, or school groups? No [...] and heating? Not hard at all 07/29/2024 [facility] of Occupat ional Health - Occupational Stress [...] time in the past [address] [facility], were you homeless or living [...] 08/26/2025 1:30 PM EDT Visit [facility] [address] [place] [address] Rosalind Mendoza CNM [address] [place] [address] documented as of this encounter Visit Diagnoses Not on filedocumented in this encounter Care Teams Profile Saw Operator Relationship Specialty Start Date End Date Radha Dong MD [address] [place] [address] PCP - General Family Medicine 05/19/23 Charissa Glover NP PCP - Jose Chopra 01/27/25 documented as of this encounter
--- OUTSIDE RECORDS SUMMARY | 2025-08-17 08:40 | XMS_ITS | Encounter Summary ---
Author Organization [facility] Address [address] [place] [address] Care Team Providers Care Automotive Electrician Name Role Phone Radha Dong MD Primary Care Provider [phone] Charissa Glover WEL[employer] HOST/HOSTESS Unavailable Encounter Details Date Type Department Care Team (Late st Contact Info) Description 08/09/2025 Clinisync Result Encounter [facility] External Department Unsolicited Rosalind Mendoza, CNM [address] [place], [place] [phone] Social History Tobacco Use Types Packs/Day Years [...] week 07/29/2024 How often do you attend [facility] or scientology services? More than 4 times per year 07/29/2024 Do you belong to any clubs o r organizations such as jainism groups, unions, fraternal or athletic groups, or [...] 07/29/2024 [facility] - Occupational Stress Questionnaire [...] time in the past 12 m [facility], were you homeless or living in a [...] 1:30 PM EDT Visit [facility] [address] [place] [address] Rosalind Mendoza, ARLINE [address] [place] [address] documented as of this encounter Procedures Procedure Name Priority Date/Time Associated Diagnosis Comments [facility] DRUG SCREEN RAPID (URINE) Routine 08/09/2025 5:15 [...] Rosalind Mendoza CNM [facility] Final Result [facility] * (ABNORMAL) HP CBC WITH PLATELET [...] EDT us Rosalind ALVAREZ [facility] Final Result [facility] documented in this encounter Visit Diagnoses Not on filedocumented in this encounter Care Teams Automotive Electrician Relationship Specialty Start Date End Date Radha Dong MD [address] [place] [address] PCP - General Family Medicine 05/19/23 Charissa Glover NP PCP - [place] [employer] 01/27/25 documented as of this encounter
--- OUTSIDE RECORDS SUMMARY | 2025-08-17 08:40 | XMS_ITS | Encounter Summary ---
Author Organization [facility] Address [address] [place] [address] Care Team Providers Care Draw Bench Operator Name Role Phone Halle Jensen DO Unavailable [phone] Radha Dong MD Primary Care Provider [phone] Charissa Glover NP Unavailable Cahrissa Glover [employer] TEACHER Unavailable Encounter Details Date Type Department Care Team (Late st Contact Info) Description 05/31/2023 Abstract [facility] Family Medicine [address] [place] [address] Charissa Glover NP Social History Tobacco Use [...] any clubs o r organizations such as mormonism groups, unions, fraternal or athletic groups, or [...] and heating? Not hard at all 05/18/2023 [facility] of Occupat ional Health - Occupational [...] in a penitentiary (including now)? No 05/18/2023 Comments Unknown Sex [...] PM EDT Visit [facility] [address] [place] [address] Rosalind Mendoza CNM [address] [place] [address] documented as of this encounter Visit Diagnoses Not on filedocumented in this encounter Care Teams Draw Bench Operator Relationship Specialty Start Date End Date Halle Jensen DO [address] [facility] [address] [place] [address] PCP - [place] [employer] 03/29/22 Radha Dong MD [address] [place] [address] PCP - General Family Medicine 05/19/23 Charissa Glover NP PCP - [place] [employer] 12/28/23 5 Charissa Glover NP PCP - [place] [employer] 01/27/25 documented as of this encounter
--- OUTSIDE RECORDS SUMMARY | 2025-08-17 08:40 | XMS_ITS | Encounter Summary ---
Author Organization [facility] Address [address] [place] [address] Care Team Providers Care Calendering Machine Operator Name Role Phone Radha Dong MD Primary Care Provider [phone] Charissa Glover BRICK SHADER Unavailable Encounter Details Date Type Department Care Team (Late st Contact Info) Description 08/12/2025 Results Follow-Up [facility] OBGYN [address] [place] [address] Rosalind Mendoza, CNM [address] [place], [place] [phone] OB [facility] Social History Tobacco Use Types Packs/Day Years [...] How often do you attend chur or baptist services? More than 4 times [...] and heating? Not hard at all 07/29/2024 [facility] [place] of Occupat ional Health - Occupational Stress [...] 08/26/2025 1:30 PM EDT Visit [facility] [address] [place] [address] Rosalind Mendoza CNM [address] [place] [address] documented as of this encounter Visit Diagnoses Not on filedocumented in this encounter Care Teams Calendering Machine Operator Relationship Specialty Start Date End Date Radha Dong MD [address] [place] [address] PCP - General Family Medicine 05/19/23 Charissa Glover NP PCP - Jose Chopra 01/27/25 documented as of this encounter
--- OUTSIDE RECORDS SUMMARY | 2025-08-17 08:40 | XMS_ITS | Encounter Summary ---
Author Organization [facility] Address [address] [place] [address] Care Team Providers Care Cyber Systems Administrator Name Role Phone Radha Dong MD Primary Care Provider [phone] Charissa Glover ICE CREAM FREEZER Unavailable Encounter Details Date Type Department Care Team (Late st Contact Info) Description 08/11/2025 Clinisync Result Encounter [facility] Unsolicited Rosalind Mendoza, CNM [address], [place] [id number] Social History Tobacco Use Types Packs/Day Years [...] week 07/29/2024 How often do you attend [facility] or gnosticist services? More than 4 times per year [...] at all 07/29/2024 [facility] - Occupational Stress Questionnaire Answer Date [...] any time in the past 12 m [facility], were you homeless or living [...] 1:30 PM EDT Visit [facility] MUNOZ [address] [place] [address] Rosalind Mendoza, ARLINE [address] [place] [address] documented as of this encounter Procedures Procedure Name Priority Date/Time Associated Diagnosis Comments [facility] GLUCOSE FASTING Routine 08/11/2025 6:26 AM EDT ALL CBC WITH AUTO DIFF Routine 08/11/2025 6:01 AM EDT documented in this encounter Results * (ABNORMAL) HM GLUCOSE FASTING (08/11/2025 6:26 AM EDT) [facility] GLUCOSE FASTING 118(H) <95 mg/dL TB 08/11/2025 6:26 AM EDT 08/11/2025 6:29 AM EDT Narrative [facility] - 08/11/2025 6:44 AM EDT us Rosalind Mendoza CNM [facility] Final Result [facility] * (ABNORMAL) ALL CBC WITH AUTO DIFF [...] us Rosalind Mendoza CN [facility] Final [facility] documented in this encounter Visit Diagnoses Not on filedocumented in this encounter Care Teams Cyber Systems Administrator Relationship Specialty Start Date End Date Radha Dong MD [address] [place] [address] PCP - General Family Medicine 05/19/23 Charissa Glover NP PCP - [place] [employer] 01/27/25 documented as of this encounter
--- OUTSIDE RECORDS SUMMARY | 2025-08-17 08:40 | XMS_ITS | Encounter Summary ---
Author Organization [facility] tem Address [id number] [address] [place] [address] Care Team Providers Care Cardiac Catheterization Technologist Name Role Phone Melia Henriquez Sandra [employer] Primary Care Provider [phone] Encounter Details Date Type Department Care Team (Late st Contact Info) Description 06/03/2025 Orders Only Maternal- Medicine at [facility] [address] [place] [address] Ref Prov, [place] [address] Social History Tobacco Use Types Packs/Day Years [...] on filedocumented in this encounter Care Teams Cardiac Catheterization Technologist Relationship Specialty Start Date End Date Melia Henriquez, [employer] [address] [place] [address] PCP - General Nurse Practitioner 11/25/23 documented as of this encounter
--- NOTE | 2025-08-17 13:48 | PC.NURSE ---
Martha and 7 day old Chayo arrive for support. Mom states started giving baby formula she just screamed after feeds and wouldn't settle. Discussed possible low supply, tongue and lip tie involvement and pumping schedule. Protecting milk supply important to Martha s well as a satisfied baby. Given handout on pumping. Flange fit of 19-20mm for left and right sides respectively. States 24mm just hurt will purchase inserts or flanges as needed. Able to latch baby independently, shallow latch remains due to tongue tie. Minimal damage to nipple noted. Baby has narrow gape and difficult to encourage wide gape. Bili level for returned at 9.0, no repeat required at this time. Pt will call when schedules pediatric dentist appointment for follow up. Plans to call LC prior if need arises. Family home at this time.
== END 2025-08-17 13:56 | disposition home or self-care (01) ==
PROVIDERS: Visit Provider Obstetrics & Gynecology
DX: Z39.1 Encounter for care and examination of lactating mother (principal)

== ENCOUNTER 2025-09-21 08:40 | Outpatient (OUT) | payer MEDICAID, SELFPAY ==
--- OUTSIDE RECORDS SUMMARY | 2025-09-21 09:00 | XMS_ITS | Clinical Summary ---
Author Organization [facility] tem Address [id number] [address] [place] [address] Care Team Providers Care Cabinet Builder Name Role Phone Tommy Henriquezrakesh Flores APRN-VOLUNTEER RECRUITER Primary Care Provider [phone] Allergies No known active allergies Medications MedicationSigDispense QuantityRefillsLast FilledStart DateEnd DateStatus ondansetron ODT (ZOFRAN ODT) 4 mg disintegrating tablet Dissolve 1 tablet (4 mg total) on tongue every 8 (eight) hours as needed for nausea for up to 10 doses. 10 tablet 4Active Additional Information Patient not taking.Reported on 07/21/2025 alcohol swabs (ALCOHOL WIPES) pads, medicated Apply 1 each topically in the morning and 1 each at noon and 1 each in the evening and 1 each before bedtime. Use to clean finger before every glucose check .Active blood-glucose meter misc 1 each by miscellaneous route in the morning and 1 each at noon and 1 each in the evening and 1 each before bedtime. Use to check blood glucose 4 times daily. Active 115/iron/folic acid ( 19 ORAL) Take by mouth.Active pen needle, diabetic (BD ULTRA-FINE SHORT PEN NEEDLE) 31 gauge x 5/16 needle Indications:Insulin controlled gestational diabetes mellitus (GDM) during , antepartumUse daily for insulin 100 each 5Active insulin glargine (LANTUS SOLOSTAR U-100 INSULIN) 100 unit/mL (3 mL) insulin pen Indications:Insulin controlled gestational diabetes mellitus (GDM) during , antepartumInject 16 units nightly in subcutaneous space, prime 2 units 15 mL 309/16/2025Active valACYclovir (VALTREX) 500 mg tablet Take 1 tablet (500 mg total) by mouth in the morning.Active Active Problems ProblemNoted DateDiagnosed DateBPPV (benign paroxysmal positional vertigo), iaupdzcpp26/05/2025Gestational diabetes mellitus (GDM) in second trimester 06/02/2025Estimated Date of WlimpnxfLphbrvuqMis10/16/2025Based on last menstrual period of 11/06/2024 Encounters DateTypeDepartmentCare WoqjEktbzznajmo50/08/2025Telephone Maternal- Medicine at [facility] [address] [place] [address] Aida Garcia RN 07/25/2025Results Follow-Up Maternal- Medicine at [facility] [address] [place] [address] Dorita Retana MD Varicella zoster antibody, IgG07/21/2025 8:00 AM EDTOffice Visit Maternal- Medicine at [facility] [address] [place] [address] Dorita Retana MD Insulin controlled gestational diabetes mellitus (GDM) during , antepartum (Primary Dx); Herpes zoster with other complication; Obesity affecting in third trimester, unspecified obesity type; Dyshidrotic eczema; 36 weeks gestation of ipqdrivcs16/23/9665Jbyuyx56/17/2025Telephone Maternal- Medicine at [facility] [address] [place] [address] Lety Ocampo RN 07/14/2025Orders Only Maternal- Medicine at [facility] [address] [place] [address] Dorita Retana MD Insulin controlled gestational diabetes mellitus (GDM) during , msqsregerf77/09/2025Telephone Maternal- Medicine at [facility] [address] [place] [address] Lety Ocampo, ADA 07/07/2025Orders Only Maternal- Medicine at [facility] [address] [place] [address] Dorita Retana MD Insulin controlled gestational diabetes mellitus (GDM) during , jdocioqmye97/05/2025 8:53 AM EDT - 07/03/2025 11:59 PM EDTHospital Encounter [facility] - [facility] [address] [facility] [place] [address] Blister of hand without infection, unspecified laterality, subsequent encounter; Dyshidrotic eczema; Insulin controlled gestational diabetes mellitus (GDM) during , antepartum; Obesity affecting in third trimester, unspecified obesity type Discharge Disposition: Home07/03/2025Orders Only Maternal- Medicine at [facility] [address] [place] [address] Floresita Griffith RN Insulin controlled gestational diabetes mellitus (GDM) during , antepartum (Primary Dx)07/01/2025 2:30 PM EDTOffice Visit Maternal- Medicine at [facility] [address] [facility] [place] [address] Dorita Retana MD Insulin controlled gestational diabetes mellitus (GDM) during , antepartum (Primary Dx); Blister of hand without infection, unspecified laterality, subsequent encounter; Dyshidrotic eczema; Obesity affecting in third trimester, unspecified obesity type; 33 weeks gestation of ifdqnyheb82/03/2025Orders Only Maternal- Medicine at [facility] [address] [place] [address] Marci Vences LPN Blister of hand without infection, unspecified laterality, subsequent encounter (Primary Dx); Dyshidrotic eczema; Insulin controlled gestational diabetes mellitus (GDM) during , antepartum; Obesity affecting in third trimester, unspecified obesity type 07/01/2025Documentation Maternal- Medicine at [facility] [address] [facility] [place] [address] Gloria Holt RN 06/30/20251330Ltdwmw28/02/2025Telephone Maternal- Medicine at [facility] [address] [place] [address] Renae Landrum LD 06/22/2025Telephone Maternal- Medicine at [facility] [address] [place] [address] from Last 3 Months Family History Medical HistoryRelationNameCommentsDiabetesBrotherInsulin resistant on metformin HypertensionBrotherEczemaMotherHypertensionMotherDiabetesPaternal Grandfather Kidney diseasePaternal GrandfatherCancerPaternal Grandmotherbreast cancer postmenopausalAutoimmune gxkqyteZizmxmXzhqunnkTtvvcbV3UONjxnsiKrr HxBleeding DisorderNeg HxClotting disorderNeg HxDevelopmental delayNeg HxDown syndromeNeg HxHeart defectNeg HxSudden deathNeg HxRelationNameStatusCommentsBrotherMother Paternal GrandfatherPaternal GrandmotherSister Social History Tobacco UseTypesPacks/DayYears UsedDateSmoking Tobacco: FormerCigarettesPassive Smoke Exposure: PastSmokeless Tobacco: Never Tobacco Cessation:Counseling Given: Not Answered Alcohol UseStandard Drinks/WeekCommentsNot Currently0 (1 standard drink = 0.6 oz pure alcohol)ChildcareAnswerDate AzsaodvmMexmcjcfzEsgqzqg77/12/2019Employment AnswerDate IjbqvpbqBvahmljxhnUwisgxk73/12/2019Hunger ScreeningAnswerDate RecordedWithin the past 12 months we worried whether our food would run out before we got money to buy more.Never True07/21/2025Within the past 12 months the food we bought just didn't last and we didn't have money to get more.Never True07/21/2025Estimated Date of YrsnbxmbGpubryskKuv77/16/2025Based on last menstrual period of 11/06/2024Sex and Gender InformationValueDate RecordedSex Assigned at BirthNot on fileLegal XtuKciery11/01/2025 3:58 PM EDTGender Identity Not on fileSexual OrientationNot on file Last Filed Vital Signs Vital SignReadingTime TakenCommentsBlood Obmomivp492/6509 7:56 AM EDT Mntoi0132/23/2025 7:56 AM RBQQmqrmowgqcr81.1 ??C (98.7 ??F)11/25/2023 1:37 AM ESTRespiratory Bzha185411/25/2023 2:55 AM ESTOxygen Jlskesiglx75%11/25/2023 1:37 AM ESTInhaled Oxygen Concentration--Mgqirk77.3 kg (192 lb 6.4 oz)07/21/2025 7:56 AM TGYIbmeyl020 cm (5' 2.99 )07/21/2025 7:56 AM EDTBody Mass Index34.09 07/21/2025 7:56 AM EDT Plan of Treatment Health MaintenanceDue DateLast DoneCommentsDTaP,Tdap and Td Vaccines (6 - Tdap) , 12/24/1998, 1997, Additional history exists Depression Inrmtxugb04/06/2009dult BMI Follow Up Plan2015Influenza Lniupab1006/29/2025dult BMI Pyblockqh54/Tobacco Screening Pap SmearSV ( or age 60+ yrs) (No Doses Required)Completed Medical Devices Not on file Procedures Procedure NamePriorityDate/TimeAssociated DiagnosisCommentsVARICELLA ZOSTER ANTIBODY, GIIRmwwjuy00/26/2025 3:33 PM EDT Herpes zoster with other complication [facility] COMPREHENSIVE ANATOMIC ZNEZQDXrkjicp44/05/2025 10:59 AM EDT Blister of hand without infection, unspecified laterality, subsequent encounter Dyshidrotic eczema Insulin controlled gestational diabetes mellitus (GDM) during , antepartum Obesity affecting in third trimester, unspecified obesity type from Last 3 Months Results * Varicella zoster antibody, IgG (07/24/2025 3:33 PM EDT)ComponentValueRef Range Test MethodAnalysis TimePerformed AtPathologist SignatureVARICELLA IGG>8.0<1.0 AI07/25/2025 6:16 AM EDTTCLEVELAND CLINIC [facility] LABORATORYSpecimen (Source) Anatomical Location / LateralityCollection Method / VolumeCollection Time Received TimeBloodVenous blood / UnknownVenipuncture / Jvxxupr0407/24/2025 3:33 PM EDT07/24/2025 3:33 PM EDT Narrative [facility] - 07/25/2025 6:16 AM EDT Intepretation < 0.9 Negative 0.9 - 1.0 ??Equivocal > 1.0 Positive Authorizing ProviderResult TypeResult StatusHoly Name Medical CenterLAB BLOOD ORDERABLES Final ResultPerforming OrganizationAddressCity/State/ZIP CodePhone Number [facility] [address] [place] [address], * [facility] COMPREHENSIVE ANATOMIC SURVEY (07/03/2025 10:59 AM EDT)Anatomical RegionLateralityModalityOB-GYNUltrasoundSpecimen (Source)Anatomical Location / LateralityCollection Method / VolumeCollection TimeReceived Time07/03/2025 9:35 AM EDT Narrative 07/03/2025 12:12 PM EDT NAME: ??KING VIJI BERRY : 1995 SEX: F Accession Number: [id number] ORDERING PHYSICIAN: GEOVANI LUNA REFERRING PHYSICIAN: TOM KAMINSKI Coding Procedures ? 47381: Ultrasound, uterus, real time with image documentation, and maternal evaluation ? plus detailed anatomic examination, transabdominal approach;single or first gestation ? 66583: Transvaginal Ultrasound (OB) Indication Screening for Anatomic Survey , Screening for cervical length , Gestational diabetes. History OB History ? 1. Para 0 ? [id number] Maternal Assessment Physical Exam ??Height 160 cm, 5 ft 3 in. Weight 86 kg, 189 lb. Initial weight 77 kg, 169 lb. BMI 33.48 kg/m??. Initial ? BMI 29.94 kg/m??. Weight gain 9 kg, 20 lb Method Transabdominal and transvaginal ultrasound examination. View: Suboptimal view: limited by late gestational age and position. Images of optimal diagnostic quality could not be obtained. Hodge . Number of fetuses: 1 Dating LMP on: ?11/06/2024 GA by LMP ?34 w + 1 d KAYCEE by LMP: ?08/13/2025 Previous Ultrasound on: ?12/29/2024 Type of prior assessment: ?GA GA at prior assessment date ?8 w + 2 d GA by previous U/S ? 34 w + 6 d KAYCEE by previous Ultrasound: ?08/08/2025 Ultrasound examination on: ? 07/03/2025 GA by U/S based upon: ??AC, BPD, Femur, HC GA by U/S ?33 w + 1 d KAYCEE by U/S: ?08/20/2025 Assigned: ?based on the LMP, selected on 07/03/2025 Assigned GA (weeks days) ? 34 w + 1 d Assigned KAYCEE: ??08/13/2025 General Evaluation Cardiac activity Present. FHR 161 bpm. Presentation: cephalic Placenta: Placental site: posterior, away from cervical os Umbilical cord: Cord vessels: 3 vessel cord. Insertion site: not examined Amniotic fluid: Amount of AF: normal amount. MVP 5.5 cm Biometry Standard BPD ?85.6 mm 34w 4d 59% Hadlock OFD ?96.3 mm 31w 1d 3% Estefany HC 289.9 mm 31w 6d <1% Hadlock Cerebellum tr ??42.0 mm 33w 1d 17% Hill AC ? 304.5 mm ?34w 3d 62% Hadlock Femur ??60.9 mm 31w 4d 2% Hadlock Humerus ?56.5 mm 32w 6d 25% Estefany HC / AC ?0.97 EFW ?2,183 g ??24% Hadlock EFW (lb) ? 4 lb EFW (oz) ? 13 oz EFW by: ?Hadlock (HUA-OS-WS-FL) Extended Tibia ??52.9 mm 31w 3d 4% Estefany Property Disposal Manager ? 5.3 mm CM ? 6.1 mm ?? 16% Nicolaides Head / Face / Neck Cephalic index 0.89 ? 99% Nicolaides Nasal bone: ?not examined Extremities / Bony Struc FL / BPD ? 0.71 FL / HC ?0.21 FL / AC ?0.20 Other Structures FHR ?161 bpm Anatomy The following structures appear normal: Head/Neck: Cranium. [...] Thorax 4-chamber view. RVOT view. 3-vessel view. 5-qkhfda-ztdijxe view. Interventricular septum. ? Diaphragm. Spine: Cervical spine. Thoracic spine. Lumbar spine. Sacral spine. Extremities / ??Left hand. Skeleton The following structures could not be examined: Head / Neck ?Choroid plexus. Midline falx. ? Neck. Face: Lips. Profile. Nose. Nasal bone. Maxilla. Mandible. Orbits. Heart / Thorax LVOT view. Aortic arch view. Bicaval view. Ductal arch view. Great vessels. ? Right lung. Left lung. Abdomen ?Cord insertion. Right renal artery. Left renal artery. Extremities / ??Right hand. Right foot. Left upper leg. Left lower leg. Left foot. Skeleton Maternal Structures Uterus Visualized Cervix Visualized ? Approach - Transvaginal: Cervical length 2.56 cm Right Ovary ?Not visualized Left Ovary ? Not visualized Cul de Sac ? Visualized. No free fluid visualized Impression Single live intrauterine consistent with 34w 1d with an KAYCEE of 08/13/2025. Normal growth. EFW measures at the 24%, AC measures at the 62%. Transvaginal cervical length measures 2.56 cm. Amniotic fluid MVP measures 5.5 cm. The HC measures less than the 3rd percentile for the gestational age but reference biometric measurement within 2 SD of the mean (Crispin and colleagues, 1984). Recommendations Please see [facility] recommendations from prior clinical and/or ultrasound report documentation. The patient is scheduled in four weeks for follow up growth ultrasound. The patient is scheduled in three weeks for provider visit. Subsequent follow up or other follow up as clinically determined by primary OB provider unless otherwise specified by [facility]. Results forwarded to ordering provider so they can follow up with the patient as necessary. Procedure Note Geovani Luna MD - 07/03/2025 NAME: KING VIJI BERRY : 1995 SEX: F Accession Number: [id number] ORDERING PHYSICIAN: GEOVANI LUNA REFERRING PHYSICIAN: TOM KAMINSKI Coding Procedures 74199: Ultrasound, uterus, real time with image documentation, and maternal evaluation plus detailed anatomic examination, transabdominalapproach;single or first gestation 79729: Transvaginal Ultrasound (OB) Indication Screening for Anatomic Survey , Screening for cervical length ,Gestational diabetes. History OB History 1. Para 0 [id number] Maternal Assessment Physical Exam Height 160 cm, 5 ft 3 in. Weight 86 kg, 189 lb. Initialweight 77 kg, 169 lb. BMI 33.48 kg/m??. Initial BMI 29.94 kg/m??. Weight gain 9 kg, 20 lb Method Transabdominal and transvaginal ultrasound examination. View: Suboptimalview: limited by late gestational age and position. Images of optimal diagnostic quality could not be obtained. Hodge . Number of fetuses: 1 Dating LMP on: 11/06/2024 GA by LMP 34 [...] 1 d Assigned KAYCEE: 08/13/2025 General Evaluation Cardiac activity Present. FHR 161 bpm. Presentation: cephalic Placenta: Placental site: posterior, away from cervical os Umbilical cord: Cord vessels: 3 vessel cord. Insertion site: notexamined Amniotic fluid: Amount of AF: normal amount. MVP 5.5 cm Biometry Standard BPD 85.6 mm 34w 4d 59% [...] EFW (oz) 13 oz EFW by: Hadlock (IRU-HW-RA-FL) Extended Tibia 52.9 mm 31w 3d 4% Estefany Property Disposal Manager 5.3 mm CM 6.1 mm 16% Nicolaides Head / Face / Neck Cephalic index 0.89 99% Nicolaides Nasal bone: not examined Extremities / Bony Struc FL / BPD 0.71 FL / HC 0.21 FL / AC 0.20 Other Structures FHR 161 bpm Anatomy The following structures appear normal: Head/Neck: Cranium. [...] Thorax 4-chamber view. RVOT view. 3-vessel view. 4-xtfjno-lytcwngbsow. Interventricular septum. Diaphragm. Spine: Cervical spine. Thoracic [...] Left lower leg.Left foot. Skeleton Maternal Structures Uterus Visualized Cervix Visualized Approach - Transvaginal: Cervical length 2.56 cm Right Ovary Not visualized Left Ovary Not visualized Cul de Sac Visualized. No free fluid visualized Impression Single live intrauterine consistent with 34w 1d with an KAYCEE of 08/13/2025. Normal growth. EFW measures at the 24%, AC measures at the 62%. Transvaginal cervical length measures 2.56 cm. Amniotic fluid MVP measures 5.5 cm. The HC measures less than the 3rd percentile for the gestational agebut reference biometric measurement within 2 SD of the mean (Crispin and colleagues, 1984). Recommendations Please see [facility] recommendations from prior clinical and/or ultrasoundreport documentation. The patient is scheduled in four weeks for follow up growth ultrasound. The patient is scheduled in three weeks for provider visit. Subsequent follow up or other follow up as clinically determined byprimary OB provider unless otherwise specified by [facility]. Results forwarded to ordering provider so they can follow up with thepatient as necessary. Authorizing ProviderResult TypeResult StatusGeovani Luna MDIMG US ORDERABLES Final Result from Last 3 Months Insurance * Guarantor: Martha Dejesus RaJonasccount TypeRelation to PatientDate of BirthPhone Billing AddressPersonal/VrnlhvTyzl1995 [address] [place] [address] Care Teams Team MemberRelationshipSpecialtyStart DateEnd Date Melia Henriquez, HOSEMAN-VOLUNTEER RECRUITER [address] [place] [place] [address] PCP - GeneralNurse Practitioner11/25/23
--- OUTSIDE RECORDS SUMMARY | 2025-09-21 09:00 | XMS_ITS | Clinical Summary ---
Author Organization [facility] Address [address] [place] [address] Care Team Providers Care Area Cleaner Name Role Phone Radha Dong MD Primary Care Provider [phone] Charissa Glover QUILT STUFFER Unavailable Allergies No known active allergies Medications MedicationSigDispense QuantityRefillsLast FilledStart DateEnd DateStatus Vit-Fe Fumarate-FA ( VITAMIN PO) Take by mouthActive Blood Glucose Monitoring Suppl (Blood Glucose Monitor System) w/Device kit Indications:History of gestational diabetes1 Units in the morning and 1 Units at noon and 1 Units in the evening and 1 Units before bedtime. Take with meals. Please fill whatever insurance will cover. Along with test strips and lancets. For 4x a day for 30 days. 4 refills. 1 kit Discontinued(Therapy completed) Alcohol Sheets (Alcoh-Wipe) sheet Indications:History of gestational diabetesTest daily before all meals/snacks and once before bedtime. 1 each Discontinued(Therapy completed) Lantus SoloStar 100 UNIT/ML pen Inject 10 units nightly in subcutaneous space, prime 2 units Discontinued(Therapy completed) predniSONE (Deltasone) 20 MG tablet Indications:RashTake 1 tablet (20 mg) by mouth in the morning and 1 tablet (20 mg) before bedtime. Do all this for 5 days. 10 tablet Expired Active Problems ProblemNoted DateDiagnosed DateBPPV (benign paroxysmal positional vertigo), unspecified gjtwqwmpwu49/02/7892Wgeilyvroad03/02/2023 Encounters DateTypeDepartmentCare DgvxQzpgelyuhvl30/29/2025 1:30 PM EDTPostpartum Visit [facility] [address] [place] [address] Tom Mendoza CNM Rash (Primary Dx)08/14/2025Patient Outreach [facility] [address] [place] [phone] Marci Carrion LPN 08/12/2025[facility] [address] [place] [address] Tom Mendoza CNM OB TJRDUB4808/11/2025[facility] [address] [place] [address] Tom Mendoza CNM HMHP GLUCOSE HQEYMMW24/14/2025Clinisync Result Encounter NOM[facility] External Department Unsolicited Tom Mendoza CNM 5Clinisync Result Encounter NOMS External Department Unsolicited Tom Mendoza CNM 08/06/2025 4:00 PM EDTAncillary Procedure [facility] [address] [address] Diet controlled gestational diabetes mellitus (GDM) in third trimester ([facility]) 08/06/20251634Pbwcsm90/03/2025Clinisync Result Encounter [facility]OMS External Department Unsolicited Tom Mendoza CNM 07/27/2025 4:30 PM EDTRoutine [facility] [address] [place] [address] Tom Mendoza CNM Non-reactive NST (non-stress test) (Primary Dx); NST (non-stress test) reactive ([facility]); History of gestational diabetes; Gestational diabetes mellitus (GDM) requiring insulin ([facility]); related condition in third trimester ([facility])07/27/2025amboo flowsheet [facility] [address] [place] [phone] Tom Mendoza CNM 07/23/2025 4:00 PM EDTAncillary Procedure [facility] [address] [facility] [address] [place] [phone] Diet controlled gestational diabetes mellitus (GDM) in third trimester ([facility]) 07/23/2025 3:15 PM EDTRoutine [facility] [address] [place] [phone] Tom Mendoza CNM NST (non-stress test) reactive ([facility]) (Primary Dx); History of gestational diabetes; Gestational diabetes mellitus (GDM) requiring insulin ([facility]); Encounter for care of first , third trimester ([facility]) 07/23/2025[facility] flowsheet [facility] [address] [place] [phone] Tom Mendoza CNM 07/23/20253864Nfmodq24/24/2025Telephone [facility] [address] [place] [phone] Radha Dong MD 07/16/2025 4:15 PM EDTAncillary Procedure [facility] [address] [facility] [address] [place] [phone] Diet controlled gestational diabetes mellitus (GDM) in third trimester ([facility]) 07/16/20256405Eeqmet48/17/2025 11:10 AM EDTRoutine [facility] [address] [place] [address] [place] [phone] Vicente Gatica, Third trimester ([facility]); 35 weeks gestation of ([facility]); Herpes zoster without ukhbcpdiqrfi69/17/2025linisync Result Encounter NOMS External Department Unsolicited Provider, Generic External Data 07/15/2025Telephone [facility] [address] [facility] [place] [address] Nancy Kaur LPN 07/15/2025[facility] flowsheet [facility] [address] [facility] [address] [phone] Vicente Gatica DO 07/09/2025 4:15 PM EDTAncillary Procedure [facility] [address] [facility] [address] [place] [phone] Diet controlled gestational diabetes mellitus (GDM) in third trimester ([facility]) 07/09/2025 1:20 PM EDTOffice Visit [facility] [address] [place] [phone] Radha Dong MD Herpes zoster with complication (Primary Dx)07/09/20250454Evtgqv23/11/2025Results Follow-Up [facility] [address] [place] [phone] Tom Mendoza CNM Bile acids, total07/06/2025 5:00 PM EDTRoutine [facility] [address] [place] [phone] Tom Mendoza CNM NST (non-stress test) reactive ([facility]) (Primary Dx); History of gestational diabetes; Encounter for care of first , third trimester ([facility]) 07/06/2025[facility] flowsheet [facility] [address] [place] [phone] Tom Mendoza CNM 07/02/2025 4:15 PM EDTAncillary Procedure [facility] [address] [facility] [address] [place] [phone] Diet controlled gestational diabetes mellitus (GDM) in third trimester ([facility]) 07/02/20255285Ydohgn07/02/2025 4:00 PM EDTRoutine [facility] [address] [place] [address] Tom Mendoza CNM Itching (Primary Dx); NST (non-stress test) reactive ([facility]); History of gestational diabetes; Encounter for care of first , third trimester ([facility]) 06/30/2025amboo flowsheet [facility] [address] [place] [phone] Tom Mendoza CNM 06/25/2025 4:15 PM EDTAncillary Procedure [facility] [address] [place] [phone] Diet controlled gestational diabetes mellitus (GDM) in third trimester ([facility]) 06/25/20252535Roykfi98/25/2025 4:15 PM EDTRoutine [facility] [address] [place] [phone] Tom Mendoza CNM NST (non-stress test) reactive ([facility]) (Primary Dx); History of gestational diabetes; Encounter for care of first , third trimester ([facility]) 06/22/2025[facility] [address] [place] [phone] Tom Mendoza CNM US biophysical profile wo non stress testing, US biophysical profile wo non stress testingfrom Last 3 Months Immunizations ImmunizationAdministration DatesNext DueHep B, Adolescent or Rckznqgfm1997 ,1997,1997HiB, nzrizwesvpr65/26/1999,1997,1997, 1997IPV05/15/2002MMR05/15/2002,12/24/1998OPV112/03/1996,1997, 1997 Family History Medical HistoryRelationNameCommentsEczemaMotherCharlene ReedHypertensionMother Parul [facility] Hospitalraina diseasePaternal GrandfatherRobert ReedRelationNameStatus CommentsFatherAliveMotherCharlene ReedAlivePaternal GrandfatherRobert ReedSister Alive Social History Tobacco UseTypesPacks/DayYears UsedDateSmoking Tobacco: FormerCigarettes Smokeless Tobacco: Never Tobacco Cessation:Counseling Given: Not Answered Alcohol UseStandard Drinks/WeekCommentsNot Currently4 (1 standard drink = 0.6 oz pure alcohol)caffeine 1-2 cups per day; drinks alcohol 2-4 times a [id number] Health LiteracyAnswerDate RecordedHow often do you need to have someone help you when you read instructions, pamphlets, or other written material from your doctor or pharmacy?Never07/29/2024Humiliation, Afraid, Rape, and Kick questionnaireAnswerDate RecordedWithin the last year, have you been afraid of your partner or ex-partner?No05/18/2023Within the last year, have you been humiliated or emotionally abused in other ways by your partner or ex-partner?No 05/18/2023Within the last year, have you been kicked, hit, slapped, or otherwise physically hurt by your partner or ex-partner?No05/18/2023Within the last year, have you been raped or forced to have any kind of sexual activity by your part ner or ex-partner?No05/18/2023Social Connection and Isolation PanelAnswerDate RecordedIn a typical week, how many times do you talk on the phone with family, friends, or neighbors?More than three times a week07/29/2024How often do you get together with friends or relatives?More than three times a week07/29/2024How often do you attend zoroastrianism or buddhist services?More than 4 times per year 07/29/2024o you belong to any clubs or organizations such as zoroastrianism groups, unions, fraternal or athletic groups, or school groups?No07/29/2024How often do you attend meetings of the clubs or organizations you belong to?Never07/29/2024 Are you , , , , never , or living with a partner?Living with qjwmfks8107/29/2024UDIT-CAnswerDate RecordedQ1: How often do you have a drink containing alcohol?2-4 times a month07/29/2024Q2: How many drinks containing alcohol do you have on a typical day when you are drinking?1 or Q3: How often do you have six or more drinks on one occasion?Never 07/29/2024Overall Financial Resource Strain (CARDIA)AnswerDate RecordedHow hard is it for you to pay for the very basics like food, housing, medical care, and heating?Not hard at all07/29/2024[facility] [place] of Occupational Health - Occupational Stress QuestionnaireAnswerDate RecordedDo you feel stress - tense, restless, nervous, or anxious, or unable to sleep at night because yourmind is troubled all the time - these days?Not at all07/29/2024Exercise Vital SignAnswer Date RecordedOn average, how many days per week do you engage in moderate to strenuous exercise (like a brisk walk)?7 days07/29/2024On average, how many minutes do you engage in exercise at this level?30 min07/29/2024Hunger Vital SignAnswerDate RecordedWithin the past 12 months, you worried that your food would run out before you got the money to buymore.Never true07/29/2024Within the past 12 months, the food you bought just didn't last and you didn't have money to get more.Never true07/29/2024RAPARE - TransportationAnswerDate RecordedIn the past 12 months, has lack of transportation kept you from medical appointments or from getting medications?No07/29/2024In the past 12 months, has lack of transportation kept you from meetings, work, or from getting things needed for daily living?No07/29/2024Housing Stability Vital SignAnswerDate RecordedIn the last 12 months, was there a time when you were not able to pay the mortgage or rent on time?No05/18/2023In the last 12 months, how many places have you lived?In the last 12 months, was there a time when you did not have a steady place to sleep or slept in [place] (including now)?No 05/18/2023Housing Stability Vital SignAnswerDate RecordedIn the last 12 months, was there a time when you were not able to pay the mortgage or rent on time?No 07/29/2024In the past 12 months, how many times have you moved where you were living?t any time in the past 12 months, were you homeless or living in a intermediate (including now)?No07/29/2024CommentsNoSex and Gender InformationValueDate RecordedSex Assigned at YzvqbAhimtp85/21/2023 2:07 PM EDT Legal PynCbgdhk63/15/2023 8:11 PM EDTGender LqujjbirJlkfna54/21/2023 2:07 PM EDT Sexual KymgslbxkqgLjtopqfn18/21/2023 2:07 PM EDT Last Filed Vital Signs Vital SignReadingTime TakenCommentsBlood Zvsvjtia350/8010 1:37 PM EDT Cfybb5929 1:33 PM FKFCuoeinwlyol62 ??C (98.6 ??F)11/26/2023 5:05 PM EST Respiratory Jtwc423507/09/2025 1:33 PM EDTOxygen Oxbzsmqaii86%07/09/2025 1:33 PM EDTInhaled Oxygen Concentration--Pifxcv73.5 kg (184 lb)08/26/2025 1:37 PM EDT Bwcbla883 cm (5' 3 )07/09/2025 1:33 PM EDTBody Mass Index32.5909 1:33 PM EDT Plan of Treatment DateTypeDepartmentCare Team (Latest Contact Info)Uvrldbbqcpu11/03/2025 11:00 AM ESTPostpartum Visit [facility] [address] [place] [address] Tom Mendoza CNM [address] [place] [address] Health MaintenanceDue DateLast DoneCommentsCOVID-19 Vaccine (2024- season) 2025Influenza Vaccine (#1)2025Pneumococcal Vaccine: Pediatrics (0 to 5 Years) and At-Risk Patients (6 to 64 Years)Aged OutNo longer eligible based on patient's age to complete this topic Procedures Procedure NamePriorityDate/TimeAssociated DiagnosisCommentsHP GLUCOSE FASTING Kuagmbt4808/11/2025 6:26 AM EDT ALL CBC WITH AUTO DPGHTgfdgjt02/14/2025 6:01 AM EDT TBH DRUG SCREEN RAPID (URINE)Tnhzpjp5708/09/2025 5:15 PM EDT HP CBC WITH PLATELET NO AGZDCXQNIQVEMjhtnvq20/12/2025 5:15 PM EDT US BIOPHYSICAL PROFILE WO NON STRESS LEMZSDCIeisltk54/09/2025 4:36 PM EDT Diet controlled gestational diabetes mellitus (GDM) in third trimester ([facility]) US OB GCSGBJ9007/31/2025 2:03 PM EDT US BIOPHYSICAL PROFILE WO NON STRESS VBENDJEMiwukck28/25/2025 4:32 PM EDT Diet controlled gestational diabetes mellitus (GDM) in third trimester ([facility]) US BIOPHYSICAL PROFILE WO NON STRESS NNEQDRRXhlelen67/18/2025 4:20 PM EDT Diet controlled gestational diabetes mellitus (GDM) in third trimester ([facility]) POCT URINALYSIS ZSSMNBYTYyvabfx28/17/2025 11:27 AM EDT Third trimester ([facility]) STREP GP B CULTURE+OIICRhnsvbq94/17/2025 11:10 AM EDT US BIOPHYSICAL PROFILE WO NON STRESS WNOKBTZXpaeoyf30/11/2025 4:22 PM EDT Diet controlled gestational diabetes mellitus (GDM) in third trimester ([facility]) US OB FOLLOW UP TRANSABDOMINAL LUPBTVLKPjwblzh00/04/2025 4:45 PM EDT Diet controlled gestational diabetes mellitus (GDM) in third trimester ([facility]) OOKGQRPXolkexc22/02/2025 4:11 PM EDT Itching QDDZCITtxajnj90/02/2025 4:11 PM EDT Itching BILE ACIDS, WFDYYBamhebs83/02/2025 4:11 PM EDT Itching HEPATIC FUNCTION VZNCWWvpmsnr18/02/2025 4:11 PM EDT Itching US BIOPHYSICAL PROFILE WO NON STRESS LFKZSKPYoquzdb87/28/2025 4:30 PM EDT Diet controlled gestational diabetes mellitus (GDM) in third trimester ([facility]) from Last 3 Months Results * (ABNORMAL) HP GLUCOSE FASTING (08/11/2025 6:26 AM EDT)ComponentValueRef RangeTest MethodAnalysis TimePerformed AtPathologist SignatureTBH GLUCOSE IHAAABH109(H)<95 mg/dLTBHSpecimen (Source)Anatomical Location / Laterality Collection Method / VolumeCollection TimeReceived Time08/11/2025 6:26 AM EDT 08/11/2025 6:29 AM EDT Narrative [facility] - 08/11/2025 6:44 AM EDT Authorizing ProviderResult TypeResult StatusValerirupert Mendoza [facility]ITALLINISYNCFinal ResultPerforming OrganizationAddressCity/State/ZIP CodePhone Number [facility] * (ABNORMAL) ALL CBC WITH AUTO DIFF (08/11/2025 6:01 AM EDT)ComponentValueRef RangeTest MethodAnalysis TimePerformed AtPathologist SignatureTBH WBC13.0(H) 4.0 - 11.0 10 3/uLTBHTBH RBC3.80(L)4.20 - 5.40 10 6/uLTBHTBH HGB10.6(L)12.0 - 16.0 g/dLTBHTBH HCT32.4(L)36.0 - 48.0 %TBHTBH MCV85.381.0 - 99.0 fLTBHTBH MCH 27.926.7 - 34.0 pgTBHTBH MCHC32.729.9 - 35.2 g/dLTBHTBH RDW13.211.0 - 15.0 % TBHTBH BBO256911 - 450 10 3/uLTBHTBH MPV10.99.5 - 13.5 fLTBHNEUTROPHILS PERCENT AUTO63.943.0 - 75.0 %TBHLYMPHOCYTES PERCENT AUTO25.720.5 - 60.0 %TBH MONOCYTES PERCENT AUTO8.91.7 - 12.0 %TBHTBH EO %0.6(L)0.9 - 7.0 %TBHBASOPHILS PERCENT AUTO0.40.2 - 2.0 %TBHIMMATURE GRANULOCYTES PCT AUTO0.50.0 - 0.5 %TBH NEUTROPHILS ABSOLUTE AUTO8.3(H)1.4 - 6.5 10 3/uLTBHLYMPHOCYTES ABSOLUTE AUTO 3.31.2 - 3.8 10 3/uLTBHMONOCYTES ABSOLUTE AUTO1.2(H)0.3 - 0.8 10 3/uLTBHTBH EO #0.10.0 - 0.7 10 3/uLTBHBASOPHILS ABSOLUTE AUTO0.10.0 - 0.1 10 3/uLTBHIMMATURE GRANULOCYTES ABS AUTO0.07(H)0.00 - 0.03 10 3/uLTBHSpecimen (Source)Anatomical Location / LateralityCollection Method / VolumeCollection TimeReceived Time 08/11/2025 6:01 AM EDT1 6:11 AM EDT Narrative [facility] - 08/11/2025 6:21 AM EDT Authorizing ProviderResult TypeResult StatusValejune Mendoza [facility]ITALLINISYNCFinal ResultPerforming OrganizationAddressCity/State/ZIP CodePhone Number [facility] * TBH DRUG SCREEN RAPID (URINE) (08/09/2025 5:15 PM EDT)ComponentValueRef Range Test MethodAnalysis TimePerformed AtPathologist SignatureCANNABINOID SCREEN URINENEGATIVENEGATIVETBHPHENCYCLIDINE SCREEN URINENEGATIVENEGATIVETBHCOCAINE SCREEN URINENEGATIVENEGATIVETBHMETHAMPHETAMINES SCREEN URINENEGATIVENEGATIVE TBHOPIATE SCREEN URINENEGATIVENEGATIVETBHAMPHETAMINE SCREEN URINENEGATIVE NEGATIVETBHBENZODIAZEPINES SCREEN URINENEGATIVENEGATIVETBHTRICYCLIC ANTIDEPRESSANT URINENEGATIVENEGATIVETBHMETHADONE SCREEN URINENEGATIVENEGATIVE TBHBARBITURATES SCREEN URINENEGATIVENEGATIVETBHOXYCODONE SCREEN URINENEGATIVE NEGATIVETBHBUPRENORPHINE SCREEN URINENEGATIVENEGATIVETBHComment: DRUG CLASS TEST SYSTEM CUT-OFF CONCENTRATIONS ARE FOLLOWS: AMP (Amphetamine): 500 ng/mL BAR (Barbiturates): 200 ng/mL BZO (Benzodiazepines): 150 ng/mL BUP (Buprenorphine): 10 ng/mL BROOKS (Cocaine): 150 ng/mL mAMP (Methamphetamine): 500 ng/mL MTD (Methadone): 200 ng/mL OPI (Opiates): 100 ng/mL OXY (Oxycodone): 100 ng/mL PCP (Phencyclidine): 25 ng/mL THC (Cannabinoids): 50 ng/mL TCA (Trycyclic Antidepressants): 300 ng/mL Specimen (Source)Anatomical Location / LateralityCollection Method / Volume Collection TimeReceived Time08/09/2025 5:15 PM EDT1 5:25 PM EDT Narrative CLINISYNC - 08/09/2025 5:39 PM EDT Authorizing ProviderResult TypeResult StatusValejune Mendoza [facility]ITALLINISYNCFinal ResultPerforming OrganizationAddressCity/State/ZIP CodePhone Number [facility] * (ABNORMAL) [facility] CBC WITH PLATELET NO DIFFERENTIAL (08/09/2025 5:15 PM EDT) ComponentValueRef RangeTest MethodAnalysis TimePerformed AtPathologist SignatureTBH WBC10.14.0 - 11.0 10 3/uLTBHTBH RBC4.254.20 - 5.40 10 6/uLTBHTBH HGB12.212.0 - 16.0 g/dLTBHTBH HCT35.7(L)36.0 - 48.0 %TBHTBH MCV84.081.0 - 99.0 fLTBHTBH MCH28.726.7 - 34.0 pgTBHTBH MCHC34.229.9 - 35.2 g/dLTBHTBH RDW13.2 11.0 - 15.0 %TBHTBH BLX292905 - 450 10 3/uLTBHTBH MPV11.19.5 - 13.5 fLTBH Specimen (Source)Anatomical Location / LateralityCollection Method / Volume Collection TimeReceived Time08/09/2025 5:15 PM EDT1 5:25 PM EDT Narrative [facility] - 08/09/2025 5:29 PM EDT Authorizing ProviderResult TypeResult iDanelys ALVAREZLINISYNCFinal ResultPerforming OrganizationAddressCity/State/ZIP CodePhone Number [facility] * US biophysical profile wo non stress testing (08/06/2025 4:36 PM EDT) Only the most recent of5 resultswithin the time period is included. Anatomical RegionLateralityModalityBodyUltrasoundSpecimen (Source)Anatomical Location / LateralityCollection Method / VolumeCollection TimeReceived Time 08/09/2025 3:57 PM EDT Impressions 08/10/2025 8:00 AM EDT Anterior placenta Grade 2 and normal biophysical profile 06/05. TRANSCRIBED BY: ? ELECTRONICALLY SIGNED BY: Rafael Mae MD Narrative 08/10/2025 8:00 AM EDT FINDINGS: ?? Breathing Movements ?2 ??Gross Body Movements ? 2 ?? Tone ?2 Qualitative amniotic fluid volume ?2 A single, viable intrauterine is present. ??The placenta is ??anterior, Grade not associated with the cervical os. ?? Procedure Note Rafael Mae MD - 08/10/2025 FINDINGS: Breathing Movements 2 Gross Body Movements 2 Tone 2 Qualitative amniotic fluid volume 2 A single, viable intrauterine is present. The placenta isanterior, Grade not associated with the cervical os. IMPRESSION: Anterior placenta Grade 2 and normal biophysical profile 06/05. TRANSCRIBED BY: ELECTRONICALLY SIGNED BY: Rafael Mae MD Authorizing ProviderResult TypeResult Dianelys Mendoza CNMI OB US PROCEDURESFinal Result * US OB GROWTH (07/31/2025 2:03 PM EDT)Anatomical RegionLateralityModalityOther Specimen (Source)Anatomical Location / LateralityCollection Method / Volume Collection TimeReceived Time07/31/2025 2:03 PM EDT Narrative 07/31/2025 2:06 PM EDT [facility] ?[address] ? [place] [address] ? Ultrasound Report ? Signed ? Patient: MARTHA DEJESUS R ? MR#: [id number] ?? : 1995 ?Acct:[id number] ?? Age/Sex: 30 / F ?ADM Date: 07/30/25 ?? Loc: [facility] ??252-1 ? Attending Dr: TOM MENDOZA APRN, CNM ? Ordering Physician: TOM MENDOZA APRN, CNM ?? Date of Service: 07/30/25 ?? Procedure(s): US OB growth ?? Accession Number(s): [id number] ? cc: TOM MENDOZA APRN, CNM ? [facility] ? [address] ? [place] [address] ? Patient Name: ?? MARTHA DEJESUS ? MRN: [facility]:[id number] ? date: 1995 ?Sex: F ?? Assigned Patient Location: ?? Current Patient Location: [facility] ?? Accession/Order Number: [id number] ?? Exam Date: 07/30/2025 ??15:58 ?Report Date: 07/31/2025 ??14:03 ? At the request of: ?? TOM ??YAMILEX ??LINUX SUPPORT ENGINEER CNM ? Procedure: ??US OB growth ? Growth ultrasound. ? Reason for exam: Gestational diabetes. ? COMPARISON: None. ? TECHNIQUE: Transabdominal imaging of the gravid uterus was obtained. ? FINDINGS: Single live intrauterine 36 weeks 1 day by anatomic ?? measurements. ??Please note that head circumference is less than 3rd ?? percentile. ??DIONNE is normal at 10.29 cm. ??Estimated weight is 2904 g. ? heart rate 1 27 bpm. ??Placenta is posterior in location. ? US/US OB growth ?? IMPRESSION: ? Single live intrauterine 36 weeks 1 day by anatomic measurements. ? Appropriate growth based on dating. ??Please note that head circumference is ?? less than 3rd percentile. ? Impression dictated by: Rafael Leigh Jr., D.O. ??07/31/2025 2:03 PM ? Dictation Location: RADIO-PC-23 ? Electronically authenticated by: [id number] ??Y ?? Date: 07/31/2025 ??14:03 ? Dictated By: ?Rafael Leigh M.D. ? Signed By: ?07/31/ 1406 ? DD/ 1403 ? TD/TT: ? Human Factors Engineer: Procedure Note Radiology, Radiologist, - 07/31/2025 [place] [address] Ultrasound Report Signed Patient: MARTHA DEJESUS RMR#: [id number] : 1995Acct:[id number] Age/Sex: 30 / FADM Date: 07/30/25 Loc: [facility] 252-[address]: TOM MENDOZA APRN, CNM Ordering Physician: TOM MENDOZA APRN, CNM Date of Service: 07/30/25 Procedure(s): US OB growth Accession Number(s): [id number] cc: TOM MENDOZA APRN, CNM The [place] [address] Patient Name: MARTHA DEJESUS MRN: [facility]:[id number] date: 1995 Sex: F Assigned Patient Location: Current Patient Location: [facility] Accession/Order Number: [id number] Exam Date: 07/30/2025 15:58 Report Date: 07/31/2025 [...] Jr., DCristhianOCristhian 07/31/2025 2:03 PM Dictation Location: [place] [address] Electronically authenticated by: [id number] Y Date: 4:03 Dictated By: Rafael Leigh M.D. Signed By:07/31/25 1406 DD/ 1403 TD/TT: Human Factors Engineer: Authorizing ProviderResult TypeResult StatusTom Danielle Mendoza [facility]ISYNC [facility] Final Result * (ABNORMAL) POCT urinalysis dipstick manually resulted (07/15/2025 11:27 AM EDT)ComponentValueRef RangeTest MethodAnalysis TimePerformed AtPathologist SignatureColor, UAYellowClarity, UAClearGlucose, UANegativeNegative - 2000(110) ++++ mg/dLBilirubin, UANegativeNegative - 4(70) +++ mg/dLKetones, UA NegativeNegative - 160(16) ++++ mg/dLSpec Grav, UA1.0101 - 1.03Blood, UA NegativeNegative - 50 Fernando/mcLpH, UA6.05 - 9Protein, UANegativeNegative - 2000(20) ++++ mg/dLUrobilinogen, UA1.00.2 - 12 mg/dLLeukocytes, UAPositive Negative - 500+++ Jose/mcLComment:3+Nitrite, UANegativeNegative - Positive Specimen (Source)Anatomical Location / LateralityCollection Method / Volume Collection TimeReceived ScptEbsgh99/17/2025 11:27 AM EDT Narrative Authorizing ProviderResult TypeResult StatusCorey Gavi DOPOINT OF CARE TEST ENTER/EDIT ORDERABLESFinal Result * STREP GP B CULTURE+RFLX (07/15/2025 11:10 AM EDT)ComponentValueRef RangeTest MethodAnalysis TimePerformed AtPathologist SignatureSTREP GP B CULTURE+RFLX ??Strep Gp B Culture+Rflx TBHSTREP GP B CULTURE+RFLXNegativeTBHSTREP GP B CULTURE+RFLXCenters for Disease Control and Prevention (CDC) andTBHSTREP GP B CULTURE+RFLXAmerican Congress of Obstetricians and GynecologistsTBHSTREP GP B CULTURE+RFLX(ACOG) guidelines for prevention of group BTBHSTREP GP B CULTURE+RFLXstreptococcal (GBS) disease specify co-collection ofTBHSTREP GP B CULTURE+RFLXa vaginal and rectal swab specimen to maximizeTBHSTREP GP B CULTURE+RFLXsensitivity of GBS detection. Per the CDC and ACOG,TBHSTREP GP B CULTURE+RFLXswabbing both the lower vagina and rectumTBHSTREP GP B CULTURE+RFLXsubstantially increases the yield of detectionTBHSTREP GP B CULTURE+RFLXcompared with sampling the vagina alone.TBH STREP GP B CULTURE+RFLXPenicillin G, ampicillin, or cefazolin are indicatedTBH STREP GP B CULTURE+RFLXfor intrapartum prophylaxis of GBSTBHSTREP GP B CULTURE+RFLXcolonization. Reflex susceptibility testing should beTBHSTREP GP B CULTURE+RFLXperformed prior to use of clindamycin only on GBSTBHSTREP GP B CULTURE+RFLXisolates from penicillin-allergic women who areTBHSTREP GP B CULTURE+RFLXconsidered a high risk for anaphylaxis. Treatment withTBHSTREP GP B CULTURE+RFLXvancomycin without additional testing is warranted ifTBHSTREP GP B CULTURE+RFLXresistance to clindamycin is noted.TBHSTREP GP B CULTURE+RFLX Performed at: - [facility]HST[facility] GP B CULTURE+[id number] [place], [place] [id number] GP B CULTURE+RFLXLab Director: Cirilo Arriaga PhD, Phone: [phone] (Source)Anatomical Location / Laterality Collection Method / VolumeCollection TimeReceived Time07/15/2025 11:10 AM EDT 07/16/2025 6:10 AM EDT Narrative SUNIL - 07/20/2025 1:15 PM EDT Authorizing ProviderResult TypeResult StatusGeneric External Data ProviderLAB BLOOD ORDERABLESFinal ResultPerforming OrganizationAddressCity/State/ZIP Code Phone Number [facility] * OB follow up transabdominal approach (07/02/2025 4:45 PM EDT)Anatomical RegionLateralityModalityBodyUltrasoundSpecimen (Source)Anatomical Location / LateralityCollection Method / VolumeCollection TimeReceived Time08/11/2025 12:13 PM EDT Impressions 08/11/2025 2:17 PM EDT Single, live intrauterine , current sonographic age of 33 weeks and 3 days, with an estimated date of delivery of August 17, 2025. * ??Estimated Weight (g) by Percentile is based upon an accurate estimated age based onlast menstrual period. ?? TRANSCRIBED BY: ? ELECTRONICALLY SIGNED BY: Rafael Mae MD Narrative 08/11/2025 2:17 PM EDT FINDINGS: A single, live intrauterine is present with normal cardiac rate of 153 ??beats per minute. Normal activity and amniotic fluid volume. Amniotic fluid index is 10.0 ??cm. ??Morphology is grossly normal. The cervix is long and closed,5.2 cm. ??The placenta is fundal Grade 1, not associated with the cervical os. ??The current sonographic age is 33 ??weeks and 3 days, based on the following measurements: BPD ?8.3cm (33 weeks, 2 days Head Circumference ?30.4cm (33 weeks, 6 days) Abdominal Circumference ?30.3cm (34 weeks, 1 days) Femur Length ?6.3cm ( 32weeks, 3 days) Presentation ? Cephalic ? Placenta ? Fundal Weight (g) by Percentile ??31.9 % * These measurements result in an estimated date of delivery of August 17, 2025. ?? The current estimated weight is ??2229 ??grams (4 ??pound, 15 ??ounces). ?? Procedure Note Rafael Mae MD - 08/11/2025 [...] BY: ELECTRONICALLY SIGNED BY: Rafael Mae MD Authorizing ProviderResult TypeResult [facility] US PROCEDURESFinal Result * Bile acids, total (06/30/2025 4:11 PM EDT)ComponentValueRef RangeTest Method Analysis TimePerformed AtPathologist SignatureBILE ACIDS, TOTAL60 - 10 umol/L QUESTSpecimen (Source)Anatomical Location / LateralityCollection Method / VolumeCollection TimeReceived TimeBloodVenous blood specimen / Unknown 06/30/2025 4:11 PM EDT06/30/2025 4:12 PM EDT Narrative Resulting Agency Comment Performing Organization Information ?Site ID: AMD ?Name: Kenia Sanchez/Asim RICHARDS ?Address: [address] [place] [address] [address] ?Director: Anthony De La Paz M.D.,PhD Authorizing ProviderResult TypeResult Dianelys [facility] BLOOD ORDERABLESFinal ResultPerforming OrganizationAddressCity/State/ZIP CodePhone Number [facility] * Lipase (06/30/2025 4:11 PM EDT)ComponentValueRef RangeTest MethodAnalysis Time Performed AtPathologist [id number] - 60 U/LQUESTSpecimen (Source) Anatomical Location / LateralityCollection Method / VolumeCollection Time Received TimeBloodVenous blood specimen / Ilxmvtc9606/30/2025 4:11 PM EDT 06/30/2025 4:12 PM EDT Narrative Resulting Agency Comment Performing Organization Information ?Site ID: QPT ?Name: [facility] [address] ?Address: [address] [place] [address], [address] [place] [address] ?Director: Stevie Doan MD Authorizing ProviderResult TypeResult StatusValerie Danielle Charltono CNMLAB BLOOD ORDERABLESFinal ResultPerforming OrganizationAddressty/[facility] CodePhone Number [facility] * Amylase (06/30/2025 4:11 PM EDT)ComponentValueRef RangeTest MethodAnalysis TimePerformed AtPathologist [id number] - 101 U/LQUESTSpecimen (Source)Anatomical Location / LateralityCollection Method / VolumeCollection TimeReceived TimeBloodVenous blood specimen / Qpwfehm4706/30/2025 4:11 PM EDT 06/30/2025 4:12 PM EDT Narrative Resulting Agency Comment Performing Organization Information ?Site ID: QPT ?Name: [employer] [facility] [address] ?Address: [address] [place] [address], [address] [place] [address] ?Director: Stevie Doan MD Authorizing ProviderResult TypeResult StatusValerie L Lateshao CNMLAB BLOOD ORDERABLESFinal ResultPerforming OrganizationAddressty/[facility]/ZIP CodePhone Number [facility] * (ABNORMAL) Hepatic function panel (06/30/2025 4:11 PM EDT)ComponentValueRef RangeTest MethodAnalysis TimePerformed AtPathologist SignaturePROTEIN, TOTAL 6.0(L)6.1 - 8.1 g/dLQUESTALBUMIN3.3(L)3.6 - 5.1 g/dLQUESTGLOBULIN2.71.9 - 3.7 g/dL (calc)QUESTALBUMIN/GLOBULIN RATIO1.21.0 - 2.5 (calc)QUESTBILIRUBIN, TOTAL 0.20.2 - 1.2 mg/dLQUESTBILIRUBIN, DIRECT0.0< OR = 0.2 mg/dLQUESTBILIRUBIN, INDIRECT0.20.2 - 1.2 mg/dL (calc)QUESTALKALINE [id number] - 125 U/LQUEST [id number] - 30 U/[id number] - 29 U/LQUESTSpecimen (Source)Anatomical Location / LateralityCollection Method / VolumeCollection TimeReceived TimeBloodVenous blood specimen / Xmrqpzl6906/30/2025 4:11 PM EDT06/30/2025 4:12 PM EDT Narrative Resulting Agency Comment Performing Organization Information ?Site ID: QPT ?Name: [facility] [address] ?Address: [address] [place] [address], [address] [place] [phone] ?Director: Stevie Doan MD Authorizing ProviderResult TypeResult StatusValerirupert Mendoza CNMLAB BLOOD ORDERABLESFinal ResultPerforming OrganizationAddressCity/State/ZIP CodePhone Number [facility]ST from Last 3 Months Insurance Care Teams Team MemberRelationshipSpecialtyStart DateEnd Radha Dong MD [address] [place] [address] [facility] - [facility] Charissa Glover NP PCP - [facility]01/27/25
--- OUTSIDE RECORDS SUMMARY | 2025-09-21 09:00 | XMS_ITS | Encounter Summary ---
Author Organization [facility] Address [address] [place] [address] Care Team Providers Care Barrel Rifler Hook Name Role Phone Radha Dong MD Primary Care Provider [phone] Charissa Glover SENIOR FINANCIAL REPORTING ACCOUNTANT Unavailable Encounter Details DateTypeDepartmentCare Team (Latest Contact Info)Gbqfqmyrjpb72/17/2025Telephone [facility] Ford [facility] [address] [place] [address] [place] [address] Nancy Kaur LPN Social History Tobacco UseTypesPacks/DayYears UsedDateSmoking Tobacco: FormerCigarettes Smokeless Tobacco: NeverAlcohol UseStandard Drinks/WeekCommentsNot Currently4 (1 standard drink = 0.6 oz pure alcohol)caffeine 1-2 cups per day; drinks alcohol 2-4 times a [id number] Health LiteracyAnswerDate RecordedHow often do you need to have someone help you when you read instructions, pamphlets, or other written material from your doctor or pharmacy?Never07/29/2024Humiliation, Afraid, Rape, and Kick questionnaireAnswerDate RecordedWithin the last year, have you been afraid of your partner or ex-partner?No05/18/2023Within the last year, have you been humiliated or emotionally abused in other ways by your partner or ex-partner?No05/18/2023Within the last year, have you been kicked, hit, slapped, or otherwise physically hurt by your partner or ex-partner?No05/18/2023Within the last year, have you been raped or forced to have any kind of sexual activity by your partner or ex-partner?No05/18/2023Social Connection and Isolation Panel AnswerDate RecordedIn a typical week, how many times do you talk on the phone with family, friends, or neighbors?More than three times a week07/29/2024How often do you get together with friends or relatives?More than three times a week 07/29/2024How often do you attend amish or sabianist services?More than 4 times per year07/29/2024o you belong to any clubs or organizations such as amish groups, unions, fraternal or athletic groups, or school groups?No07/29/2024How often do you attend meetings of the clubs or organizations you belong to?Never 07/29/2024re you , , , , never , or living with a partner?Living with cwepcui9507/29/2024UDIT-CAnswerDate RecordedQ1: How often do you have a drink containing alcohol?2-4 times a month07/29/2024Q2: How many drinks containing alcohol do you have on a typical day when you are drinking?1 or Q3: How often do you have six or more drinks on one occasion?Never07/29/2024Overall Financial Resource Strain (CARDIA)AnswerDate RecordedHow hard is it for you to pay for the very basics like food, housing, medical care, and heating?Not hard at all07/29/2024Finlifepoint hospitals [place] [facility] - Occupational Stress QuestionnaireAnswerDate RecordedDo you feel stress - tense, restless, nervous, or anxious, or unable to sleep at night because yourmind is troubled all the time - these days?Not at all07/29/2024 Exercise Vital SignAnswerDate RecordedOn average, how many days per week do you engage in moderate to strenuous exercise (like a brisk walk)?7 days07/29/2024On average, how many minutes do you engage in exercise at this level?30 min 07/29/2024Hunger Vital SignAnswerDate RecordedWithin the past 12 months, you worried that your food would run out before you got the money to buymore.Never true10/01/2024Within the past 12 months, the food you bought just didn't last and you didn't have money to get more.Never true07/29/2024RAPARE - TransportationAnswerDate RecordedIn the past 12 months, has lack of transportation kept you from medical appointments or from getting medications?No 07/29/2024In the past 12 months, has lack of transportation kept you from meetings, work, or from getting things needed for daily living?No07/29/2024 Housing Stability Vital SignAnswerDate RecordedIn the last 12 months, was there a time when you were not able to pay the mortgage or rent on time?No05/18/2023In the last 12 months, how many places have you lived?In the last 12 months, was there a time when you did not have a steady place to sleep or [facility] (including now)?No05/18/2023Housing Stability Vital SignAnswerDate RecordedIn the last 12 months, was there a time when you were not able to pay the mortgage or rent on time?No07/29/2024In the past 12 months, how many times have you moved where you were living?t any time in the past 12 months, were you homeless or living in a penitentiary (including now)?No07/29/2024 CommentsYesSex and Gender InformationValueDate RecordedSex Assigned at VvataJzkzoh04/21/2023 2:07 PM EDTLegal HtpOgaehp10/15/2023 8:11 PM EDTGender XvazxnprViftgh19/21/2023 2:07 PM EDTSexual WwuzsuveikuMfbfgrtm88/21/2023 2:07 PM EDTdocumented as of this encounter Miscellaneous Notes * Telephone Encounter - Nancy Kaur LPN - 07/15/2025 11:47 AM EDT Pt to be induced on 08/06/25. 1 cm on 07/15/25 documented in this encounter Plan of Treatment DateTypeDepartmentCare Team (Latest Contact Info)Hoxsjhvctnk90/03/2025 11:00 AM ESTPostpartum Visit [facility] [address] [place] [address] Rosalind Mendoza, CNM [address], [place] [id number] documented as of this encounter Visit Diagnoses Not on filedocumented in this encounter Care Teams Team MemberRelationshipSpecialtyStart DateEnd Date Radha Dong MD [address] [place] [address] PCP - GeneralFamily Medicine05/19/23 Charissa Glover NP PCP - Jose Chopra01/27/25documented as of this encounter
== END 2025-09-21 15:22 | disposition home or self-care (01) ==
PROVIDERS: Visit Provider Obstetrics & Gynecology
DX: Z39.1 Encounter for care and examination of lactating mother (principal)
CPT/HCPCS: G0463